=== PATIENT | male | born 1960 | race Caucasian/White ===

== ENCOUNTER 2021-04-02 15:09 | Inpatient (IN) | payer OTHER, SELFPAY ==
--- NOTE | ~2021-04-02 | CT_ITS ---
EXAMINATION: CT HEAD WITHOUT CONTRAST (STROKE PROTOCOL) CLINICAL INFORMATION: Stroke protocol. On Coumadin. Fell and hit head COMPARISON: Head CT 02/27/2018 TECHNIQUE: Contiguous axial imaging was performed from the skull base to vertex without intravenous administration of contrast. This CT examination was performed using dose optimization techniques as appropriate, variously including the following: *Automated exposure control *Adjustment of mA and/or kV according to patient size (this includes techniques or standardized protocols for targeted exams where dose is matched to indication/reason for exam; i.e. extremities or head) *Use of iterative reconstruction technique DLP: 745 mGy-cm FINDINGS: There is no intracranial hemorrhage, hematoma, or extra-axial fluid collection. The ventricles and sulci are similar in configuration to the prior study. No ventriculomegaly. Similar appearance of right occipital encephalomalacia, present previously and unchanged. No new loss of coleman-white differentiation to suggest acute large vessel territory ischemia. Similar appearance of patchy periventricular and subcortical white matter hypodensity. No mass effect or midline shift. The calvarium appears intact. There is no pneumocephalus or orbital emphysema. The visualized sinuses and middle ears and mastoid air cells show no significant mucosal thickening. There are no air-fluid levels. CT/CT head for stroke IMPRESSION: No acute intracranial pathology. This critical result was discussed with Ash Garcia MD by telephone at 04/05/2021 3:27 PM and it was ascertained that the content and urgency of the report was understood at the time of direct communication.
[2021-04-02 18:00] VITALS: BP 124/81; PULSE 85; RESP 18; TEMP 36.6; O2SAT 97
[2021-04-02 18:50] VITALS: BMI 27.2
--- NOTE | 2021-04-02 19:40 | PC.NURSE ---
Nursing admission note: Bipolar disorder with psychotic tendencies. Referred for admission by N/CARE team, patient was a direct admit from [facility]. Patient is admitted due to auditory hallucinations which are telling the patient he should kill himself. Patient denies plan but states he could go home and just cut myself, simple . Signed a conditional voluntary for admission. Alert and oriented x3, cooperative with the admission process, engages and answers questions appropriately. Affect is depressed. Patient is dressed in hospital attire. Speech is clear. Patient states he is allergic to seafood and PCN. Patient has bruising on left elbow which runs down the entire forearm, from fall during previous stay at [facility]. From notes it is indicated that the patient dislocated his elbow at the time. Patient currently rates elbow pain 5/10. Patient denies drug or alcohol use. Covid negative. Patient denies smoking history. Patient notes from [facility] indicate that he had atelectasis on his chest X-ray. Pt denies breathing difficulty at this time. Patient states that he has a visiting nurse that helps him manage his diabetes. Pt currently lives with aunt. States he feels safe at home. Denies legal entanglements at this time. Patient placed on 5 min safety checks , was oriented to dewy rose. See nursing assessment/crisis evaluation for further details.
[2021-04-02 20:46] LABS: Glucose, Whole Blood 320 mg/dL (60-115)
[2021-04-02] MEDS: traZODone HCL 100 MG TABLET 200 MG PO (20:57)
[2021-04-02] MEDS: traZODone HCL 100 MG TABLET PO (20:57)
[2021-04-02] MEDS: Insulin Lispro 100 UNIT/ML 3 ML VIAL SUBCUT (20:58)
[2021-04-02] MEDS: Gabapentin 300 MG CAPSULE PO (20:58)
[2021-04-02] MEDS: chlorproMAZINE HCl 25 MG TABLET 50 MG PO (20:58)
[2021-04-02] MEDS: OXcarbazepine 300 MG TABLET 600 MG PO (20:58)
[2021-04-02] MEDS: Insulin Glargine,Hum.rec.anlog 100 UNIT/ML 10 ML VIAL 35 UNIT SUBCUT (20:59)
[2021-04-02 21:20] VITALS: BP 130/70; PULSE 89; TEMP 36.1; O2SAT 100
[2021-04-02 21:23] VITALS: BP 130/70; PULSE 89
[2021-04-02] MEDS: carvediloL 6.25 MG TABLET PO (21:23)
[2021-04-02] MEDS: Acetaminophen 325 MG TABLET 650 MG PO (21:23)
[2021-04-02] MEDS: LORazepam 1 MG TABLET PO (21:24)
[2021-04-03] MEDS: Omeprazole 20 MG CAPSULE.DR PO (06:45)
[2021-04-03 07:17] LABS: INTERNATIONAL NORM RATIO 2.2 (0.9-1.1)
[2021-04-03 07:42] LABS: Cholesterol 112 mg/dL; Creatinine Clr Calc Pharmacy 97.4; Estimated Glomerular Filt Rate > 60; HDL Cholesterol 30 mg/dL; LDL Cholesterol Calculated 47 mg/dl; Triglycerides 179 mg/dL
[2021-04-03] MEDS: chlorproMAZINE HCl 25 MG TABLET 50 MG PO ×2 (08:45→12:29)
[2021-04-03] MEDS: Aspirin 81 MG TAB.CHEW PO (08:45)
[2021-04-03] MEDS: OXcarbazepine 300 MG TABLET 600 MG PO ×2 (08:46→20:46)
[2021-04-03] MEDS: Atorvastatin Calcium 20 MG TABLET PO (08:47)
[2021-04-03] MEDS: glipiZIDE XL 10 MG TAB.ER.24 PO (08:47)
[2021-04-03] MEDS: Cholecalciferol (Vitamin D3) 25 MCG TABLET PO (08:47)
[2021-04-03 08:48] VITALS: BP 111/64; PULSE 83
[2021-04-03] MEDS: Gabapentin 300 MG CAPSULE PO ×2 (08:48→20:47)
[2021-04-03] MEDS: carvediloL 6.25 MG TABLET PO ×2 (08:48→20:46)
[2021-04-03] MEDS: Sertraline HCL 100 MG TABLET PO (08:49)
[2021-04-03 08:50] VITALS: BP 111/64; PULSE 83; RESP 16; TEMP 36.8; O2SAT 95
[2021-04-03] MEDS: metFORMIN HCl 1,000 MG TABLET 1000 MG PO ×2 (08:52→16:43)
[2021-04-03 08:59] LABS: Glucose, Whole Blood 192 mg/dL (60-115)
[2021-04-03] MEDS: Insulin Lispro 100 UNIT/ML 3 ML VIAL SUBCUT ×3 (09:12→17:49)
--- NOTE | 2021-04-03 09:45 | P.CNHOSGPS_ITS ---
History of Present Illness Data of Consult Service Date: 04/03/21 Primary Care Provider: Aylin Jerry MD HPI Reason for consult: Routine Medical Consult This is a 60 yo M with a PMH as outlined below who is admitted to the inpatient psychiatric unit. Medical consultation requested for routine admission consult. Patient is see and examined in room his room. He reports no active medical issues. He denies any chest pain or sob. He reports feeling depressed. Review of Systems Review of Systems: General - no fevers or chills Cardiovascular - no chest pain Respiratory - no shortness of breath or cough Abdominal- no abdominal pain, nausea, vomiting, diarrhea Psych - +depression Yes all other systems are reviewed and are negative [facility] Medical History (Updated 04/03/21 @ 09:59 by Haja Jane MD) Bipolar disorder CAD (coronary artery disease) Cirrhosis History of chronic hypertension IDDM (insulin dependent diabetes mellitus) Pulmonary embolism Social History Household Members: Family Household Members Other:: Aunt Housing: Apartment Do you presently have visiting nurse or other home services: Yes Patient Tobacco Use Status: Never used Tobacco Smoked in Last 30 Days: No Patient Interested in Nicotine Replacement: No Use of substances other than those prescribed or required for medical reasons: No Currently Displaying Signs/Symptoms of Drug Intoxication Withdrawal: No Have you been hit, kicked, punched, or otherwise hurt by someone within the past year? If so, by whom?: No Do you feel safe in your current relationship?: Yes Is there a partner from a previous relationship who is making you feel unsafe now?: No Are you made to feel afraid or neglected: No Mandaeism Healthcare Practices: Patient states he is hoahaoism. Advance Directives: No Advance Directives Information Provided: No Do you have thoughts of harming others: None Do you have a plan to hurt others: No Plan Recently lost weight without trying: Yes How much weight loss: 14-23 pounds Eating poorly because of decreased appetite: Yes Nutrition screen score: 5 Nutrition Risks: Diabetes new onset/Uncontrolled Poor oral hygiene: No Meds Allergies Allergy/AdvReac Type Severity Reaction Status Date / Time Penicillins Allergy Mild RASH AND Unverified 04/12/20 17:03 NAUSEA WITH VOMITING aripiprazole [From Abilify] Allergy Unknown unknown Verified 04/02/21 19:29 temazepam [From Restoril] Allergy Unknown UNKNOWN Unverified 04/12/20 17:03 haloperidol [From Haldol] AdvReac Severe TORTICOLLIS Unverified 04/12/20 17:03 quetiapine [From Seroquel] AdvReac Unknown unknown Verified 04/02/21 19:28 SEAFOOD Allergy Severe UNKNOWN Uncoded 04/12/20 17:03 Active Medications: Current Medications Generic Name Dose Route Start Last Admin Trade Name Freq PRN Reason Stop Dose Admin Acetaminophen 650 mg 04/02/21 19:44 04/02/21 21:23 Acetaminophen 325 Mg Tablet PO 650 mg Q6H PRN Administration Headache/Pain Mild Scale (1-3) Al Hydroxide/Mg Hydroxide 30 ml 04/02/21 19:44 Magnesium Hydrox/Alum Hydrox 30 Ml Oral.Susp PO Q6H PRN Heartburn/Nausea Aspirin 81 mg 04/03/21 09:00 04/03/21 08:45 Aspirin 81 Mg Tab.Chew PO 81 mg DAILY [facility] Administration Atorvastatin Calcium 20 mg 04/03/21 09:00 04/03/21 08:47 Atorvastatin Calcium 20 Mg Tablet PO 20 mg DAILY [facility] Administration Carvedilol 6.25 mg 04/02/21 21:00 04/03/21 08:48 Carvedilol 6.25 Mg Tablet PO 6.25 mg BID [facility] Administration Protocol Chlorpromazine HCl 50 mg 04/02/21 21:00 04/03/21 08:45 Chlorpromazine Hcl 25 Mg Tablet PO 50 mg QID [facility] Administration Gabapentin 300 mg 04/02/21 21:00 04/03/21 08:48 Gabapentin 300 Mg Capsule PO 300 mg BID [facility] Administration Glipizide 10 mg 04/03/21 09:00 04/03/21 08:47 Glipizide Xl 10 Mg Tab.Er.24 PO 10 mg DAILY [facility] Administration Hydroxyzine HCl 50 mg 04/02/21 20:04 Hydroxyzine Hcl 50 Mg Tablet PO Q6H PRN anxiety Insulin Glargine 35 unit 04/02/21 21:00 04/02/21 20:59 Insulin Glargine,Hum.Rec.Anlog 100 Unit/Ml 10 Ml Vial SUBCUT 35 unit BEDTIME [facility] Administration Insulin Human Lispro 0 unit 04/02/21 21:00 04/03/21 09:12 Insulin Lispro 100 Unit/Ml 3 Ml Vial SUBCUT 2 unit QIDACHS [facility] Administration Protocol Lorazepam 1 mg 04/02/21 20:10 04/02/21 21:24 Lorazepam 1 Mg Tablet PO 1 mg DAILY PRN Administration chest pain Magnesium Hydroxide 30 ml 04/02/21 19:44 Milk Of Magnesia 30 Ml Oral.Susp PO DAILY PRN Constipation Metformin HCl 1,000 mg 04/03/21 08:00 04/03/21 08:52 Metformin Hcl 1,000 Mg Tablet PO 1,000 mg BIDWM [facility] Administration Nitroglycerin 0.4 mg 04/02/21 20:10 Nitroglycerin 0.4 Mg Tab.Subl SUBLINGUAL Q5MX3 PRN Angina Olanzapine 5 mg 04/02/21 19:58 Olanzapine 5 Mg Tablet PO BID PRN Hallucinations, agitation Omeprazole 20 mg 04/03/21 06:30 04/03/21 06:45 Omeprazole 20 Mg Capsule. PO 20 mg DAILY@0630 [facility] Administration Oxcarbazepine 600 mg 04/02/21 21:00 04/03/21 08:46 Oxcarbazepine 300 Mg Tablet PO 600 mg BID [facility] Administration Sertraline HCl 100 mg 04/03/21 09:00 04/03/21 08:49 Sertraline Hcl 100 Mg Tablet PO 100 mg DAILY [facility] Administration Trazodone HCl 200 mg 04/02/21 21:00 04/02/21 20:57 Trazodone Hcl 100 Mg Tablet PO 200 mg BEDTIME [facility] Administration Trazodone HCl 100 mg 04/02/21 21:00 04/02/21 20:57 Trazodone Hcl 100 Mg Tablet PO 100 mg BEDTIME [facility] Administration Trimethoprim/Sulfamethoxazole 1 tab 04/02/21 21:00 04/03/21 08:47 Sulfamethox/Trimeth 800/160 1 Tab Tablet PO 1 tab BID [facility] Administration Vitamin D 25 mcg 04/03/21 09:00 04/03/21 08:47 Cholecalciferol (Vitamin D3) 25 Mcg Tablet PO 25 mcg DAILY [facility] Administration Warfarin Sodium 3 mg 04/03/21 18:00 Warfarin Sodium 3 Mg Tablet PO DAILY@1800 [facility] Zolpidem Tartrate 5 mg 04/02/21 20:10 Zolpidem Tartrate 5 Mg Tablet PO BEDTIME PRN Insomnia Results Labs CBC and Chem 7: 04/03/21 06:45 Labs: Laboratory Results - last 24 hr 04/02/21 04/03/21 04/03/21 20:41 06:45 06:45 PT 26.0 H INR 2.2 H Estim Creat Clear Calc 97.4 Estimated GFR > 60 POC Glucose 320 H Triglycerides 179 Cholesterol 112 LDL Cholesterol, Calc 47 HDL Cholesterol 30 04/03/21 08:43 PT INR Estim Creat Clear Calc Estimated GFR POC Glucose 192 H Triglycerides Cholesterol LDL Cholesterol, Calc HDL Cholesterol Assessment and Plan (1) Routine medical exam: Status: Acute This is a 60 yo M with a PMH of DM, HTN, CAD, PE on coumadin, HLD, DM ne uropathy, Bipolar d/o who is admitted to the inpatient pscyhiatric unit. Medical services consulted for routine admission medical H&P. 1. DM on Lantus + sliding scale along with Metformin + Glipizide Will hold glipizide and use the other three; if his sugars remain persistently over 200-250 can add glipizide back. 2. HTN continue coreg 3. History of PE INR therapeutic, continue coumadin at current dose 4. CAD continue statin/bb/aspirin Medically stable at this time, please reconsult if any questions Physical Exam Vital Signs: Last Vital Signs Temp 98.2 F 04/03/21 08:50 Pulse 83 04/03/21 08:50 Resp 16 04/03/21 08:50 BP 111/64 04/03/21 08:50 Pulse Ox 95 04/03/21 08:50 Body Mass Index 27.2 Const Other: Constitutional - Awake and Alert, No apparent distress Eyes - PERRLA, EOMI Cardiovascular - S1S2, RRR, No edema Respiratory - Normal lung expansion, Normal respiratory effort, No respiratory distress, CTA bilaterally Gastrointestinal - NT / ND; +BS; No rebound or guarding - No CVA tenderness Extremities - no calf tenderness bilaterally, no swelling Musculoskeletal - Normal inspection, normal ROM Skin - Warm/Dry; bruising LUE Neurological - Alert & oriented x3, No focal deficit; CN 2-12 in tact Psychological - Flat affect Neuro Cranial nerves: Yes CN's II-XII intact bilaterally
[2021-04-03 12:40] LABS: Glucose, Whole Blood 196 mg/dL (60-115)
[2021-04-03] MEDS: LORazepam 1 MG TABLET PO (13:42)
[2021-04-03] MEDS: OLANZapine 5 MG TABLET PO (13:42)
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
[2021-04-03] MEDS: chlorproMAZINE HCl 100 MG TABLET PO ×3 (14:49→20:46)
--- NOTE | 2021-04-03 17:15 | MHC.CLN ---
NUTRITION CONSULT CONSULT DUE TO DIABETES AND WEIGHT LOSS. UNABLE TO VERIFY PRIOR WEIGHTS. HAS VISITING NURSE THAT HELPS WITH DIABETES MANAGEMENT. DIET CHANGED TO DIABETIC 2000 KCAL TO PROVIDE 28.6 KCAL/KG IBW. ADDED GLUCERNA 240 ML BID TO PROVIDE 474 KCAL, 20 G PROTEIN.
[2021-04-03 17:37] LABS: Glucose, Whole Blood 211 mg/dL (60-115)
[2021-04-03] MEDS: Warfarin Sodium 3 MG TABLET PO (17:49)
[2021-04-03 19:03] LABS: MANUAL DIFF FLAG NO
[2021-04-03 19:05] LABS: Basophils Percent Auto 0.6 % (0-2); Eosinophils Absolute Auto 0.1 X10*3/uL (0.0-0.4); Eosinophils Percent Auto 1.4 % (0-4); Hematocrit 32.8 % (42-52); Hemoglobin 10.5 g/dl (14.0-18.0); Imm Gran Abs Auto 0.02 X10*3/uL (0.00-0.03); Imm Gran Pct Auto 0.4 % (0.0-0.4); Lymphocytes Absolute Auto 1.1 X10*3/uL (1.2-4.9); Lymphocytes Percent Auto 22.1 % (20-40); Mean Corpuscular Hemoglobin 25.5 pg (27.0-33.0); Mean Corpuscular Volume 79.6 fL (80-98); Monocytes Absolute Auto 0.4 X10*3/uL (0.1-1.2); Neutrophils Absolute Auto 3.4 X10*3/uL (2.0-8.3); Neutrophils Percent Auto 68.5 % (45-73); Platelet Count 169 X10*3/uL (160-400); Red Blood Count 4.12 X10*6/uL (4.60-5.80); Red Cell Distribution Width 16.4 % (11.0-16.0)
[2021-04-03 19:12] LABS: Ammonia 48 umol/L (13-55); INTERNATIONAL NORM RATIO 1.9 (0.9-1.1); Prothrombin Time 21.6 SEC (9.9-13.0)
[2021-04-03 19:20] LABS: Alanine Aminotransferase 47 U/L (0-40); Albumin Level 3.9 g/dL (3.5-5.0); Alkaline Phosphatase 134 U/L (39-117); Anion Gap 14 (12-20); Aspartate Amino Transferase 40 U/L (5-37); Bilirubin Direct 0.2 mg/dL (0.0-0.5); Bilirubin Total 0.4 mg/dL (0.0-1.0); Blood Urea Nitrogen 9 mg/dL (9-16); Carbon Dioxide 22 mmol/L (22-29); Chloride 102 mmol/L (96-108); Creatinine Clr Calc Pharmacy 86.3; Estimated Glomerular Filt Rate > 60; Glucose Random 168 mg/dL (60-115); Potassium 4.5 mmol/L (3.3-5.1); Sodium 133 mmol/L (135-145); Total Protein 6.7 g/dL (6.5-8.0)
[2021-04-03 19:42] LABS: TSH reflex Free T4 1.01 uIU/mL (0.32-4.0)
[2021-04-03 19:57] LABS: Vitamin B12 352 pg/mL (200-900)
[2021-04-03 20:46] VITALS: BP 111/60; PULSE 92
[2021-04-03] MEDS: traZODone HCL 100 MG TABLET 200 MG PO (20:46)
[2021-04-03] MEDS: traZODone HCL 100 MG TABLET PO (20:47)
[2021-04-03 20:52] VITALS: BP 111/60; PULSE 92; TEMP 36.5; O2SAT 93
[2021-04-03] MEDS: Zolpidem Tartrate 5 MG TABLET PO (21:00)
[2021-04-03] MEDS: Insulin Glargine,Hum.rec.anlog 100 UNIT/ML 10 ML VIAL 35 UNIT SUBCUT (21:00)
[2021-04-03 21:10] LABS: Glucose, Whole Blood 108 mg/dL (60-115)
--- NOTE | 2021-04-04 | ECG_ITS ---
Test Reason : CHEST PAIN Blood Pressure : / mmHG Vent. Rate : 071 BPM Atrial Rate : 071 BPM P-R Int : 208 ms QRS Dur : 080 ms QT Int : 416 ms P-R-T Axes : -09 -21 014 degrees QTc Int : 452 ms Normal sinus rhythm Minimal voltage criteria for LVH, may be normal variant ( R in aVL ) Nonspecific T wave abnormality Abnormal ECG When compared with ECG of 04-MAR-2018 20:58, Nonspecific T wave abnormality now evident in Inferior leads Referred By: Jenifer Betancourt Electronically Signed By:CAROLINE BLANC
[2021-04-04] MEDS: chlorproMAZINE HCl 100 MG TABLET PO ×3 (00:21→11:40)
[2021-04-04 03:47] LABS: Glucose, Whole Blood 118 mg/dL (60-115)
[2021-04-04 07:48] LABS: INTERNATIONAL NORM RATIO 1.8 (0.9-1.1); Prothrombin Time 20.3 SEC (9.9-13.0)
[2021-04-04 08:44] VITALS: BP 131/82; PULSE 74; TEMP 36.6; O2SAT 96
[2021-04-04 09:29] VITALS: BP 131/82
[2021-04-04] MEDS: Cholecalciferol (Vitamin D3) 25 MCG TABLET PO (09:29)
[2021-04-04] MEDS: Gabapentin 300 MG CAPSULE PO ×2 (09:29→20:13)
[2021-04-04] MEDS: OXcarbazepine 300 MG TABLET 600 MG PO (09:29)
[2021-04-04] MEDS: Aspirin 81 MG TAB.CHEW PO (09:29)
[2021-04-04] MEDS: carvediloL 6.25 MG TABLET PO ×2 (09:29→20:13)
[2021-04-04] MEDS: metFORMIN HCl 1,000 MG TABLET 1000 MG PO (09:29)
[2021-04-04] MEDS: Atorvastatin Calcium 20 MG TABLET PO (09:29)
[2021-04-04] MEDS: Sertraline HCL 100 MG TABLET PO (09:30)
[2021-04-04] MEDS: Acetaminophen 325 MG TABLET 650 MG PO (11:40)
[2021-04-04] MEDS: LORazepam 1 MG TABLET 2 MG PO (13:08)
[2021-04-04 13:20] LABS: Glucose, Whole Blood 122 mg/dL (60-115)
[2021-04-04 13:27] LABS: MANUAL DIFF FLAG NO
[2021-04-04 13:29] LABS: Basophils Percent Auto 0.9 % (0-2); Eosinophils Absolute Auto 0.1 X10*3/uL (0.0-0.4); Eosinophils Percent Auto 1.2 % (0-4); Hematocrit 33.6 % (42-52); Hemoglobin 10.9 g/dl (14.0-18.0); Imm Gran Abs Auto 0.01 X10*3/uL (0.00-0.03); Imm Gran Pct Auto 0.2 % (0.0-0.4); Lymphocytes Percent Auto 23.3 % (20-40); Mean Corpuscular HGB Conc 32.4 g/dl (31.0-36.0); Mean Corpuscular Hemoglobin 25.4 pg (27.0-33.0); Mean Corpuscular Volume 78.3 fL (80-98); Mean Platelet Volume 9.5 fL (9.4-12.4); Monocytes Absolute Auto 0.3 X10*3/uL (0.1-1.2); Monocytes Percent Auto 7.9 % (2-11); Neutrophils Absolute Auto 2.9 X10*3/uL (2.0-8.3); Neutrophils Percent Auto 66.5 % (45-73); Platelet Count 200 X10*3/uL (160-400); Red Blood Count 4.29 X10*6/uL (4.60-5.80); Red Cell Distribution Width 16.4 % (11.0-16.0); White Blood Count 4.3 X10*3/uL (4.8-10.8)
[2021-04-04 13:32] LABS: Glucose, Whole Blood 196 mg/dL (60-115)
[2021-04-04] MEDS: Insulin Lispro 100 UNIT/ML 3 ML VIAL SUBCUT ×3 (13:39→22:17)
[2021-04-04 13:44] LABS: Alanine Aminotransferase 42 U/L (0-40); Albumin Level 4.1 g/dL (3.5-5.0); Alkaline Phosphatase 133 U/L (39-117); Anion Gap 14 (12-20); Aspartate Amino Transferase 38 U/L (5-37); Bilirubin Total 0.5 mg/dL (0.0-1.0); Blood Urea Nitrogen 8 mg/dL (9-16); Calcium 9.3 mg/dL (8.4-10.2); Carbon Dioxide 20 mmol/L (22-29); Chloride 100 mmol/L (96-108); Creatinine Clr Calc Pharmacy 93.8; Estimated Glomerular Filt Rate > 60; Glucose Random 179 mg/dL (60-115); Potassium 4.8 mmol/L (3.3-5.1); Sodium 129 mmol/L (135-145)
[2021-04-04 13:50] LABS: Troponin-I High Sensitivity < 3.5 ng/L (<3.5-35.0)
[2021-04-04 13:53] LABS: Lactic Acid 2.2 mmol/L (0.5-2.0)
[2021-04-04 15:27] LABS: Reflex Lactate? Lactic Acid Added
--- NOTE | 2021-04-04 16:08 | HO.PSYCHPN ---
Subjective Subjective Date of Service: 04/04/21 Reason For Visit: Bipolar depression, hallucinations, si Interim History: Pt very restless, anxious, reporting AH. He reports need to pace and move feet even when lying down. Thinks thorazine making him more anxious. Pt visible in distress. He also reports chest pain, radiating to left arm. Pt with hx of IA. Will check EKG, high sensitivity troponin. Pt appears to have akathisia, probably secondary to thorazine. Medication Compliance: Yes Attending Groups: No Review of Systems Review of Systems General - no fevers or chills Cardiovascular - no chest pain Respiratory - no shortness of breath or cough Abdominal- no abdominal pain, nausea, vomiting, diarrhea Psych - +depression Yes all other systems are reviewed and are negative Mental Status Exam Mental Status Exam Narrative: Appearance: casually groomed, fair hygiene, restless Behavior:cooperative psychomotor:restless, moving feet even when lying down Speech:clear, normal rate/volume, spontaneous Thought process:linear Thought content:reports feeling restless, anxious and hearing voices. Mood: anxious Affect: congruent SI:passive- secondary to intense sense of restlessness HI:none VH/AH:AH Delusions:none Insight/judgment:fair x 2 Memory/cog: alert, oriented x 3. Diagnostics Vital Signs (24Hr): Vital Signs - 24 hr 04/03/21 20:46 04/03/21 20:52 04/04/21 08:44 Temperature 97.7 F 98 F Pulse Rate 92 92 74 Blood Pressure 111/60 111/60 131/82 Pulse Oximetry 93 96 04/04/21 09:29 Temperature Pulse Rate Blood Pressure 131/82 Pulse Oximetry Body Mass Index 27.2 Labs Results: 04/04/21 13:10 04/04/21 13:10 Labs: Laboratory Results - last 48 hr 04/02/21 04/03/21 04/03/21 20:41 06:45 06:45 WBC RBC Hgb Hct MCV MCH MCHC RDW Plt Count MPV Immature Gran % (Auto) Neut % (Auto) Lymph % (Auto) Jay % (Auto) Eos % (Auto) Baso % (Auto) Lymph # (Auto) Jay # (Auto) Eos # (Auto) Baso # (Auto) Abs Immat Gran (auto) Absolute Neuts (auto) Absolute Nucleated RBC Nucleated RBC % (auto) PT 26.0 H INR 2.2 H Sodium Potassium Chloride Carbon Dioxide Anion Gap BUN Creatinine 0.78 Estim Creat Clear Calc 97.4 Estimated GFR > 60 POC Glucose 320 H Random Glucose Lactic Acid Calcium Total Bilirubin Direct Bilirubin AST ALT Alkaline Phosphatase Ammonia Troponin I High Sens Total Protein Albumin Triglycerides 179 Cholesterol 112 LDL Cholesterol, Calc 47 HDL Cholesterol 30 Vitamin B12 Folate [facility] 04/03/21 04/03/21 04/03/21 08:43 12:27 17:30 WBC RBC Hgb Hct MCV MCH MCHC RDW Plt Count MPV Immature Gran % (Auto) Neut % (Auto) Lymph % (Auto) Jay % (Auto) Eos % (Auto) Baso % (Auto) Lymph # (Auto) Jay # (Auto) Eos # (Auto) Baso # (Auto) Abs Immat Gran (auto) Absolute Neuts (auto) Absolute Nucleated RBC Nucleated RBC % (auto) PT INR Sodium Potassium Chloride Carbon Dioxide Anion Gap BUN Creatinine Estim Creat Clear Calc Estimated GFR POC Glucose 192 H 196 H 211 H Random Glucose Lactic Acid Calcium Total Bilirubin Direct Bilirubin AST ALT Alkaline Phosphatase Ammonia Troponin I High Sens Total Protein Albumin Triglycerides Cholesterol LDL Cholesterol, Calc HDL Cholesterol Vitamin B12 Folate [facility] 04/03/21 04/03/21 04/03/21 18:54 18:54 18:54 WBC RBC Hgb Hct MCV MCH MCHC RDW Plt Count MPV Immature Gran % (Auto) Neut % (Auto) Lymph % (Auto) Jay % (Auto) Eos % (Auto) Baso % (Auto) Lymph # (Auto) Jay # (Auto) Eos # (Auto) Baso # (Auto) Abs Immat Gran (auto) Absolute Neuts (auto) Absolute Nucleated RBC Nucleated RBC % (auto) PT 21.6 H INR 1.9 H Sodium 133 L Potassium 4.5 Chloride 102 Carbon Dioxide 22 Anion Gap 14 BUN 9 Creatinine 0.88 Estim Creat Clear Calc 86.3 Estimated GFR > 60 POC Glucose Random Glucose 168 H Lactic Acid Calcium 9.0 Total Bilirubin 0.4 Direct Bilirubin 0.2 AST 40 H ALT 47 H Alkaline Phosphatase 134 H Ammonia 48 Troponin I High Sens Total Protein 6.7 Albumin 3.9 Triglycerides Cholesterol LDL Cholesterol, Calc HDL Cholesterol Vitamin B12 Folate [facility] 04/03/21 04/03/21 04/03/21 18:54 18:54 18:54 WBC 5.0 RBC 4.12 L Hgb 10.5 L Hct 32.8 L MCV 79.6 L MCH 25.5 L MCHC 32.0 RDW 16.4 H Plt Count 169 MPV 9.0 L Immature Gran % (Auto) 0.4 Neut % (Auto) 68.5 Lymph % (Auto) 22.1 Jay % (Auto) 7.0 Eos % (Auto) 1.4 Baso % (Auto) 0.6 Lymph # (Auto) 1.1 L Jay # (Auto) 0.4 Eos # (Auto) 0.1 Baso # (Auto) 0.0 Abs Immat Gran (auto) 0.02 Absolute Neuts (auto) 3.4 Absolute Nucleated RBC 0.000 Nucleated RBC % (auto) 0.0 PT INR Sodium Potassium Chloride Carbon Dioxide Anion Gap BUN Creatinine Estim Creat Clear Calc Estimated GFR POC Glucose Random Glucose Lactic Acid Calcium Total Bilirubin Direct Bilirubin AST ALT Alkaline Phosphatase Ammonia Troponin I High Sens Total Protein Albumin Triglycerides Cholesterol LDL Cholesterol, Calc HDL Cholesterol Vitamin B12 352 Folate 5.0 TSH 1.01 04/03/21 04/04/21 04/04/21 21:02 00:14 07:27 WBC RBC Hgb Hct MCV MCH MCHC RDW Plt Count MPV Immature Gran % (Auto) Neut % (Auto) Lymph % (Auto) Jay % (Auto) Eos % (Auto) Baso % (Auto) Lymph # (Auto) Jay # (Auto) Eos # (Auto) Baso # (Auto) Abs Immat Gran (auto) Absolute Neuts (auto) Absolute Nucleated RBC Nucleated RBC % (auto) PT 20.3 H INR 1.8 H Sodium Potassium Chloride Carbon Dioxide Anion Gap BUN Creatinine Estim Creat Clear Calc Estimated GFR POC Glucose 108 118 H Random Glucose Lactic Acid Calcium Total Bilirubin Direct Bilirubin AST ALT Alkaline Phosphatase Ammonia Troponin I High Sens Total Protein Albumin Triglycerides Cholesterol LDL Cholesterol, Calc HDL Cholesterol Vitamin B12 Folate TSH 04/04/21 04/04/21 04/04/21 08:39 13:10 13:10 WBC RBC Hgb Hct MCV MCH MCHC RDW Plt Count MPV Immature Gran % (Auto) Neut % (Auto) Lymph % (Auto) Jay % (Auto) Eos % (Auto) Baso % (Auto) Lymph # (Auto) Jay # (Auto) Eos # (Auto) Baso # (Auto) Abs Immat Gran (auto) Absolute Neuts (auto) Absolute Nucleated RBC Nucleated RBC % (auto) PT INR Sodium 129 L Potassium 4.8 Chloride 100 Carbon Dioxide 20 L Anion Gap 14 BUN 8 L Creatinine 0.81 Estim Creat Clear Calc 93.8 Estimated GFR > 60 POC Glucose 122 H Random Glucose 179 H Lactic Acid Calcium 9.3 Total Bilirubin 0.5 Direct Bilirubin AST 38 H ALT 42 H Alkaline Phosphatase 133 H Ammonia Troponin I High Sens < 3.5 Total Protein 7.0 Albumin 4.1 Triglycerides Cholesterol LDL Cholesterol, Calc HDL Cholesterol Vitamin B12 Folate TSH 04/04/21 04/04/21 04/04/21 13:10 13:10 13:24 WBC 4.3 L RBC 4.29 L Hgb 10.9 L Hct 33.6 L MCV 78.3 L MCH 25.4 L MCHC 32.4 RDW 16.4 H Plt Count 200 MPV 9.5 Immature Gran % (Auto) 0.2 Neut % (Auto) 66.5 Lymph % (Auto) 23.3 Jay % (Auto) 7.9 Eos % (Auto) 1.2 Baso % (Auto) 0.9 Lymph # (Auto) 1.0 L Jay # (Auto) 0.3 Eos # (Auto) 0.1 Baso # (Auto) 0.0 Abs Immat Gran (auto) 0.01 Absolute Neuts (auto) 2.9 Absolute Nucleated RBC 0.000 Nucleated RBC % (auto) 0.0 PT INR Sodium Potassium Chloride Carbon Dioxide Anion Gap BUN Creatinine Estim Creat Clear Calc Estimated GFR POC Glucose 196 H Random Glucose Lactic Acid 2.2 H* Calcium Total Bilirubin Direct Bilirubin AST ALT Alkaline Phosphatase Ammonia Troponin I High Sens Total Protein Albumin Triglycerides Cholesterol LDL Cholesterol, Calc HDL Cholesterol Vitamin B12 Folate TSH Medications Medications Current Medications Generic Name Dose Route Start Last Admin Trade Name Freq PRN Reason Stop Dose Admin Acetaminophen 650 mg 04/02/21 19:44 04/04/21 11:40 Acetaminophen 325 Mg Tablet PO 650 mg Q6H PRN Administration Headache/Pain Mild Scale (1-3) Al Hydroxide/Mg Hydroxide 30 ml 04/02/21 19:44 Magnesium Hydrox/Alum Hydrox 30 Ml Oral.Susp PO Q6H PRN Heartburn/Nausea Aspirin 81 mg 04/03/21 09:00 04/04/21 09:29 Aspirin 81 Mg Tab.Chew PO 81 mg DAILY [facility] Administration Atorvastatin Calcium 20 mg 04/03/21 09:00 04/04/21 09:29 Atorvastatin Calcium 20 Mg Tablet PO 20 mg DAILY [facility] Administration Carvedilol 6.25 mg 04/02/21 21:00 04/04/21 09:29 Carvedilol 6.25 Mg Tablet PO 6.25 mg BID [facility] Administration Protocol Gabapentin 300 mg 04/02/21 21:00 04/04/21 09:29 Gabapentin 300 Mg Capsule PO 300 mg BID [facility] Administration Insulin Glargine 35 unit 04/02/21 21:00 04/03/21 21:00 Insulin Glargine,Hum.Rec.Anlog 100 Unit/Ml 10 Ml Vial SUBCUT 35 unit BEDTIME [facility] Administration Insulin Human Lispro 0 unit 04/02/21 21:00 04/04/21 13:39 Insulin Lispro 100 Unit/Ml 3 Ml Vial SUBCUT 2 unit QIDACHS [facility] Administration Protocol Magnesium Hydroxide 30 ml 04/02/21 19:44 Milk Of Magnesia 30 Ml Oral.Susp PO DAILY PRN Constipation Nitroglycerin 0.4 mg 04/02/21 20:10 Nitroglycerin 0.4 Mg Tab.Subl SUBLINGUAL Q5MX3 PRN Angina Omeprazole 20 mg 04/03/21 06:30 04/04/21 08:49 Omeprazole 20 Mg Capsule.Dr PO Not Given DAILY@0630 [facility] Risperidone 1 mg 04/04/21 21:00 Risperidone 1 Mg Tablet PO BID [facility] Sertraline HCl 50 mg 04/05/21 09:00 Sertraline Hcl 50 Mg Tablet PO DAILY [facility] Trazodone HCl 200 mg 04/02/21 21:00 04/03/21 20:46 Trazodone Hcl 100 Mg Tablet PO 200 mg BEDTIME [facility] Administration Trazodone HCl 100 mg 04/02/21 21:00 04/03/21 20:47 Trazodone Hcl 100 Mg Tablet PO 100 mg BEDTIME [facility] Administration Trimethoprim/Sulfamethoxazole 1 tab 04/02/21 21:00 04/04/21 09:29 Sulfamethox/Trimeth 800/160 1 Tab Tablet PO 1 tab BID [facility] Administration Vitamin D 25 mcg 04/03/21 09:00 04/04/21 09:29 Cholecalciferol (Vitamin D3) 25 Mcg Tablet PO 25 mcg DAILY [facility] Administration Warfarin Sodium 3 mg 04/03/21 18:00 04/03/21 17:49 Warfarin Sodium 3 Mg Tablet PO 3 mg DAILY@1800 [facility] Administration Allergies Allergies Allergy/AdvReac Type Severity Reaction Status Date / Time Penicillins Allergy Mild RASH AND Unverified 04/12/20 17:03 NAUSEA WITH VOMITING aripiprazole [From Abilify] Allergy Unknown unknown Verified 04/02/21 19:29 temazepam [From Restoril] Allergy Unknown UNKNOWN Unverified 04/12/20 17:03 haloperidol [From Haldol] AdvReac Severe dystonia Unverified 04/04/21 12:44 quetiapine [From Seroquel] AdvReac Unknown unknown Verified 04/02/21 19:28 SEAFOOD Allergy Severe UNKNOWN Uncoded 04/12/20 17:03 Assessment & Plan Assessment & Plan (1) Schizoaffective disorder, bipolar type: Status: Acute Code(s): F25.0 - Schizoaffective disorder, bipolar type (2) Polysubstance dependence in controlled environment: Status: Acute Code(s): F19.20 - Other psychoactive substance dependence, uncomplicated (3) IDDM (insulin dependent diabetes mellitus): Status: Acute Assessment and Plan: This is a 60 yo M with a PMH of DM, HTN, CAD, PE on coumadin, HLD, DM neuropathy, Bipolar d/o who is admitted to the inpatient pscyhiatric unit. Medical services consulted for routine admission medical H&P. 1. DM on Lantus + sliding scale along Will hold glipizide and use the other three; if his sugars remain persistently over 200-250 can add glipizide back. On 04/04/21 elevated lactic acid- will hold metformin 2. HTN continue coreg 3. History of PE INR therapeutic, continue coumadin at current dose 4. CAD continue statin/bb/aspirin 5. Schizoaffective Disorder 1. Pt with liver cirrhosis, on thorazine which is highly metabolized by liver- concern of increase risk for pancytopenia- cbc today does show low WBC. Also suspect that pt has some degree of akathisia- need to move feet, subjective feeling of restlessness, worsening when receiving thorazine and worse at night. Will start risperidone for voices as less metabolism through liver, less akathisia and d/c thorazine 2. Pt reported on 04/04 chest pain- completed EKG and high sensitivity troponin <3.5. 3. Lactic acid elevated- stop metformin, repeat lactic acid per protocol 4. hyponatremia (04/04 129)- hyperglycemia (179) present- corrected sodium level is about 131. Pt on trileptal- will hold for now and recheck tomorrow, fluid restriction 1800cc. Cirrhosis- hypervolemic hyponatremia? Greater than 50% of the session was spent on counseling and/or coordination of care Reason for contiued inpatient stay Substantial Risk for: harm to self
[2021-04-04 16:15] LABS: ~Lactic Acid-LAB USE ONLY 1.9 mmol/L (0.5-2.0)
[2021-04-04 17:42] LABS: Glucose, Whole Blood 158 mg/dL (60-115)
[2021-04-04] MEDS: Warfarin Sodium 3 MG TABLET PO (17:49)
[2021-04-04 18:00] VITALS: BP 126/80; PULSE 86; RESP 18; TEMP 36.1; O2SAT 94
[2021-04-04 20:13] VITALS: BP 126/80; PULSE 97
[2021-04-04] MEDS: traZODone HCL 100 MG TABLET 200 MG PO (20:13)
[2021-04-04] MEDS: traZODone HCL 100 MG TABLET PO (20:13)
[2021-04-04] MEDS: risperiDONE 1 MG TABLET PO (20:27)
[2021-04-04] MEDS: Zolpidem Tartrate 5 MG TABLET PO ×2 (20:49→21:47)
[2021-04-04 21:52] LABS: Glucose, Whole Blood 169 mg/dL (60-115)
[2021-04-04] MEDS: Insulin Glargine,Hum.rec.anlog 100 UNIT/ML 10 ML VIAL 35 UNIT SUBCUT (22:16)
[2021-04-05] VITALS (17 sets, daily range): BP systolic 100–199; BP diastolic 53–95; PULSE 72–98; RESP 16–18; TEMP 36.5–36.7; O2SAT 97–100
--- NOTE | 2021-04-05 | ECG_ITS ---
Test Reason : CHEST PAIN Blood Pressure : / mmHG Vent. Rate : 084 BPM Atrial Rate : 084 BPM P-R Int : 182 ms QRS Dur : 088 ms QT Int : 396 ms P-R-T Axes : 021 -14 045 degrees QTc Int : 467 ms Normal sinus rhythm Possible Left atrial enlargement Left ventricular hypertrophy Anterior infarct , age undetermined Nonspecific T wave abnormality Abnormal ECG When compared with ECG of 04-APR-2021 13:42, No significant change was found Referred By: Kasie Green Electronically Signed By:CAROLINE BLANC
[2021-04-05] MEDS: Acetaminophen 325 MG TABLET 650 MG PO ×2 (02:10→11:18)
[2021-04-05] MEDS: Magnesium Hydrox/Alum Hydrox 30 ML ORAL.SUSP PO (03:03)
[2021-04-05 03:25] LABS: Glucose, Whole Blood 121 mg/dL (60-115)
[2021-04-05] MEDS: Nitroglycerin 0.4 MG TAB.SUBL SUBLINGUAL ×3 (03:33→10:49)
[2021-04-05] MEDS: LORazepam 1 MG TABLET PO (04:34)
--- NOTE | 2021-04-05 06:49 | PC.NURSE ---
originally given medication at 2030 pt when to bed around 2100 woke up at 0000 looking for sleeping medication, pt encouraged to lay in bed for some time to induce sleep, night light in patient's room was covered. Pt came back 1 hr later stating still isn't sleeping requesting medication, call taker notified. stated couldn't give pt more medication due to pt already having taken a lot. Pt was notified, that SHIPPING MANAGER can't safely order sleeping medication. Went back to room. Came back about 1hr later asking for sleep meds. Pt offered Tylenol, asked if he has pain, denied pain but stated to feel discomfort. Given Tylenol, 15 mins later pt returns stating he has chest pain 03/05, stated it wasn't anxiety. asked when it started stated 1hr ago Vitals taken 133/86 96% 97.3 75 HR. call taker Performance Engineer notified, due to pt having multiple complaints recently and having non concerning ECG completed 04/04/2021 Performance Engineer stated to encourage pt to sit up. Maalox given. Pt did went back to bed but returned 15 mins later, unwitnessed fall, stated to have fallen on right rm. Vitals taken bp high 151/78 but recheck 135/76. On-call notified Pt was complaining of chest pain 05/05, notified pt was given Nitro x2 per-order and Ativan, EKG completed stat no concerning results. Went to bed at 4:30am currently laying in bed with eyes closed. Normal respirations, Will continue to monitor and offer support as needed.
[2021-04-05 07:36] LABS: Estimated Average Glucose 154 mg/dL
[2021-04-05 07:42] LABS: Anion Gap 13 (12-20); Blood Urea Nitrogen 10 mg/dL (9-16); Calcium 9.1 mg/dL (8.4-10.2); Carbon Dioxide 21 mmol/L (22-29); Chloride 98 mmol/L (96-108); Cholesterol 116 mg/dL; Creatinine Clr Calc Pharmacy 97.4; Estimated Glomerular Filt Rate > 60; Glucose Random 126 mg/dL (60-115); HDL Cholesterol 39 mg/dL; LDL Cholesterol Calculated 56 mg/dl; Potassium 4.7 mmol/L (3.3-5.1); Sodium 127 mmol/L (135-145); Triglycerides 108 mg/dL
[2021-04-05 08:33] LABS: INTERNATIONAL NORM RATIO 2.2 (0.9-1.1); Prothrombin Time 24.9 SEC (9.9-13.0)
[2021-04-05] MEDS: Omeprazole 20 MG CAPSULE.DR PO (09:53)
[2021-04-05] MEDS: risperiDONE 1 MG TABLET PO ×4 (09:53→20:13)
[2021-04-05] MEDS: Sertraline HCL 50 MG TABLET PO (09:53)
[2021-04-05] MEDS: Aspirin 81 MG TAB.CHEW PO (09:53)
[2021-04-05] MEDS: Atorvastatin Calcium 20 MG TABLET PO (09:53)
[2021-04-05] MEDS: Cholecalciferol (Vitamin D3) 25 MCG TABLET PO (09:53)
[2021-04-05] MEDS: Gabapentin 300 MG CAPSULE PO ×2 (09:53→20:13)
[2021-04-05] MEDS: carvediloL 6.25 MG TABLET PO (09:54)
[2021-04-05 11:33] LABS: Glucose, Whole Blood 164 mg/dL (60-115)
[2021-04-05] MEDS: Insulin Lispro 100 UNIT/ML 3 ML VIAL SUBCUT ×3 (12:00→21:14)
--- NOTE | 2021-04-05 14:35 | P.PNPSI_ITS ---
Subjective Subjective Date of Service: 04/05/21 Reason For Visit: Bipolar depression, hallucinations, si Interim History: pt states he continues to experience AH, which are quite distressing. nevertheless he focuses on his problem as anxiety and reports the thorazine wasn't helping. he asks for ativan by name at least twice during the interview and appears upset to have the request declined. MD offers to increase risperidone for his AH/anxiety, and pt accepts. he requests a dose urgently, and one is prescribed. during the interview pt requests discharge to home. MD informs pt this is not likely to happen until next week and then informs SW of the request. later in the afternoon, MD is informed by staff that pt had a witnessed, controlled fall where he braced himself and bumped his head on the floor. MD evaluated pt who stated he blacked out while sitting on the edge of the bed. he c/o headache in the right frontal area, which is where he reported the impact with the floor occurred. per RN, pt had been saying last night that he wanted to be transferred to a medical floor. per staff, pt was up most fo the night c/o VH and AH. restless, poor sleep. received extra ambien. described as hanging off chair moaning. got an ativan which quickly remedied agitated behaviors. Mental Status Exam Mental Status Exam Narrative: dressed in [facility]. disheveled. cooperative. without PMA or PMR. speech lisped and soft, nml amount and rate, nml latency. thoughts linear and logical without evidence of delusions or paranoia. affect constricted, consistent with context, normo-intense, non-labile. reports AVH. Diagnostics Vital Signs (24Hr): Vital Signs - 24 hr 04/04/21 18:00 04/04/21 20:13 04/05/21 03:33 Temperature 97.0 F Pulse Rate 86 97 80 Respiratory Rate 18 Blood Pressure 126/80 126/80 134/95 H Pulse Oximetry 94 04/05/21 03:45 04/05/21 06:00 04/05/21 09:54 Temperature 98.0 F Pulse Rate 80 94 94 Respiratory Rate 18 Blood Pressure 134/95 H 150/80 H 150/80 H Pulse Oximetry 97 04/05/21 10:49 04/05/21 13:30 04/05/21 13:36 Temperature 97.7 F 97.7 F Pulse Rate 90 83 79 Respiratory Rate 16 16 Blood Pressure 138/87 108/53 L Pulse Oximetry 100 100 Body Mass Index 27.2 Labs Results: 04/04/21 13:10 04/05/21 06:51 Labs: Laboratory Results - last 48 hr 04/03/21 04/03/21 04/03/21 17:30 18:54 18:54 WBC RBC Hgb Hct MCV MCH MCHC RDW Plt Count MPV Immature Gran % (Auto) Neut % (Auto) Lymph % (Auto) [place] % (Auto) Eos % (Auto) Baso % (Auto) Lymph # (Auto) [place] # (Auto) Eos # (Auto) Baso # (Auto) Abs Immat Gran (auto) Absolute Neuts (auto) Absolute Nucleated RBC Nucleated RBC % (auto) PT 21.6 H INR 1.9 H Sodium 133 L Potassium 4.5 Chloride 102 Carbon Dioxide 22 Anion Gap 14 BUN 9 Creatinine 0.88 Estim Creat Clear Calc 86.3 Estimated GFR > 60 POC Glucose 211 H Random Glucose 168 H Estimat Average Glucose Hemoglobin A1c % Lactic Acid Lactic Acid Fup @ 2Hr Calcium 9.0 Total Bilirubin 0.4 Direct Bilirubin 0.2 AST 40 H ALT 47 H Alkaline Phosphatase 134 H Ammonia Troponin I High Sens Total Protein 6.7 Albumin 3.9 Triglycerides Cholesterol LDL Cholesterol, Calc HDL Cholesterol Vitamin B12 Folate TSH 04/03/21 04/03/21 04/03/21 18:54 18:54 18:54 WBC RBC Hgb Hct MCV MCH MCHC RDW Plt Count MPV Immature Gran % (Auto) Neut % (Auto) Lymph % (Auto) [place] % (Auto) Eos % (Auto) Baso % (Auto) Lymph # (Auto) [place] # (Auto) Eos # (Auto) Baso # (Auto) Abs Immat Gran (auto) Absolute Neuts (auto) Absolute Nucleated RBC Nucleated RBC % (auto) PT INR Sodium Potassium Chloride Carbon Dioxide Anion Gap BUN Creatinine Estim Creat Clear Calc Estimated GFR POC Glucose Random Glucose Estimat Average Glucose Hemoglobin A1c % Lactic Acid Lactic Acid Fup @ 2Hr Calcium Total Bilirubin Direct Bilirubin AST ALT Alkaline Phosphatase Ammonia 48 Troponin I High Sens Total Protein Albumin Triglycerides Cholesterol LDL Cholesterol, Calc HDL Cholesterol Vitamin B12 352 Folate 5.0 TSH 1.01 04/03/21 04/03/21 04/04/21 18:54 21:02 00:14 WBC 5.0 RBC 4.12 L Hgb 10.5 L Hct 32.8 L MCV 79.6 L MCH 25.5 L MCHC 32.0 RDW 16.4 H Plt Count 169 MPV 9.0 L Immature Gran % (Auto) 0.4 Neut % (Auto) 68.5 Lymph % (Auto) 22.1 [place] % (Auto) 7.0 Eos % (Auto) 1.4 Baso % (Auto) 0.6 Lymph # (Auto) 1.1 L [place] # (Auto) 0.4 Eos # (Auto) 0.1 Baso # (Auto) 0.0 Abs Immat Gran (auto) 0.02 Absolute Neuts (auto) 3.4 Absolute Nucleated RBC 0.000 Nucleated RBC % (auto) 0.0 PT INR Sodium Potassium Chloride Carbon Dioxide Anion Gap BUN Creatinine Estim Creat Clear Calc Estimated GFR POC Glucose 108 118 H Random Glucose Estimat Average Glucose Hemoglobin A1c % Lactic Acid Lactic Acid Fup @ 2Hr Calcium Total Bilirubin Direct Bilirubin AST ALT Alkaline Phosphatase Ammonia Troponin I High Sens Total Protein Albumin Triglycerides Cholesterol LDL Cholesterol, Calc HDL Cholesterol Vitamin B12 Folate [facility] 04/04/21 04/04/21 04/04/21 07:27 08:39 13:10 WBC RBC Hgb Hct MCV MCH MCHC RDW Plt Count MPV Immature Gran % (Auto) Neut % (Auto) Lymph % (Auto) [place] % (Auto) Eos % (Auto) Baso % (Auto) Lymph # (Auto) [place] # (Auto) Eos # (Auto) Baso # (Auto) Abs Immat Gran (auto) Absolute Neuts (auto) Absolute Nucleated RBC Nucleated RBC % (auto) PT 20.3 H INR 1.8 H Sodium Potassium Chloride Carbon Dioxide Anion Gap BUN Creatinine Estim Creat Clear Calc Estimated GFR POC Glucose 122 H Random Glucose Estimat Average Glucose Hemoglobin A1c % Lactic Acid Lactic Acid Fup @ 2Hr Calcium Total Bilirubin Direct Bilirubin AST ALT Alkaline Phosphatase Ammonia Troponin I High Sens < 3.5 Total Protein Albumin Triglycerides Cholesterol LDL Cholesterol, Calc HDL Cholesterol Vitamin B12 Folate [facility] 04/04/21 04/04/21 04/04/21 13:10 13:10 13:10 WBC 4.3 L RBC 4.29 L Hgb 10.9 L Hct 33.6 L MCV 78.3 L MCH 25.4 L MCHC 32.4 RDW 16.4 H Plt Count 200 MPV 9.5 Immature Gran % (Auto) 0.2 Neut % (Auto) 66.5 Lymph % (Auto) 23.3 [place] % (Auto) 7.9 Eos % (Auto) 1.2 Baso % (Auto) 0.9 Lymph # (Auto) 1.0 L [place] # (Auto) 0.3 Eos # (Auto) 0.1 Baso # (Auto) 0.0 Abs Immat Gran (auto) 0.01 Absolute Neuts (auto) 2.9 Absolute Nucleated RBC 0.000 Nucleated RBC % (auto) 0.0 PT INR Sodium 129 L Potassium 4.8 Chloride 100 Carbon Dioxide 20 L Anion Gap 14 BUN 8 L Creatinine 0.81 Estim Creat Clear Calc 93.8 Estimated GFR > 60 POC Glucose Random Glucose 179 H Estimat Average Glucose Hemoglobin A1c % Lactic Acid 2.2 H* Lactic Acid Fup @ 2Hr Calcium 9.3 Total Bilirubin 0.5 Direct Bilirubin AST 38 H ALT 42 H Alkaline Phosphatase 133 H Ammonia Troponin I High Sens Total Protein 7.0 Albumin 4.1 Triglycerides Cholesterol LDL Cholesterol, Calc HDL Cholesterol Vitamin B12 Folate [facility] 04/04/21 04/04/21 04/04/21 13:24 15:56 17:37 WBC RBC Hgb Hct MCV MCH MCHC RDW Plt Count MPV Immature Gran % (Auto) Neut % (Auto) Lymph % (Auto) [place] % (Auto) Eos % (Auto) Baso % (Auto) Lymph # (Auto) [place] # (Auto) Eos # (Auto) Baso # (Auto) Abs Immat Gran (auto) Absolute Neuts (auto) Absolute Nucleated RBC Nucleated RBC % (auto) PT INR Sodium Potassium Chloride Carbon Dioxide Anion Gap BUN Creatinine Estim Creat Clear Calc Estimated GFR POC Glucose 196 H 158 H Random Glucose Estimat Average Glucose Hemoglobin A1c % Lactic Acid Lactic Acid Fup @ 2Hr 1.9 Calcium Total Bilirubin Direct Bilirubin AST ALT Alkaline Phosphatase Ammonia Troponin I High Sens Total Protein Albumin Triglycerides Cholesterol LDL Cholesterol, Calc HDL Cholesterol Vitamin B12 Folate [facility] 04/04/21 04/05/21 04/05/21 21:45 03:22 06:51 WBC RBC Hgb Hct MCV MCH MCHC RDW Plt Count MPV Immature Gran % (Auto) Neut % (Auto) Lymph % (Auto) [place] % (Auto) Eos % (Auto) Baso % (Auto) Lymph # (Auto) [place] # (Auto) Eos # (Auto) Baso # (Auto) Abs Immat Gran (auto) Absolute Neuts (auto) Absolute Nucleated RBC Nucleated RBC % (auto) PT INR Sodium 127 L Potassium 4.7 Chloride 98 Carbon Dioxide 21 L Anion Gap 13 BUN 10 Creatinine 0.78 Estim Creat Clear Calc 97.4 Estimated GFR > 60 POC Glucose 169 H 121 H Random Glucose 126 H Estimat Average Glucose Hemoglobin A1c % Lactic Acid Lactic Acid Fup @ 2Hr Calcium 9.1 Total Bilirubin Direct Bilirubin AST ALT Alkaline Phosphatase Ammonia Troponin I High Sens Total Protein Albumin Triglycerides 108 Cholesterol 116 LDL Cholesterol, Calc 56 HDL Cholesterol 39 D Vitamin B12 Folate TSH 04/05/21 04/05/21 04/05/21 06:51 08:20 11:29 WBC RBC Hgb Hct MCV MCH MCHC RDW Plt Count MPV Immature Gran % (Auto) Neut % (Auto) Lymph % (Auto) [place] % (Auto) Eos % (Auto) Baso % (Auto) Lymph # (Auto) [place] # (Auto) Eos # (Auto) Baso # (Auto) Abs Immat Gran (auto) Absolute Neuts (auto) Absolute Nucleated RBC Nucleated RBC % (auto) PT 24.9 H D INR 2.2 H Sodium Potassium Chloride Carbon Dioxide Anion Gap BUN Creatinine Estim Creat Clear Calc Estimated GFR POC Glucose 164 H Random Glucose Estimat Average Glucose 154 Hemoglobin A1c % 7.0 Lactic Acid Lactic Acid Fup @ 2Hr Calcium Total Bilirubin Direct Bilirubin AST ALT Alkaline Phosphatase Ammonia Troponin I High Sens Total Protein Albumin Triglycerides Cholesterol LDL Cholesterol, Calc HDL Cholesterol Vitamin B12 Folate TSH Medications Medications Current Medications Generic Name Dose Route Start Last Admin Trade Name Freq PRN Reason Stop Dose Admin Acetaminophen 650 mg 04/02/21 19:44 04/05/21 11:18 Acetaminophen 325 Mg Tablet PO 650 mg Q6H PRN Administration Headache/Pain Mild Scale (1-3) Al Hydroxide/Mg Hydroxide 30 ml 04/02/21 19:44 04/05/21 03:03 Magnesium Hydrox/Alum Hydrox 30 Ml Oral.Susp PO 30 ml Q6H PRN Administration Heartburn/Nausea Aspirin 81 mg 04/03/21 09:00 04/05/21 09:53 Aspirin 81 Mg Tab.Chew PO 81 mg DAILY [facility] Administration Atorvastatin Calcium 20 mg 04/03/21 09:00 04/05/21 09:53 Atorvastatin Calcium 20 Mg Tablet PO 20 mg DAILY [facility] Administration Carvedilol 6.25 mg 04/02/21 21:00 04/05/21 09:54 Carvedilol 6.25 Mg Tablet PO 6.25 mg BID [facility] Administration Protocol Gabapentin 300 mg 04/02/21 21:00 04/05/21 09:53 Gabapentin 300 Mg Capsule PO 300 mg BID [facility] Administration Insulin Glargine 35 unit 04/02/21 21:00 04/04/21 22:16 Insulin Glargine,Hum.Rec.Anlog 100 Unit/Ml 10 Ml Vial SUBCUT 35 unit BEDTIME [facility] Administration Insulin Human Lispro 0 unit 04/02/21 21:00 04/05/21 07:48 Insulin Lispro 100 Unit/Ml 3 Ml Vial SUBCUT Not Given QIDACHS [facility] Protocol Magnesium Hydroxide 30 ml 04/02/21 19:44 Milk Of Magnesia 30 Ml Oral.Susp PO DAILY PRN Constipation Nitroglycerin 0.4 mg 04/02/21 20:10 04/05/21 10:49 Nitroglycerin 0.4 Mg Tab.Subl SUBLINGUAL 0.4 mg Q5MX3 PRN Administration Angina Omeprazole 20 mg 04/03/21 06:30 04/05/21 09:53 Omeprazole 20 Mg Capsule.Dr PO 20 mg DAILY@0630 [facility] Administration Risperidone 1 mg 04/05/21 15:00 Risperidone 1 Mg Tablet PO TID [facility] Sertraline HCl 100 mg 04/06/21 09:00 Sertraline Hcl 50 Mg Tablet PO DAILY [facility] Trazodone HCl 200 mg 04/02/21 21:00 04/04/21 20:13 Trazodone Hcl 100 Mg Tablet PO 200 mg BEDTIME [facility] Administration Trazodone HCl 100 mg 04/02/21 21:00 04/04/21 20:13 Trazodone Hcl 100 Mg Tablet PO 100 mg BEDTIME [facility] Administration Trimethoprim/Sulfamethoxazole 1 tab 04/02/21 21:00 04/05/21 09:53 Sulfamethox/Trimeth 800/160 1 Tab Tablet PO 1 tab BID [facility] Administration Vitamin D 25 mcg 04/03/21 09:00 04/05/21 09:53 Cholecalciferol (Vitamin D3) 25 Mcg Tablet PO 25 mcg DAILY [facility] Administration Warfarin Sodium 3 mg 04/03/21 18:00 04/04/21 17:49 Warfarin Sodium 3 Mg Tablet PO 3 mg DAILY@1800 [facility] Administration Zolpidem Tartrate 5 mg 04/04/21 20:39 04/04/21 21:47 Zolpidem Tartrate 5 Mg Tablet PO 5 mg BEDTIME PRN Administration Insomnia Allergies Allergies Allergy/AdvReac Type Severity Reaction Status Date / Time Penicillins Allergy Mild RASH AND Unverified 04/12/20 17:03 NAUSEA WITH VOMITING aripiprazole [From Abilify] Allergy Unknown unknown Verified 04/02/21 19:29 temazepam [From Restoril] Allergy Unknown UNKNOWN Unverified 04/12/20 17:03 haloperidol [From Haldol] AdvReac Severe dystonia Unverified 04/04/21 12:44 quetiapine [From Seroquel] AdvReac Unknown unknown Verified 04/02/21 19:28 SEAFOOD Allergy Severe UNKNOWN Uncoded 04/12/20 17:03 Assessment & Plan Assessment & Plan (1) Schizoaffective disorder, bipolar type: Status: Acute Code(s): F25.0 - Schizoaffective disorder, bipolar type (2) Polysubstance dependence in controlled environment: Status: Acute Code(s): F19.20 - Other psychoactive substance dependence, uncomplicated (3) IDDM (insulin dependent diabetes mellitus): Status: Acute Assessment and Plan: This is a 60 yo M with a PMH of DM, HTN, CAD, PE on coumadin, HLD, DM neuropathy, Bipolar d/o who is admitted to the inpatient pscyhiatric unit. Medical services consulted for routine admission medical H&P. 1. DM on Lantus + sliding scale along Will hold glipizide and use the other three; if his sugars remain persistently over 200-250 can add glipizide back. On 04/04/21 elevated lactic acid- will hold metformin 2. HTN continue coreg 3. History of PE INR therapeutic, continue coumadin at current dose 4. CAD continue statin/bb/aspirin 5. Schizoaffective Disorder 1. Pt with liver cirrhosis, on thorazine which is highly metabolized by liver- concern of increase risk for pancytopenia- cbc today does show low WBC. Also suspect that pt has some degree of akathisia- need to move feet, subjective feeling of restlessness, worsening when receiving thorazine and worse at night. Will start risperidone for voices as less metabolism through liver, less akathisia and d/c thorazine 2. Pt reported on 04/04 chest pain- completed EKG and high sensitivity troponin <3.5. 3. Lactic acid elevated- stop metformin, repeat lactic acid per protocol 4. hyponatremia (04/04 129)- hyperglycemia (179) present- corrected sodium level is about 131. Pt on trileptal- will hold for now, fluid restriction 1800cc. Cirrhosis- hypervolemic hyponatremia? 04/05 Na level 127; downtrending with trileptal being held. medicine consultants aware and will investigate. 6. fall with head contacting the floor - head CT ordered - CNII-XII intact on exam 04/05 after the fall. anisocoria R > L assumed to be chronic. alert, oriented. low suspicious of stroke but CT results pending. Greater than 50% of the session was spent on counseling and/or coordination of care Reason for contiued inpatient stay Substantial Risk for: harm to self, inability to function and rapid decompensation
--- NOTE | 2021-04-05 15:29 | PM.EVENT ---
Event Note Date of Service: 04/05/21 Event Note: Hospitalist F/U Asked to see the patient in follow up for multiple issues. Patient apparently had a mechanical fall and for which he was able to brace himself. He complained of a SANTIAGO when I saw him. Furthermore, the patients SNa has decreased daily. S Patient is seen and examined in his room. He has just returned from CT brain after the fall. O Vitals - last documented Gen - appears comfortable, but with a flat affect HEENT - no bleeding noted CVS - S1S2 Lungs - no distress Abd - non tender Neuro - non-focal Psych - flat affect A/P 60 yo M being treated on the inpatient psych unit. Medical follow up with evaluation of hypoNa and recent fall. HypoNa check urine studies -- urine Sodium, lytes will start fluid restriction of 1.5L daily (let the staff internist office based only on M3 know) check SNa tomorrow -- if this continues to decline, may need nephrology evaluation and if below 125, likely will need transfer to the medical floor Patient is also on Sertraline -- if SNa continues to decline, may need to consider an alternative agent Fall no reports of loss of consciousness will check orthostatic vitals - IVF if positive. CT head pending, but Someone from the hospitalist team will follow up tomorrow.
[2021-04-05] MEDS: 0.9 % Sodium Chloride 1,000 ML 250 ML IVCONT (16:24)
[2021-04-05 18:09] LABS: Glucose, Whole Blood 219 mg/dL (60-115)
[2021-04-05] MEDS: Warfarin Sodium 3 MG TABLET PO (18:40)
[2021-04-05 19:01] LABS: Osmolality Urine 362 mosm/kg (373-1093)
[2021-04-05 19:09] LABS: Potassium Urine Random 25.5 mmol/L
[2021-04-05] MEDS: traZODone HCL 100 MG TABLET 200 MG PO (20:12)
[2021-04-05] MEDS: traZODone HCL 100 MG TABLET PO (20:12)
[2021-04-05 20:53] LABS: Glucose, Whole Blood 212 mg/dL (60-115)
[2021-04-05] MEDS: Insulin Glargine,Hum.rec.anlog 100 UNIT/ML 10 ML VIAL 35 UNIT SUBCUT (21:14)
[2021-04-05] MEDS: Zolpidem Tartrate 5 MG TABLET PO (22:44)
[2021-04-05] MEDS: hydrOXYzine HCL 25 MG TABLET PO (23:16)
[2021-04-05] MEDS: Melatonin 3 MG TABLET 6 MG PO (23:16)
[2021-04-06 01:00] VITALS: BP 123/69; PULSE 90
--- NOTE | 2021-04-06 01:01 | PC.NURSE ---
hospitalist notified of ortho., given update on patient status via tiger text.
--- NOTE | 2021-04-06 01:03 | PC.NURSE ---
clarification of VS at 2302 on 04/05/21: l 124/64, 85. sit 123/96, 90. stand 119/74,96. hospitalist notified via tiger text.
[2021-04-06 03:00] VITALS: BP 115/63; BP 133/80; PULSE 84; PULSE 93
[2021-04-06 07:44] LABS: Hematocrit 34.6 % (42-52); Hemoglobin 11.5 g/dl (14.0-18.0); Mean Corpuscular HGB Conc 33.2 g/dl (31.0-36.0); Mean Corpuscular Hemoglobin 25.7 pg (27.0-33.0); Mean Corpuscular Volume 77.2 fL (80-98); Mean Platelet Volume 9.5 fL (9.4-12.4); Platelet Count 213 X10*3/uL (160-400); Red Blood Count 4.48 X10*6/uL (4.60-5.80); Red Cell Distribution Width 16.7 % (11.0-16.0)
[2021-04-06 07:52] LABS: INTERNATIONAL NORM RATIO 2.3 (0.9-1.1); Prothrombin Time 26.4 SEC (9.9-13.0)
[2021-04-06 07:55] VITALS: BP 100/67; BP 123/72; PULSE 101; PULSE 93; RESP 18; TEMP 36.7; O2SAT 93; O2SAT 96
[2021-04-06 08:08] LABS: Anion Gap 13 (12-20); Blood Urea Nitrogen 10 mg/dL (9-16); Calcium 9.9 mg/dL (8.4-10.2); Carbon Dioxide 20 mmol/L (22-29); Chloride 104 mmol/L (96-108); Creatinine Clr Calc Pharmacy 93.8; Estimated Glomerular Filt Rate > 60; Glucose Random 184 mg/dL (60-115); Sodium 132 mmol/L (135-145)
[2021-04-06 08:38] LABS: Glucose, Whole Blood 149 mg/dL (60-115)
[2021-04-06] MEDS: risperiDONE 1 MG TABLET PO ×3 (08:40→21:37)
[2021-04-06] MEDS: Aspirin 81 MG TAB.CHEW PO ×2 (08:40→09:42)
[2021-04-06] MEDS: Gabapentin 300 MG CAPSULE PO ×2 (08:40→21:36)
[2021-04-06] MEDS: Sertraline HCL 50 MG TABLET 100 MG PO (08:40)
[2021-04-06] MEDS: Cholecalciferol (Vitamin D3) 25 MCG TABLET PO (08:40)
[2021-04-06] MEDS: Atorvastatin Calcium 20 MG TABLET PO (08:40)
[2021-04-06] MEDS: Omeprazole 20 MG CAPSULE.DR PO (08:41)
[2021-04-06] MEDS: hydrOXYzine HCL 25 MG TABLET PO ×3 (09:48→23:42)
--- NOTE | 2021-04-06 11:48 | P.PNPSI_ITS ---
Subjective Subjective Date of Service: 04/06/21 Reason For Visit: Bipolar depression, hallucinations, si Interim History: Patient placed on 1:1 due to falls yesterday. He has been feeling better since he was switched to risperidone from thorazine. Says he is still anxious. Educated that some of the meds for anxiety increase his fall risk. Tolerating risperidone. Denies hallucinations. Says mood better, much better . VSS. No significant orthostatic changes. Head CT from yesterday negative. Review of Systems Review of Systems General - no fevers or chills Cardiovascular - no chest pain Respiratory - no shortness of breath or cough Abdominal- no abdominal pain, nausea, vomiting, diarrhea Psych - +depression Yes all other systems are reviewed and are negative Mental Status Exam Mental Status Exam Narrative: dressed in [facility]. disheveled. cooperative. without PMA or PMR. speech lisped and soft, nml amount and rate, nml latency. thoughts linear and logical without evidence of delusions or paranoia. affect constricted, consistent with context, normo-intense, non-labile. Denied AVH. Diagnostics Vital Signs (24Hr): Vital Signs - 24 hr 04/05/21 13:30 04/05/21 13:36 04/05/21 15:30 Temperature 97.7 F 97.7 F Pulse Rate 83 79 72 Respiratory Rate 16 16 Blood Pressure 138/87 108/53 L 150/73 H Pulse Oximetry 100 100 04/05/21 15:41 04/05/21 15:42 04/05/21 18:00 Temperature 97.7 F Pulse Rate 77 92 77 Respiratory Rate Blood Pressure 155/75 H 100/62 158/86 H Pulse Oximetry 04/05/21 19:30 04/05/21 21:04 04/05/21 21:06 Temperature Pulse Rate 86 98 88 Respiratory Rate Blood Pressure 160/87 H 199/91 H 126/85 Pulse Oximetry 04/05/21 23:01 04/05/21 23:02 04/05/21 23:03 Temperature Pulse Rate 85 90 96 Respiratory Rate Blood Pressure 124/64 119/74 Pulse Oximetry 04/06/21 01:00 04/06/21 03:00 04/06/21 07:55 Temperature 98.0 F Pulse Rate 90 93 101 H Respiratory Rate 18 Blood Pressure 123/69 115/63 100/67 Pulse Oximetry 96 Body Mass Index 27.2 Labs Results: 04/06/21 07:06 04/06/21 07:06 Labs: Laboratory Results - last 48 hr 04/04/21 04/04/21 04/04/21 08:39 13:10 13:10 WBC RBC Hgb Hct MCV MCH MCHC RDW Plt Count MPV Immature Gran % (Auto) Neut % (Auto) Lymph % (Auto) [place] % (Auto) Eos % (Auto) Baso % (Auto) Lymph # (Auto) [place] # (Auto) Eos # (Auto) Baso # (Auto) Abs Immat Gran (auto) Absolute Neuts (auto) Absolute Nucleated RBC Nucleated RBC % (auto) PT INR Sodium 129 L Potassium 4.8 Chloride 100 Carbon Dioxide 20 L Anion Gap 14 BUN 8 L Creatinine 0.81 Estim Creat Clear Calc 93.8 Estimated GFR > 60 POC Glucose 122 H Random Glucose 179 H Estimat Average Glucose Hemoglobin A1c % Lactic Acid Lactic Acid Fup @ 2Hr Calcium 9.3 Total Bilirubin 0.5 AST 38 H ALT 42 H Alkaline Phosphatase 133 H Troponin I High Sens < 3.5 Total Protein 7.0 Albumin 4.1 Triglycerides Cholesterol LDL Cholesterol, Calc HDL Cholesterol Urine Osmolality Ur Random Sodium Ur Random Potassium Ur Random Chloride 04/04/21 04/04/21 04/04/21 13:10 13:10 13:24 WBC 4.3 L RBC 4.29 L Hgb 10.9 L Hct 33.6 L MCV 78.3 L MCH 25.4 L MCHC 32.4 RDW 16.4 H Plt Count 200 MPV 9.5 Immature Gran % (Auto) 0.2 Neut % (Auto) 66.5 Lymph % (Auto) 23.3 [place] % (Auto) 7.9 Eos % (Auto) 1.2 Baso % (Auto) 0.9 Lymph # (Auto) 1.0 L [place] # (Auto) 0.3 Eos # (Auto) 0.1 Baso # (Auto) 0.0 Abs Immat Gran (auto) 0.01 Absolute Neuts (auto) 2.9 Absolute Nucleated RBC 0.000 Nucleated RBC % (auto) 0.0 PT INR Sodium Potassium Chloride Carbon Dioxide Anion Gap BUN Creatinine Estim Creat Clear Calc Estimated GFR POC Glucose 196 H Random Glucose Estimat Average Glucose Hemoglobin A1c % Lactic Acid 2.2 H* Lactic Acid Fup @ 2Hr Calcium Total Bilirubin AST ALT Alkaline Phosphatase Troponin I High Sens Total Protein Albumin Triglycerides Cholesterol LDL Cholesterol, Calc HDL Cholesterol Urine Osmolality Ur Random Sodium Ur Random Potassium Ur Random Chloride 04/04/21 04/04/21 04/04/21 15:56 17:37 21:45 WBC RBC Hgb Hct MCV MCH MCHC RDW Plt Count MPV Immature Gran % (Auto) Neut % (Auto) Lymph % (Auto) [place] % (Auto) Eos % (Auto) Baso % (Auto) Lymph # (Auto) [place] # (Auto) Eos # (Auto) Baso # (Auto) Abs Immat Gran (auto) Absolute Neuts (auto) Absolute Nucleated RBC Nucleated RBC % (auto) PT INR Sodium Potassium Chloride Carbon Dioxide Anion Gap BUN Creatinine Estim Creat Clear Calc Estimated GFR POC Glucose 158 H 169 H Random Glucose Estimat Average Glucose Hemoglobin A1c % Lactic Acid Lactic Acid Fup @ 2Hr 1.9 Calcium Total Bilirubin AST ALT Alkaline Phosphatase Troponin I High Sens Total Protein Albumin Triglycerides Cholesterol LDL Cholesterol, Calc HDL Cholesterol Urine Osmolality Ur Random Sodium Ur Random Potassium Ur Random Chloride 04/05/21 04/05/21 04/05/21 03:22 06:51 06:51 WBC RBC Hgb Hct MCV MCH MCHC RDW Plt Count MPV Immature Gran % (Auto) Neut % (Auto) Lymph % (Auto) [place] % (Auto) Eos % (Auto) Baso % (Auto) Lymph # (Auto) [place] # (Auto) Eos # (Auto) Baso # (Auto) Abs Immat Gran (auto) Absolute Neuts (auto) Absolute Nucleated RBC Nucleated RBC % (auto) PT INR Sodium 127 L Potassium 4.7 Chloride 98 Carbon Dioxide 21 L Anion Gap 13 BUN 10 Creatinine 0.78 Estim Creat Clear Calc 97.4 Estimated GFR > 60 POC Glucose 121 H Random Glucose 126 H Estimat Average Glucose 154 Hemoglobin A1c % 7.0 Lactic Acid Lactic Acid Fup @ 2Hr Calcium 9.1 Total Bilirubin AST ALT Alkaline Phosphatase Troponin I High Sens Total Protein Albumin Triglycerides 108 Cholesterol 116 LDL Cholesterol, Calc 56 HDL Cholesterol 39 D Urine Osmolality Ur Random Sodium Ur Random Potassium Ur Random Chloride 04/05/21 04/05/21 04/05/21 08:20 11:29 18:05 WBC RBC Hgb Hct MCV MCH MCHC RDW Plt Count MPV Immature Gran % (Auto) Neut % (Auto) Lymph % (Auto) [place] % (Auto) Eos % (Auto) Baso % (Auto) Lymph # (Auto) [place] # (Auto) Eos # (Auto) Baso # (Auto) Abs Immat Gran (auto) Absolute Neuts (auto) Absolute Nucleated RBC Nucleated RBC % (auto) PT 24.9 H D INR 2.2 H Sodium Potassium Chloride Carbon Dioxide Anion Gap BUN Creatinine Estim Creat Clear Calc Estimated GFR POC Glucose 164 H 219 H Random Glucose Estimat Average Glucose Hemoglobin A1c % Lactic Acid Lactic Acid Fup @ 2Hr Calcium Total Bilirubin AST ALT Alkaline Phosphatase Troponin I High Sens Total Protein Albumin Triglycerides Cholesterol LDL Cholesterol, Calc HDL Cholesterol Urine Osmolality Ur Random Sodium Ur Random Potassium Ur Random Chloride 04/05/21 04/05/21 04/05/21 18:35 20:18 Unknown WBC RBC Hgb Hct MCV MCH MCHC RDW Plt Count MPV Immature Gran % (Auto) Neut % (Auto) Lymph % (Auto) [place] % (Auto) Eos % (Auto) Baso % (Auto) Lymph # (Auto) [place] # (Auto) Eos # (Auto) Baso # (Auto) Abs Immat Gran (auto) Absolute Neuts (auto) Absolute Nucleated RBC Nucleated RBC % (auto) PT INR Sodium Potassium Chloride Carbon Dioxide Anion Gap BUN Creatinine Estim Creat Clear Calc Estimated GFR POC Glucose 212 H Random Glucose Estimat Average Glucose Hemoglobin A1c % Lactic Acid Lactic Acid Fup @ 2Hr Calcium Total Bilirubin AST ALT Alkaline Phosphatase Troponin I High Sens Total Protein Albumin Triglycerides Cholesterol LDL Cholesterol, Calc HDL Cholesterol Urine Osmolality 362 L Ur Random Sodium 74.0 Ur Random Potassium 25.5 Ur Random Chloride 73.0 04/06/21 04/06/21 04/06/21 07:06 07:06 07:06 WBC 5.0 RBC 4.48 L Hgb 11.5 L Hct 34.6 L MCV 77.2 L MCH 25.7 L MCHC 33.2 RDW 16.7 H Plt Count 213 MPV 9.5 Immature Gran % (Auto) Neut % (Auto) Lymph % (Auto) [place] % (Auto) Eos % (Auto) Baso % (Auto) Lymph # (Auto) [place] # (Auto) Eos # (Auto) Baso # (Auto) Abs Immat Gran (auto) Absolute Neuts (auto) Absolute Nucleated RBC 0.000 Nucleated RBC % (auto) 0.0 PT 26.4 H INR 2.3 H Sodium 132 L Potassium 5.0 Chloride 104 Carbon Dioxide 20 L Anion Gap 13 BUN 10 Creatinine 0.81 Estim Creat Clear Calc 93.8 Estimated GFR > 60 POC Glucose Random Glucose 184 H D Estimat Average Glucose Hemoglobin A1c % Lactic Acid Lactic Acid Fup @ 2Hr Calcium 9.9 D Total Bilirubin AST ALT Alkaline Phosphatase Troponin I High Sens Total Protein Albumin Triglycerides Cholesterol LDL Cholesterol, Calc HDL Cholesterol Urine Osmolality Ur Random Sodium Ur Random Potassium Ur Random Chloride 04/06/21 08:28 WBC RBC Hgb Hct MCV MCH MCHC RDW Plt Count MPV Immature Gran % (Auto) Neut % (Auto) Lymph % (Auto) [place] % (Auto) Eos % (Auto) Baso % (Auto) Lymph # (Auto) [place] # (Auto) Eos # (Auto) Baso # (Auto) Abs Immat Gran (auto) Absolute Neuts (auto) Absolute Nucleated RBC Nucleated RBC % (auto) PT INR Sodium Potassium Chloride Carbon Dioxide Anion Gap BUN Creatinine Estim Creat Clear Calc Estimated GFR POC Glucose 149 H Random Glucose Estimat Average Glucose Hemoglobin A1c % Lactic Acid Lactic Acid Fup @ 2Hr Calcium Total Bilirubin AST ALT Alkaline Phosphatase Troponin I High Sens Total Protein Albumin Triglycerides Cholesterol LDL Cholesterol, Calc HDL Cholesterol Urine Osmolality Ur Random Sodium Ur Random Potassium Ur Random Chloride Imaging Radiology Impressions: ITS Impressions Head CT 04/05/21 15:08 IMPRESSION: No acute intracranial pathology. This critical result was discussed with Ash Garcia MD by telephone at 04/05/2021 3:27 PM and it was ascertained that the content and urgency of the report was understood at the time of direct communication. Medications Medications Current Medications Generic Name Dose Route Start Last Admin Trade Name Freq PRN Reason Stop Dose Admin Acetaminophen 650 mg 04/02/21 19:44 04/05/21 11:18 Acetaminophen 325 Mg Tablet PO 650 mg Q6H PRN Administration Headache/Pain Mild Scale (1-3) Al Hydroxide/Mg Hydroxide 30 ml 04/02/21 19:44 04/05/21 03:03 Magnesium Hydrox/Alum Hydrox 30 Ml Oral.Susp PO 30 ml Q6H PRN Administration Heartburn/Nausea Aspirin 81 mg 04/03/21 09:00 04/06/21 09:42 Aspirin 81 Mg Tab.Chew PO 81 mg DAILY BINH Administration Atorvastatin Calcium 20 mg 04/03/21 09:00 04/06/21 08:40 Atorvastatin Calcium 20 Mg Tablet PO 20 mg DAILY BINH Administration Carvedilol 6.25 mg 04/02/21 21:00 04/05/21 09:54 Carvedilol 6.25 Mg Tablet PO 6.25 mg BID BINH Administration Protocol Gabapentin 300 mg 04/02/21 21:00 04/06/21 08:40 Gabapentin 300 Mg Capsule PO 300 mg BID BINH Administration Hydroxyzine HCl 25 mg 04/05/21 22:53 04/06/21 09:48 Hydroxyzine Hcl 25 Mg Tablet PO 25 mg Q6H PRN Administration anxiety, agitation Insulin Glargine 35 unit 04/02/21 21:00 04/05/21 21:14 Insulin Glargine,Hum.Rec.Anlog 100 Unit/Ml 10 Ml Vial SUBCUT 35 unit BEDTIME BINH Administration Insulin Human Lispro 0 unit 04/02/21 21:00 04/06/21 08:39 Insulin Lispro 100 Unit/Ml 3 Ml Vial SUBCUT Not Given QIDACHS [facility] Protocol Magnesium Hydroxide 30 ml 04/02/21 19:44 Milk Of Magnesia 30 Ml Oral.Susp PO DAILY PRN Constipation Nitroglycerin 0.4 mg 04/05/21 20:46 Nitroglycerin 0.4 Mg Tab.Subl SUBLINGUAL Q5MX3 PRN angina Omeprazole 20 mg 04/03/21 06:30 04/06/21 08:41 Omeprazole 20 Mg Capsule.Dr PO 20 mg DAILY@0630 BINH Administration Risperidone 1 mg 04/05/21 15:00 04/06/21 08:40 Risperidone 1 Mg Tablet PO 1 mg TID BINH Administration Sertraline HCl 100 mg 04/06/21 09:00 04/06/21 08:40 Sertraline Hcl 50 Mg Tablet PO 100 mg DAILY BINH Administration Trazodone HCl 200 mg 04/02/21 21:00 04/05/21 20:12 Trazodone Hcl 100 Mg Tablet PO 200 mg BEDTIME BINH Administration Trazodone HCl 100 mg 04/02/21 21:00 04/05/21 20:12 Trazodone Hcl 100 Mg Tablet PO 100 mg BEDTIME BINH Administration Trimethoprim/Sulfamethoxazole 1 tab 04/02/21 21:00 04/06/21 08:40 Sulfamethox/Trimeth 800/160 1 Tab Tablet PO 1 tab BID BINH Administration Vitamin D 25 mcg 04/03/21 09:00 04/06/21 08:40 Cholecalciferol (Vitamin D3) 25 Mcg Tablet PO 25 mcg DAILY BINH Administration Warfarin Sodium 3 mg 04/03/21 18:00 04/05/21 18:40 Warfarin Sodium 3 Mg Tablet PO 3 mg DAILY@1800 BIN[facility] Administration Zolpidem Tartrate 5 mg 04/04/21 20:39 04/05/21 22:44 Zolpidem Tartrate 5 Mg Tablet PO 5 mg BEDTIME PRN Administration Insomnia Allergies Allergies Allergy/AdvReac Type Severity Reaction Status Date / Time Penicillins Allergy Mild RASH AND Unverified 04/12/20 17:03 NAUSEA WITH VOMITING aripiprazole [From Abilify] Allergy Unknown unknown Verified 04/02/21 19:29 temazepam [From Restoril] Allergy Unknown UNKNOWN Unverified 04/12/20 17:03 haloperidol [From Haldol] AdvReac Severe dystonia Unverified 04/04/21 12:44 quetiapine [From Seroquel] AdvReac Unknown unknown Verified 04/02/21 19:28 SEAFOOD Allergy Severe UNKNOWN Uncoded 04/12/20 17:03 Assessment & Plan Assessment & Plan (1) Schizoaffective disorder, bipolar type: Status: Acute Code(s): F25.0 - Schizoaffective disorder, bipolar type (2) Polysubstance dependence in controlled environment: Status: Acute Code(s): F19.20 - Other psychoactive substance dependence, uncomplicated (3) IDDM (insulin dependent diabetes mellitus): Status: Acute Assessment and Plan: This is a 60 yo M with a PMH of DM, HTN, CAD, PE on coumadin, HLD, DM neuropathy, Bipolar d/o who is admitted to the inpatient pscyhiatric unit. Medical services consulted for routine admission medical H&P. 1. DM on Lantus + sliding scale along Will hold glipizide and use the other three; if his sugars remain persistently over 200-250 can add glipizide back. On 04/04/21 elevated lactic acid- will hold metformin 2. HTN continue coreg 3. History of PE INR therapeutic, continue coumadin at current dose 4. CAD continue statin/bb/aspirin 5. Schizoaffective Disorder 1. Risperidone for voices as less metabolism through liver, less akathisia and d/c thorazine 2. Pt reported on 04/04 chest pain- completed EKG and high sensitivity troponin <3.5. 3. Lactic acid elevated- stop metformin, repeat lactic acid per protocol 4. hyponatremia (04/04 129)- hyperglycemia (179) present- corrected sodium level is about 131. Pt on trileptal- will hold for now, fluid restriction 1800cc. Cirrhosis- hypervolemic hyponatremia? 04/05 Na level 127; downtrending with trileptal being held. medicine consultants aware and will investigate. 6. fall with head contacting the floor - head CT ordered - CNII-XII intact on exam 04/05 after the fall. anisocoria R > L assumed to be chronic. alert, oriented. low suspicious of stroke but CT results pending. Greater than 50% of the session was spent on counseling and/or coordination of care Reason for contiued inpatient stay Substantial Risk for: inability to function, rapid decompensation and med/psych decompensation
[2021-04-06 12:21] LABS: Glucose, Whole Blood 201 mg/dL (60-115)
[2021-04-06] MEDS: Insulin Lispro 100 UNIT/ML 3 ML VIAL SUBCUT ×3 (12:36→21:37)
[2021-04-06] MEDS: Acetaminophen 325 MG TABLET 650 MG PO (13:36)
[2021-04-06] MEDS: Magnesium Hydrox/Alum Hydrox 30 ML ORAL.SUSP PO (16:52)
[2021-04-06 16:54] VITALS: BP 139/86; PULSE 112; RESP 20; O2SAT 95
[2021-04-06 17:04] LABS: Glucose, Whole Blood 289 mg/dL (60-115)
--- NOTE | 2021-04-06 17:05 | PC.NURSE ---
At 1530 patient complained of anxiety and received hydroxyzine 25mg prn. At 1630 patient reported midsternal pain 7/10, no diaphoresis, mild reported (not observed) shortness of breath, 139/86, HR 112, o2 sat 95% on room air. Able to speak, walk, no wincing, no reports of heaviness or radiation of pain. No cyanosis noted. Per Sitter patient had been laying flat in bed for 10 minutes, then reported midsternal pain and then ambulated to nurses station without difficulty. Discussed with patient struggle to differentiate between angina, GERD and anxiety or combination of the three. Patient requested a shower and a coffee, declined nitrostat, agreed to try maalox to rule out dyspepsia as cause. Patient reported 0/10 midsternal pain 15 minutes after taking maalox.
[2021-04-06] MEDS: Warfarin Sodium 3 MG TABLET PO (17:40)
[2021-04-06 20:51] VITALS: BP 127/84; PULSE 120; RESP 18; TEMP 36.2; O2SAT 96
[2021-04-06 21:29] LABS: Glucose, Whole Blood 178 mg/dL (60-115)
[2021-04-06] MEDS: traZODone HCL 100 MG TABLET PO (21:36)
[2021-04-06] MEDS: Zolpidem Tartrate 5 MG TABLET PO (21:36)
[2021-04-06] MEDS: traZODone HCL 100 MG TABLET 200 MG PO (21:36)
[2021-04-06] MEDS: Insulin Glargine,Hum.rec.anlog 100 UNIT/ML 10 ML VIAL 35 UNIT SUBCUT (21:37)
[2021-04-07 06:00] VITALS: BP 143/106; PULSE 110; RESP 18; TEMP 36.7; O2SAT 96
[2021-04-07 08:02] LABS: INTERNATIONAL NORM RATIO 2.5 (0.9-1.1); Prothrombin Time 28.8 SEC (9.9-13.0)
[2021-04-07] MEDS: Acetaminophen 325 MG TABLET 650 MG PO ×2 (08:26→18:48)
[2021-04-07] MEDS: Atorvastatin Calcium 20 MG TABLET PO (08:26)
[2021-04-07] MEDS: risperiDONE 1 MG TABLET PO ×3 (08:26→21:32)
[2021-04-07] MEDS: Sertraline HCL 50 MG TABLET 100 MG PO (08:27)
[2021-04-07] MEDS: Gabapentin 300 MG CAPSULE PO ×2 (08:27→21:32)
[2021-04-07] MEDS: Cholecalciferol (Vitamin D3) 25 MCG TABLET PO (08:27)
[2021-04-07] MEDS: Aspirin 81 MG TAB.CHEW PO (08:27)
[2021-04-07] MEDS: Omeprazole 20 MG CAPSULE.DR PO (08:27)
[2021-04-07 08:36] LABS: Glucose, Whole Blood 143 mg/dL (60-115)
[2021-04-07] MEDS: hydrOXYzine HCL 25 MG TABLET PO ×2 (08:49→15:23)
[2021-04-07 09:15] VITALS: BP 132/80; PULSE 107
[2021-04-07 09:20] VITALS: BP 96/60; PULSE 112
[2021-04-07] MEDS: Milk of Magnesia 30 ML ORAL.SUSP PO (10:19)
[2021-04-07 12:36] LABS: Glucose, Whole Blood 185 mg/dL (60-115)
[2021-04-07] MEDS: Insulin Lispro 100 UNIT/ML 3 ML VIAL SUBCUT ×3 (12:37→21:33)
[2021-04-07] MEDS: busPIRone HCl 5 MG TABLET PO ×2 (17:11→21:32)
[2021-04-07 17:19] LABS: Glucose, Whole Blood 261 mg/dL (60-115)
[2021-04-07 18:00] VITALS: BP 131/91; PULSE 66; TEMP 36.6; O2SAT 97
[2021-04-07] MEDS: Warfarin Sodium 3 MG TABLET PO (18:47)
--- NOTE | 2021-04-07 21:00 | P.PNPSI_ITS ---
Subjective Subjective Date of Service: 04/07/21 Reason For Visit: Bipolar depression, hallucinations, si Interim History: Patient has no more falls. He continues on 1:1. He continues to complain of anxiety. He is restless. PT hasn't evaluated patient yet. Patient reports he has not had hallucinations. He agrees to use a walker. DW nursing using a walker and DC 1:1. He has been feeling better since he was switched to risperidone from thorazine. Denies hallucinations. Says mood better . Orthostatic. Medication Compliance: Yes Side effects from medications: No Attending Groups: Yes Review of Systems Review of Systems General - no fevers or chills Cardiovascular - no chest pain Respiratory - no shortness of breath or cough Abdominal- no abdominal pain, nausea, vomiting, diarrhea Psych - +depression Yes all other systems are reviewed and are negative Mental Status Exam Mental Status Exam Narrative: dressed in [facility]. disheveled. cooperative. without PMA or PMR. speech lisped and soft, nml amount and rate, nml latency. thoughts linear and logical without evidence of delusions or paranoia. affect constricted, consistent with context, normo-intense, non-labile. Denied AVH. Diagnostics Vital Signs (24Hr): Vital Signs - 24 hr 04/07/21 06:00 04/07/21 09:15 04/07/21 09:20 Temperature 98.0 F Pulse Rate 110 H 107 H 112 H Respiratory Rate 18 Blood Pressure 143/106 H 132/80 96/60 Pulse Oximetry 96 Body Mass Index 27.2 Labs Results: 04/06/21 07:06 04/06/21 07:06 Labs: Laboratory Results - last 48 hr 04/06/21 04/06/21 04/06/21 07:06 07:06 07:06 WBC 5.0 RBC 4.48 L Hgb 11.5 L Hct 34.6 L MCV 77.2 L MCH 25.7 L MCHC 33.2 RDW 16.7 H Plt Count 213 MPV 9.5 Absolute Nucleated RBC 0.000 Nucleated RBC % (auto) 0.0 PT 26.4 H INR 2.3 H Sodium 132 L Potassium 5.0 Chloride 104 Carbon Dioxide 20 L Anion Gap 13 BUN 10 Creatinine 0.81 Estim Creat Clear Calc 93.8 Estimated GFR > 60 POC Glucose Random Glucose 184 H D Calcium 9.9 D 04/06/21 04/06/21 04/06/21 08:28 12:16 16:59 WBC RBC Hgb Hct MCV MCH MCHC RDW Plt Count MPV Absolute Nucleated RBC Nucleated RBC % (auto) PT INR Sodium Potassium Chloride Carbon Dioxide Anion Gap BUN Creatinine Estim Creat Clear Calc Estimated GFR POC Glucose 149 H 201 H 289 H Random Glucose Calcium 04/06/21 04/07/21 04/07/21 21:24 07:44 08:24 WBC RBC Hgb Hct MCV MCH MCHC RDW Plt Count MPV Absolute Nucleated RBC Nucleated RBC % (auto) PT 28.8 H INR 2.5 H Sodium Potassium Chloride Carbon Dioxide Anion Gap BUN Creatinine Estim Creat Clear Calc Estimated GFR POC Glucose 178 H 143 H Random Glucose Calcium 04/07/21 04/07/21 12:31 17:15 WBC RBC Hgb Hct MCV MCH MCHC RDW Plt Count MPV Absolute Nucleated RBC Nucleated RBC % (auto) PT INR Sodium Potassium Chloride Carbon Dioxide Anion Gap BUN Creatinine Estim Creat Clear Calc Estimated GFR POC Glucose 185 H 261 H Random Glucose Calcium Imaging Radiology Impressions: ITS Impressions Head CT 04/05/21 15:08 IMPRESSION: No acute intracranial pathology. This critical result was discussed with Ash Garcia MD by telephone at 04/05/2021 3:27 PM and it was ascertained that the content and urgency of the report was understood at the time of direct communication. Medications Medications Current Medications Generic Name Dose Route Start Last Admin Trade Name Freq PRN Reason Stop Dose Admin Acetaminophen 650 mg 04/02/21 19:44 04/07/21 18:48 Acetaminophen 325 Mg Tablet PO 650 mg Q6H PRN Administration Headache/Pain Mild Scale (1-3) Al Hydroxide/Mg Hydroxide 30 ml 04/02/21 19:44 04/06/21 16:52 Magnesium Hydrox/Alum Hydrox 30 Ml Oral.Susp PO 30 ml Q6H PRN Administration Heartburn/Nausea Aspirin 81 mg 04/03/21 09:00 04/07/21 08:27 Aspirin 81 Mg Tab.Chew PO 81 mg DAILY BINH Administration Atorvastatin Calcium 20 mg 04/03/21 09:00 04/07/21 08:26 Atorvastatin Calcium 20 Mg Tablet PO 20 mg DAILY BINH Administration Buspirone HCl 5 mg 04/07/21 16:41 04/07/21 17:11 Buspirone Hcl 5 Mg Tablet PO 5 mg TID BINH Administration Carvedilol 6.25 mg 04/02/21 21:00 04/05/21 09:54 Carvedilol 6.25 Mg Tablet PO 6.25 mg BID BINH Administration Protocol Gabapentin 300 mg 04/02/21 21:00 04/07/21 08:27 Gabapentin 300 Mg Capsule PO 300 mg BID BINH Administration Hydroxyzine HCl 25 mg 04/05/21 22:53 04/07/21 15:23 Hydroxyzine Hcl 25 Mg Tablet PO 25 mg Q6H PRN Administration anxiety, agitation Insulin Glargine 35 unit 04/02/21 21:00 04/06/21 21:37 Insulin Glargine,Hum.Rec.Anlog 100 Unit/Ml 10 Ml Vial SUBCUT 35 unit BEDTIME BINH Administration Insulin Human Lispro 0 unit 04/02/21 21:00 04/07/21 17:27 Insulin Lispro 100 Unit/Ml 3 Ml Vial SUBCUT 6 unit QIDACHS BIN[facility] Administration Protocol Magnesium Hydroxide 30 ml 04/02/21 19:44 04/07/21 10:19 Milk Of Magnesia 30 Ml Oral.Susp PO 30 ml DAILY PRN Administration Constipation Nitroglycerin 0.4 mg 04/05/21 20:46 Nitroglycerin 0.4 Mg Tab.Subl SUBLINGUAL Q5MX3 PRN angina Omeprazole 20 mg 04/03/21 06:30 04/07/21 08:27 Omeprazole 20 Mg Capsule.Dr PO 20 mg DAILY@0630 BINH Administration Risperidone 1 mg 04/05/21 15:00 04/07/21 14:40 Risperidone 1 Mg Tablet PO 1 mg TID BINH Administration Sertraline HCl 100 mg 04/06/21 09:00 04/07/21 08:27 Sertraline Hcl 50 Mg Tablet PO 100 mg DAILY BINH Administration Trazodone HCl 200 mg 04/02/21 21:00 04/06/21 21:36 Trazodone Hcl 100 Mg Tablet PO 200 mg BEDTIME BINH Administration Trazodone HCl 100 mg 04/02/21 21:00 04/06/21 21:36 Trazodone Hcl 100 Mg Tablet PO 100 mg BEDTIME BINH Administration Trimethoprim/Sulfamethoxazole 1 tab 04/02/21 21:00 04/07/21 08:26 Sulfamethox/Trimeth 800/160 1 Tab Tablet PO 1 tab BID BINH Administration Vitamin D 25 mcg 04/03/21 09:00 04/07/21 08:27 Cholecalciferol (Vitamin D3) 25 Mcg Tablet PO 25 mcg DAILY BINH Administration Warfarin Sodium 3 mg 04/03/21 18:00 04/07/21 18:47 Warfarin Sodium 3 Mg Tablet PO 3 mg DAILY@1800 BIN[facility] Administration Zolpidem Tartrate 5 mg 04/04/21 20:39 04/06/21 21:36 Zolpidem Tartrate 5 Mg Tablet PO 5 mg BEDTIME PRN Administration Insomnia Allergies Allergies Allergy/AdvReac Type Severity Reaction Status Date / Time Penicillins Allergy Mild RASH AND Unverified 04/12/20 17:03 NAUSEA WITH VOMITING aripiprazole [From Abilify] Allergy Unknown unknown Verified 04/02/21 19:29 temazepam [From Restoril] Allergy Unknown UNKNOWN Unverified 04/12/20 17:03 haloperidol [From Haldol] AdvReac Severe dystonia Unverified 04/04/21 12:44 quetiapine [From Seroquel] AdvReac Unknown unknown Verified 04/02/21 19:28 SEAFOOD Allergy Severe UNKNOWN Uncoded 04/12/20 17:03 Assessment & Plan Assessment & Plan (1) Schizoaffective disorder, bipolar type: Status: Acute Code(s): F25.0 - Schizoaffective disorder, bipolar type (2) Polysubstance dependence in controlled environment: Status: Acute Code(s): F19.20 - Other psychoactive substance dependence, uncomplicated (3) IDDM (insulin dependent diabetes mellitus): Status: Acute Assessment and Plan: This is a 60 yo M with a PMH of DM, HTN, CAD, PE on coumadin, HLD, DM neuropathy, Bipolar d/o who is admitted to the inpatient pscyhiatric unit. Medical services consulted for routine admission medical H&P. 1. DM on Lantus + sliding scale along Will hold glipizide and use the other three; if his sugars remain persistently over 200-250 can add glipizide back. On 04/04/21 elevated lactic acid- will hold metformin 2. HTN continue coreg 3. History of PE INR therapeutic, continue coumadin at current dose 4. CAD continue statin/bb/aspirin 5. Schizoaffective Disorder 1. Risperidone for voices as less metabolism through liver - Will add Buspar 5 mg TID. - Recheck Na for tomorrow. 2. Pt reported on 04/04 chest pain- completed EKG and high sensitivity troponin <3.5. 3. Lactic acid elevated- stop metformin, repeat lactic acid per protocol 4. hyponatremia (04/04 129)- hyperglycemia (179) present- corrected sodium level is about 131. Pt on trileptal- will hold for now, fluid restriction 1800cc. Cirrhosis- hypervolemic hyponatremia? 04/05 Na level 127; downtrending with trileptal being held. medicine consultants aware and will investigate. 6. fall with head contacting the floor - head CT ordered - CNII-XII intact on exam 04/05 after the fall. anisocoria R > L assumed to be chronic. alert, oriented. Head CT -ve. Greater than 50% of the session was spent on counseling and/or coordination of care Reason for contiued inpatient stay Substantial Risk for: harm to self, inability to function and med/psych decompensation
[2021-04-07 21:23] LABS: Glucose, Whole Blood 190 mg/dL (60-115)
[2021-04-07] MEDS: Insulin Glargine,Hum.rec.anlog 100 UNIT/ML 10 ML VIAL 35 UNIT SUBCUT (21:32)
[2021-04-07] MEDS: traZODone HCL 100 MG TABLET 200 MG PO (21:32)
[2021-04-07] MEDS: traZODone HCL 100 MG TABLET PO (21:32)
[2021-04-07] MEDS: Zolpidem Tartrate 5 MG TABLET PO ×2 (21:39→21:40)
[2021-04-08 06:00] VITALS: BP 136/83; PULSE 106; RESP 18; TEMP 36.2; O2SAT 106
[2021-04-08 08:00] LABS: Glucose, Whole Blood 185 mg/dL (60-115)
[2021-04-08] MEDS: Insulin Lispro 100 UNIT/ML 3 ML VIAL SUBCUT ×4 (08:07→21:06)
[2021-04-08] MEDS: Gabapentin 300 MG CAPSULE PO ×2 (08:08→20:20)
[2021-04-08] MEDS: Atorvastatin Calcium 20 MG TABLET PO (08:08)
[2021-04-08] MEDS: Cholecalciferol (Vitamin D3) 25 MCG TABLET PO (08:08)
[2021-04-08] MEDS: Omeprazole 20 MG CAPSULE.DR PO (08:08)
[2021-04-08] MEDS: Aspirin 81 MG TAB.CHEW PO (08:08)
[2021-04-08] MEDS: busPIRone HCl 5 MG TABLET PO ×3 (08:08→20:18)
[2021-04-08] MEDS: risperiDONE 1 MG TABLET PO ×3 (08:08→20:18)
[2021-04-08] MEDS: Sertraline HCL 50 MG TABLET 100 MG PO (08:08)
[2021-04-08 08:14] LABS: INTERNATIONAL NORM RATIO 2.5 (0.9-1.1); Prothrombin Time 28.4 SEC (9.9-13.0)
[2021-04-08 08:15] LABS: Anion Gap 15 (12-20); Blood Urea Nitrogen 14 mg/dL (9-16); Calcium 10.2 mg/dL (8.4-10.2); Carbon Dioxide 21 mmol/L (22-29); Chloride 107 mmol/L (96-108); Creatinine Clr Calc Pharmacy 83.5; Estimated Glomerular Filt Rate > 60; Glucose Random 190 mg/dL (60-115); Potassium 4.6 mmol/L (3.3-5.1); Sodium 138 mmol/L (135-145)
[2021-04-08] MEDS: hydrOXYzine HCL 25 MG TABLET PO ×2 (08:16→13:58)
[2021-04-08 10:09] VITALS: BP 136/83; PULSE 106; O2SAT 106
[2021-04-08 12:36] LABS: Glucose, Whole Blood 203 mg/dL (60-115)
--- NOTE | 2021-04-08 15:13 | P.PNPSI_ITS ---
Subjective Subjective Date of Service: 04/08/21 Reason For Visit: Bipolar depression, hallucinations, si Interim History: pt reports feeling better. mood is improved, no SI, no AH. would like to discharge tomorrow. no other complaints or requests. per staff, pt's coreg has been o nhold due to hypotension. PT consult has been placed. no other notable events or behaviors. Mental Status Exam Mental Status Exam Narrative: dressed in street clothes. adequately groomed. cooperative. without PMA or PMR. speech lisped and soft, nml amount and rate, nml latency. thoughts linear and logical without evidence of delusions or paranoia. affect full range, consistent with context, normo-intense, non-labile. Denied SI/AVH. Diagnostics Vital Signs (24Hr): Vital Signs - 24 hr 04/07/21 18:00 04/08/21 06:00 04/08/21 10:09 Temperature 97.8 F 97.1 F Pulse Rate 66 106 H 106 H Respiratory Rate 18 Blood Pressure 131/91 H 136/83 136/83 Pulse Oximetry 97 106 H 106 H Body Mass Index 27.2 Labs Results: 04/06/21 07:06 04/08/21 07:39 Labs: Laboratory Results - last 48 hr 04/06/21 04/06/21 04/07/21 16:59 21:24 07:44 PT 28.8 H INR 2.5 H Sodium Potassium Chloride Carbon Dioxide Anion Gap BUN Creatinine Estim Creat Clear Calc Estimated GFR POC Glucose 289 H 178 H Random Glucose Calcium 04/07/21 04/07/21 04/07/21 08:24 12:31 17:15 PT INR Sodium Potassium Chloride Carbon Dioxide Anion Gap BUN Creatinine Estim Creat Clear Calc Estimated GFR POC Glucose 143 H 185 H 261 H Random Glucose Calcium 04/07/21 04/08/21 04/08/21 21:18 07:39 07:39 PT 28.4 H INR 2.5 H Sodium 138 Potassium 4.6 Chloride 107 Carbon Dioxide 21 L Anion Gap 15 BUN 14 Creatinine 0.91 Estim Creat Clear Calc 83.5 Estimated GFR > 60 POC Glucose 190 H Random Glucose 190 H Calcium 10.2 04/08/21 04/08/21 07:57 12:33 PT INR Sodium Potassium Chloride Carbon Dioxide Anion Gap BUN Creatinine Estim Creat Clear Calc Estimated GFR POC Glucose 185 H 203 H Random Glucose Calcium Imaging Radiology Impressions: ITS Impressions Head CT 04/05/21 15:08 IMPRESSION: No acute intracranial pathology. This critical result was discussed with Ash Garcia MD by telephone at 04/05/2021 3:27 PM and it was ascertained that the content and urgency of the report was understood at the time of direct communication. Medications Medications Current Medications Generic Name Dose Route Start Last Admin Trade Name Freq PRN Reason Stop Dose Admin Acetaminophen 650 mg 04/02/21 19:44 04/07/21 18:48 Acetaminophen 325 Mg Tablet PO 650 mg Q6H PRN Administration Headache/Pain Mild Scale (1-3) Al Hydroxide/Mg Hydroxide 30 ml 04/02/21 19:44 04/06/21 16:52 Magnesium Hydrox/Alum Hydrox 30 Ml Oral.Susp PO 30 ml Q6H PRN Administration Heartburn/Nausea Aspirin 81 mg 04/03/21 09:00 04/08/21 08:08 Aspirin 81 Mg Tab.Chew PO 81 mg DAILY BINH Administration Atorvastatin Calcium 20 mg 04/03/21 09:00 04/08/21 08:08 Atorvastatin Calcium 20 Mg Tablet PO 20 mg DAILY BINH Administration Buspirone HCl 5 mg 04/07/21 16:41 04/08/21 13:57 Buspirone Hcl 5 Mg Tablet PO 5 mg TID BINH Administration Carvedilol 6.25 mg 04/02/21 21:00 04/05/21 09:54 Carvedilol 6.25 Mg Tablet PO 6.25 mg BID BINH Administration Protocol Gabapentin 300 mg 04/02/21 21:00 04/08/21 08:08 Gabapentin 300 Mg Capsule PO 300 mg BID BINH Administration Hydroxyzine HCl 25 mg 04/05/21 22:53 04/08/21 13:58 Hydroxyzine Hcl 25 Mg Tablet PO 25 mg Q6H PRN Administration anxiety, agitation Insulin Glargine 35 unit 04/02/21 21:00 04/07/21 21:32 Insulin Glargine,Hum.Rec.Anlog 100 Unit/Ml 10 Ml Vial SUBCUT 35 unit BEDTIME BINH Administration Insulin Human Lispro 0 unit 04/02/21 21:00 04/08/21 12:36 Insulin Lispro 100 Unit/Ml 3 Ml Vial SUBCUT 3 unit QIDACHS BINH Administration Protocol Magnesium Hydroxide 30 ml 04/02/21 19:44 04/07/21 10:19 Milk Of Magnesia 30 Ml Oral.Susp PO 30 ml DAILY PRN Administration Constipation Nitroglycerin 0.4 mg 04/05/21 20:46 Nitroglycerin 0.4 Mg Tab.Subl SUBLINGUAL Q5MX3 PRN angina Omeprazole 20 mg 04/03/21 06:30 04/08/21 08:08 Omeprazole 20 Mg Capsule.Dr PO 20 mg DAILY@0630 BINH Administration Risperidone 1 mg 04/05/21 15:00 04/08/21 13:57 Risperidone 1 Mg Tablet PO 1 mg TID BINH Administration Sertraline HCl 100 mg 04/06/21 09:00 04/08/21 08:08 Sertraline Hcl 50 Mg Tablet PO 100 mg DAILY BINH Administration Trazodone HCl 200 mg 04/02/21 21:00 04/07/21 21:32 Trazodone Hcl 100 Mg Tablet PO 200 mg BEDTIME BINH Administration Trazodone HCl 100 mg 04/02/21 21:00 04/07/21 21:32 Trazodone Hcl 100 Mg Tablet PO 100 mg BEDTIME BINH Administration Trimethoprim/Sulfamethoxazole 1 tab 04/02/21 21:00 04/08/21 08:08 Sulfamethox/Trimeth 800/160 1 Tab Tablet PO 1 tab BID BINH Administration Vitamin D 25 mcg 04/03/21 09:00 04/08/21 08:08 Cholecalciferol (Vitamin D3) 25 Mcg Tablet PO 25 mcg DAILY BINH Administration Warfarin Sodium 3 mg 04/03/21 18:00 04/07/21 18:47 Warfarin Sodium 3 Mg Tablet PO 3 mg DAILY@1800 BINH Administration Zolpidem Tartrate 5 mg 04/04/21 20:39 04/07/21 21:40 Zolpidem Tartrate 5 Mg Tablet PO 5 mg BEDTIME PRN Administration Insomnia Allergies Allergies Allergy/AdvReac Type Severity Reaction Status Date / Time Penicillins Allergy Mild RASH AND Unverified 04/12/20 17:03 NAUSEA WITH VOMITING aripiprazole [From Abilify] Allergy Unknown unknown Verified 04/02/21 19:29 temazepam [From Restoril] Allergy Unknown UNKNOWN Unverified 04/12/20 17:03 haloperidol [From Haldol] AdvReac Severe dystonia Unverified 04/04/21 12:44 quetiapine [From Seroquel] AdvReac Unknown unknown Verified 04/02/21 19:28 SEAFOOD Allergy Severe UNKNOWN Uncoded 04/12/20 17:03 Assessment & Plan Assessment & Plan (1) Schizoaffective disorder, bipolar type: Status: Acute Code(s): F25.0 - Schizoaffective disorder, bipolar type (2) Polysubstance dependence in controlled environment: Status: Acute Code(s): F19.20 - Other psychoactive substance dependence, uncomplicated (3) IDDM (insulin dependent diabetes mellitus): Status: Acute Assessment and Plan: This is a 60 yo M with a PMH of DM, HTN, CAD, PE on coumadin, HLD, DM neur opathy, Bipolar d/o who is admitted to the inpatient pscyhiatric unit. Medical services consulted for routine admission medical H&P. 1. DM on Lantus + sliding scale along Will hold glipizide and use the other three; if his sugars remain persistently over 200-250 can add glipizide back. On 04/04/21 elevated lactic acid- will hold metformin 2. HTN restart coreg 3. History of PE INR therapeutic, continue coumadin at current dose 4. CAD continue statin/bb/aspirin 5. Schizoaffective Disorder 1. Risperidone for voices as less metabolism through liver - Will add Buspar 5 mg TID. - Na WNL at 138 after trileptal DC. 2. Pt reported on 04/04 chest pain- completed EKG and high sensitivity troponin <3.5. 3. Lactic acid elevated- stop metformin, repeat lactic acid per protocol 4. hyponatremia (04/04 129)- hyperglycemia (179) present- corrected sodium level is about 131. Pt on trileptal- will hold for now, fluid restriction 1800cc. Cirrhosis- hypervolemic hyponatremia? 04/05 Na level 127. 6. fall with head contacting the floor - CNII-XII intact on exam 04/05 after the fall. anisocoria R > L assumed to be chronic. alert, oriented. Head CT NEG.. Greater than 50% of the session was spent on counseling and/or coordination of care Reason for contiued inpatient stay Substantial Risk for: harm to self
[2021-04-08 17:17] LABS: Glucose, Whole Blood 263 mg/dL (60-115)
[2021-04-08] MEDS: Warfarin Sodium 3 MG TABLET PO (17:17)
[2021-04-08] MEDS: traZODone HCL 100 MG TABLET 200 MG PO (20:18)
[2021-04-08] MEDS: traZODone HCL 100 MG TABLET PO (20:18)
[2021-04-08 20:19] VITALS: BP 156/91; PULSE 118
[2021-04-08] MEDS: carvediloL 6.25 MG TABLET PO (20:19)
[2021-04-08 21:03] LABS: Glucose, Whole Blood 202 mg/dL (60-115)
[2021-04-08] MEDS: Insulin Glargine,Hum.rec.anlog 100 UNIT/ML 10 ML VIAL 35 UNIT SUBCUT (21:05)
[2021-04-08 21:29] VITALS: BP 145/96; PULSE 118; RESP 16; TEMP 36.4; O2SAT 97
[2021-04-09 06:00] VITALS: BP 134/99; PULSE 98; RESP 18; TEMP 36.2; O2SAT 96
[2021-04-09] MEDS: hydrOXYzine HCL 25 MG TABLET PO (06:22)
[2021-04-09 07:48] LABS: Glucose, Whole Blood 188 mg/dL (60-115)
[2021-04-09 08:04] VITALS: BP 134/99; PULSE 98
[2021-04-09] MEDS: Atorvastatin Calcium 20 MG TABLET PO (08:04)
[2021-04-09] MEDS: carvediloL 6.25 MG TABLET PO (08:04)
[2021-04-09] MEDS: risperiDONE 1 MG TABLET PO (08:04)
[2021-04-09] MEDS: Sertraline HCL 50 MG TABLET 100 MG PO (08:04)
[2021-04-09] MEDS: busPIRone HCl 5 MG TABLET PO (08:04)
[2021-04-09] MEDS: Gabapentin 300 MG CAPSULE PO (08:04)
[2021-04-09] MEDS: Aspirin 81 MG TAB.CHEW PO (08:04)
[2021-04-09] MEDS: Omeprazole 20 MG CAPSULE.DR PO (08:04)
[2021-04-09] MEDS: Cholecalciferol (Vitamin D3) 25 MCG TABLET PO (08:04)
[2021-04-09 08:33] LABS: INTERNATIONAL NORM RATIO 2.3 (0.9-1.1); Prothrombin Time 26.9 SEC (9.9-13.0)
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
[2021-04-09] MEDS: Insulin Lispro 100 UNIT/ML 3 ML VIAL SUBCUT (10:42)
== END 2021-04-09 11:50 | disposition home or self-care (01) | DRG 885 ==
PROVIDERS: Family Medicine; Internal Medicine; Psychiatry & Neurology Psychiatry; Registered Nurse; Social Worker; Student in an Organized Health Care Education/Training Program; Admitting Provider Psychiatry & Neurology Psychiatry; PCP Pediatrics; Visit Provider Psychiatry & Neurology Psychiatry
DX: F25.0 Schizoaffective disorder, bipolar type (principal); R45.851 Suicidal ideations; F19.20 Other psychoactive substance dependence, uncomplicated; I25.10 Atherosclerotic heart disease of native coronary artery without angina pectoris; I10 Essential (primary) hypertension; Z86.711 Personal history of pulmonary embolism; I95.1 Orthostatic hypotension; K74.60 Unspecified cirrhosis of liver; E78.5 Hyperlipidemia, unspecified; E11.9 Type 2 diabetes mellitus without complications; Z88.0 Allergy status to penicillin; Z79.01 Long term (current) use of anticoagulants; Z79.82 Long term (current) use of aspirin; Z79.899 Other long term (current) drug therapy
CPT/HCPCS: 36415; 70450; 80048; 80053; 80061; 80076; 82140; 82436; 82565; 82607; 82746; 82947; 83036; 83605; 83935; 84133; 84300; 84443; 84484; 85025; 85027; 85610; 93005; 97161; 99232

== ENCOUNTER 2021-04-25 18:28 | Inpatient (IN) | payer OTHER, SELFPAY ==
--- NOTE | ~2021-04-25 | XR_ITS ---
EXAMINATION: XR HIP, RIGHT CLINICAL INFORMATION: Right hip pain status post fall. COMPARISON: None TECHNIQUE: Two views of the right hip. FINDINGS: Mild bilateral hip degenerative joint changes are seen, right greater than left. Pincer type femoral acetabular impingement is seen. There is no acute fracture or dislocation. The bony pelvis is intact with the soft tissues are unremarkable. XR/XR hip RT w [id number] IMPRESSION: 1. Mild bilateral hip degenerative joint changes, right greater than left. 2. Right pincer femoroacetabular impingement.
[2021-04-25 20:02] LABS: Glucose, Whole Blood 183 mg/dL (60-115)
[2021-04-25] MEDS: traZODone HCL 100 MG TABLET 200 MG PO (20:28)
[2021-04-25 20:29] VITALS: BP 118/65; PULSE 80
[2021-04-25] MEDS: traZODone HCL 100 MG TABLET PO (20:29)
[2021-04-25] MEDS: Gabapentin 300 MG CAPSULE PO (20:29)
[2021-04-25] MEDS: risperiDONE 1 MG TABLET PO (20:29)
[2021-04-25] MEDS: chlorproMAZINE HCl 25 MG TABLET 50 MG PO (20:29)
[2021-04-25] MEDS: carvediloL 6.25 MG TABLET PO (20:29)
[2021-04-25] MEDS: Insulin Lispro 100 UNIT/ML 3 ML VIAL SUBCUT (20:30)
[2021-04-25] MEDS: Insulin Glargine,Hum.rec.anlog 100 UNIT/ML 10 ML VIAL 35 UNIT SUBCUT (20:30)
[2021-04-26] MEDS: LORazepam 1 MG TABLET PO (05:38)
[2021-04-26] MEDS: Omeprazole 20 MG CAPSULE.DR PO (05:38)
[2021-04-26 05:40] LABS: Glucose, Whole Blood 247 mg/dL (60-115)
[2021-04-26 06:00] VITALS: BP 138/83; PULSE 98; RESP 16; TEMP 35.4; O2SAT 98
[2021-04-26 08:50] LABS: Anion Gap 14 (12-20); Blood Urea Nitrogen 6 mg/dL (9-16); Calcium 9.8 mg/dL (8.4-10.2); Carbon Dioxide 25 mmol/L (22-29); Chloride 105 mmol/L (96-108); Estimated Glomerular Filt Rate > 60; Glucose Random 181 mg/dL (60-115); Potassium 4.2 mmol/L (3.3-5.1); Sodium 140 mmol/L (135-145)
[2021-04-26] MEDS: Insulin Lispro 100 UNIT/ML 3 ML VIAL SUBCUT ×2 (08:58→18:53)
[2021-04-26 09:17] VITALS: BP 110/67; PULSE 73
[2021-04-26] MEDS: carvediloL 6.25 MG TABLET PO ×2 (09:17→22:04)
[2021-04-26] MEDS: metFORMIN HCl 1,000 MG TABLET 1000 MG PO ×2 (09:18→18:53)
[2021-04-26] MEDS: Sertraline HCL 100 MG TABLET PO (09:18)
[2021-04-26] MEDS: busPIRone HCl 5 MG TABLET PO (09:18)
[2021-04-26] MEDS: Gabapentin 300 MG CAPSULE PO ×2 (09:18→22:03)
[2021-04-26] MEDS: risperiDONE 1 MG TABLET PO ×3 (09:18→22:07)
[2021-04-26] MEDS: Atorvastatin Calcium 20 MG TABLET PO (09:18)
[2021-04-26] MEDS: chlorproMAZINE HCl 25 MG TABLET 50 MG PO (09:18)
[2021-04-26] MEDS: Aspirin 81 MG TAB.CHEW PO (09:18)
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
[2021-04-26 12:14] LABS: Glucose, Whole Blood 115 mg/dL (60-115)
[2021-04-26] MEDS: LORazepam 1 MG TABLET 2 MG PO (12:44)
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
[2021-04-26 16:47] LABS: Glucose, Whole Blood 152 mg/dL (60-115)
[2021-04-26 18:00] VITALS: BP 115/80; PULSE 110
[2021-04-26 22:04] VITALS: BP 119/68; PULSE 110
[2021-04-26] MEDS: Insulin Glargine,Hum.rec.anlog 100 UNIT/ML 10 ML VIAL 35 UNIT SUBCUT (22:06)
[2021-04-26] MEDS: traZODone HCL 100 MG TABLET PO (22:07)
[2021-04-26] MEDS: traZODone HCL 100 MG TABLET 200 MG PO (22:07)
[2021-04-26 22:15] LABS: Glucose, Whole Blood 136 mg/dL (60-115)
[2021-04-27] MEDS: Omeprazole 20 MG CAPSULE.DR PO (05:53)
[2021-04-27] MEDS: hydrOXYzine HCL 25 MG TABLET PO ×3 (06:34→19:08)
[2021-04-27 08:11] LABS: Glucose, Whole Blood 121 mg/dL (60-115)
[2021-04-27 08:24] VITALS: BP 109/63; PULSE 90; RESP 18; TEMP 36.4; O2SAT 96
[2021-04-27 08:25] VITALS: BP 109/63; PULSE 90
[2021-04-27] MEDS: Aspirin 81 MG TAB.CHEW PO (08:25)
[2021-04-27] MEDS: risperiDONE 1 MG TABLET PO ×3 (08:25→20:20)
[2021-04-27] MEDS: Sertraline HCL 100 MG TABLET PO (08:25)
[2021-04-27] MEDS: Gabapentin 300 MG CAPSULE PO ×2 (08:25→20:20)
[2021-04-27] MEDS: carvediloL 6.25 MG TABLET PO ×2 (08:25→20:17)
[2021-04-27] MEDS: metFORMIN HCl 1,000 MG TABLET 1000 MG PO ×2 (08:25→17:16)
[2021-04-27] MEDS: Atorvastatin Calcium 20 MG TABLET PO (08:26)
[2021-04-27 11:39] LABS: Glucose, Whole Blood 205 mg/dL (60-115)
[2021-04-27] MEDS: Insulin Lispro 100 UNIT/ML 3 ML VIAL SUBCUT ×3 (11:47→21:14)
--- NOTE | 2021-04-27 11:47 | P.PNPSI_ITS ---
Subjective Subjective Date of Service: 04/27/21 Reason For Visit: Bipolar I D/O w/Psychotic Features Subjective Notes: Conditional Voluntary Medication Compliance: Yes Side effects from medications: No Attending Groups: No Review of Systems Acute medical concerns: Yes co hip pain right - reports did not tell hospitalist about hip pain as he was asleep Medical Review of Systems: unchanged Review of Systems Review of Systems co pain in hip 03/05... does not appear in that much pain, able to walk down cardoza Mental Status Exam Mental Status Exam Patient Appearance: Disheveled Patient Orientation: Person, Place and Situation Level of Consciousness: Drowsy Patient Behavior: Dependent, Cooperative and Fatigued Mood Description: Withdrawn and Depressed Affect Description: Calm Ability to Follow Directions: Fair Speech Pattern: Appropriate Hallucinations: Auditory Thought Process: Rumination Thought Content: positive for Poverty of Content Abnormal Motor Activity Signs and Symptoms: Tic (restless moving of lower feet- says he only gets when anxious) Judgement: Fair (may be med seeking?) Diagnostics Vital Signs (24Hr): Vital Signs - 24 hr 04/26/21 18:00 04/26/21 22:04 04/27/21 08:24 Temperature 97.6 F Pulse Rate 110 H 110 H 90 Respiratory Rate 18 Blood Pressure 115/80 119/68 109/63 Pulse Oximetry 96 04/27/21 08:25 Temperature Pulse Rate 90 Respiratory Rate Blood Pressure 109/63 Pulse Oximetry Labs Results: 04/26/21 08:19 Labs: Laboratory Results - last 48 hr 04/25/21 04/26/21 04/26/21 19:58 05:36 08:19 Sodium Potassium Chloride Carbon Dioxide Anion Gap BUN Creatinine Cancelled Estim Creat Clear Calc Cancelled Estimated GFR Cancelled POC Glucose 183 H 247 H Random Glucose Calcium 04/26/21 04/26/21 04/26/21 08:19 12:09 16:39 Sodium 140 Potassium 4.2 Chloride 105 Carbon Dioxide 25 Anion Gap 14 BUN 6 L D Creatinine 0.87 Estim Creat Clear Calc TNP Estimated GFR > 60 POC Glucose 115 152 H Random Glucose 181 H Calcium 9.8 04/26/21 04/27/21 04/27/21 21:59 08:06 11:31 Sodium Potassium Chloride Carbon Dioxide Anion Gap BUN Creatinine Estim Creat Clear Calc Estimated GFR POC Glucose 136 H 121 H 205 H Random Glucose Calcium Medications Medications Current Medications Acetaminophen (Acetaminophen 325 Mg Tablet) 650 mg PO Q6H PRN PRN Reason: Headache/Pain Mild Scale (1-3) Al Hydroxide/Mg Hydroxide (Magnesium Hydrox/Alum Hydrox 30 Ml Oral.Susp) 30 ml PO Q6H PRN PRN Reason: Heartburn/Nausea Aspirin (Aspirin 81 Mg Tab.Chew) 81 mg PO DAILY [facility] Last Admin: 04/27/21 08:25 Dose: 81 mg Documented by: Atorvastatin Calcium (Atorvastatin Calcium 20 Mg Tablet) 20 mg PO DAILY [facility] Last Admin: 04/27/21 08:26 Dose: 20 mg Documented by: Carvedilol (Carvedilol 6.25 Mg Tablet) 6.25 mg PO BID [facility]; Protocol Last Admin: 04/27/21 08:25 Dose: 6.25 mg Documented by: Gabapentin (Gabapentin 300 Mg Capsule) 300 mg PO BID [facility] Last Admin: 04/27/21 08:25 Dose: 300 mg Documented by: Hydroxyzine HCl (Hydroxyzine Hcl 25 Mg Tablet) 25 mg PO Q6H PRN PRN Reason: Anxiety Last Admin: 04/27/21 11:33 Dose: 25 mg Documented by: Insulin Glargine (Insulin Glargine,Hum.Rec.Anlog 100 Unit/Ml 10 Ml Vial) 35 unit SUBCUT BEDTIME [facility] Last Admin: 04/26/21 22:06 Dose: 35 unit Documented by: Insulin Human Lispro (Insulin Lispro 100 Unit/Ml 3 Ml Vial) 0 unit SUBCUT QIDACHS [facility]; Protocol Last Admin: 04/27/21 10:00 Dose: Not Given Documented by: Lorazepam (Lorazepam 0.5 Mg Tablet) 0.5 mg PO BID PRN PRN Reason: Anxiety Magnesium Hydroxide (Milk Of Magnesia 30 Ml Oral.Susp) 30 ml PO DAILY PRN PRN Reason: Constipation Metformin HCl (Metformin Hcl 1,000 Mg Tablet) 1,000 mg PO BIDWM [facility] Last Admin: 04/27/21 08:25 Dose: 1,000 mg Documented by: Nicotine Polacrilex (Nicotine Polacrilex 2 Mg Gum) 4 mg BUCCAL Q2H PRN PRN Reason: Nicotine Cravings Nitroglycerin (Nitroglycerin 0.4 Mg Tab.Subl) 0.4 mg SUBLINGUAL Q5MX3 PRN PRN Reason: chest pain Omeprazole (Omeprazole 20 Mg Capsule.Dr) 20 mg PO DAILY@0630 [facility] Last Admin: 04/27/21 05:53 Dose: 20 mg Documented by: Risperidone (Risperidone 1 Mg Tablet) 1 mg PO TID [facility] Last Admin: 04/27/21 08:25 Dose: 1 mg Documented by: Sertraline HCl (Sertraline Hcl 100 Mg Tablet) 100 mg PO DAILY [facility] Last Admin: 04/27/21 08:25 Dose: 100 mg Documented by: Trazodone HCl (Trazodone Hcl 100 Mg Tablet) 200 mg PO BEDTIME [facility] Last Admin: 04/26/21 22:07 Dose: 200 mg Documented by: Trazodone HCl (Trazodone Hcl 100 Mg Tablet) 100 mg PO BEDTIME [facility] Last Admin: 04/26/21 22:07 Dose: 100 mg Documented by: Allergies Allergies Allergy/AdvReac Type Severity Reaction Status Date / Time Penicillins Allergy Mild RASH AND Unverified 04/12/20 17:03 NAUSEA WITH VOMITING aripiprazole [From Abilify] Allergy Unknown unknown Verified 04/02/21 19:29 temazepam [From Restoril] Allergy Unknown UNKNOWN Unverified 04/12/20 17:03 haloperidol [From Haldol] AdvReac Severe dystonia Unverified 04/04/21 12:44 quetiapine [From Seroquel] AdvReac Unknown unknown Verified 04/02/21 19:28 SEAFOOD Allergy Severe UNKNOWN Uncoded 04/12/20 17:03 Assessment & Plan Assessment & Plan (1) Polysubstance dependence in controlled environment: Status: Acute Code(s): F19.20 - Other psychoactive substance dependence, uncomplicated (2) IDDM (insulin dependent diabetes mellitus): Status: Acute (3) MDD (major depressive disorder), recurrent, severe, with psychosis: Status: Acute Code(s): F33.3 - Major depressive disorder, recurrent, severe with psychotic symptoms Assessment and Plan: pt co ongoing anxiety, continues to have restless leg movements Greater than 50% of the session was spent on counseling and/or coordination of care Patient educated on: medication risk/benefits and medical condition Informed Consent: understands Reason for contiued inpatient stay Substantial Risk for: inability to function and med/psych decompensation
[2021-04-27] MEDS: LORazepam 0.5 MG TABLET PO ×2 (12:26→16:33)
[2021-04-27 13:22] VITALS: BP 123/79; PULSE 111; RESP 18; TEMP 36.4; O2SAT 98
[2021-04-27] MEDS: Nitroglycerin 0.4 MG TAB.SUBL SUBLINGUAL ×2 (13:22→13:36)
[2021-04-27 14:17] VITALS: PULSE 99
--- NOTE | 2021-04-27 14:34 | PC.NURSE ---
Pt c/o anxiety throughout the day, given vistaril 25 MG at 1133 and ativan 0.5 MG at 1226. C/o chest pain 8/10 upon return from the ED after getting hip xray. Reported pressure and tightness , denied radiating pain or nausea. Pulse 111. Given NTG SL 0.4 MG at 1322, reported chest pain was getting better, in the middle , given second NTG at 1336, reported chest pain was gone upon 5 minute reassessment. Pulse 99.
[2021-04-27 17:07] LABS: Glucose, Whole Blood 168 mg/dL (60-115)
[2021-04-27 18:00] VITALS: BP 136/90; PULSE 110
[2021-04-27] MEDS: Insulin Glargine,Hum.rec.anlog 100 UNIT/ML 10 ML VIAL 35 UNIT SUBCUT (20:16)
[2021-04-27 20:17] VITALS: BP 156/96; PULSE 132
[2021-04-27] MEDS: traZODone HCL 100 MG TABLET PO (20:20)
[2021-04-27] MEDS: traZODone HCL 100 MG TABLET 200 MG PO (20:20)
[2021-04-27 21:08] LABS: Glucose, Whole Blood 239 mg/dL (60-115)
[2021-04-28] MEDS: hydrOXYzine HCL 25 MG TABLET PO ×2 (02:30→16:31)
[2021-04-28 06:00] VITALS: BP 122/58; PULSE 57; RESP 17; TEMP 37.2; O2SAT 98
[2021-04-28] MEDS: LORazepam 0.5 MG TABLET PO ×2 (06:01→14:27)
[2021-04-28] MEDS: Omeprazole 20 MG CAPSULE.DR PO (06:31)
[2021-04-28 08:33] LABS: Glucose, Whole Blood 92 mg/dL (60-115)
[2021-04-28 09:09] VITALS: BP 139/85; PULSE 102
[2021-04-28] MEDS: Atorvastatin Calcium 20 MG TABLET PO (09:09)
[2021-04-28] MEDS: carvediloL 6.25 MG TABLET PO ×2 (09:09→19:12)
[2021-04-28] MEDS: Aspirin 81 MG TAB.CHEW PO (09:11)
[2021-04-28] MEDS: Gabapentin 300 MG CAPSULE PO ×3 (09:12→19:11)
[2021-04-28] MEDS: risperiDONE 1 MG TABLET PO ×3 (09:12→19:11)
[2021-04-28] MEDS: Sertraline HCL 100 MG TABLET PO (09:12)
[2021-04-28] MEDS: metFORMIN HCl 1,000 MG TABLET 1000 MG PO ×2 (09:12→17:28)
--- NOTE | 2021-04-28 11:34 | HO.PSYCHPN ---
Subjective Subjective Date of Service: 04/28/21 Reason For Visit: Bipolar I D/O w/Psychotic Features Subjective Notes: 3 Day Medical Problems Affecting Mental Status: Yes Interim History: Pt's hip xray showed arthritis in hips- no acute change suggested he take tylenol regularly for this For Anxiety inc he gabapentin to tid doesn't find hyroxyzine helpful and since cirrhosis don't advise inc lorazepam- nursing feels he will get more chest pain in order to inc freq of lorazepam Medication Compliance: Yes Side effects from medications: No Attending Groups: No Review of Systems Acute medical concerns: Yes IDDM arthritis, cirrhosis Medical Review of Systems: unchanged Mental Status Exam Mental Status Exam Patient Appearance: Disheveled Patient Orientation: Person, Place and Situation Level of Consciousness: Awake Patient Behavior: Dependent, Cooperative and Fatigued Mood Description: Depressed Affect Description: Anxious and Blunted Ability to Follow Directions: Fair Speech Pattern: Appropriate Hallucinations: Auditory Thought Process: Rumination Thought Content: positive for Poverty of Content Abnormal Motor Activity Signs and Symptoms: Tic (restless moving of lower feet- says he only gets when anxious) Judgement: Fair (may be med seeking?) Diagnostics Vital Signs (24Hr): Vital Signs - 24 hr 04/27/21 13:22 04/27/21 14:17 04/27/21 18:00 Temperature 97.5 F Pulse Rate 111 H 99 110 H Respiratory Rate 18 Blood Pressure 123/79 136/90 H Pulse Oximetry 98 04/27/21 20:17 04/28/21 06:00 04/28/21 09:09 Temperature 98.9 F Pulse Rate 132 H 57 102 H Respiratory Rate 17 Blood Pressure 156/96 H 122/58 L 139/85 Pulse Oximetry 98 Labs Results: 04/26/21 08:19 Labs: Laboratory Results - last 48 hr 04/26/21 04/26/21 04/26/21 12:09 16:39 21:59 POC Glucose 115 152 H 136 H 04/27/21 04/27/21 04/27/21 08:06 11:31 17:03 POC Glucose 121 H 205 H 168 H 04/27/21 04/28/21 21:04 08:29 POC Glucose 239 H 92 Imaging Radiology Impressions: ITS Impressions Hip/Pelvis X-Ray 04/27/21 13:17 IMPRESSION: 1. Mild bilateral hip degenerative joint changes, right greater than left. 2. Right pincer femoroacetabular impingement. Medications Medications Current Medications Acetaminophen (Acetaminophen 325 Mg Tablet) 650 mg PO Q6H PRN PRN Reason: Headache/Pain Mild Scale (1-3) Al Hydroxide/Mg Hydroxide (Magnesium Hydrox/Alum Hydrox 30 Ml Oral.Susp) 30 ml PO Q6H PRN PRN Reason: Heartburn/Nausea Aspirin (Aspirin 81 Mg Tab.Chew) 81 mg PO DAILY [facility] Last Admin: 04/28/21 09:11 Dose: 81 mg Documented by: Atorvastatin Calcium (Atorvastatin Calcium 20 Mg Tablet) 20 mg PO DAILY [facility] Last Admin: 04/28/21 09:09 Dose: 20 mg Documented by: Carvedilol (Carvedilol 6.25 Mg Tablet) 6.25 mg PO BID [facility]; Protocol Last Admin: 04/28/21 09:09 Dose: 6.25 mg Documented by: Gabapentin (Gabapentin 300 Mg Capsule) 300 mg PO TID [facility] Hydroxyzine HCl (Hydroxyzine Hcl 25 Mg Tablet) 25 mg PO Q6H PRN PRN Reason: Anxiety Last Admin: 04/28/21 02:30 Dose: 25 mg Documented by: Insulin Glargine (Insulin Glargine,Hum.Rec.Anlog 100 Unit/Ml 10 Ml Vial) 35 unit SUBCUT BEDTIME [facility] Last Admin: 04/27/21 20:16 Dose: 35 unit Documented by: Insulin Human Lispro (Insulin Lispro 100 Unit/Ml 3 Ml Vial) 0 unit SUBCUT QIDACHS [facility]; Protocol Last Admin: 04/28/21 10:26 Dose: Not Given Documented by: Lorazepam (Lorazepam 0.5 Mg Tablet) 0.5 mg PO BID PRN PRN Reason: Anxiety Last Admin: 04/28/21 06:01 Dose: 0.5 mg Documented by: Magnesium Hydroxide (Milk Of Magnesia 30 Ml Oral.Susp) 30 ml PO DAILY PRN PRN Reason: Constipation Metformin HCl (Metformin Hcl 1,000 Mg Tablet) 1,000 mg PO BIDWM [facility] Last Admin: 04/28/21 09:12 Dose: 1,000 mg Documented by: Nicotine Polacrilex (Nicotine Polacrilex 2 Mg Gum) 4 mg BUCCAL Q2H PRN PRN Reason: Nicotine Cravings Nitroglycerin (Nitroglycerin 0.4 Mg Tab.Subl) 0.4 mg SUBLINGUAL Q5MX3 PRN PRN Reason: chest pain Last Admin: 04/27/21 13:36 Dose: 0.4 tab Documented by: Omeprazole (Omeprazole 20 Mg Capsule.Dr) 20 mg PO DAILY@0630 [facility] Last Admin: 04/28/21 06:31 Dose: 20 mg Documented by: Risperidone (Risperidone 1 Mg Tablet) 1 mg PO TID [facility] Last Admin: 04/28/21 09:12 Dose: 1 mg Documented by: Sertraline HCl (Sertraline Hcl 100 Mg Tablet) 100 mg PO DAILY [facility] Last Admin: 04/28/21 09:12 Dose: 100 mg Documented by: Trazodone HCl (Trazodone Hcl 100 Mg Tablet) 200 mg PO BEDTIME [facility] Last Admin: 04/27/21 20:20 Dose: 200 mg Documented by: Trazodone HCl (Trazodone Hcl 100 Mg Tablet) 100 mg PO BEDTIME [facility] Last Admin: 04/27/21 20:20 Dose: 100 mg Documented by: Zolpidem Tartrate (Zolpidem Tartrate 5 Mg Tablet) 5 mg PO BEDTIME [facility] Allergies Allergies Allergy/AdvReac Type Severity Reaction Status Date / Time Penicillins Allergy Mild RASH AND Unverified 04/12/20 17:03 NAUSEA WITH VOMITING aripiprazole [From Abilify] Allergy Unknown unknown Verified 04/02/21 19:29 temazepam [From Restoril] Allergy Unknown UNKNOWN Unverified 04/12/20 17:03 haloperidol [From Haldol] AdvReac Severe dystonia Unverified 04/04/21 12:44 quetiapine [From Seroquel] AdvReac Unknown unknown Verified 04/02/21 19:28 SEAFOOD Allergy Severe UNKNOWN Uncoded 04/12/20 17:03 Assessment & Plan Assessment & Plan (1) Polysubstance dependence in controlled environment: Status: Acute Code(s): F19.20 - Other psychoactive substance dependence, uncomplicated (2) IDDM (insulin dependent diabetes mellitus): Status: Acute (3) MDD (major depressive disorder), recurrent, severe, with psychosis: Status: Acute Code(s): F33.3 - Major depressive disorder, recurrent, severe with psychotic symptoms Assessment and Plan: pt co ongoing anxiety, continues to have restless leg movements akathesia not best candidate for benztropine given age/likely effect on cognition Greater than 50% of the session was spent on counseling and/or coordination of care Patient educated on: medication risk/benefits and medical condition Informed Consent: understands (however still focused on getting more ativan) Reason for contiued inpatient stay Substantial Risk for: inability to function and rapid decompensation
[2021-04-28 12:27] LABS: Glucose, Whole Blood 145 mg/dL (60-115)
[2021-04-28 16:41] VITALS: BP 148/85; PULSE 103; TEMP 37
[2021-04-28 16:53] LABS: Glucose, Whole Blood 177 mg/dL (60-115)
[2021-04-28] MEDS: Insulin Lispro 100 UNIT/ML 3 ML VIAL SUBCUT ×2 (17:24→20:11)
[2021-04-28 19:12] VITALS: BP 128/92; PULSE 99
[2021-04-28] MEDS: traZODone HCL 100 MG TABLET 200 MG PO (19:12)
[2021-04-28] MEDS: traZODone HCL 100 MG TABLET PO (19:13)
[2021-04-28] MEDS: Zolpidem Tartrate 5 MG TABLET PO (19:13)
[2021-04-28 19:49] LABS: Glucose, Whole Blood 195 mg/dL (60-115)
[2021-04-28] MEDS: Insulin Glargine,Hum.rec.anlog 100 UNIT/ML 10 ML VIAL 35 UNIT SUBCUT (20:11)
[2021-04-29 06:00] VITALS: BP 115/64; PULSE 83; RESP 18; TEMP 36.1; O2SAT 96
[2021-04-29] MEDS: Omeprazole 20 MG CAPSULE.DR PO (06:18)
[2021-04-29] MEDS: LORazepam 0.5 MG TABLET PO ×3 (06:36→17:56)
[2021-04-29 08:24] VITALS: BP 159/85; PULSE 84; RESP 16; TEMP 36.3; O2SAT 93
[2021-04-29 08:25] LABS: Glucose, Whole Blood 135 mg/dL (60-115)
[2021-04-29] MEDS: Aspirin 81 MG TAB.CHEW PO (08:26)
[2021-04-29] MEDS: risperiDONE 1 MG TABLET PO ×3 (08:26→19:22)
[2021-04-29] MEDS: Sertraline HCL 100 MG TABLET PO (08:26)
[2021-04-29 08:27] VITALS: BP 159/85; PULSE 84
[2021-04-29] MEDS: carvediloL 6.25 MG TABLET PO ×2 (08:27→19:20)
[2021-04-29] MEDS: Atorvastatin Calcium 20 MG TABLET PO (08:27)
[2021-04-29] MEDS: Gabapentin 300 MG CAPSULE PO ×3 (08:27→19:21)
[2021-04-29] MEDS: metFORMIN HCl 1,000 MG TABLET 1000 MG PO ×2 (08:28→16:51)
[2021-04-29] MEDS: hydrOXYzine HCL 25 MG TABLET PO ×2 (08:45→13:58)
[2021-04-29 09:39] LABS: Estimated Glomerular Filt Rate > 60
[2021-04-29 12:00] LABS: Glucose, Whole Blood 164 mg/dL (60-115)
[2021-04-29] MEDS: Insulin Lispro 100 UNIT/ML 3 ML VIAL SUBCUT ×2 (12:45→16:51)
[2021-04-29 18:02] LABS: Glucose, Whole Blood 171 mg/dL (60-115)
[2021-04-29 19:20] VITALS: BP 129/90; PULSE 99
[2021-04-29] MEDS: Zolpidem Tartrate 5 MG TABLET PO (19:21)
[2021-04-29] MEDS: traZODone HCL 100 MG TABLET 200 MG PO (19:21)
[2021-04-29] MEDS: traZODone HCL 100 MG TABLET PO (19:27)
[2021-04-29] MEDS: Insulin Glargine,Hum.rec.anlog 100 UNIT/ML 10 ML VIAL 35 UNIT SUBCUT (20:11)
[2021-04-29 20:36] LABS: Glucose, Whole Blood 123 mg/dL (60-115)
--- NOTE | 2021-04-29 21:59 | HO.PSYCHPN ---
Subjective Subjective Date of Service: 04/29/21 Reason For Visit: Bipolar I D/O w/Psychotic Features Interim History: pt seen on 04/29 pt reports mood is better and denies any depression; he denies any SI at all or any HI. Pt says AH have fully resolved, likely with medications. He reports he continues to struggle with anxiety but feels it's mostly due to being on locked unit which he says is causing a claustrophic feeling. Pt says he would like to dC this wed. Bargeman and pt disxcussed med options and he agrees to increase Zoloft to 150mg since he feels anxiety/depression are residential issue with him. Bargeman also agreed to temporarily add extra Ativan 0.5mg for daytime anxiety but explained this are no plans to conitnued on discharge to which pt said he fully undertood and was fine with. Mental Status Exam Mental Status Exam Narrative: Patient Appearance:?appropriate Patient Orientation:?Person, Place and Situation Level of Consciousness:?Awake Patient Behavior:?taping leg; cooperative Mood Description:? good...very anxious Affect Description:?Anxious Ability to Follow Directions:?Fair Speech Pattern:?Appropriate Hallucinations:?denies aVH Thought Process:?logical, linear, goal oriented Thought Content:?no SI, no HI; on dealing w/ anxiety and discharge Abnormal Motor Activity Signs and Symptoms:?Tic (restless moving of lower feet- says he only gets when anxious; same with mouth movements-says only due to anxiety) Judgement:?Fair Diagnostics Vital Signs (24Hr): Vital Signs - 24 hr 04/29/21 06:00 04/29/21 08:24 04/29/21 08:27 Temperature 96.9 F 97.4 F Pulse Rate 83 84 84 Respiratory Rate 18 16 Blood Pressure 115/64 159/85 H 159/85 H Pulse Oximetry 96 93 04/29/21 19:20 Temperature Pulse Rate 99 Respiratory Rate Blood Pressure 129/90 H Pulse Oximetry Labs Results: 04/29/21 09:20 Labs: Laboratory Results - last 48 hr 04/28/21 04/28/21 04/28/21 08:29 12:22 16:48 Creatinine Estim Creat Clear Calc Estimated GFR POC Glucose 92 145 H 177 H 04/28/21 04/29/21 04/29/21 19:43 08:21 09:20 Creatinine 0.87 Estim Creat Clear Calc TNP Estimated GFR > 60 POC Glucose 195 H 135 H 04/29/21 04/29/21 04/29/21 11:56 16:45 20:30 Creatinine Estim Creat Clear Calc Estimated GFR POC Glucose 164 H 171 H 123 H Imaging Radiology Impressions: ITS Impressions Hip/Pelvis X-Ray 04/27/21 13:17 IMPRESSION: 1. Mild bilateral hip degenerative joint changes, right greater than left. 2. Right pincer femoroacetabular impingement. Medications Medications Current Medications Acetaminophen (Acetaminophen 325 Mg Tablet) 650 mg PO Q6H PRN PRN Reason: Headache/Pain Mild Scale (1-3) Al Hydroxide/Mg Hydroxide (Magnesium Hydrox/Alum Hydrox 30 Ml Oral.Susp) 30 ml PO Q6H PRN PRN Reason: Heartburn/Nausea Aspirin (Aspirin 81 Mg Tab.Chew) 81 mg PO DAILY [facility] Last Admin: 04/29/21 08:26 Dose: 81 mg Documented by: Atorvastatin Calcium (Atorvastatin Calcium 20 Mg Tablet) 20 mg PO DAILY [facility] Last Admin: 04/29/21 08:27 Dose: 20 mg Documented by: Carvedilol (Carvedilol 6.25 Mg Tablet) 6.25 mg PO BID [facility]; Protocol Last Admin: 04/29/21 19:20 Dose: 6.25 mg Documented by: Gabapentin (Gabapentin 300 Mg Capsule) 300 mg PO TID [facility] Last Admin: 04/29/21 19:21 Dose: 300 mg Documented by: Hydroxyzine HCl (Hydroxyzine Hcl 25 Mg Tablet) 25 mg PO Q6H PRN PRN Reason: Anxiety Last Admin: 04/29/21 13:58 Dose: 25 mg Documented by: Insulin Glargine (Insulin Glargine,Hum.Rec.Anlog 100 Unit/Ml 10 Ml Vial) 35 unit SUBCUT BEDTIME [facility] Last Admin: 04/29/21 20:11 Dose: 35 unit Documented by: Insulin Human Lispro (Insulin Lispro 100 Unit/Ml 3 Ml Vial) 0 unit SUBCUT QIDACHS [facility]; Protocol Last Admin: 04/29/21 20:32 Dose: Not Given Documented by: Lorazepam (Lorazepam 0.5 Mg Tablet) 0.5 mg PO TID PRN PRN Reason: Anxiety Last Admin: 04/29/21 17:56 Dose: 0.5 mg Documented by: Magnesium Hydroxide (Milk Of Magnesia 30 Ml Oral.Susp) 30 ml PO DAILY PRN PRN Reason: Constipation Metformin HCl (Metformin Hcl 1,000 Mg Tablet) 1,000 mg PO BIDWM [facility] Last Admin: 04/29/21 16:51 Dose: 1,000 mg Documented by: Nicotine Polacrilex (Nicotine Polacrilex 2 Mg Gum) 4 mg BUCCAL Q2H PRN PRN Reason: Nicotine Cravings Nitroglycerin (Nitroglycerin 0.4 Mg Tab.Subl) 0.4 mg SUBLINGUAL Q5MX3 PRN PRN Reason: chest pain Last Admin: 04/27/21 13:36 Dose: 0.4 tab Documented by: Omeprazole (Omeprazole 20 Mg Capsule.Dr) 20 mg PO DAILY@0630 [facility] Last Admin: 04/29/21 06:18 Dose: 20 mg Documented by: Risperidone (Risperidone 1 Mg Tablet) 1 mg PO TID [facility] Last Admin: 04/29/21 19:22 Dose: 1 mg Documented by: Sertraline HCl (Sertraline Hcl 50 Mg Tablet) 150 mg PO DAILY [facility] Trazodone HCl (Trazodone Hcl 100 Mg Tablet) 200 mg PO BEDTIME [facility] Last Admin: 04/29/21 19:21 Dose: 200 mg Documented by: Trazodone HCl (Trazodone Hcl 100 Mg Tablet) 100 mg PO BEDTIME [facility] Last Admin: 04/29/21 19:27 Dose: 100 mg Documented by: Zolpidem Tartrate (Zolpidem Tartrate 5 Mg Tablet) 5 mg PO BEDTIME [facility] Last Admin: 04/29/21 19:21 Dose: 5 mg Documented by: Allergies Allergies Allergy/AdvReac Type Severity Reaction Status Date / Time Penicillins Allergy Mild RASH AND Unverified 04/12/20 17:03 NAUSEA WITH VOMITING aripiprazole [From Abilify] Allergy Unknown unknown Verified 04/02/21 19:29 temazepam [From Restoril] Allergy Unknown UNKNOWN Unverified 04/12/20 17:03 haloperidol [From Haldol] AdvReac Severe dystonia Unverified 04/04/21 12:44 quetiapine [From Seroquel] AdvReac Unknown unknown Verified 04/02/21 19:28 SEAFOOD Allergy Severe UNKNOWN Uncoded 04/12/20 17:03 Assessment & Plan Assessment & Plan (1) Polysubstance dependence in controlled environment: Status: Acute Code(s): F19.20 - Other psychoactive substance dependence, uncomplicated (2) IDDM (insulin dependent diabetes mellitus): Status: Acute (3) MDD (major depressive disorder), recurrent, severe, with psychosis: Status: Acute Code(s): F33.3 - Major depressive disorder, recurrent, severe with psychotic symptoms Assessment and Plan: pt co ongoing anxiety, continues to have restless leg movements akathesia not best candidate for benztropine given age/likely effect on cognition increased Zoloft to 150mg for anxiety added temporary ativan 0.5mg while on unit pt says leg taping and mouth movement only due to anxiety and does not feel need for tx; says they will resovlve on discharge Greater than 50% of the session was spent on counseling and/or coordination of care Reason for contiued inpatient stay Substantial Risk for: other
--- NOTE | 2021-04-30 | ECG_ITS ---
Test Reason : qtc prolongation Blood Pressure : / mmHG Vent. Rate : 087 BPM Atrial Rate : 087 BPM P-R Int : 164 ms QRS Dur : 074 ms QT Int : 360 ms P-R-T Axes : 029 -20 037 degrees QTc Int : 433 ms Normal sinus rhythm Minimal voltage criteria for LVH, may be normal variant ( R in aVL ) Nonspecific T wave abnormality Abnormal ECG When compared with ECG of 05-APR-2021 03:58, Criteria for Anterior infarct are no longer Present Referred By: Jenifer Betancourt Electronically Signed By:CAROLINE BLANC
[2021-04-30 06:00] VITALS: BP 113/70; PULSE 74; RESP 17; TEMP 36.2; O2SAT 98
[2021-04-30] MEDS: Omeprazole 20 MG CAPSULE.DR PO (06:41)
[2021-04-30] MEDS: LORazepam 0.5 MG TABLET PO ×3 (06:41→20:03)
[2021-04-30 06:54] LABS: Glucose, Whole Blood 138 mg/dL (60-115)
[2021-04-30] MEDS: Gabapentin 300 MG CAPSULE PO ×3 (08:14→20:03)
[2021-04-30] MEDS: risperiDONE 1 MG TABLET PO ×3 (08:14→20:03)
[2021-04-30 08:15] VITALS: BP 132/68; PULSE 77
[2021-04-30] MEDS: Atorvastatin Calcium 20 MG TABLET PO (08:15)
[2021-04-30] MEDS: carvediloL 6.25 MG TABLET PO ×2 (08:15→20:04)
[2021-04-30] MEDS: Aspirin 81 MG TAB.CHEW PO (08:15)
[2021-04-30] MEDS: metFORMIN HCl 1,000 MG TABLET 1000 MG PO ×2 (08:15→17:42)
[2021-04-30] MEDS: Sertraline HCL 50 MG TABLET 150 MG PO (08:16)
[2021-04-30 08:40] VITALS: BP 132/68; PULSE 77; RESP 16; TEMP 37.4; O2SAT 97
[2021-04-30] MEDS: hydrOXYzine HCL 25 MG TABLET PO ×2 (08:50→15:44)
--- NOTE | 2021-04-30 09:59 | HO.PSYCHPN ---
Subjective Subjective Date of Service: 05/01/21 Reason For Visit: Bipolar I D/O w/Psychotic Features Subjective Notes: Conditional Voluntary Interim History: Pt met with this greeting card writer and SW. Pt reports that he feels much better in that he is not suicidal. He reports sleeping and eating well. He reports wanting to go home tomorrow. He reports he has fiance and planning wedding soon. Pt reports buying percocet on street, about 30-40 tabs of 20mg. We discussed option of suboxone, which he was open to. He was referred to addiction team. Medication Compliance: Yes Side effects from medications: No Mental Status Exam Mental Status Exam Narrative: Appearance: thin, wearing hospital gown, poor hygiene, restless Behavior:cooperative psychomotor:no agitation or retardation noted Speech:clear, normal rate/volume, spontaneous Thought process:linear Thought content:reports feeling more hopeful, no signs of psychosis Mood: better Affect: congruent, brighter non labile SI:denies HI:none VH/AH:denies Delusions:none Insight/judgment:poor x 2 Memory/cog: alert, oriented x 3.pending MOCA Diagnostics Vital Signs (24Hr): Vital Signs - 24 hr 04/30/21 13:49 04/30/21 18:00 05/01/21 06:00 Temperature 97.3 F 97.5 F 97.5 F Pulse Rate 87 91 67 Respiratory Rate 16 16 Blood Pressure 129/77 141/84 H 148/68 H Pulse Oximetry 96 97 05/01/21 08:33 Temperature Pulse Rate 91 Respiratory Rate Blood Pressure 168/85 H Pulse Oximetry Labs Results: 04/29/21 09:20 Labs: Laboratory Results - last 48 hr 04/29/21 04/29/21 04/29/21 11:56 16:45 20:30 POC Glucose 164 H 171 H 123 H 04/30/21 04/30/21 04/30/21 06:16 11:54 17:09 POC Glucose 138 H 142 H 164 H 04/30/21 05/01/21 21:18 04:45 POC Glucose 138 H 170 H Imaging Radiology Impressions: ITS Impressions Hip/Pelvis X-Ray 04/27/21 13:17 IMPRESSION: 1. Mild bilateral hip degenerative joint changes, right greater than left. 2. Right pincer femoroacetabular impingement. Medications Medications Current Medications Acetaminophen (Acetaminophen 325 Mg Tablet) 650 mg PO Q6H PRN PRN Reason: Headache/Pain Mild Scale (1-3) Al Hydroxide/Mg Hydroxide (Magnesium Hydrox/Alum Hydrox 30 Ml Oral.Susp) 30 ml PO Q6H PRN PRN Reason: Heartburn/Nausea Aspirin (Aspirin 81 Mg Tab.Chew) 81 mg PO DAILY [facility] Last Admin: 05/01/21 08:32 Dose: 81 mg Documented by: Atorvastatin Calcium (Atorvastatin Calcium 20 Mg Tablet) 20 mg PO DAILY [facility] Last Admin: 05/01/21 08:34 Dose: 20 mg Documented by: Carvedilol (Carvedilol 6.25 Mg Tablet) 6.25 mg PO BID [facility]; Protocol Last Admin: 05/01/21 08:33 Dose: 6.25 mg Documented by: Gabapentin (Gabapentin 300 Mg Capsule) 300 mg PO TID [facility] Last Admin: 05/01/21 08:32 Dose: 300 mg Documented by: Hydroxyzine HCl (Hydroxyzine Hcl 25 Mg Tablet) 25 mg PO Q6H PRN PRN Reason: Anxiety Last Admin: 05/01/21 04:50 Dose: 25 mg Documented by: Insulin Glargine (Insulin Glargine,Hum.Rec.Anlog 100 Unit/Ml 10 Ml Vial) 35 unit SUBCUT BEDTIME [facility] Last Admin: 04/30/21 21:23 Dose: 35 unit Documented by: Insulin Human Lispro (Insulin Lispro 100 Unit/Ml 3 Ml Vial) 0 unit SUBCUT QIDACHS [facility]; Protocol Last Admin: 05/01/21 08:31 Dose: 2 unit Documented by: Lorazepam (Lorazepam 0.5 Mg Tablet) 0.5 mg PO TID PRN PRN Reason: Anxiety Last Admin: 05/01/21 03:01 Dose: 0.5 mg Documented by: Magnesium Hydroxide (Milk Of Magnesia 30 Ml Oral.Susp) 30 ml PO DAILY PRN PRN Reason: Constipation Metformin HCl (Metformin Hcl 1,000 Mg Tablet) 1,000 mg PO BIDWM [facility] Last Admin: 05/01/21 08:33 Dose: 1,000 mg Documented by: Nicotine Polacrilex (Nicotine Polacrilex 2 Mg Gum) 4 mg BUCCAL Q2H PRN PRN Reason: Nicotine Cravings Nitroglycerin (Nitroglycerin 0.4 Mg Tab.Subl) 0.4 mg SUBLINGUAL Q5MX3 PRN PRN Reason: chest pain Last Admin: 04/27/21 13:36 Dose: 0.4 tab Documented by: Omeprazole (Omeprazole 20 Mg Capsule.Dr) 20 mg PO DAILY@0630 [facility] Last Admin: 05/01/21 04:50 Dose: 20 mg Documented by: Risperidone (Risperidone 1 Mg Tablet) 1 mg PO TID [facility] Last Admin: 05/01/21 08:34 Dose: 1 mg Documented by: Sertraline HCl (Sertraline Hcl 50 Mg Tablet) 150 mg PO DAILY [facility] Last Admin: 05/01/21 08:33 Dose: 150 mg Documented by: Trazodone HCl (Trazodone Hcl 100 Mg Tablet) 200 mg PO BEDTIME [facility] Last Admin: 04/30/21 20:03 Dose: 200 mg Documented by: Trazodone HCl (Trazodone Hcl 100 Mg Tablet) 100 mg PO BEDTIME [facility] Last Admin: 04/30/21 20:03 Dose: 100 mg Documented by: Zolpidem Tartrate (Zolpidem Tartrate 5 Mg Tablet) 5 mg PO BEDTIME PRN PRN Reason: Insomnia Last Admin: 04/30/21 20:31 Dose: 5 mg Documented by: Allergies Allergies Allergy/AdvReac Type Severity Reaction Status Date / Time Penicillins Allergy Mild RASH AND Unverified 04/12/20 17:03 NAUSEA WITH VOMITING aripiprazole [From Abilify] Allergy Unknown unknown Verified 04/02/21 19:29 temazepam [From Restoril] Allergy Unknown UNKNOWN Unverified 04/12/20 17:03 haloperidol [From Haldol] AdvReac Severe dystonia Unverified 04/04/21 12:44 quetiapine [From Seroquel] AdvReac Unknown unknown Verified 04/02/21 19:28 SEAFOOD Allergy Severe UNKNOWN Uncoded 04/12/20 17:03 Assessment & Plan Assessment & Plan (1) Polysubstance dependence in controlled environment: Status: Acute Code(s): F19.20 - Other psychoactive substance dependence, uncomplicated (2) IDDM (insulin dependent diabetes mellitus): Status: Acute (3) MDD (major depressive disorder), recurrent, severe, with psychosis: Status: Acute Code(s): F33.3 - Major depressive disorder, recurrent, severe with psychotic symptoms Assessment and Plan: Mr. Timmons is a 60 year-old male with hx of MDD with psychosis, opioid use disorder admitted for increased depression, SI, in context of opioid use and of daughter. PLAN increased Zoloft to 150mg for anxiety added temporary ativan 0.5mg while on unit referral to addiction consult re: suboxone Greater than 50% of the session was spent on counseling and/or coordination of care Reason for contiued inpatient stay Substantial Risk for: stable for discharge
[2021-04-30 11:59] LABS: Glucose, Whole Blood 142 mg/dL (60-115)
[2021-04-30 13:49] VITALS: BP 129/77; PULSE 87; RESP 16; TEMP 36.3; O2SAT 96
[2021-04-30 17:23] LABS: Glucose, Whole Blood 164 mg/dL (60-115)
[2021-04-30] MEDS: Insulin Lispro 100 UNIT/ML 3 ML VIAL SUBCUT (17:42)
[2021-04-30 18:00] VITALS: BP 141/84; PULSE 91; TEMP 36.4
[2021-04-30] MEDS: traZODone HCL 100 MG TABLET PO (20:03)
[2021-04-30] MEDS: traZODone HCL 100 MG TABLET 200 MG PO (20:03)
[2021-04-30] MEDS: Zolpidem Tartrate 5 MG TABLET PO (20:31)
[2021-04-30 21:23] LABS: Glucose, Whole Blood 138 mg/dL (60-115)
[2021-04-30] MEDS: Insulin Glargine,Hum.rec.anlog 100 UNIT/ML 10 ML VIAL 35 UNIT SUBCUT (21:23)
[2021-05-01] MEDS: LORazepam 0.5 MG TABLET PO ×2 (03:01→11:33)
[2021-05-01] MEDS: Omeprazole 20 MG CAPSULE.DR PO (04:50)
[2021-05-01] MEDS: hydrOXYzine HCL 25 MG TABLET PO (04:50)
[2021-05-01 05:54] LABS: Glucose, Whole Blood 170 mg/dL (60-115)
[2021-05-01 06:00] VITALS: BP 148/68; PULSE 67; RESP 16; TEMP 36.4; O2SAT 97
[2021-05-01] MEDS: Insulin Lispro 100 UNIT/ML 3 ML VIAL SUBCUT ×2 (08:31→12:33)
[2021-05-01] MEDS: Aspirin 81 MG TAB.CHEW PO (08:32)
[2021-05-01] MEDS: Gabapentin 300 MG CAPSULE PO ×2 (08:32→13:56)
[2021-05-01 08:33] VITALS: BP 168/85; PULSE 91
[2021-05-01] MEDS: carvediloL 6.25 MG TABLET PO (08:33)
[2021-05-01] MEDS: Sertraline HCL 50 MG TABLET 150 MG PO (08:33)
[2021-05-01] MEDS: metFORMIN HCl 1,000 MG TABLET 1000 MG PO (08:33)
[2021-05-01] MEDS: Atorvastatin Calcium 20 MG TABLET PO (08:34)
[2021-05-01] MEDS: risperiDONE 1 MG TABLET PO ×2 (08:34→13:56)
--- NOTE | 2021-05-01 09:58 | P.DS_ITS ---
DS: Providers Provider Date of Service: 05/01/21 Date of admission: 04/25/21 18:28 Primary care physician: Aylin Jerry MD Consults: 04/25/21 18:34 Consult to Hospitalist Routine Consulting Provider: Hospitalist Reason For Exam: admit from another hospital DS: Diagnosis Discharge Diagnosis (1) Polysubstance dependence in controlled environment: Status: Acute (2) IDDM (insulin dependent diabetes mellitus): Status: Acute (3) MDD (major depressive disorder), recurrent, severe, with psychosis: Status: Acute DS: Medications Discharge Medications Home Medications: Previous Rx's Medication Instructions Recorded aspirin 81 mg chewable tablet 81 mg PO DAILY #30 tab 04/09/21 atorvastatin 20 mg tablet 20 mg PO DAILY #10 tab 04/09/21 carvedilol 6.25 mg tablet 6.25 mg PO BID #12 tab 04/09/21 cholecalciferol (vitamin D3) 25 25 mcg PO DAILY #30 tab 04/09/21 mcg (1,000 unit) tablet insulin glargine 100 unit/mL 35 unit SUBCUT BEDTIME #10 ml 04/09/21 subcutaneous solution (Lantus U-100 Insulin) insulin lispro 100 unit/mL See Protocol SUBCUT QIDACHS #10 ml 04/09/21 subcutaneous solution (Humalog U-100 Insulin) nitroglycerin 0.4 mg sublingual 0.4 mg SUBLINGUAL Q5MX3 PRN #5 tab 04/09/21 tablet (Nitrostat) omeprazole 20 mg capsule,delayed 20 mg PO DAILY@0630 #30 cap 04/09/21 release risperidone 1 mg tablet 1 mg PO TID #15 tab 04/09/21 warfarin 3 mg tablet (Jantoven) 3 mg PO DAILY@1800 #10 tab 04/09/21 aspirin 81 mg chewable tablet 81 mg PO DAILY #30 tab 05/01/21 sertraline 100 mg tablet 150 mg PO DAILY #90 tab 05/01/21 trazodone 100 mg tablet 200 mg PO BEDTIME #30 tab 05/01/21 Mental Status Exam Mental Status Exam Narrative: Appearance: thin, casually groomed, improved hygiene, NAD Behavior:cooperative psychomotor:no agitation or retardation noted Speech:clear, normal rate/volume, spontaneous Thought process:linear Thought content:reports feeling more hopeful, no signs of psychosis Mood: better Affect: congruent, brighter non labile SI:denies HI:none VH/AH:denies Delusions:none Insight/judgment:poor x 2 Memory/cog: alert, oriented x 3.pending MOCA Data Data Completed and Pending Completed studies during hospitalization [Text1]: 04/25/21 04/26/21 04/26/21 19:58 05:36 08:19 Sodium Potassium Chloride Carbon Dioxide Anion Gap BUN Creatinine Cancelled Estim Creat Clear Calc Cancelled Estimated GFR Cancelled POC Glucose 183 H 247 H Random Glucose Calcium 04/26/21 04/26/21 04/26/21 08:19 12:09 16:39 Sodium 140 Potassium 4.2 Chloride 105 Carbon Dioxide 25 Anion Gap 14 BUN 6 L D Creatinine 0.87 Estim Creat Clear Calc TNP Estimated GFR > 60 POC Glucose 115 152 H Random Glucose 181 H Calcium 9.8 04/26/21 04/27/21 04/27/21 21:59 08:06 11:31 Sodium Potassium Chloride Carbon Dioxide Anion Gap BUN Creatinine Estim Creat Clear Calc Estimated GFR POC Glucose 136 H 121 H 205 H Random Glucose Calcium 04/27/21 04/27/21 04/28/21 17:03 21:04 08:29 Sodium Potassium Chloride Carbon Dioxide Anion Gap BUN Creatinine Estim Creat Clear Calc Estimated GFR POC Glucose 168 H 239 H 92 Random Glucose Calcium 04/28/21 04/28/21 04/28/21 12:22 16:48 19:43 Sodium Potassium Chloride Carbon Dioxide Anion Gap BUN Creatinine Estim Creat Clear Calc Estimated GFR POC Glucose 145 H 177 H 195 H Random Glucose Calcium 04/29/21 04/29/21 04/29/21 08:21 09:20 11:56 Sodium Potassium Chloride Carbon Dioxide Anion Gap BUN Creatinine 0.87 Estim Creat Clear Calc TNP Estimated GFR > 60 POC Glucose 135 H 164 H Random Glucose Calcium 04/29/21 04/29/21 04/30/21 16:45 20:30 06:16 Sodium Potassium Chloride Carbon Dioxide Anion Gap BUN Creatinine Estim Creat Clear Calc Estimated GFR POC Glucose 171 H 123 H 138 H Random Glucose Calcium 04/30/21 04/30/21 04/30/21 11:54 17:09 21:18 Sodium Potassium Chloride Carbon Dioxide Anion Gap BUN Creatinine Estim Creat Clear Calc Estimated GFR POC Glucose 142 H 164 H 138 H Random Glucose Calcium 05/01/21 04:45 Sodium Potassium Chloride Carbon Dioxide Anion Gap BUN Creatinine Estim Creat Clear Calc Estimated GFR POC Glucose 170 H Random Glucose Calcium Imaging Diagnostic Imaging Impressions Hip/Pelvis X-Ray 04/27/21 13:17 IMPRESSION: 1. Mild bilateral hip degenerative joint changes, right greater than left. 2. Right pincer femoroacetabular impingement. DS: Summary Hospital Course Hospital Course: Mr. Timmons is a 60 year-old male with hx of psychosis, substance use in remission, who self presented to [facility] ED reporting increased depressed mood, AH, passive suicidal ideation. In the ED, his utox was negative. Mr. Timmons is known to this job specification writer through previous admission to in 03/2021. He also as hx of cirrhosis, HTN, Hyperlipedemia. On the unit, Mr. Timmons reports increase depressed mood, AH, feeling hopeless/helpless. Pt reports not being able to care for himself but can't provide more details. He reports he stopped taking medications for unclear reasons. He reports poor sleep. He also reports fair appetite.? He reports living on his own. Past Psychiatric History: first [facility] crisis eval was in 2002.? per 03/21/21 crisis eval his daughter had been killed by being hit by an ambulance earlier in the month.? he was at [facility] from 03/22 to approximately 03/26 (but [place] [facility] [place] UTI/pyelonephritis Dx). on 03/2021. 07/15 - reported visual hallucinations (was 3 wks s/p CVA and 2 wks s/p overdose on ambien and benadryl). numerous psychiatric hospitalizations. h/o SA via overdose (the above as well as mentions in [facility] record of intentional overdoses on klonopin and ativan as well) Medical Evaluation Reviewed: Yes HOSPITAL COURSE On the unit, Mr. Timmons was admitted on a CV and placed on 15 minutes checks for safety. Pt was open and franc about extend of substance use. Pt reported buying oxycodone on the streets about 20-30 tabs of 20mg. We discussed risks, benefits and alternative treatment options. Pt initially presented as very restless, anxious, pacing. Of note, in past he has experience severe akathisia with thorazine and seroquel. He denied suicidal ideation throughout the hospital stay. He was continued on sertraline for depression. He was also continued on risperidone for AH, however, this appear to occur mainly in setting of cocaine use, which he has not used recently. His sleep gradually improved. He agreed to meet with addiction team from hospital. Due to opioid use, he agreed to consider suboxone as MAT. His affect gradually brighten. He reported less symptoms of depression. He was future oriented in that he was looking forward to see fizoila with whom he plans to get soon. He denied suicidal or homicidal ideation. He was increasingly more visible in the unit and attended some groups. There were no incidences of disruptive behaviors nor use of restraints. Time spent discussing smoking cessation with patient: 3 to 10 minutes Status at Discharge Cognitive/behavioral status at discharge: Mr. Timmons presents with brighter affect. He denies SI/HI. He reports improved sleep/appetite. Open to continue substance use treatment options. No signs of aggression towards self or others Functional status at discharge: independent ambulation Overall status at discharge: patient is progressing back to baseline Time Spent with Patient Time attestation: Total time spent providing and/or coordinating discharge services: Time spent: Greater than 30 minutes Discharge Plan Discharge Patient Disposition: Home, Self-Care Discharge Diagnosis: MDD with psychosis OPioid use disorder Referrals: Kenzie Malave [Other] - 05/06/21 11:15 am (Outpatient therapy appointment Provider to refer for Psychiatry services at appointment following discharge from [facility].) [facility] [Other] - 1 Week (The Visiting RN will be coming again following D/C from [facility]) [facility] [[email or web address] [Other] - 05/07/21 1:30 pm (Initial intake at [facility] [[email or web address]] Patient should bring photo id and insurance care to appointment ) Kim Gutierrez MD [Physician] - 05/03/21 3:00 pm (TELEHEATH) Discharge Medications: New aspirin 81 mg Tablet,Chewable 81 mg PO DAILY Qty: 30 RF: 0 sertraline 100 mg tablet 150 mg PO DAILY Qty: 90 RF: 0 trazodone 100 mg Tablet 200 mg PO BEDTIME Qty: 30 RF: 0 buprenorphine-naloxone [Suboxone] 4-1 mg film 1 film sublingual DAILY Qty: 10 RF: 0 Continued carvedilol 6.25 mg Tablet 6.25 mg PO BID Qty: 12 RF: 0 atorvastatin 20 mg Tablet 20 mg PO DAILY Qty: 10 RF: 0 warfarin [Jantoven] 3 mg Tablet 3 mg PO DAILY@1800 Qty: 10 RF: 0 nitroglycerin [Nitrostat] 0.4 mg Tablet, Sublingual 0.4 mg sublingual Q5MX3 PRN (Reason: angina) Qty: 5 RF: 0 aspirin 81 mg Tablet,Chewable 81 mg PO DAILY Qty: 30 RF: 0 risperidone 1 mg Tablet 1 mg PO TID Qty: 15 RF: 0 Lantus U-100 Insulin 100 unit/mL Solution 35 unit subcut BEDTIME Qty: 10 RF: 0 omeprazole 20 mg Capsule,Delayed Release(Dr/Ec) 20 mg PO DAILY@0630 Qty: 30 RF: 0 insulin lispro [Humalog U-100 Insulin] 100 unit/mL Solution See Protocol unit subcut QIDACHS Qty: 10 RF: 0 cholecalciferol (vitamin D3) 25 mcg (1,000 unit) Tablet 25 mcg PO DAILY Qty: 30 RF: 0 Discontinued buspirone 5 mg Tablet 5 mg PO TID Qty: 15 RF: 0 sulfamethoxazole-trimethoprim 800-160 mg Tablet 1 tab PO BID Qty: 6 RF: 0 gabapentin 300 mg Capsule 300 mg PO BID Qty: 14 RF: 0 hydroxyzine HCl 25 mg Tablet 50 mg PO Q6H PRN (Reason: anxiety, agitation) Qty: 10 RF: 0 sertraline 50 mg Tablet 100 mg PO DAILY Qty: 30 RF: 0 trazodone 300 mg tablet 150 mg PO BEDTIME Qty: 14 RF: 0 No Action buprenorphine-naloxone [Suboxone] 8-2 mg film 2 film sublingual DAILY 14 Days Qty: 28 RF: 0 Discharge Orders: Discharge Order (Routine); Ordered 05/01/21 Ordered By: Jenifer Betancourt Diet: regular diet Activity on Discharge: As tolerated Stand Alone Forms: Patient Portal Discharge page, Community Support Care Plan Goals: 1. Maintain mood 2. SI/HI 3. Harm reduction-narcan take home Health Concerns: 1. Follow with PCP Plan of Treatment: 1. Take medications as prescribed 2. Go to nearest ED or call 911 in event of emergency Assessment: Brighter affect. No SI/HI. limited insight into effects of opioid use. Discharge Date/Time: 05/01/21 14:20
--- NOTE | 2021-05-01 10:24 | MHC.RECOVSUP ---
Recovery Support note: Patient is a 60 year old Serbian speaking male who was seen on M5 to discuss his substance use and recovery. Patient reports daily use of percocet with a desire to stop using. Patient reports he has to stop because he is getting and his partner does not approve of this behavior. Discussed outpatient resources with patient. Patient accepted information on [facility] in [place]. Discussed IOP with patient however he is not interested in virtual supports. Discussed medications for opiate use disorder with patient. Patient expressed concern that he will struggle with cravings and fear that he will relapse. Educated patient on Suboxone and patient reports he would like to pursue this as an option to support his recovery. Discussed case with Mirta Cordova NP and Tiffanie APPIAH. Plan for Tiffanie to follow up with patient to discuss Suboxone initiation. Patient has an appointment at the [facility] on Thursday05/07/21 at 1:30 PM. Patient accepted information on the [facility] and an appointment reminder. Patient is aware of the appointment.
--- NOTE | 2021-05-01 10:47 | MHC.RECOVRN ---
T/w met with pt to f/u regarding pts interest in Suboxone. Pt reports Percocet use, approx 10 30 mg tabs daily, PO/IN x 6 months. Upon further discussion, pt also reports heroin use, sometimes, up to 1 bundle daily, IN, x 6 months. Pt uses these substances interchangeably. Pt reports cocaine use sometimes, IN. Denies other substances. Pt denies tx for OUD including ATS and MOUD. Pt reports withdrawal symptoms upon admission to that included hot/cold flashes and body aches. Pt currently c/o anxiety, denies other withdrawal symptoms. Pt reporting cravings and would like to initiate Suboxone while inpatient. Case discussed with Mirta Cordova APRN, as well as Recovery Tower Excavator Operator.
[2021-05-01] MEDS: Naloxone HCl Nasal TAKE HOME 4 MG SPRAY NOSTRILALT (11:36)
[2021-05-01 12:00] LABS: Glucose, Whole Blood 169 mg/dL (60-115)
[2021-05-01] MEDS: Buprenorphine/Naloxone 2/0.5mg FILM 1 FILM SUBLINGUAL (12:36)
== END 2021-05-01 14:20 | disposition home or self-care (01) | DRG 885 ==
PROVIDERS: Admitting Provider Psychiatry & Neurology Psychiatry; PCP Pediatrics; Visit Provider Social Worker
DX: F33.3 Major depressive disorder, recurrent, severe with psychotic symptoms (principal); F19.20 Other psychoactive substance dependence, uncomplicated; I25.10 Atherosclerotic heart disease of native coronary artery without angina pectoris; E11.9 Type 2 diabetes mellitus without complications; E78.5 Hyperlipidemia, unspecified; Z23 Encounter for immunization; Z91.14 Patient's other noncompliance with medication regimen; Z88.0 Allergy status to penicillin; Z79.4 Long term (current) use of insulin; Z79.01 Long term (current) use of anticoagulants; Z79.82 Long term (current) use of aspirin; Z79.899 Other long term (current) drug therapy
CPT/HCPCS: 36415; 73502; 80048; 82565; 82947; 90686; 93005

== ENCOUNTER → 2021-06-03 13:06 | Outpatient (BNVA) | payer OTHER, SELFPAY | PROVIDERS: Visit Provider Internal Medicine | DX: Z51.81 Encounter for therapeutic drug level monitoring (principal); F19.20 Other psychoactive substance dependence, uncomplicated; F33.3 Major depressive disorder, recurrent, severe with psychotic symptoms | CPT/HCPCS: 80305; 99202 ==

== ENCOUNTER 2021-06-12 16:26 | Inpatient (IN) | payer OTHER, SELFPAY ==
[2021-06-12 17:07] VITALS: BMI 26.4
[2021-06-12 17:10] VITALS: BP 107/72; PULSE 78; RESP 16; TEMP 36.3; O2SAT 94
[2021-06-12 21:29] LABS: INTERNATIONAL NORM RATIO 2.7 (0.9-1.1); Prothrombin Time 31.1 SEC (9.9-13.0)
[2021-06-12] MEDS: Insulin Lispro 100 UNIT/ML 3 ML VIAL SUBCUT (21:31)
[2021-06-12] MEDS: Insulin Glargine,Hum.rec.anlog 100 UNIT/ML 10 ML VIAL 10 UNIT SUBCUT (21:33)
[2021-06-12] MEDS: Aspirin 81 MG TAB.CHEW PO (21:34)
[2021-06-12] MEDS: Buprenorphine/Naloxone 8/2 mg TAB.SUBL 2 TAB SUBLINGUAL (21:34)
[2021-06-12] MEDS: OXcarbazepine 300 MG TABLET 600 MG PO (21:35)
[2021-06-12] MEDS: Sertraline HCL 25 MG TABLET 75 MG PO (21:36)
[2021-06-12] MEDS: carvediloL 6.25 MG TABLET PO (21:36)
[2021-06-12] MEDS: traZODone HCL 100 MG TABLET 200 MG PO (21:36)
[2021-06-12] MEDS: Gabapentin 600 MG TABLET PO (21:36)
[2021-06-12] MEDS: risperiDONE 3 MG TABLET PO (21:37)
--- NOTE | 2021-06-12 22:30 | PC.NURSE ---
Patient is 60 year old male presenting from [facility] Ed. He had self-presented there due to feeling frustrated with his drug use and having suicidal ideation to stab himself. He said that he hears voices that tell him to finish the job . Patient said that he had tried to suicide in the past by overdosing on his medication. Patient has a diagnosis of Bipolar 1 Disorder, current or most recent unspecified, PTSD and he also has a past history of substance abuse. Four days ago he was started on Suboxone and since that time he has felt suicidal and depressed. Patient has a long history of IPLOC at local hospitals including . Patient has a medical history to include HTN, Diabetes, OK, CVA x 2 and high cholesterol. He arrived on at 1635 as a CV admission. He was noted to be slightly depressed, slightly anxious but cooperative with admission. Patient's med. reconciliation from [facility] was noted to be somewhat varied from the [facility]. Dr. De Los Santos notified of admission. Patient changed from 5 minute safety checks to 15 minute safety checks.
[2021-06-12 22:36] LABS: Glucose, Whole Blood 172 mg/dL (60-115)
[2021-06-13] MEDS: hydrOXYzine HCL 50 MG TABLET PO ×2 (05:46→17:55)
[2021-06-13] MEDS: Omeprazole 20 MG CAPSULE.DR PO (05:46)
[2021-06-13 05:56] LABS: Glucose, Whole Blood 92 mg/dL (60-115)
[2021-06-13 06:00] VITALS: BP 95/61; PULSE 85; RESP 18; TEMP 36.6; O2SAT 94
[2021-06-13 08:18] LABS: INTERNATIONAL NORM RATIO 3.2 (0.9-1.1)
[2021-06-13] MEDS: Sertraline HCL 50 MG TABLET 150 MG PO (08:19)
[2021-06-13 08:20] VITALS: BP 121/68; PULSE 77
[2021-06-13] MEDS: Atorvastatin Calcium 20 MG TABLET PO (08:20)
[2021-06-13] MEDS: OXcarbazepine 300 MG TABLET 600 MG PO ×2 (08:20→21:12)
[2021-06-13] MEDS: glipiZIDE 5 MG TABLET PO (08:20)
[2021-06-13] MEDS: metFORMIN HCl 1,000 MG TABLET 1000 MG PO ×2 (08:20→17:08)
[2021-06-13] MEDS: carvediloL 6.25 MG TABLET PO ×2 (08:20→21:13)
[2021-06-13] MEDS: Gabapentin 600 MG TABLET PO ×2 (08:20→21:13)
[2021-06-13 08:21] VITALS: BP 121/68; PULSE 77
[2021-06-13] MEDS: amLODIPine Besylate 2.5 MG TABLET PO (08:21)
[2021-06-13] MEDS: risperiDONE 2 MG TABLET PO (08:21)
[2021-06-13] MEDS: Aspirin 81 MG TAB.CHEW PO (08:21)
[2021-06-13] MEDS: Buprenorphine/Naloxone 8/2 mg TAB.SUBL 2 TAB SUBLINGUAL (08:22)
[2021-06-13 08:46] LABS: Anion Gap 11 (12-20); Blood Urea Nitrogen 12 mg/dL (9-16); Calcium 8.9 mg/dL (8.4-10.2); Carbon Dioxide 26 mmol/L (22-29); Chloride 106 mmol/L (96-108); Creatinine Clr Calc Pharmacy 102.7; Estimated Glomerular Filt Rate > 60; Glucose Random 89 mg/dL (60-115); Potassium 4.3 mmol/L (3.3-5.1); Sodium 139 mmol/L (135-145)
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
--- NOTE | 2021-06-13 11:55 | HO.HSGERICON ---
History of Present Illness Data of Consult Service Date: 06/13/21 Requesting physician: Charbel De Los Santos Primary Care Provider: Unknown Physician HPI Reason for consult: Routine physical This is a 60 year old male with history of liver cirrhosis, hypertension, diabetes, PE on Coumadin admitted to for management of depression with suicidal ideation. The hospitalists were asked to see her in consultation for routine medical consultation. He has no specific medical complaints at this time. Review of Systems Review of Systems: Yes all other systems are reviewed and are negative Constitutional: Constitutional: Denies chills and Denies fever(s) Cardiovascular: Cardiovascular: Denies chest pain and Denies palpitations Respiratory: Respiratory: Denies cough Gastrointestinal: Gastrointestinal: Denies abdominal pain, Denies constipation and Denies diarrhea Endocrine: Endocrine: Denies palpitations [facility] Medical History (Updated 06/13/21 @ 12:02 by RENATO Vazquez) Bipolar disorder CAD (coronary artery disease) Cirrhosis Glaucoma History of chronic hypertension IDDM (insulin dependent diabetes mellitus) Polysubstance dependence in controlled environment Pulmonary embolism Functional capacity: independent ambulation Family History (Updated 06/13/21 @ 12:01 by RENATO Vazquez) Mother Stroke Father CAD (coronary artery disease) Pertinent family history: No family history of VTE Surgical History (Updated 06/13/21 @ 12:01 by RENATO Vazquez) History of cholecystectomy Social History (Updated 06/13/21 @ 12:02 by RENATO Vazquez) Household Members: None Household Members Other:: Aunt Housing: Apartment Do you presently have visiting nurse or other home services: Yes Alcohol intake: never Patient Tobacco Use Status: Never used Tobacco Smoked in Last 30 Days: No e-Cigarette/Vaping Use: Never Used Patient Interested in Nicotine Replacement: No Patient Given Instructions on How to Stop Smoking: No Second Hand Smoke Exposure: No Use of substances other than those prescribed or required for medical reasons: Yes Substance Use Type: Crack/Cocaine and Heroin Last Used Substance Other:: Patient has not used illicit drugs in years. Currently Displaying Signs/Symptoms of Drug Intoxication Withdrawal: No Any prior treatment program specific to substance use: No Have you been hit, kicked, punched, or otherwise hurt by someone within the past year? If so, by whom?: No Do you feel safe in your current relationship?: Yes Is there a partner from a previous relationship who is making you feel unsafe now?: No Are you made to feel afraid or neglected: No Spiritual Healthcare Practices: None Confucianist Healthcare Practices: None Cultural Healthcare Practices: None Advance Directives: No Advance Directives Information Provided: No Advance Directives on File: No Do you have thoughts of harming others: None Do you have a plan to hurt others: No Plan Recently lost weight without trying: No How much weight loss: Not applicable Eating poorly because of decreased appetite: No Nutrition screen score: 0 Nutrition Risks: No Nutritional Risk service: Yes (Unable to recall entire term of service 1984-?. Patient was in [employer]) Sexual orientation: Straight/Heterosexual Meds Allergies Allergy/AdvReac Type Severity Reaction Status Date / Time Penicillins Allergy Mild RASH AND Verified 06/03/21 13:24 NAUSEA WITH VOMITING aripiprazole [From Abilify] Allergy Unknown unknown Verified 06/03/21 13:24 temazepam [From Restoril] Allergy Unknown UNKNOWN Verified 06/03/21 13:24 haloperidol [From Haldol] AdvReac Severe dystonia Verified 06/03/21 13:24 quetiapine [From Seroquel] AdvReac Unknown unknown Verified 06/03/21 13:24 SEAFOOD Allergy Severe UNKNOWN Uncoded 04/12/20 17:03 Active Medications: Current Medications Acetaminophen (Acetaminophen 325 Mg Tablet) 650 mg PO Q6H PRN PRN Reason: Headache/Pain Mild Scale (1-3) Al Hydroxide/Mg Hydroxide (Magnesium Hydrox/Alum Hydrox 30 Ml Oral.Susp) 30 ml PO Q6H PRN PRN Reason: Heartburn/Nausea Amlodipine Besylate (Amlodipine Besylate 2.5 Mg Tablet) 2.5 mg PO DAILY [facility]; Protocol Last Admin: 06/13/21 08:21 Dose: 2.5 mg Documented by: Aspirin (Aspirin 81 Mg Tab.Chew) 81 mg PO DAILY [facility] Last Admin: 06/13/21 08:21 Dose: 81 mg Documented by: Atorvastatin Calcium (Atorvastatin Calcium 20 Mg Tablet) 20 mg PO DAILY [facility] Last Admin: 06/13/21 08:20 Dose: 20 mg Documented by: Buprenorphine/Naloxone (Buprenorphine/Naloxone 8/2 Mg Tab.Subl) 2 tab SUBLINGUAL DAILY [facility] Last Admin: 06/13/21 08:22 Dose: 2 tab Documented by: Carvedilol (Carvedilol 6.25 Mg Tablet) 6.25 mg PO BID [facility]; Protocol Last Admin: 06/13/21 08:20 Dose: 6.25 mg Documented by: Gabapentin (Gabapentin 600 Mg Tablet) 600 mg PO BID [facility] Last Admin: 06/13/21 08:20 Dose: 600 mg Documented by: Glipizide (Glipizide 5 Mg Tablet) 5 mg PO DAILY [facility] Last Admin: 06/13/21 08:20 Dose: 5 mg Documented by: Glucose (Glucose Gel 15 Gm Gel..Gram.) 15 gm PO Q15M PRN; Protocol PRN Reason: per Hypoglycemia Standing Ord. Hydroxyzine HCl (Hydroxyzine Hcl 50 Mg Tablet) 50 mg PO Q6H PRN PRN Reason: Anxiety Last Admin: 06/13/21 05:46 Dose: 50 mg Documented by: Insulin Glargine (Insulin Glargine,Hum.Rec.Anlog 100 Unit/Ml 10 Ml Vial) 10 unit SUBCUT BEDTIME [facility] Last Admin: 06/12/21 21:33 Dose: 10 unit Documented by: Insulin Human Lispro (Insulin Lispro 100 Unit/Ml 3 Ml Vial) 0 unit SUBCUT QIDACHS [facility]; Protocol Last Admin: 06/13/21 08:49 Dose: Not Given Documented by: Magnesium Hydroxide (Milk Of Magnesia 30 Ml Oral.Susp) 30 ml PO DAILY PRN PRN Reason: Constipation Metformin HCl (Metformin Hcl 1,000 Mg Tablet) 1,000 mg PO BIDWM [facility] Last Admin: 06/13/21 08:20 Dose: 1,000 mg Documented by: Nicotine (Nicotine 21 Mg Patch.Td24) 21 mg TRANSDERMA DAILY PRN PRN Reason: smoking cessation Nicotine Polacrilex (Nicotine Polacrilex 2 Mg Gum) 4 mg BUCCAL Q2H PRN PRN Reason: Nicotine Cravings Nitroglycerin (Nitroglycerin 0.4 Mg Tab.Subl) 0.4 mg SUBLINGUAL Q5MX3 PRN PRN Reason: Chest Pain Omeprazole (Omeprazole 20 Mg Capsule.Dr) 20 mg PO DAILY@0630 [facility] Last Admin: 06/13/21 05:46 Dose: 20 mg Documented by: Oxcarbazepine (Oxcarbazepine 300 Mg Tablet) 600 mg PO BID [facility] Last Admin: 06/13/21 08:20 Dose: 600 mg Documented by: Risperidone (Risperidone 3 Mg Tablet) 3 mg PO BEDTIME [facility] Last Admin: 06/12/21 21:37 Dose: 3 mg Documented by: Risperidone (Risperidone 2 Mg Tablet) 2 mg PO DAILY [facility] Last Admin: 06/13/21 08:21 Dose: 2 mg Documented by: Sertraline HCl (Sertraline Hcl 50 Mg Tablet) 150 mg PO DAILY [facility] Last Admin: 06/13/21 08:19 Dose: 150 mg Documented by: Trazodone HCl (Trazodone Hcl 100 Mg Tablet) 200 mg PO BEDTIME [facility] Last Admin: 06/12/21 21:36 Dose: 200 mg Documented by: Warfarin Sodium (Warfarin Sodium 3 Mg Tablet) 3 mg PO DAILY@1800 [facility] Results Labs CBC and Chem 7: 06/13/21 07:58 Labs: Laboratory Results - last 24 hr 06/12/21 06/12/21 06/13/21 21:14 21:18 05:51 PT 31.1 H INR 2.7 H Anion Gap Estim Creat Clear Calc Estimated GFR POC Glucose 172 H 92 Random Glucose Calcium 06/13/21 06/13/21 07:58 07:58 PT 37.0 H INR 3.2 H Anion Gap 11 L Estim Creat Clear Calc 102.7 Estimated GFR > 60 POC Glucose Random Glucose 89 D Calcium 8.9 D Assessment and Plan (1) IDDM (insulin dependent diabetes mellitus): Status: Acute This is a 60-year-old male with history?of coronary artery disease, diabetes, hypertension and hyperlipidemia, PE on coumadin admitted to [facility] with depression and SI DM on Lantus, Metformin, glipizide at baseline follow blood sugar closely, follow POCs continue diabetic diet HTN BP controlled continue coreg, norvasc Hyperlipidemia continue Lipitor CAD stable. no CP, SOB continue statin/bb/aspirin h/o PE continue coumadin with goal INR 2-3 monitor INR daily h/o polysubstance abuse continue suboxone gerd continue prilosec chronic anemia H/H at baseline outpatient follow up There are no acute medical issues at this time. Thank you for allowing us to participate in the care of this patient attending: Physical Exam Vital Signs: Last Vital Signs Temp 97.9 F 06/13/21 06:00 Pulse 77 06/13/21 08:21 Resp 18 06/13/21 06:00 BP 121/68 06/13/21 08:21 Pulse Ox 94 06/13/21 06:00 Body Mass Index 26.4 Const General: comfortable, no acute distress, alert and awake Nutritional Appearance: well nourished Orientation/consciousness: patient oriented x3 [facility] Head: Yes normocephalic and Yes atraumatic Eyes Sclerae: sclerae normal Pupils: Equal, round and reactive pupils present Resp Effort & Inspection: normal respiratory effort and no respiratory distress Auscultation: clear to auscultation bilaterally Cardio Rate: regular rate Rhythm: regular rhythm GI Inspection: No distended Palpation (GI): Soft to palpation and nontender Neuro General: patient oriented x3 Cranial nerves: Yes CN's II-XII intact bilaterally, Yes Equal, round and reactive pupils present and Yes Bilaterally intact EOM present Extrem Other: no leg edema
[2021-06-13 12:42] LABS: Glucose, Whole Blood 67 mg/dL (60-115)
[2021-06-13 16:59] LABS: Glucose, Whole Blood 148 mg/dL (60-115)
[2021-06-13] MEDS: Warfarin Sodium 3 MG TABLET PO (17:59)
[2021-06-13 21:00] LABS: Glucose, Whole Blood 118 mg/dL (60-115)
[2021-06-13] MEDS: risperiDONE 3 MG TABLET PO (21:12)
[2021-06-13] MEDS: traZODone HCL 100 MG TABLET 200 MG PO (21:12)
[2021-06-13 21:13] VITALS: BP 126/83; PULSE 76
[2021-06-13] MEDS: Zolpidem Tartrate 5 MG TABLET PO (21:13)
[2021-06-13] MEDS: Insulin Glargine,Hum.rec.anlog 100 UNIT/ML 10 ML VIAL 10 UNIT SUBCUT (21:14)
[2021-06-14 06:23] VITALS: BP 126/70; PULSE 72; RESP 16; TEMP 36.5; O2SAT 98
[2021-06-14 07:16] LABS: Glucose, Whole Blood 92 mg/dL (60-115)
[2021-06-14] MEDS: Omeprazole 20 MG CAPSULE.DR PO (07:23)
[2021-06-14] MEDS: OXcarbazepine 300 MG TABLET 600 MG PO ×2 (08:06→21:04)
[2021-06-14 08:07] VITALS: BP 120/75; PULSE 74
[2021-06-14] MEDS: risperiDONE 2 MG TABLET PO (08:07)
[2021-06-14] MEDS: Atorvastatin Calcium 20 MG TABLET PO (08:07)
[2021-06-14] MEDS: amLODIPine Besylate 2.5 MG TABLET PO (08:07)
[2021-06-14] MEDS: Sertraline HCL 50 MG TABLET 150 MG PO (08:07)
[2021-06-14] MEDS: glipiZIDE 5 MG TABLET PO (08:07)
[2021-06-14] MEDS: metFORMIN HCl 1,000 MG TABLET 1000 MG PO ×2 (08:07→17:35)
[2021-06-14] MEDS: Aspirin 81 MG TAB.CHEW PO (08:07)
[2021-06-14] MEDS: Gabapentin 600 MG TABLET PO ×2 (08:07→21:04)
[2021-06-14] MEDS: carvediloL 6.25 MG TABLET PO ×2 (08:07→21:03)
[2021-06-14] MEDS: Buprenorphine/Naloxone 8/2 mg TAB.SUBL 2 TAB SUBLINGUAL (08:07)
[2021-06-14] MEDS: hydrOXYzine HCL 50 MG TABLET PO ×2 (11:24→17:35)
[2021-06-14 11:58] LABS: Glucose, Whole Blood 109 mg/dL (60-115)
[2021-06-14 12:11] LABS: INTERNATIONAL NORM RATIO 3.1 (0.9-1.1); Prothrombin Time 35.8 SEC (9.9-13.0)
--- NOTE | 2021-06-14 14:11 | P.PNPSI_ITS ---
Subjective Subjective Date of Service: 06/14/21 Reason For Visit: bipolar 1 disorder ptsd, opioid use disorder mild, Interim History: Patient reports that he remains sad and depressed. Still has intermittent SI but without plans or intention. Patient shared that his daughter 5 months. Patient said it has been awful...hard to get over. He reports that he only came off medications because his [facility]NA stopped coming after he broke his medication box and anger and that thus stopped getting filled. Currently he is living with his aunt and plans to return there. Patient said that sleep is getting better and that he is eating okay. He does not feel a need for medication changes at this time. He says I will start going to groups and getting more coping skills. Mental Status Exam Mental Status Exam Narrative: Pt is alert and oriented; behavior is cooperative, friendly and calm; patient is not in distress; dressed in casual attire with unkempt hair but adequate hygiene; mood is described as not different and affect depressed, face downcaste; eye contact appropriate; Speech is normal rate, volume and prosody and not pressured; psychomotor retardation present; thought process is organized and goal directed.. Thought content is on of daughter, difficulties of life and on tx; otherwise pertinent to relevant topics and without any delusional content, paranoid ideations or grandiosity; Intermittent SI but no plans or intent; no HI; There is no evidence of perceptual disturbance; denies AVH. ?Patients insight and judgment are impaired. Diagnostics Vital Signs (24Hr): Vital Signs - 24 hr 06/13/21 21:13 06/14/21 06:23 06/14/21 08:07 Temperature 97.7 F Pulse Rate 76 72 74 Respiratory Rate 16 Blood Pressure 126/83 126/70 120/75 Pulse Oximetry 98 Body Mass Index 26.4 Labs Results: 06/13/21 07:58 Labs: Laboratory Results - last 48 hr 06/12/21 06/12/21 06/13/21 21:14 21:18 05:51 PT 31.1 H INR 2.7 H Sodium Potassium Chloride Carbon Dioxide Anion Gap BUN Creatinine Estim Creat Clear Calc Estimated GFR POC Glucose 172 H 92 Random Glucose Calcium 06/13/21 06/13/21 06/13/21 07:58 07:58 12:37 PT 37.0 H INR 3.2 H Sodium 139 Potassium 4.3 Chloride 106 Carbon Dioxide 26 Anion Gap 11 L BUN 12 D Creatinine 0.74 Estim Creat Clear Calc 102.7 Estimated GFR > 60 POC Glucose 67 Random Glucose 89 D Calcium 8.9 D 06/13/21 06/13/21 06/14/21 16:54 20:56 07:11 PT INR Sodium Potassium Chloride Carbon Dioxide Anion Gap BUN Creatinine Estim Creat Clear Calc Estimated GFR POC Glucose 148 H 118 H 92 Random Glucose Calcium 06/14/21 06/14/21 11:53 12:03 PT 35.8 H INR 3.1 H Sodium Potassium Chloride Carbon Dioxide Anion Gap BUN Creatinine Estim Creat Clear Calc Estimated GFR POC Glucose 109 Random Glucose Calcium Medications Medications Current Medications Acetaminophen (Acetaminophen 325 Mg Tablet) 650 mg PO Q6H PRN PRN Reason: Headache/Pain Mild Scale (1-3) Al Hydroxide/Mg Hydroxide (Magnesium Hydrox/Alum Hydrox 30 Ml Oral.Susp) 30 ml PO Q6H PRN PRN Reason: Heartburn/Nausea Amlodipine Besylate (Amlodipine Besylate 2.5 Mg Tablet) 2.5 mg PO DAILY [facility]; Protocol Last Admin: 06/14/21 08:07 Dose: 2.5 mg Documented by: Aspirin (Aspirin 81 Mg Tab.Chew) 81 mg PO DAILY [facility] Last Admin: 06/14/21 08:07 Dose: 81 mg Documented by: Atorvastatin Calcium (Atorvastatin Calcium 20 Mg Tablet) 20 mg PO DAILY [facility] Last Admin: 06/14/21 08:07 Dose: 20 mg Documented by: Buprenorphine/Naloxone (Buprenorphine/Naloxone 8/2 Mg Tab.Subl) 2 tab SUBLINGUAL DAILY [facility] Last Admin: 06/14/21 08:07 Dose: 2 tab Documented by: Carvedilol (Carvedilol 6.25 Mg Tablet) 6.25 mg PO BID [facility]; Protocol Last Admin: 06/14/21 08:07 Dose: 6.25 mg Documented by: Gabapentin (Gabapentin 600 Mg Tablet) 600 mg PO BID [facility] Last Admin: 06/14/21 08:07 Dose: 600 mg Documented by: Glipizide (Glipizide 5 Mg Tablet) 5 mg PO DAILY [facility] Last Admin: 06/14/21 08:07 Dose: 5 mg Documented by: Glucose (Glucose Gel 15 Gm Gel..Gram.) 15 gm PO Q15M PRN; Protocol PRN Reason: per Hypoglycemia Standing Ord. Hydroxyzine HCl (Hydroxyzine Hcl 50 Mg Tablet) 50 mg PO Q6H PRN PRN Reason: Anxiety Last Admin: 06/14/21 11:24 Dose: 50 mg Documented by: Insulin Glargine (Insulin Glargine,Hum.Rec.Anlog 100 Unit/Ml 10 Ml Vial) 10 unit SUBCUT BEDTIME [facility] Last Admin: 06/13/21 21:14 Dose: 10 unit Documented by: Insulin Human Lispro (Insulin Lispro 100 Unit/Ml 3 Ml Vial) 0 unit SUBCUT QIDACHS [facility]; Protocol Last Admin: 06/14/21 13:13 Dose: Not Given Documented by: Magnesium Hydroxide (Milk Of Magnesia 30 Ml Oral.Susp) 30 ml PO DAILY PRN PRN Reason: Constipation Metformin HCl (Metformin Hcl 1,000 Mg Tablet) 1,000 mg PO BIDWM [facility] Last Admin: 06/14/21 08:07 Dose: 1,000 mg Documented by: Nicotine (Nicotine 21 Mg Patch.Td24) 21 mg TRANSDERMA DAILY PRN PRN Reason: smoking cessation Nicotine Polacrilex (Nicotine Polacrilex 2 Mg Gum) 4 mg BUCCAL Q2H PRN PRN Reason: Nicotine Cravings Nitroglycerin (Nitroglycerin 0.4 Mg Tab.Subl) 0.4 mg SUBLINGUAL Q5MX3 PRN PRN Reason: Chest Pain Omeprazole (Omeprazole 20 Mg Capsule.Dr) 20 mg PO DAILY@0630 [facility] Last Admin: 06/14/21 07:23 Dose: 20 mg Documented by: Oxcarbazepine (Oxcarbazepine 300 Mg Tablet) 600 mg PO BID [facility] Last Admin: 06/14/21 08:06 Dose: 600 mg Documented by: Risperidone (Risperidone 3 Mg Tablet) 3 mg PO BEDTIME [facility] Last Admin: 06/13/21 21:12 Dose: 3 mg Documented by: Risperidone (Risperidone 2 Mg Tablet) 2 mg PO DAILY [facility] Last Admin: 06/14/21 08:07 Dose: 2 mg Documented by: Sertraline HCl (Sertraline Hcl 50 Mg Tablet) 150 mg PO DAILY [facility] Last Admin: 06/14/21 08:07 Dose: 150 mg Documented by: Trazodone HCl (Trazodone Hcl 100 Mg Tablet) 200 mg PO BEDTIME [facility] Last Admin: 06/13/21 21:12 Dose: 200 mg Documented by: Warfarin Sodium (Warfarin Sodium 3 Mg Tablet) 3 mg PO DAILY@1800 [facility] Last Admin: 06/13/21 17:59 Dose: 3 mg Documented by: Zolpidem Tartrate (Zolpidem Tartrate 5 Mg Tablet) 5 mg PO BEDTIME [facility] Last Admin: 06/13/21 21:13 Dose: 5 mg Documented by: Allergies Allergies Allergy/AdvReac Type Severity Reaction Status Date / Time Penicillins Allergy Mild RASH AND Verified 06/03/21 13:24 NAUSEA WITH VOMITING aripiprazole [From Abilify] Allergy Unknown unknown Verified 06/03/21 13:24 temazepam [From Restoril] Allergy Unknown UNKNOWN Verified 06/03/21 13:24 haloperidol [From Haldol] AdvReac Severe dystonia Verified 06/03/21 13:24 quetiapine [From Seroquel] AdvReac Unknown unknown Verified 06/03/21 13:24 SEAFOOD Allergy Severe UNKNOWN Uncoded 04/12/20 17:03 Assessment & Plan Assessment & Plan (1) MDD (major depressive disorder), recurrent, severe, with psychosis: Status: Acute Code(s): F33.3 - Major depressive disorder, recurrent, severe with psychotic symptoms (2) IDDM (insulin dependent diabetes mellitus): Status: Acute (3) Pulmonary embolism: Status: Acute Code(s): I26.99 - Other pulmonary embolism without acute cor pulmonale (4) CAD (coronary artery disease): Status: Acute Code(s): I25.10 - Atherosclerotic heart disease of augustine coronary artery without angina pectoris Assessment and Plan: Patient is a 6-year-old male with history of PTSD, depression, anxiety, substance abuse, diabetes, history of PE, CAD and other comorbidities who presents with depression and suicidal ideation in the face of numerous psychosocial stressors most prominent the of a child. Patient reports active SI has resolved but passive SI remains. plan: On CV Q 15 minute checks Continue home medications Check INR daily for now Will add Ambien as he has been on it for years Will continue to assess. I spent minutes with the patient and/or on the patient floor today, gre ater than?50% of which was spent counseling/coordinating care. Reason for contiued inpatient stay Substantial Risk for: harm to self
[2021-06-14 16:57] LABS: Glucose, Whole Blood 116 mg/dL (60-115)
[2021-06-14] MEDS: Warfarin Sodium 3 MG TABLET PO (17:34)
[2021-06-14 18:41] VITALS: BP 132/81; PULSE 73; RESP 16; TEMP 36.4; O2SAT 97
[2021-06-14 20:54] LABS: Glucose, Whole Blood 159 mg/dL (60-115)
[2021-06-14 21:03] VITALS: BP 103/68; PULSE 91
[2021-06-14] MEDS: risperiDONE 3 MG TABLET PO (21:04)
[2021-06-14] MEDS: Insulin Glargine,Hum.rec.anlog 100 UNIT/ML 10 ML VIAL 10 UNIT SUBCUT (21:04)
[2021-06-14] MEDS: Zolpidem Tartrate 5 MG TABLET PO (21:04)
[2021-06-14] MEDS: traZODone HCL 100 MG TABLET 200 MG PO (21:04)
[2021-06-15] MEDS: Omeprazole 20 MG CAPSULE.DR PO (05:37)
[2021-06-15] MEDS: hydrOXYzine HCL 50 MG TABLET PO ×3 (05:37→19:15)
[2021-06-15 05:49] LABS: Glucose, Whole Blood 103 mg/dL (60-115)
[2021-06-15 05:55] VITALS: BP 111/72; PULSE 84; RESP 17; TEMP 36.1; O2SAT 96
[2021-06-15] MEDS: amLODIPine Besylate 2.5 MG TABLET PO (08:25)
[2021-06-15] MEDS: risperiDONE 2 MG TABLET PO (08:25)
[2021-06-15] MEDS: Gabapentin 600 MG TABLET PO ×2 (08:25→20:11)
[2021-06-15 08:26] VITALS: BP 134/83; PULSE 75
[2021-06-15] MEDS: carvediloL 6.25 MG TABLET PO ×2 (08:26→20:11)
[2021-06-15] MEDS: metFORMIN HCl 1,000 MG TABLET 1000 MG PO ×2 (08:26→17:17)
[2021-06-15] MEDS: Sertraline HCL 50 MG TABLET 150 MG PO (08:26)
[2021-06-15] MEDS: Atorvastatin Calcium 20 MG TABLET PO (08:26)
[2021-06-15] MEDS: Aspirin 81 MG TAB.CHEW PO (08:26)
[2021-06-15] MEDS: OXcarbazepine 300 MG TABLET 600 MG PO ×2 (08:26→20:11)
[2021-06-15] MEDS: glipiZIDE 5 MG TABLET PO (08:26)
[2021-06-15] MEDS: Buprenorphine/Naloxone 8/2 mg TAB.SUBL 2 TAB SUBLINGUAL (08:26)
--- NOTE | 2021-06-15 10:30 | HO.PSYCHPN ---
Subjective Subjective Date of Service: 06/15/21 Reason For Visit: bipolar 1 disorder ptsd, opioid use disorder mild, Interim History: Patient reports that he still depressed but that he has a little better he denies any SI. He does say he needs something for anxiety because when he gets anxious it's like he can not talk... He needs something so that he can interact with others and agrees to a trial of clonidine (senior mortgage underwriter discussed risks/side effects). Otherwise patient has no complaints and no requests. He said he has yet to go to groups but knows he needs to force himself and will start doing that now. He did report auditory hallucinations to harm self but that was this morning and they are gone now. Mental Status Exam Mental Status Exam Narrative: ?Pt is alert and oriented; behavior is cooperative, friendly and calm; patient is not in distress; dressed in casual attire with unkempt hair but adequate hygiene; mood is described as a little better affect depressed, face still downcast; eye contact appropriate; Speech is soft; not pressured; psychomotor retardation present; thought process is organized and goal directed.. Thought content is on of daughter, difficulties of life and on tx; otherwise pertinent to relevant topics and without any delusional content, paranoid ideations or grandiosity; denies SI/HI; There is no evidence of perceptual disturbance; Intermittent, mood congruent AH. ?Patients insight and judgment are impaired but improving. Diagnostics Vital Signs (24Hr): Vital Signs - 24 hr 06/14/21 18:41 06/14/21 21:03 06/15/21 05:55 Temperature 97.5 F 97 F Pulse Rate 73 91 84 Respiratory Rate 16 17 Blood Pressure 132/81 103/68 111/72 Pulse Oximetry 97 96 06/15/21 08:26 Temperature Pulse Rate 75 Respiratory Rate Blood Pressure 134/83 Pulse Oximetry Body Mass Index 26.4 Labs Results: 06/13/21 07:58 Labs: Laboratory Results - last 48 hr 06/13/21 06/13/21 06/13/21 12:37 16:54 20:56 PT INR POC Glucose 67 148 H 118 H 06/14/21 06/14/21 06/14/21 07:11 11:53 12:03 PT 35.8 H INR 3.1 H POC Glucose 92 109 06/14/21 06/14/21 06/15/21 16:45 20:50 05:45 PT INR POC Glucose 116 H 159 H 103 Medications Medications Current Medications Acetaminophen (Acetaminophen 325 Mg Tablet) 650 mg PO Q6H PRN PRN Reason: Headache/Pain Mild Scale (1-3) Al Hydroxide/Mg Hydroxide (Magnesium Hydrox/Alum Hydrox 30 Ml Oral.Susp) 30 ml PO Q6H PRN PRN Reason: Heartburn/Nausea Amlodipine Besylate (Amlodipine Besylate 2.5 Mg Tablet) 2.5 mg PO DAILY [facility]; Protocol Last Admin: 06/15/21 08:25 Dose: 2.5 mg Documented by: Aspirin (Aspirin 81 Mg Tab.Chew) 81 mg PO DAILY [facility] Last Admin: 06/15/21 08:26 Dose: 81 mg Documented by: Atorvastatin Calcium (Atorvastatin Calcium 20 Mg Tablet) 20 mg PO DAILY [facility] Last Admin: 06/15/21 08:26 Dose: 20 mg Documented by: Buprenorphine/Naloxone (Buprenorphine/Naloxone 8/2 Mg Tab.Subl) 2 tab SUBLINGUAL DAILY [facility] Last Admin: 06/15/21 08:26 Dose: 2 tab Documented by: Carvedilol (Carvedilol 6.25 Mg Tablet) 6.25 mg PO BID [facility]; Protocol Last Admin: 06/15/21 08:26 Dose: 6.25 mg Documented by: Gabapentin (Gabapentin 600 Mg Tablet) 600 mg PO BID [facility] Last Admin: 06/15/21 08:25 Dose: 600 mg Documented by: Glipizide (Glipizide 5 Mg Tablet) 5 mg PO DAILY [facility] Last Admin: 06/15/21 08:26 Dose: 5 mg Documented by: Glucose (Glucose Gel 15 Gm Gel..Gram.) 15 gm PO Q15M PRN; Protocol PRN Reason: per Hypoglycemia Standing Ord. Hydroxyzine HCl (Hydroxyzine Hcl 50 Mg Tablet) 50 mg PO Q6H PRN PRN Reason: Anxiety Last Admin: 06/15/21 05:37 Dose: 50 mg Documented by: Insulin Glargine (Insulin Glargine,Hum.Rec.Anlog 100 Unit/Ml 10 Ml Vial) 10 unit SUBCUT BEDTIME [facility] Last Admin: 06/14/21 21:04 Dose: 10 unit Documented by: Insulin Human Lispro (Insulin Lispro 100 Unit/Ml 3 Ml Vial) 0 unit SUBCUT QIDACHS [facility]; Protocol Last Admin: 06/15/21 08:26 Dose: Not Given Documented by: Magnesium Hydroxide (Milk Of Magnesia 30 Ml Oral.Susp) 30 ml PO DAILY PRN PRN Reason: Constipation Metformin HCl (Metformin Hcl 1,000 Mg Tablet) 1,000 mg PO BIDWM [facility] Last Admin: 06/15/21 08:26 Dose: 1,000 mg Documented by: Nicotine (Nicotine 21 Mg Patch.Td24) 21 mg TRANSDERMA DAILY PRN PRN Reason: smoking cessation Nicotine Polacrilex (Nicotine Polacrilex 2 Mg Gum) 4 mg BUCCAL Q2H PRN PRN Reason: Nicotine Cravings Nitroglycerin (Nitroglycerin 0.4 Mg Tab.Subl) 0.4 mg SUBLINGUAL Q5MX3 PRN PRN Reason: Chest Pain Omeprazole (Omeprazole 20 Mg Capsule.Dr) 20 mg PO DAILY@0630 [facility] Last Admin: 06/15/21 05:37 Dose: 20 mg Documented by: Oxcarbazepine (Oxcarbazepine 300 Mg Tablet) 600 mg PO BID [facility] Last Admin: 06/15/21 08:26 Dose: 600 mg Documented by: Risperidone (Risperidone 3 Mg Tablet) 3 mg PO BEDTIME [facility] Last Admin: 06/14/21 21:04 Dose: 3 mg Documented by: Risperidone (Risperidone 2 Mg Tablet) 2 mg PO DAILY [facility] Last Admin: 06/15/21 08:25 Dose: 2 mg Documented by: Sertraline HCl (Sertraline Hcl 50 Mg Tablet) 150 mg PO DAILY [facility] Last Admin: 06/15/21 08:26 Dose: 150 mg Documented by: Trazodone HCl (Trazodone Hcl 100 Mg Tablet) 200 mg PO BEDTIME [facility] Last Admin: 06/14/21 21:04 Dose: 200 mg Documented by: Warfarin Sodium (Warfarin Sodium 3 Mg Tablet) 3 mg PO DAILY@1800 [facility] Last Admin: 06/14/21 17:34 Dose: 3 mg Documented by: Zolpidem Tartrate (Zolpidem Tartrate 5 Mg Tablet) 5 mg PO BEDTIME [facility] Last Admin: 06/14/21 21:04 Dose: 5 mg Documented by: Allergies Allergies Allergy/AdvReac Type Severity Reaction Status Date / Time Penicillins Allergy Mild RASH AND Verified 06/03/21 13:24 NAUSEA WITH VOMITING aripiprazole [From [facility]] Allergy Unknown unknown Verified 06/03/21 13:24 temazepam [From Restoril] Allergy Unknown UNKNOWN Verified 06/03/21 13:24 haloperidol [From Haldol] AdvReac Severe dystonia Verified 06/03/21 13:24 quetiapine [From Seroquel] AdvReac Unknown unknown Verified 06/03/21 13:24 SEAFOOD Allergy Severe UNKNOWN Uncoded 04/12/20 17:03 Assessment & Plan Assessment & Plan (1) MDD (major depressive disorder), recurrent, severe, with psychosis: Status: Acute Code(s): F33.3 - Major depressive disorder, recurrent, severe with psychotic symptoms (2) IDDM (insulin dependent diabetes mellitus): Status: Acute (3) Pulmonary embolism: Status: Acute Code(s): I26.99 - Other pulmonary embolism without acute cor pulmonale (4) CAD (coronary artery disease): Status: Acute Code(s): I25.10 - Atherosclerotic heart disease of [place] coronary artery without angina pectoris Assessment and Plan: Patient is a 6-year-old male with history of PTSD, depression, anxiety, substance abuse, diabetes, history of PE, CAD and other comorbidities who presents with depression and suicidal ideation in the face of numerous psychosocial stressors most prominent the of a child. On admission Patient reports active SI has resolved but passive SI remains. Patient mood is a little better and SI seems to be resolving; intermittent mood congruent auditory hallucinations plan: On CV Q 15 minute checks Added clonidine 0.5 mg b.i.d. p.r.n. for anxiety; blood pressure within normal limits; will increase as tolerated if needed Continue home medications Check INR daily for now (goal: 2-3) Will add Ambien as he has been on it for years Will continue to assess. I spent minutes with the patient and/or on the patient floor today, greater than?50% of which was spent counseling/coordinating care. Reason for contiued inpatient stay Substantial Risk for: rapid decompensation
[2021-06-15 11:06] LABS: INTERNATIONAL NORM RATIO 2.8 (0.9-1.1); Prothrombin Time 32.3 SEC (9.9-13.0)
[2021-06-15 13:33] VITALS: BP 142/80; PULSE 77
[2021-06-15] MEDS: cloNIDine HCL 0.1 MG TABLET 0.05 MG PO (13:33)
[2021-06-15 18:00] VITALS: BP 121/78; PULSE 80; TEMP 36.3; O2SAT 96
[2021-06-15] MEDS: Warfarin Sodium 3 MG TABLET PO (18:17)
--- NOTE | 2021-06-15 18:30 | PC.NURSE ---
INR 2.8, Dr. De Los Santos notified. No change in Warfarin dose.
[2021-06-15 19:00] LABS: Glucose, Whole Blood 138 mg/dL (60-115)
[2021-06-15 20:11] VITALS: BP 120/76; PULSE 78
[2021-06-15] MEDS: risperiDONE 3 MG TABLET PO (20:12)
[2021-06-15] MEDS: traZODone HCL 100 MG TABLET 200 MG PO (20:12)
[2021-06-15] MEDS: Zolpidem Tartrate 5 MG TABLET PO (20:12)
[2021-06-15 20:28] LABS: Glucose, Whole Blood 187 mg/dL (60-115)
[2021-06-15] MEDS: Insulin Lispro 100 UNIT/ML 3 ML VIAL SUBCUT (20:35)
[2021-06-15] MEDS: Insulin Glargine,Hum.rec.anlog 100 UNIT/ML 10 ML VIAL 10 UNIT SUBCUT (20:35)
[2021-06-16 06:00] VITALS: BP 119/67; PULSE 67; RESP 17; TEMP 36.1; O2SAT 95
[2021-06-16 06:19] LABS: Glucose, Whole Blood 86 mg/dL (60-115)
[2021-06-16] MEDS: Omeprazole 20 MG CAPSULE.DR PO (06:31)
[2021-06-16] MEDS: hydrOXYzine HCL 50 MG TABLET PO ×2 (06:31→17:58)
[2021-06-16 08:24] VITALS: BP 107/60; PULSE 70
[2021-06-16] MEDS: OXcarbazepine 300 MG TABLET 600 MG PO ×2 (08:24→20:17)
[2021-06-16] MEDS: metFORMIN HCl 1,000 MG TABLET 1000 MG PO ×2 (08:24→16:46)
[2021-06-16] MEDS: Gabapentin 600 MG TABLET PO ×2 (08:24→20:17)
[2021-06-16] MEDS: Sertraline HCL 50 MG TABLET 150 MG PO (08:24)
[2021-06-16] MEDS: amLODIPine Besylate 2.5 MG TABLET PO (08:24)
[2021-06-16] MEDS: Atorvastatin Calcium 20 MG TABLET PO (08:25)
[2021-06-16] MEDS: carvediloL 6.25 MG TABLET PO ×2 (08:25→20:17)
[2021-06-16] MEDS: Buprenorphine/Naloxone 8/2 mg TAB.SUBL 2 TAB SUBLINGUAL (08:25)
[2021-06-16] MEDS: glipiZIDE 5 MG TABLET PO (08:25)
[2021-06-16] MEDS: risperiDONE 2 MG TABLET PO (08:25)
[2021-06-16] MEDS: Aspirin 81 MG TAB.CHEW PO (08:25)
[2021-06-16 11:19] LABS: INTERNATIONAL NORM RATIO 2.2 (0.9-1.1); Prothrombin Time 25.6 SEC (9.9-13.0)
[2021-06-16 12:24] LABS: Glucose, Whole Blood 92 mg/dL (60-115)
[2021-06-16 16:31] LABS: Glucose, Whole Blood 111 mg/dL (60-115)
[2021-06-16] MEDS: Warfarin Sodium 3 MG TABLET PO (16:46)
[2021-06-16 17:04] VITALS: BP 115/58; PULSE 69; RESP 16; TEMP 36.5; O2SAT 98
[2021-06-16 17:56] VITALS: BP 115/58; PULSE 69
[2021-06-16] MEDS: cloNIDine HCL 0.1 MG TABLET 0.05 MG PO (17:56)
[2021-06-16 20:17] VITALS: BP 115/58; PULSE 69
[2021-06-16] MEDS: Zolpidem Tartrate 5 MG TABLET PO (20:17)
[2021-06-16] MEDS: traZODone HCL 100 MG TABLET 200 MG PO (20:18)
[2021-06-16] MEDS: risperiDONE 3 MG TABLET PO (20:18)
[2021-06-16] MEDS: Insulin Glargine,Hum.rec.anlog 100 UNIT/ML 10 ML VIAL 10 UNIT SUBCUT (20:22)
[2021-06-16 20:37] LABS: Glucose, Whole Blood 131 mg/dL (60-115)
--- NOTE | 2021-06-16 21:57 | P.PNPSI_ITS ---
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 Still has intermittent AH to self harm Mental Status Exam Mental Status Exam Narrative: Pt is alert and oriented; behavior is cooperative, friendly and calm; patient is not in distress; dressed in casual attire with with adequate hygiene; mood is described as alright ? affect anxious; eye contact appropriate; Speech is soft; not pressured; psychomotor retardation present; thought process is organized and goal directed. Thought content is on of daughter, difficulties of life and on tx; otherwise pertinent to relevant topics and without any delusional content, paranoid ideations or grandiosity; denies SI/HI; There is no evidence of perceptual disturbance; Intermittent, mood congruent AH. ?Patients insight and judgment are impaired but improving. Diagnostics Vital Signs (24Hr): Vital Signs - 24 hr 06/16/21 06:00 06/16/21 08:24 06/16/21 17:04 Temperature 97 F 97.7 F Pulse Rate 67 70 69 Respiratory Rate 17 16 Blood Pressure 119/67 107/60 115/58 L Pulse Oximetry 95 98 06/16/21 17:56 06/16/21 20:17 Temperature Pulse Rate 69 69 Respiratory Rate Blood Pressure 115/58 L 115/58 L Pulse Oximetry Body Mass Index 26.4 Labs Results: 06/13/21 07:58 Labs: Laboratory Results - last 48 hr 06/15/21 06/15/21 06/15/21 05:45 10:38 17:14 PT 32.3 H INR 2.8 H POC Glucose 103 138 H 06/15/21 06/16/21 06/16/21 20:23 06:11 10:30 PT 25.6 H INR 2.2 H POC Glucose 187 H 86 06/16/21 06/16/21 06/16/21 12:20 16:26 20:07 PT INR POC Glucose 92 111 131 H Medications Medications Current Medications Acetaminophen (Acetaminophen 325 Mg Tablet) 650 mg PO Q6H PRN PRN Reason: Headache/Pain Mild Scale (1-3) Al Hydroxide/Mg Hydroxide (Magnesium Hydrox/Alum Hydrox 30 Ml Oral.Susp) 30 ml PO Q6H PRN PRN Reason: Heartburn/Nausea Amlodipine Besylate (Amlodipine Besylate 2.5 Mg Tablet) 2.5 mg PO DAILY [facility] 234 BEDS AT [facility]; Protocol Last Admin: 06/16/21 08:24 Dose: 2.5 mg Documented by: Aspirin (Aspirin 81 Mg Tab.Chew) 81 mg PO DAILY [facility]S INCLUDE 234 BEDS AT [facility] Last Admin: 06/16/21 08:25 Dose: 81 mg Documented by: Atorvastatin Calcium (Atorvastatin Calcium 20 Mg Tablet) 20 mg PO DAILY [facility]S INCLUDE 234 BEDS AT [facility] Last Admin: 06/16/21 08:25 Dose: 20 mg Documented by: Buprenorphine/Naloxone (Buprenorphine/Naloxone 8/2 Mg Tab.Subl) 2 tab SUBLINGUAL DAILY [facility]S INCLUDE 234 BEDS AT [facility] Last Admin: 06/16/21 08:25 Dose: 2 tab Documented by: Carvedilol (Carvedilol 6.25 Mg Tablet) 6.25 mg PO BID [facility]S INCLUDE 234 BEDS AT [facility]; Protocol Last Admin: 06/16/21 20:17 Dose: 6.25 mg Documented by: Clonidine HCl (Clonidine Hcl 0.1 Mg Tablet) 0.05 mg PO BID PRN; Protocol PRN Reason: moderate anxiety Last Admin: 06/16/21 17:56 Dose: 0.05 mg Documented by: Gabapentin (Gabapentin 600 Mg Tablet) 600 mg PO BID [facility]S INCLUDE 234 BEDS AT [facility] Last Admin: 06/16/21 20:17 Dose: 600 mg Documented by: Glipizide (Glipizide 5 Mg Tablet) 5 mg PO DAILY [facility]S INCLUDE 234 BEDS AT [facility] Last Admin: 06/16/21 08:25 Dose: 5 mg Documented by: Glucose (Glucose Gel 15 Gm Gel..Gram.) 15 gm PO Q15M PRN; Protocol PRN Reason: per Hypoglycemia Standing Ord. Hydroxyzine HCl (Hydroxyzine Hcl 50 Mg Tablet) 50 mg PO Q6H PRN PRN Reason: Anxiety Last Admin: 06/16/21 17:58 Dose: 50 mg Documented by: Insulin Glargine (Insulin Glargine,Hum.Rec.Anlog 100 Unit/Ml 10 Ml Vial) 10 unit SUBCUT BEDTIME [facility]S INCLUDE 234 BEDS AT [facility] Last Admin: 06/16/21 20:22 Dose: 10 unit Documented by: Insulin Human Lispro (Insulin Lispro 100 Unit/Ml 3 Ml Vial) 0 unit SUBCUT QIDACHS COUNTS INCLUDE 234 BEDS AT [facility]; Protocol Last Admin: 06/16/21 21:17 Dose: Not Given Documented by: Magnesium Hydroxide (Milk Of Magnesia 30 Ml Oral.Susp) 30 ml PO DAILY PRN PRN Reason: Constipation Metformin HCl (Metformin Hcl 1,000 Mg Tablet) 1,000 mg PO BIDWM COUNTS INCLUDE 234 BEDS AT THE [facility] Last Admin: 06/16/21 16:46 Dose: 1,000 mg Documented by: Nicotine (Nicotine 21 Mg Patch.Td24) 21 mg TRANSDERMA DAILY PRN PRN Reason: smoking cessation Nicotine Polacrilex (Nicotine Polacrilex 2 Mg Gum) 4 mg BUCCAL Q2H PRN PRN Reason: Nicotine Cravings Nitroglycerin (Nitroglycerin 0.4 Mg Tab.Subl) 0.4 mg SUBLINGUAL Q5MX3 PRN PRN Reason: Chest Pain Omeprazole (Omeprazole 20 Mg Capsule.Dr) 20 mg PO DAILY@0630 [facility]S [facility]CLUDE 234 BEDS AT [facility] Last Admin: 06/16/21 06:31 Dose: 20 mg Documented by: Oxcarbazepine (Oxcarbazepine 300 Mg Tablet) 600 mg PO BID [facility]S INCLUDE 234 BEDS AT [facility] Last Admin: 06/16/21 20:17 Dose: 600 mg Documented by: Risperidone (Risperidone 3 Mg Tablet) 3 mg PO BEDTIME [facility]S INCLUDE 234 BEDS AT [facility] Last Admin: 06/16/21 20:18 Dose: 3 mg Documented by: Risperidone (Risperidone 2 Mg Tablet) 2 mg PO DAILY [facility]S INCLUDE 234 BEDS AT [facility] Last Admin: 06/16/21 08:25 Dose: 2 mg Documented by: Sertraline HCl (Sertraline Hcl 50 Mg Tablet) 150 mg PO DAILY [facility]S INCLUDE 234 BEDS AT [facility] Last Admin: 06/16/21 08:24 Dose: 150 mg Documented by: Trazodone HCl (Trazodone Hcl 100 Mg Tablet) 200 mg PO BEDTIME [facility]S INCLUDE 234 BEDS AT [facility] Last Admin: 06/16/21 20:18 Dose: 200 mg Documented by: Warfarin Sodium (Warfarin Sodium 3 Mg Tablet) 3 mg PO DAILY@1800 COUNTS INCLUDE 234 BEDS AT [facility] Last Admin: 06/16/21 16:46 Dose: 3 mg Documented by: Zolpidem Tartrate (Zolpidem Tartrate 5 Mg Tablet) 5 mg PO BEDTIME [facility]S INCLUDE 234 BEDS AT [facility] Last Admin: 06/16/21 20:17 Dose: 5 mg Documented by: Allergies Allergies Allergy/AdvReac Type Severity Reaction Status Date / Time Penicillins Allergy Mild RASH AND Verified 06/03/21 13:24 NAUSEA WITH VOMITING aripiprazole [From Abilify] Allergy Unknown unknown Verified 06/03/21 13:24 temazepam [From Restoril] Allergy Unknown UNKNOWN Verified 06/03/21 13:24 haloperidol [From Haldol] AdvReac Severe dystonia Verified 06/03/21 13:24 quetiapine [From Seroquel] AdvReac Unknown unknown Verified 06/03/21 13:24 SEAFOOD Allergy Severe UNKNOWN Uncoded 04/12/20 17:03 Assessment & Plan Assessment & Plan (1) MDD (major depressive disorder), recurrent, severe, with psychosis: Status: Acute Code(s): F33.3 - Major depressive disorder, recurrent, severe with psychotic symptoms (2) IDDM (insulin dependent diabetes mellitus): Status: Acute (3) Pulmonary embolism: Status: Acute Code(s): I26.99 - Other pulmonary embolism without acute cor pulmonale (4) CAD (coronary artery disease): Status: Acute Code(s): I25.10 - Atherosclerotic heart disease of [place] coronary artery without angina pectoris Assessment and Plan: Patient is a 6-year-old male with history of PTSD, depression, anxiety, substance abuse, diabetes, history of PE, CAD and other comorbidities who presents with depression and suicidal ideation in the face of numerous psychosocial stressors most prominent the of a child. On admission Patient reports active SI has resolved but passive SI remains. Patient mood is a little better and SI seems to be resolving; intermittent mood congruent auditory hallucinations plan: On CV Q 15 minute checks Added clonidine 0.5 mg t.i.d. p.r.n. for anxiety; blood pressure within normal limits; will increase as tolerated if needed Continue home medications Check INR daily for now (goal: 2-3) Will add Ambien as he has been on it for years Will continue to assess. I spent minutes with the patient and/or on the patient floor today, g reater than?50% of which was spent counseling/coordinating care. Reason for contiued inpatient stay Substantial Risk for: rapid decompensation
[2021-06-17] MEDS: hydrOXYzine HCL 50 MG TABLET PO ×3 (03:46→20:21)
[2021-06-17] MEDS: Omeprazole 20 MG CAPSULE.DR PO (06:16)
[2021-06-17 06:17] VITALS: BP 140/73; PULSE 72; RESP 18; TEMP 37.1; O2SAT 97
[2021-06-17 07:08] LABS: Glucose, Whole Blood 89 mg/dL (60-115)
[2021-06-17 08:42] LABS: INTERNATIONAL NORM RATIO 2.3 (0.9-1.1); Prothrombin Time 26.6 SEC (9.9-13.0)
[2021-06-17 09:09] VITALS: BP 115/63; PULSE 68
[2021-06-17] MEDS: glipiZIDE 5 MG TABLET PO (09:09)
[2021-06-17] MEDS: metFORMIN HCl 1,000 MG TABLET 1000 MG PO ×2 (09:10→17:55)
[2021-06-17] MEDS: Aspirin 81 MG TAB.CHEW PO (09:10)
[2021-06-17] MEDS: Sertraline HCL 50 MG TABLET 150 MG PO (09:10)
[2021-06-17 09:11] VITALS: BP 115/63; PULSE 68
[2021-06-17] MEDS: Gabapentin 600 MG TABLET PO ×2 (09:11→20:17)
[2021-06-17] MEDS: carvediloL 6.25 MG TABLET PO ×2 (09:11→20:17)
[2021-06-17] MEDS: risperiDONE 2 MG TABLET PO (09:11)
[2021-06-17] MEDS: Atorvastatin Calcium 20 MG TABLET PO (09:11)
[2021-06-17] MEDS: Buprenorphine/Naloxone 8/2 mg TAB.SUBL 2 TAB SUBLINGUAL (09:11)
[2021-06-17] MEDS: OXcarbazepine 300 MG TABLET 600 MG PO ×2 (09:11→20:17)
[2021-06-17] MEDS: amLODIPine Besylate 2.5 MG TABLET PO (09:11)
[2021-06-17 11:57] LABS: Glucose, Whole Blood 133 mg/dL (60-115)
--- NOTE | 2021-06-17 17:01 | HO.PSYCHPN ---
Subjective Subjective Date of Service: 06/17/21 Reason For Visit: bipolar 1 disorder ptsd, opioid use disorder mild, Interim History: pt says depression less, but he continues to have AH that are bothersome and continue to trigger his anxiety. He does say anxiety is a little less overall though and he's been going to groups. 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 Mental Status Exam Mental Status Exam Narrative: Pt is alert and oriented; behavior is cooperative, friendly and calm; dressed in casual attire with with adequate hygiene; mood is described as alright ? affect anxious; eye contact appropriate; Speech is soft; not pressured; psychomotor retardation present, but less; thought process is organized and goal directed. Thought content is on dealing with AH and mourning of daughter, difficulties of life and on tx; otherwise pertinent to relevant topics and without any delusional content, paranoid ideations or grandiosity; denies SI/HI; There is no evidence of perceptual disturbance; Intermittent, mood congruent AH. ?Patients insight and judgment are impaired but improving. Diagnostics Vital Signs (24Hr): Vital Signs - 24 hr 06/16/21 17:04 06/16/21 17:56 06/16/21 20:17 Temperature 97.7 F Pulse Rate 69 69 69 Respiratory Rate 16 Blood Pressure 115/58 L 115/58 L 115/58 L Pulse Oximetry 98 06/17/21 06:17 06/17/21 09:09 06/17/21 09:11 Temperature 98.7 F Pulse Rate 72 68 68 Respiratory Rate 18 Blood Pressure 140/73 H 115/63 115/63 Pulse Oximetry 97 Body Mass Index 26.4 Labs Results: 06/13/21 07:58 Labs: Laboratory Results - last 48 hr 06/15/21 06/15/21 06/16/21 17:14 20:23 06:11 PT INR POC Glucose 138 H 187 H 86 06/16/21 06/16/21 06/16/21 10:30 12:20 16:26 PT 25.6 H INR 2.2 H POC Glucose 92 111 06/16/21 06/17/21 06/17/21 20:07 06:55 08:15 PT 26.6 H INR 2.3 H POC Glucose 131 H 89 06/17/21 11:52 PT INR POC Glucose 133 H Medications Medications Current Medications Acetaminophen (Acetaminophen 325 Mg Tablet) 650 mg PO Q6H PRN PRN Reason: Headache/Pain Mild Scale (1-3) Al Hydroxide/Mg Hydroxide (Magnesium Hydrox/Alum Hydrox 30 Ml Oral.Susp) 30 ml PO Q6H PRN PRN Reason: Heartburn/Nausea Amlodipine Besylate (Amlodipine Besylate 2.5 Mg Tablet) 2.5 mg PO DAILY [facility]; Protocol Last Admin: 06/17/21 09:11 Dose: 2.5 mg Documented by: Aspirin (Aspirin 81 Mg Tab.Chew) 81 mg PO DAILY [facility] Last Admin: 06/17/21 09:10 Dose: 81 mg Documented by: Atorvastatin Calcium (Atorvastatin Calcium 20 Mg Tablet) 20 mg PO DAILY [facility] Last Admin: 06/17/21 09:11 Dose: 20 mg Documented by: Buprenorphine/Naloxone (Buprenorphine/Naloxone 8/2 Mg Tab.Subl) 2 tab SUBLINGUAL DAILY [facility] Last Admin: 06/17/21 09:11 Dose: 2 tab Documented by: Carvedilol (Carvedilol 6.25 Mg Tablet) 6.25 mg PO BID [facility]; Protocol Last Admin: 06/17/21 09:11 Dose: 6.25 mg Documented by: Clonidine HCl (Clonidine Hcl 0.1 Mg Tablet) 0.05 mg PO BID PRN; Protocol PRN Reason: moderate anxiety Last Admin: 06/16/21 17:56 Dose: 0.05 mg Documented by: Gabapentin (Gabapentin 600 Mg Tablet) 600 mg PO BID [facility] Last Admin: 06/17/21 09:11 Dose: 600 mg Documented by: Glipizide (Glipizide 5 Mg Tablet) 5 mg PO DAILY [facility] Last Admin: 06/17/21 09:09 Dose: 5 mg Documented by: Glucose (Glucose Gel 15 Gm Gel..Gram.) 15 gm PO Q15M PRN; Protocol PRN Reason: per Hypoglycemia Standing Ord. Hydroxyzine HCl (Hydroxyzine Hcl 50 Mg Tablet) 50 mg PO Q6H PRN PRN Reason: Anxiety Last Admin: 06/17/21 14:36 Dose: 50 mg Documented by: Insulin Glargine (Insulin Glargine,Hum.Rec.Anlog 100 Unit/Ml 10 Ml Vial) 10 unit SUBCUT BEDTIME [facility] Last Admin: 06/16/21 20:22 Dose: 10 unit Documented by: Insulin Human Lispro (Insulin Lispro 100 Unit/Ml 3 Ml Vial) 0 unit SUBCUT QIDACHS [facility], [facility]; Protocol Last Admin: 06/17/21 13:28 Dose: Not Given Documented by: Magnesium Hydroxide (Milk Of Magnesia 30 Ml Oral.Susp) 30 ml PO DAILY PRN PRN Reason: Constipation Metformin HCl (Metformin Hcl 1,000 Mg Tablet) 1,000 mg PO BIDWM [facility] Last Admin: 06/17/21 09:10 Dose: 1,000 mg Documented by: Nicotine (Nicotine 21 Mg Patch.Td24) 21 mg TRANSDERMA DAILY PRN PRN Reason: smoking cessation Nicotine Polacrilex (Nicotine Polacrilex 2 Mg Gum) 4 mg BUCCAL Q2H PRN PRN Reason: Nicotine Cravings Nitroglycerin (Nitroglycerin 0.4 Mg Tab.Subl) 0.4 mg SUBLINGUAL Q5MX3 PRN PRN Reason: Chest Pain Omeprazole (Omeprazole 20 Mg Capsule.Dr) 20 mg PO DAILY@0630 [facility] Last Admin: 06/17/21 06:16 Dose: 20 mg Documented by: Oxcarbazepine (Oxcarbazepine 300 Mg Tablet) 600 mg PO BID [facility] Last Admin: 06/17/21 09:11 Dose: 600 mg Documented by: Risperidone (Risperidone 3 Mg Tablet) 3 mg PO BEDTIME [facility] Last Admin: 06/16/21 20:18 Dose: 3 mg Documented by: Risperidone (Risperidone 2 Mg Tablet) 2 mg PO DAILY [facility] Last Admin: 06/17/21 09:11 Dose: 2 mg Documented by: Sertraline HCl (Sertraline Hcl 50 Mg Tablet) 150 mg PO DAILY [facility] Last Admin: 06/17/21 09:10 Dose: 150 mg Documented by: Trazodone HCl (Trazodone Hcl 100 Mg Tablet) 200 mg PO BEDTIME [facility] Last Admin: 06/16/21 20:18 Dose: 200 mg Documented by: Warfarin Sodium (Warfarin Sodium 3 Mg Tablet) 3 mg PO DAILY@1800 [facility] Last Admin: 06/16/21 16:46 Dose: 3 mg Documented by: Zolpidem Tartrate (Zolpidem Tartrate 5 Mg Tablet) 5 mg PO BEDTIME [facility] Last Admin: 06/16/21 20:17 Dose: 5 mg Documented by: Allergies Allergies Allergy/AdvReac Type Severity Reaction Status Date / Time Penicillins Allergy Mild RASH AND Verified 06/03/21 13:24 NAUSEA WITH VOMITING aripiprazole [From Abilify] Allergy Unknown unknown Verified 06/03/21 13:24 temazepam [From Restoril] Allergy Unknown UNKNOWN Verified 06/03/21 13:24 haloperidol [From Haldol] AdvReac Severe dystonia Verified 06/03/21 13:24 quetiapine [From Seroquel] AdvReac Unknown unknown Verified 06/03/21 13:24 SEAFOOD Allergy Severe UNKNOWN Uncoded 04/12/20 17:03 Assessment & Plan Assessment & Plan (1) MDD (major depressive disorder), recurrent, severe, with psychosis: Status: Acute Code(s): F33.3 - Major depressive disorder, recurrent, severe with psychotic symptoms (2) IDDM (insulin dependent diabetes mellitus): Status: Acute (3) Pulmonary embolism: Status: Acute Code(s): I26.99 - Other pulmonary embolism without acute cor pulmonale (4) CAD (coronary artery disease): Status: Acute Code(s): I25.10 - Atherosclerotic heart disease of [place] coronary artery without angina pectoris Assessment and Plan: Patient is a 6-year-old male with history of PTSD, depression, anxiety, substance abuse, diabetes, history of PE, CAD and other comorbidities who presents with depression and suicidal ideation in the face of numerous psychosocial stressors most prominent the of a child. On admission Patient reports active SI has resolved but passive SI remains. Patient mood is a little better and SI seems to be resolving; intermittent mood congruent auditory hallucinations. Pt is considering med changes if he does not stabilize further with milue therapy plan: On CV Q 15 minute checks Added clonidine 0.5 mg t.i.d. p.r.n. for anxiety; blood pressure within normal limits; will increase as tolerated if needed Continue home medications Check INR daily for now (goal: 2-3) Will add Ambien as he has been on it for years Will continue to assess. I spent minutes with the patient and/or on the patient floor today, greater than?50% of which was spent counseling/coordinating care. Reason for contiued inpatient stay Substantial Risk for: med/psych decompensation
[2021-06-17 17:29] LABS: Glucose, Whole Blood 83 mg/dL (60-115)
[2021-06-17] MEDS: Warfarin Sodium 3 MG TABLET PO (17:55)
[2021-06-17 18:00] VITALS: BP 106/66; PULSE 86; RESP 18; TEMP 36.4; O2SAT 95
[2021-06-17] MEDS: traZODone HCL 100 MG TABLET 200 MG PO (20:16)
[2021-06-17] MEDS: Zolpidem Tartrate 5 MG TABLET PO (20:16)
[2021-06-17 20:17] VITALS: BP 106/66; PULSE 86
[2021-06-17] MEDS: risperiDONE 3 MG TABLET PO (20:17)
[2021-06-17 20:25] LABS: Glucose, Whole Blood 143 mg/dL (60-115)
[2021-06-18] MEDS: Omeprazole 20 MG CAPSULE.DR PO (06:17)
[2021-06-18 06:20] VITALS: BP 108/59; PULSE 74; RESP 18; TEMP 36.2; O2SAT 94
[2021-06-18 07:28] LABS: INTERNATIONAL NORM RATIO 2.6 (0.9-1.1); Prothrombin Time 30.3 SEC (9.9-13.0)
[2021-06-18 08:03] LABS: Glucose, Whole Blood 95 mg/dL (60-115)
[2021-06-18] MEDS: OXcarbazepine 300 MG TABLET 600 MG PO ×2 (08:21→19:57)
[2021-06-18] MEDS: Aspirin 81 MG TAB.CHEW PO (08:21)
[2021-06-18] MEDS: Gabapentin 600 MG TABLET PO ×2 (08:21→19:57)
[2021-06-18] MEDS: Buprenorphine/Naloxone 8/2 mg TAB.SUBL 2 TAB SUBLINGUAL (08:21)
[2021-06-18 08:22] VITALS: BP 108/57; PULSE 70
[2021-06-18] MEDS: Atorvastatin Calcium 20 MG TABLET PO (08:22)
[2021-06-18] MEDS: risperiDONE 2 MG TABLET PO (08:22)
[2021-06-18] MEDS: amLODIPine Besylate 2.5 MG TABLET PO (08:22)
[2021-06-18 08:23] VITALS: BP 108/57; PULSE 70
[2021-06-18] MEDS: carvediloL 6.25 MG TABLET PO ×2 (08:23→20:05)
[2021-06-18] MEDS: Sertraline HCL 50 MG TABLET 150 MG PO (08:23)
[2021-06-18] MEDS: glipiZIDE 5 MG TABLET PO (08:23)
[2021-06-18] MEDS: metFORMIN HCl 1,000 MG TABLET 1000 MG PO ×2 (08:23→16:45)
--- NOTE | 2021-06-18 09:54 | P.PNPSI_ITS ---
Subjective Subjective Date of Service: 06/18/21 Reason For Visit: bipolar 1 disorder ptsd, opioid use disorder mild, Interim History: Patient reports that while he feels a little better depression and anxiety remain. He denies any SI. He has intermittent AVH, today hearing his name being called. He says he will still keep trying to go to groups. Given depression anxiety patient agrees to increase Zoloft to 175 mg daily. Mental Status Exam Mental Status Exam Narrative: ?Pt is alert and oriented; behavior is cooperative, friendly and calm; dressed in casual attire with with scruffy facial hair but good hygiene; mood is described as alright ? affect brighter, more relaxed; eye contact appropriate; Speech is normal rate, prosody, volume; not pressured; no psychomotor retardation present, but less; thought process is organized and goal directed. Thought content is on dealing with depression, intermittent AVH and mourning of daughter, difficulties of life and on tx; otherwise pertinent to relevant topics and without any delusional content, paranoid ideations or grandiosity; denies SI/HI; There is no evidence of perceptual disturbance; Intermittent, mood congruent AH. ?Patients insight and judgment are impaired but improving. Diagnostics Vital Signs (24Hr): Vital Signs - 24 hr 06/17/21 18:00 06/17/21 20:17 06/18/21 06:20 Temperature 97.6 F 97.2 F Pulse Rate 86 86 74 Respiratory Rate 18 18 Blood Pressure 106/66 106/66 108/59 L Pulse Oximetry 95 94 06/18/21 08:22 06/18/21 08:23 Temperature Pulse Rate 70 70 Respiratory Rate Blood Pressure 108/57 L 108/57 L Pulse Oximetry Body Mass Index 26.4 Labs Results: 06/13/21 07:58 Labs: Laboratory Results - last 48 hr 06/16/21 06/16/21 06/16/21 10:30 12:20 16:26 PT 25.6 H INR 2.2 H POC Glucose 92 111 06/16/21 06/17/21 06/17/21 20:07 06:55 08:15 PT 26.6 H INR 2.3 H POC Glucose 131 H 89 06/17/21 06/17/21 06/17/21 11:52 17:05 20:11 PT INR POC Glucose 133 H 83 143 H 06/18/21 06/18/21 06:20 07:10 PT 30.3 H INR 2.6 H POC Glucose 95 Medications Medications Current Medications Acetaminophen (Acetaminophen 325 Mg Tablet) 650 mg PO Q6H PRN PRN Reason: Headache/Pain Mild Scale (1-3) Al Hydroxide/Mg Hydroxide (Magnesium Hydrox/Alum Hydrox 30 Ml Oral.Susp) 30 ml PO Q6H PRN PRN Reason: Heartburn/Nausea Amlodipine Besylate (Amlodipine Besylate 2.5 Mg Tablet) 2.5 mg PO DAILY [facility]; Protocol Last Admin: 06/18/21 08:22 Dose: 2.5 mg Documented by: Aspirin (Aspirin 81 Mg Tab.Chew) 81 mg PO DAILY [facility] Last Admin: 06/18/21 08:21 Dose: 81 mg Documented by: Atorvastatin Calcium (Atorvastatin Calcium 20 Mg Tablet) 20 mg PO DAILY [facility] Last Admin: 06/18/21 08:22 Dose: 20 mg Documented by: Buprenorphine/Naloxone (Buprenorphine/Naloxone 8/2 Mg Tab.Subl) 2 tab SUBLINGUAL DAILY [facility] Last Admin: 06/18/21 08:21 Dose: 2 tab Documented by: Carvedilol (Carvedilol 6.25 Mg Tablet) 6.25 mg PO BID [facility]; Protocol Last Admin: 06/18/21 08:23 Dose: 6.25 mg Documented by: Clonidine HCl (Clonidine Hcl 0.1 Mg Tablet) 0.05 mg PO BID PRN; Protocol PRN Reason: moderate anxiety Last Admin: 06/16/21 17:56 Dose: 0.05 mg Documented by: Gabapentin (Gabapentin 600 Mg Tablet) 600 mg PO BID [facility] Last Admin: 06/18/21 08:21 Dose: 600 mg Documented by: Glipizide (Glipizide 5 Mg Tablet) 5 mg PO DAILY [facility] Last Admin: 06/18/21 08:23 Dose: 5 mg Documented by: Glucose (Glucose Gel 15 Gm Gel..Gram.) 15 gm PO Q15M PRN; Protocol PRN Reason: per Hypoglycemia Standing Ord. Hydroxyzine HCl (Hydroxyzine Hcl 50 Mg Tablet) 50 mg PO Q6H PRN PRN Reason: Anxiety Last Admin: 06/17/21 20:21 Dose: 50 mg Documented by: Insulin Glargine (Insulin Glargine,Hum.Rec.Anlog 100 Unit/Ml 10 Ml Vial) 10 unit SUBCUT BEDTIME [facility] Last Admin: 06/17/21 20:18 Dose: Not Given Documented by: Insulin Human Lispro (Insulin Lispro 100 Unit/Ml 3 Ml Vial) 0 unit SUBCUT QIDACHS [facility]; Protocol Last Admin: 06/18/21 09:04 Dose: Not Given Documented by: Magnesium Hydroxide (Milk Of Magnesia 30 Ml Oral.Susp) 30 ml PO DAILY PRN PRN Reason: Constipation Metformin HCl (Metformin Hcl 1,000 Mg Tablet) 1,000 mg PO BIDWM [facility] Last Admin: 06/18/21 08:23 Dose: 1,000 mg Documented by: Nicotine (Nicotine 21 Mg Patch.Td24) 21 mg TRANSDERMA DAILY PRN PRN Reason: smoking cessation Nicotine Polacrilex (Nicotine Polacrilex 2 Mg Gum) 4 mg BUCCAL Q2H PRN PRN Reason: Nicotine Cravings Nitroglycerin (Nitroglycerin 0.4 Mg Tab.Subl) 0.4 mg SUBLINGUAL Q5MX3 PRN PRN Reason: Chest Pain Omeprazole (Omeprazole 20 Mg Capsule.Dr) 20 mg PO DAILY@0630 [facility] Last Admin: 06/18/21 06:17 Dose: 20 mg Documented by: Oxcarbazepine (Oxcarbazepine 300 Mg Tablet) 600 mg PO BID [facility] Last Admin: 06/18/21 08:21 Dose: 600 mg Documented by: Risperidone (Risperidone 3 Mg Tablet) 3 mg PO BEDTIME [facility] Last Admin: 06/17/21 20:17 Dose: 3 mg Documented by: Risperidone (Risperidone 2 Mg Tablet) 2 mg PO DAILY [facility] Last Admin: 06/18/21 08:22 Dose: 2 mg Documented by: Sertraline HCl (Sertraline Hcl 50 Mg Tablet) 150 mg PO DAILY [facility] Last Admin: 06/18/21 08:23 Dose: 150 mg Documented by: Trazodone HCl (Trazodone Hcl 100 Mg Tablet) 200 mg PO BEDTIME [facility] Last Admin: 06/17/21 20:16 Dose: 200 mg Documented by: Warfarin Sodium (Warfarin Sodium 3 Mg Tablet) 3 mg PO DAILY@1800 [facility] Last Admin: 06/17/21 17:55 Dose: 3 mg Documented by: Zolpidem Tartrate (Zolpidem Tartrate 5 Mg Tablet) 5 mg PO BEDTIME [facility] Last Admin: 06/17/21 20:16 Dose: 5 mg Documented by: Allergies Allergies Allergy/AdvReac Type Severity Reaction Status Date / Time Penicillins Allergy Mild RASH AND Verified 06/03/21 13:24 NAUSEA WITH VOMITING aripiprazole [From Abilify] Allergy Unknown unknown Verified 06/03/21 13:24 temazepam [From Restoril] Allergy Unknown UNKNOWN Verified 06/03/21 13:24 haloperidol [From Haldol] AdvReac Severe dystonia Verified 06/03/21 13:24 quetiapine [From Seroquel] AdvReac Unknown unknown Verified 06/03/21 13:24 SEAFOOD Allergy Severe UNKNOWN Uncoded 04/12/20 17:03 Assessment & Plan Assessment & Plan (1) MDD (major depressive disorder), recurrent, severe, with psychosis: Status: Acute Code(s): F33.3 - Major depressive disorder, recurrent, severe with psychotic symptoms (2) IDDM (insulin dependent diabetes mellitus): Status: Acute (3) Pulmonary embolism: Status: Acute Code(s): I26.99 - Other pulmonary embolism without acute cor pulmonale (4) CAD (coronary artery disease): Status: Acute Code(s): I25.10 - Atherosclerotic heart disease of [place] coronary artery without angina pectoris Assessment and Plan: Patient is a 6-year-old male with history of PTSD, depression, anxiety, substance abuse, diabetes, history of PE, CAD and other comorbidities who presents with depression and suicidal ideation in the face of numerous psychosocial stressors most prominent the of a child. On admission Patient reports active SI has resolved.. Patient mood is a little better; SI resolved. His affect is brighter and he was able to make a joke with technical writer and other staff. intermittent mood congruent auditory hallucinations. Will increase Zoloft to 175mg since AH seem to be mood congruent and he struggles with ongoing anxiety. AVH seems only to be present when patient is struggling with depression and anxiety and at this point, MDD with psychotic features remains diagnosis. plan: On CV Q 15 minute checks InCREASE Zoloft to 175mg for continued anxiety and mood congruent AH Added clonidine 0.5 mg t.i.d. p.r.n. for anxiety; blood pressure within normal limits; will increase as tolerated if needed Check INR daily for now (goal: 2-3) Will add Ambien as he has been on it for years Will continue to assess. I spent minutes with the patient and/or on the patient floor today, greater than?50% of which was spent counseling/coordinating care. Reason for contiued inpatient stay Substantial Risk for: med/psych decompensation
[2021-06-18] MEDS: Sertraline HCL 25 MG TABLET PO (10:59)
[2021-06-18 11:49] LABS: Glucose, Whole Blood 141 mg/dL (60-115)
[2021-06-18] MEDS: cloNIDine HCL 0.1 MG TABLET 0.05 MG PO (14:04)
[2021-06-18] MEDS: hydrOXYzine HCL 50 MG TABLET PO (16:45)
[2021-06-18] MEDS: Warfarin Sodium 3 MG TABLET PO (18:39)
[2021-06-18] MEDS: risperiDONE 3 MG TABLET PO (19:57)
[2021-06-18] MEDS: Zolpidem Tartrate 5 MG TABLET PO (19:57)
[2021-06-18] MEDS: traZODone HCL 100 MG TABLET 200 MG PO (19:57)
[2021-06-18] MEDS: Insulin Glargine,Hum.rec.anlog 100 UNIT/ML 10 ML VIAL 10 UNIT SUBCUT (19:58)
[2021-06-18 20:05] VITALS: BP 118/76; PULSE 86
[2021-06-18 23:04] LABS: Glucose, Whole Blood 116 mg/dL (60-115)
[2021-06-18 23:04] LABS: Glucose, Whole Blood 146 mg/dL (60-115)
[2021-06-19] MEDS: hydrOXYzine HCL 50 MG TABLET PO ×2 (05:51→19:05)
[2021-06-19] MEDS: Omeprazole 20 MG CAPSULE.DR PO (05:51)
[2021-06-19 05:56] LABS: Glucose, Whole Blood 117 mg/dL (60-115)
[2021-06-19 06:00] VITALS: BP 118/68; PULSE 76; RESP 16; TEMP 36.1; O2SAT 96
[2021-06-19] MEDS: Sertraline HCL 50 MG TABLET 175 MG PO (08:19)
[2021-06-19 08:20] VITALS: BP 114/73; PULSE 72
[2021-06-19] MEDS: metFORMIN HCl 1,000 MG TABLET 1000 MG PO ×2 (08:20→17:26)
[2021-06-19] MEDS: OXcarbazepine 300 MG TABLET 600 MG PO ×2 (08:20→20:53)
[2021-06-19] MEDS: risperiDONE 2 MG TABLET PO (08:20)
[2021-06-19] MEDS: amLODIPine Besylate 2.5 MG TABLET PO (08:20)
[2021-06-19] MEDS: Buprenorphine/Naloxone 8/2 mg TAB.SUBL 2 TAB SUBLINGUAL (08:20)
[2021-06-19] MEDS: Aspirin 81 MG TAB.CHEW PO (08:20)
[2021-06-19] MEDS: Gabapentin 600 MG TABLET PO ×2 (08:20→20:53)
[2021-06-19] MEDS: carvediloL 6.25 MG TABLET PO ×2 (08:21→20:54)
[2021-06-19] MEDS: Atorvastatin Calcium 20 MG TABLET PO (08:21)
[2021-06-19] MEDS: glipiZIDE 5 MG TABLET PO (08:21)
[2021-06-19 08:23] LABS: INTERNATIONAL NORM RATIO 2.7 (0.9-1.1); Prothrombin Time 31.5 SEC (9.9-13.0)
[2021-06-19 11:48] LABS: Glucose, Whole Blood 174 mg/dL (60-115)
[2021-06-19] MEDS: Insulin Lispro 100 UNIT/ML 3 ML VIAL SUBCUT ×3 (12:48→20:52)
[2021-06-19] MEDS: LORazepam 1 MG TABLET 2 MG PO (12:48)
--- NOTE | 2021-06-19 13:59 | HO.PSYCHPN ---
Subjective Subjective Date of Service: 06/19/21 Reason For Visit: bipolar 1 disorder ptsd, opioid use disorder mild, Subjective Notes: Conditional Voluntary Interim History: Pt reports feeling anxious and sad today thinking about daughter who few months ago and thinking about not being able to spend holidays with her. He reports struggling today with anxious mood, depressed mood, intermittent suicidal ideation but denies any plan or intent to hurt himself. He does admit to craving heroin but trying to stay focused on his recovery. He has been visible in the unit, social with select peers. He denies VH/AH. He worries about discharge by end of week and thinks it may be too soon. Medication Compliance: Yes Side effects from medications: No Review of Systems Review of Systems Yes all other systems are reviewed and are negative Constitutional: Denies chills and Denies fever(s) Cardiovascular: Denies chest pain and Denies palpitations Respiratory: Denies cough Gastrointestinal: Denies abdominal pain, Denies constipation and Denies diarrhea Endocrine: Denies palpitations Mental Status Exam Mental Status Exam Narrative: Appearance: casually groomed, fair hygiene in NAD Behavior:cooperative psychomotor: no agitation or retardation noted Speech:clear, normal rate/rhythm/volume, spontaneous Thought process:linear Thought content:no signs of psychosis, missing daughter who few months ago Mood: anxious and depressed Affect: blunted, congruent SI:passive no plan or intent HI:none VH/AH:none Delusions:none Insight/judgment:fair x 2. Memory/cog: alert, oriented x 3. Diagnostics Vital Signs (24Hr): Vital Signs - 24 hr 06/18/21 20:05 06/19/21 06:00 06/19/21 08:20 Temperature 97 F Pulse Rate 86 76 72 Respiratory Rate 16 Blood Pressure 118/76 118/68 114/73 Pulse Oximetry 96 Body Mass Index 26.4 Labs Results: 06/13/21 07:58 Labs: Laboratory Results - last 48 hr 06/17/21 06/17/21 06/18/21 17:05 20:11 06:20 PT INR POC Glucose 83 143 H 95 06/18/21 06/18/21 06/18/21 07:10 11:44 16:32 PT 30.3 H INR 2.6 H POC Glucose 141 H 116 H 06/18/21 06/19/21 06/19/21 20:02 05:51 08:00 PT 31.5 H INR 2.7 H POC Glucose 146 H 117 H 06/19/21 11:44 PT INR POC Glucose 174 H Medications Medications Current Medications Acetaminophen (Acetaminophen 325 Mg Tablet) 650 mg PO Q6H PRN PRN Reason: Headache/Pain Mild Scale (1-3) Al Hydroxide/Mg Hydroxide (Magnesium Hydrox/Alum Hydrox 30 Ml Oral.Susp) 30 ml PO Q6H PRN PRN Reason: Heartburn/Nausea Amlodipine Besylate (Amlodipine Besylate 2.5 Mg Tablet) 2.5 mg PO DAILY [facility]; Protocol Last Admin: 06/19/21 08:20 Dose: 2.5 mg Documented by: Aspirin (Aspirin 81 Mg Tab.Chew) 81 mg PO DAILY [facility] Last Admin: 06/19/21 08:20 Dose: 81 mg Documented by: Atorvastatin Calcium (Atorvastatin Calcium 20 Mg Tablet) 20 mg PO DAILY [facility] Last Admin: 06/19/21 08:21 Dose: 20 mg Documented by: Buprenorphine/Naloxone (Buprenorphine/Naloxone 8/2 Mg Tab.Subl) 2 tab SUBLINGUAL DAILY [facility] Last Admin: 06/19/21 08:20 Dose: 2 tab Documented by: Carvedilol (Carvedilol 6.25 Mg Tablet) 6.25 mg PO BID [facility]; Protocol Last Admin: 06/19/21 08:21 Dose: 6.25 mg Documented by: Clonidine HCl (Clonidine Hcl 0.1 Mg Tablet) 0.05 mg PO BID PRN; Protocol PRN Reason: moderate anxiety Last Admin: 06/18/21 14:04 Dose: 0.05 mg Documented by: Gabapentin (Gabapentin 600 Mg Tablet) 600 mg PO BID [facility] Last Admin: 06/19/21 08:20 Dose: 600 mg Documented by: Glipizide (Glipizide 5 Mg Tablet) 5 mg PO DAILY [facility] Last Admin: 06/19/21 08:21 Dose: 5 mg Documented by: Glucose (Glucose Gel 15 Gm Gel..Gram.) 15 gm PO Q15M PRN; Protocol PRN Reason: per Hypoglycemia Standing Ord. Hydroxyzine HCl (Hydroxyzine Hcl 50 Mg Tablet) 50 mg PO Q6H PRN PRN Reason: Anxiety Last Admin: 06/19/21 05:51 Dose: 50 mg Documented by: Insulin Glargine (Insulin Glargine,Hum.Rec.Anlog 100 Unit/Ml 10 Ml Vial) 10 unit SUBCUT BEDTIME [facility] Last Admin: 06/18/21 19:58 Dose: 10 unit Documented by: Insulin Human Lispro (Insulin Lispro 100 Unit/Ml 3 Ml Vial) 0 unit SUBCUT QIDACHS [facility]; Protocol Last Admin: 06/19/21 12:48 Dose: 2 unit Documented by: Magnesium Hydroxide (Milk Of Magnesia 30 Ml Oral.Susp) 30 ml PO DAILY PRN PRN Reason: Constipation Metformin HCl (Metformin Hcl 1,000 Mg Tablet) 1,000 mg PO BIDWM [facility] Last Admin: 06/19/21 08:20 Dose: 1,000 mg Documented by: Nicotine (Nicotine 21 Mg Patch.Td24) 21 mg TRANSDERMA DAILY PRN PRN Reason: smoking cessation Nicotine Polacrilex (Nicotine Polacrilex 2 Mg Gum) 4 mg BUCCAL Q2H PRN PRN Reason: Nicotine Cravings Nitroglycerin (Nitroglycerin 0.4 Mg Tab.Subl) 0.4 mg SUBLINGUAL Q5MX3 PRN PRN Reason: Chest Pain Omeprazole (Omeprazole 20 Mg Capsule.Dr) 20 mg PO DAILY@0630 [facility] Last Admin: 06/19/21 05:51 Dose: 20 mg Documented by: Oxcarbazepine (Oxcarbazepine 300 Mg Tablet) 600 mg PO BID [facility] Last Admin: 06/19/21 08:20 Dose: 600 mg Documented by: Risperidone (Risperidone 3 Mg Tablet) 3 mg PO BEDTIME [facility] Last Admin: 06/18/21 19:57 Dose: 3 mg Documented by: Risperidone (Risperidone 2 Mg Tablet) 2 mg PO DAILY [facility] Last Admin: 06/19/21 08:20 Dose: 2 mg Documented by: Sertraline HCl (Sertraline Hcl 50 Mg Tablet) 175 mg PO DAILY [facility] Last Admin: 06/19/21 08:19 Dose: 175 mg Documented by: Trazodone HCl (Trazodone Hcl 100 Mg Tablet) 200 mg PO BEDTIME [facility] Last Admin: 06/18/21 19:57 Dose: 200 mg Documented by: Warfarin Sodium (Warfarin Sodium 3 Mg Tablet) 3 mg PO DAILY@1800 [facility] Last Admin: 06/18/21 18:39 Dose: 3 mg Documented by: Zolpidem Tartrate (Zolpidem Tartrate 5 Mg Tablet) 5 mg PO BEDTIME [facility] Last Admin: 06/18/21 19:57 Dose: 5 mg Documented by: Allergies Allergies Allergy/AdvReac Type Severity Reaction Status Date / Time Penicillins Allergy Mild RASH AND Verified 06/03/21 13:24 NAUSEA WITH VOMITING aripiprazole [From Abilify] Allergy Unknown unknown Verified 06/03/21 13:24 temazepam [From Restoril] Allergy Unknown UNKNOWN Verified 06/03/21 13:24 haloperidol [From Haldol] AdvReac Severe dystonia Verified 06/03/21 13:24 quetiapine [From Seroquel] AdvReac Unknown unknown Verified 06/03/21 13:24 SEAFOOD Allergy Severe UNKNOWN Uncoded 04/12/20 17:03 Assessment & Plan Assessment & Plan (1) MDD (major depressive disorder), recurrent, severe, with psychosis: Status: Acute Code(s): F33.3 - Major depressive disorder, recurrent, severe with psychotic symptoms (2) IDDM (insulin dependent diabetes mellitus): Status: Acute (3) Pulmonary embolism: Status: Acute Code(s): I26.99 - Other pulmonary embolism without acute cor pulmonale (4) CAD (coronary artery disease): Status: Acute Code(s): I25.10 - Atherosclerotic heart disease of [place] coronary artery without angina pectoris Assessment and Plan: Patient is a 6-year-old male with history of PTSD, depression, anxiety, substance abuse, diabetes, history of PE, CAD and other comorbidities who presents with depression and suicidal ideation in the face of numerous psychosocial stressors most prominent the of a child. On admission Patient reports active SI has resolved.. Patient mood is a little better; SI resolved. His affect is brighter and he was able to make a joke with writer producer and other staff. intermittent mood congruent auditory hallucinations. Will increase Zoloft to 175mg since AH seem to be mood congruent and he struggles with ongoing anxiety. AVH seems only to be present when patient is struggling with depression and anxiety and at this point, MDD with psychotic features remains diagnosis. 06/19- reports feeling more anxious and depressed in context of missing his daughter who recently and upcoming holidays. passive SI, no plan or intent. plan: continue per primary treatment team On CV Q 15 minute checks Continue Zoloft to 175mg for continued anxiety and mood congruent AH Added clonidine 0.05 mg t.i.d. p.r.n. for anxiety; blood pressure within normal limits; will increase as tolerated if needed Check INR daily for now (goal: 2-3) Will add Ambien as he has been on it for years Will continue to assess. I spent minutes with the patient and/or on the patient floor today, greater than?50% of which was spent counseling/coordinating care. Reason for contiued inpatient stay Substantial Risk for: harm to self
[2021-06-19 16:57] LABS: Glucose, Whole Blood 247 mg/dL (60-115)
[2021-06-19] MEDS: Warfarin Sodium 3 MG TABLET PO (17:45)
[2021-06-19 18:00] VITALS: BP 127/72; PULSE 87; RESP 16; TEMP 36.3; O2SAT 94
[2021-06-19 20:42] LABS: Glucose, Whole Blood 173 mg/dL (60-115)
[2021-06-19] MEDS: Insulin Glargine,Hum.rec.anlog 100 UNIT/ML 10 ML VIAL 10 UNIT SUBCUT (20:53)
[2021-06-19 20:54] VITALS: BP 127/72; PULSE 87
[2021-06-19] MEDS: Zolpidem Tartrate 5 MG TABLET PO (20:54)
[2021-06-19] MEDS: traZODone HCL 100 MG TABLET 200 MG PO (20:55)
[2021-06-19] MEDS: risperiDONE 3 MG TABLET PO (20:55)
[2021-06-20 06:00] VITALS: BP 120/82; PULSE 72; RESP 16; TEMP 36.4; O2SAT 99
[2021-06-20 06:39] LABS: Glucose, Whole Blood 108 mg/dL (60-115)
[2021-06-20 08:43] LABS: INTERNATIONAL NORM RATIO 2.3 (0.9-1.1); Prothrombin Time 27.1 SEC (9.9-13.0)
[2021-06-20] MEDS: Omeprazole 20 MG CAPSULE.DR PO (08:49)
[2021-06-20] MEDS: OXcarbazepine 300 MG TABLET 600 MG PO ×2 (08:49→19:50)
[2021-06-20] MEDS: Sertraline HCL 50 MG TABLET 175 MG PO (08:49)
[2021-06-20 08:50] VITALS: BP 113/55; PULSE 62
[2021-06-20 08:50] LABS: Estimated Glomerular Filt Rate > 60
[2021-06-20] MEDS: Aspirin 81 MG TAB.CHEW PO (08:50)
[2021-06-20] MEDS: metFORMIN HCl 1,000 MG TABLET 1000 MG PO ×2 (08:50→17:07)
[2021-06-20] MEDS: glipiZIDE 5 MG TABLET PO (08:50)
[2021-06-20] MEDS: risperiDONE 2 MG TABLET PO (08:50)
[2021-06-20] MEDS: carvediloL 6.25 MG TABLET PO ×2 (08:50→19:51)
[2021-06-20 08:51] VITALS: BP 113/55; PULSE 62
[2021-06-20] MEDS: Buprenorphine/Naloxone 8/2 mg TAB.SUBL 2 TAB SUBLINGUAL (08:51)
[2021-06-20] MEDS: amLODIPine Besylate 2.5 MG TABLET PO (08:51)
[2021-06-20] MEDS: Atorvastatin Calcium 20 MG TABLET PO (08:51)
[2021-06-20] MEDS: Gabapentin 600 MG TABLET PO ×2 (08:51→19:49)
--- NOTE | 2021-06-20 10:28 | HO.PSYCHPN ---
Subjective Subjective Date of Service: 06/20/21 Reason For Visit: bipolar 1 disorder ptsd, opioid use disorder mild, Subjective Notes: Conditional Voluntary Healthcare Proxy: No Guardianship: No Medical Problems Affecting Mental Status: No Interim History: Rough day with holiday - first holiday with daugther- who recently - (few months he says) wants something for anxiety wants inc suboxone due cravings with feeling sad/upset Medication Compliance: Yes Side effects from medications: No Attending Groups: Intermittent Review of Systems Acute medical concerns: No ongoing diabetes ,cirrhoisis Medical Review of Systems: unchanged Mental Status Exam Mental Status Exam Narrative: reports continued si but not in hospital - Patient Appearance: Fatigued Patient Orientation: Person, Place and Situation Level of Consciousness: Awake Patient Behavior: Cooperative, Passive and Anxious Mood Description: Calm Affect Description: Sad Patient Cognition Impaired: Yes Ability to Follow Directions: Fair Speech Pattern: Garbled Memory Description: Episodic Impaired Hallucinations: None Delusions: Not Present Thought Process: Goal Oriented Thought Content: positive for Perseveration Depressive Symptoms: Increased Anxiety, Muscle Tension and Difficulty Sleeping Abnormal Motor Activity Signs and Symptoms: Tremors Judgement: Fair Diagnostics Vital Signs (24Hr): Vital Signs - 24 hr 06/19/21 18:00 06/19/21 20:54 06/20/21 06:00 Temperature 97.4 F 97.6 F Pulse Rate 87 87 72 Respiratory Rate 16 16 Blood Pressure 127/72 127/72 120/82 Pulse Oximetry 94 99 06/20/21 08:50 06/20/21 08:51 Temperature Pulse Rate 62 62 Respiratory Rate Blood Pressure 113/55 L 113/55 L Pulse Oximetry Body Mass Index 26.4 Labs Results: 06/20/21 07:59 Labs: Laboratory Results - last 48 hr 06/18/21 06/18/21 06/18/21 11:44 16:32 20:02 PT INR Creatinine Estim Creat Clear Calc Estimated GFR POC Glucose 141 H 116 H 146 H 06/19/21 06/19/21 06/19/21 05:51 08:00 11:44 PT 31.5 H INR 2.7 H Creatinine Estim Creat Clear Calc Estimated GFR POC Glucose 117 H 174 H 06/19/21 06/19/21 06/20/21 16:49 20:38 06:34 PT INR Creatinine Estim Creat Clear Calc Estimated GFR POC Glucose 247 H 173 H 108 06/20/21 06/20/21 07:59 07:59 PT 27.1 H INR 2.3 H Creatinine 0.76 Estim Creat Clear Calc 100.0 Estimated GFR > 60 POC Glucose Medications Medications Current Medications Acetaminophen (Acetaminophen 325 Mg Tablet) 650 mg PO Q6H PRN PRN Reason: Headache/Pain Mild Scale (1-3) Al Hydroxide/Mg Hydroxide (Magnesium Hydrox/Alum Hydrox 30 Ml Oral.Susp) 30 ml PO Q6H PRN PRN Reason: Heartburn/Nausea Amlodipine Besylate (Amlodipine Besylate 2.5 Mg Tablet) 2.5 mg PO DAILY [facility]; Protocol Last Admin: 06/20/21 08:51 Dose: 2.5 mg Documented by: Aspirin (Aspirin 81 Mg Tab.Chew) 81 mg PO DAILY [facility] Last Admin: 06/20/21 08:50 Dose: 81 mg Documented by: Atorvastatin Calcium (Atorvastatin Calcium 20 Mg Tablet) 20 mg PO DAILY [facility] Last Admin: 06/20/21 08:51 Dose: 20 mg Documented by: Buprenorphine/Naloxone (Buprenorphine/Naloxone 8/2 Mg Tab.Subl) 2 tab SUBLINGUAL DAILY [facility] Last Admin: 06/20/21 08:51 Dose: 2 tab Documented by: Carvedilol (Carvedilol 6.25 Mg Tablet) 6.25 mg PO BID [facility]; Protocol Last Admin: 06/20/21 08:50 Dose: 6.25 mg Documented by: Clonidine HCl (Clonidine Hcl 0.1 Mg Tablet) 0.05 mg PO BID PRN; Protocol PRN Reason: moderate anxiety Last Admin: 06/18/21 14:04 Dose: 0.05 mg Documented by: Gabapentin (Gabapentin 600 Mg Tablet) 600 mg PO BID [facility] Last Admin: 06/20/21 08:51 Dose: 600 mg Documented by: Glipizide (Glipizide 5 Mg Tablet) 5 mg PO DAILY [facility] Last Admin: 06/20/21 08:50 Dose: 5 mg Documented by: Glucose (Glucose Gel 15 Gm Gel..Gram.) 15 gm PO Q15M PRN; Protocol PRN Reason: per Hypoglycemia Standing Ord. Hydroxyzine HCl (Hydroxyzine Hcl 50 Mg Tablet) 50 mg PO Q6H PRN PRN Reason: Anxiety Last Admin: 06/19/21 19:05 Dose: 50 mg Documented by: Insulin Glargine (Insulin Glargine,Hum.Rec.Anlog 100 Unit/Ml 10 Ml Vial) 10 unit SUBCUT BEDTIME [facility] Last Admin: 06/19/21 20:53 Dose: 10 unit Documented by: Insulin Human Lispro (Insulin Lispro 100 Unit/Ml 3 Ml Vial) 0 unit SUBCUT QIDACHS [facility]; Protocol Last Admin: 06/19/21 20:52 Dose: 2 unit Documented by: Magnesium Hydroxide (Milk Of Magnesia 30 Ml Oral.Susp) 30 ml PO DAILY PRN PRN Reason: Constipation Metformin HCl (Metformin Hcl 1,000 Mg Tablet) 1,000 mg PO BIDWM [facility] Last Admin: 06/20/21 08:50 Dose: 1,000 mg Documented by: Nicotine (Nicotine 21 Mg Patch.Td24) 21 mg TRANSDERMA DAILY PRN PRN Reason: smoking cessation Nicotine Polacrilex (Nicotine Polacrilex 2 Mg Gum) 4 mg BUCCAL Q2H PRN PRN Reason: Nicotine Cravings Nitroglycerin (Nitroglycerin 0.4 Mg Tab.Subl) 0.4 mg SUBLINGUAL Q5MX3 PRN PRN Reason: Chest Pain Omeprazole (Omeprazole 20 Mg Capsule.Dr) 20 mg PO DAILY@0630 [facility] Last Admin: 06/20/21 08:49 Dose: 20 mg Documented by: Oxcarbazepine (Oxcarbazepine 300 Mg Tablet) 600 mg PO BID [facility] Last Admin: 06/20/21 08:49 Dose: 600 mg Documented by: Risperidone (Risperidone 3 Mg Tablet) 3 mg PO BEDTIME [facility] Last Admin: 06/19/21 20:55 Dose: 3 mg Documented by: Risperidone (Risperidone 2 Mg Tablet) 2 mg PO DAILY [facility] Last Admin: 06/20/21 08:50 Dose: 2 mg Documented by: Sertraline HCl (Sertraline Hcl 50 Mg Tablet) 175 mg PO DAILY [facility] Last Admin: 06/20/21 08:49 Dose: 175 mg Documented by: Trazodone HCl (Trazodone Hcl 100 Mg Tablet) 200 mg PO BEDTIME [facility] Last Admin: 06/19/21 20:55 Dose: 200 mg Documented by: Warfarin Sodium (Warfarin Sodium 3 Mg Tablet) 3 mg PO DAILY@1800 [facility] Last Admin: 06/19/21 17:45 Dose: 3 mg Documented by: Zolpidem Tartrate (Zolpidem Tartrate 5 Mg Tablet) 5 mg PO BEDTIME [facility] Last Admin: 06/19/21 20:54 Dose: 5 mg Documented by: Allergies Allergies Allergy/AdvReac Type Severity Reaction Status Date / Time Penicillins Allergy Mild RASH AND Verified 06/03/21 13:24 NAUSEA WITH VOMITING aripiprazole [From Abilify] Allergy Unknown unknown Verified 06/03/21 13:24 temazepam [From Restoril] Allergy Unknown UNKNOWN Verified 06/03/21 13:24 haloperidol [From Haldol] AdvReac Severe dystonia Verified 06/03/21 13:24 quetiapine [From Seroquel] AdvReac Unknown unknown Verified 06/03/21 13:24 SEAFOOD Allergy Severe UNKNOWN Uncoded 04/12/20 17:03 Assessment & Plan Assessment & Plan (1) MDD (major depressive disorder), recurrent, severe, with psychosis: Status: Acute Code(s): F33.3 - Major depressive disorder, recurrent, severe with psychotic symptoms Assessment and Plan: continue current medications mileu therapy (2) IDDM (insulin dependent diabetes mellitus): Status: Acute Assessment and Plan: continue to monitor poc (3) CAD (coronary artery disease): Status: Acute Code(s): I25.10 - Atherosclerotic heart disease of [place] coronary artery without angina pectoris Assessment and Plan: Pt with ongoing sys of depression/anxiety and SI on this holiday missing his daugther reported OD to me after her that he didn't report woke up = and neither aunt nor gf knew as they just thought he had been sleeping plan: continue per primary treatment team On CV Q 15 minute checks requesting something for anxiety low dose buspar given tid can't tolerate inc clonidine bp running low I spent minutes with the patient and/or on the patient floor today, greater than?50% of which was spent counseling/coordinating care. Reason for contiued inpatient stay Substantial Risk for: harm to self and rapid decompensation
[2021-06-20] MEDS: hydrOXYzine HCL 50 MG TABLET PO ×2 (11:30→17:19)
[2021-06-20 12:03] LABS: Glucose, Whole Blood 157 mg/dL (60-115)
[2021-06-20] MEDS: Insulin Lispro 100 UNIT/ML 3 ML VIAL SUBCUT ×3 (12:06→19:48)
[2021-06-20] MEDS: busPIRone HCl 5 MG TABLET PO (14:44)
[2021-06-20 16:57] LABS: Glucose, Whole Blood 183 mg/dL (60-115)
[2021-06-20] MEDS: Throat Lozenge, Medicated LOZENGE 1 LOZENGE MUCOUS MEM (17:19)
[2021-06-20] MEDS: Warfarin Sodium 3 MG TABLET PO (18:40)
[2021-06-20 19:01] VITALS: BP 122/81; PULSE 84; TEMP 36.6
[2021-06-20] MEDS: traZODone HCL 100 MG TABLET 200 MG PO (19:49)
[2021-06-20] MEDS: Insulin Glargine,Hum.rec.anlog 100 UNIT/ML 10 ML VIAL 10 UNIT SUBCUT (19:49)
[2021-06-20] MEDS: risperiDONE 3 MG TABLET PO (19:49)
[2021-06-20 19:51] VITALS: BP 122/81; PULSE 84
[2021-06-20] MEDS: Zolpidem Tartrate 5 MG TABLET PO (20:08)
[2021-06-20 22:45] LABS: Glucose, Whole Blood 199 mg/dL (60-115)
[2021-06-21 06:00] VITALS: BP 121/64; PULSE 74; RESP 16; TEMP 36.4; O2SAT 96
[2021-06-21 06:39] LABS: Glucose, Whole Blood 117 mg/dL (60-115)
[2021-06-21] MEDS: Omeprazole 20 MG CAPSULE.DR PO (06:42)
[2021-06-21 07:42] LABS: INTERNATIONAL NORM RATIO 2.3 (0.9-1.1); Prothrombin Time 26.4 SEC (9.9-13.0)
[2021-06-21] MEDS: Sertraline HCL 50 MG TABLET 175 MG PO (08:15)
[2021-06-21] MEDS: Aspirin 81 MG TAB.CHEW PO (08:17)
[2021-06-21] MEDS: OXcarbazepine 300 MG TABLET 600 MG PO ×2 (08:17→21:28)
[2021-06-21] MEDS: Buprenorphine/Naloxone 8/2 mg TAB.SUBL 2 TAB SUBLINGUAL (08:18)
[2021-06-21] MEDS: risperiDONE 2 MG TABLET PO (08:19)
[2021-06-21] MEDS: Atorvastatin Calcium 20 MG TABLET PO (08:19)
[2021-06-21] MEDS: metFORMIN HCl 1,000 MG TABLET 1000 MG PO ×2 (08:19→16:29)
[2021-06-21] MEDS: amLODIPine Besylate 2.5 MG TABLET PO (08:20)
[2021-06-21] MEDS: glipiZIDE 5 MG TABLET PO (08:21)
[2021-06-21] MEDS: Gabapentin 600 MG TABLET PO ×2 (08:21→21:28)
[2021-06-21] MEDS: carvediloL 6.25 MG TABLET PO ×2 (09:01→21:28)
[2021-06-21] MEDS: hydrOXYzine HCL 50 MG TABLET PO ×3 (09:30→19:04)
[2021-06-21 10:25] VITALS: BMI 27.3
--- NOTE | 2021-06-21 10:28 | HO.PSYCHPN ---
Subjective Subjective Date of Service: 06/21/21 Reason For Visit: bipolar 1 disorder ptsd, opioid use disorder mild, Interim History: Patient reports that he has been more depressed recently and has had increase in AH and thoughts of suicide. Patient agrees this is most likely due to it having been Thanksgiving which increased the intensity of grieving for his recently daughter. Patient was started on BuSpar by covering provider and he agrees to have it scheduled instead of p.r.n.. He also agrees that while medications can help, there is no avoiding the sadness of losing a child and that he needs to continue engaging with others. Fis[employer] D[employer] and patient discussed his other 3 children whom he says are also grieving the loss of her sister. Patient does not want to worsen their burden by self-harm and says he can be safe. Patient feels that if he can rest another few days of the ready to go. Mental Status Exam Mental Status Exam Narrative: Pt is alert and oriented; behavior is cooperative, friendly and calm; dressed in casual attire with with scruffy facial hair but good hygiene; mood is described as depressed; affect is anxious; eye contact appropriate; Speech is normal rate, prosody, volume; not pressured; no psychomotor retardation present; thought process is organized and goal directed. Thought content is on dealing with depression and mourning of daughter and on tx; otherwise pertinent to relevant topics and without any delusional content, paranoid ideations or grandiosity; denies SI/HI; Intermittent, mood congruent AH. ?Patients insight and judgment are impaired but improving. Diagnostics Vital Signs (24Hr): Vital Signs - 24 hr 06/20/21 19:01 06/20/21 19:51 06/21/21 06:00 Temperature 98 F 97.5 F Pulse Rate 84 84 74 Respiratory Rate 16 Blood Pressure 122/81 122/81 121/64 Pulse Oximetry 96 Body Mass Index 26.4 Labs Results: 06/20/21 07:59 Labs: Laboratory Results - last 48 hr 06/19/21 06/19/21 06/19/21 11:44 16:49 20:38 PT INR Creatinine Estim Creat Clear Calc Estimated GFR POC Glucose 174 H 247 H 173 H 06/20/21 06/20/21 06/20/21 06:34 07:59 07:59 PT 27.1 H INR 2.3 H Creatinine 0.76 Estim Creat Clear Calc 100.0 Estimated GFR > 60 POC Glucose 108 06/20/21 06/20/21 06/20/21 12:00 16:52 19:43 PT INR Creatinine Estim Creat Clear Calc Estimated GFR POC Glucose 157 H 183 H 199 H 06/21/21 06/21/21 06:34 07:17 PT 26.4 H INR 2.3 H Creatinine Estim Creat Clear Calc Estimated GFR POC Glucose 117 H Medications Medications Current Medications Acetaminophen (Acetaminophen 325 Mg Tablet) 650 mg PO Q6H PRN PRN Reason: Headache/Pain Mild Scale (1-3) Al Hydroxide/Mg Hydroxide (Magnesium Hydrox/Alum Hydrox 30 Ml Oral.Susp) 30 ml PO Q6H PRN PRN Reason: Heartburn/Nausea Amlodipine Besylate (Amlodipine Besylate 2.5 Mg Tablet) 2.5 mg PO DAILY [facility]; Protocol Last Admin: 06/21/21 08:20 Dose: 2.5 mg Documented by: Aspirin (Aspirin 81 Mg Tab.Chew) 81 mg PO DAILY [facility] Last Admin: 06/21/21 08:17 Dose: 81 mg Documented by: Atorvastatin Calcium (Atorvastatin Calcium 20 Mg Tablet) 20 mg PO DAILY [facility] Last Admin: 06/21/21 08:19 Dose: 20 mg Documented by: Benzocaine (Throat Lozenge, Medicated Lozenge) 1 lozenge MUCOUS MEM Q2H PRN PRN Reason: Sore Throat Last Admin: 06/20/21 17:19 Dose: 1 lozenge Documented by: Buprenorphine/Naloxone (Buprenorphine/Naloxone 8/2 Mg Tab.Subl) 2 tab SUBLINGUAL DAILY [facility] Last Admin: 06/21/21 08:18 Dose: 2 tab Documented by: Buspirone HCl (Buspirone Hcl 5 Mg Tablet) 5 mg PO TID PRN PRN Reason: anxiety Last Admin: 06/20/21 14:44 Dose: 5 mg Documented by: Carvedilol (Carvedilol 6.25 Mg Tablet) 6.25 mg PO BID [facility]; Protocol Last Admin: 06/21/21 09:01 Dose: 6.25 mg Documented by: Clonidine HCl (Clonidine Hcl 0.1 Mg Tablet) 0.05 mg PO BID PRN; Protocol PRN Reason: moderate anxiety Last Admin: 06/18/21 14:04 Dose: 0.05 mg Documented by: Gabapentin (Gabapentin 600 Mg Tablet) 600 mg PO BID [facility] Last Admin: 06/21/21 08:21 Dose: 600 mg Documented by: Glipizide (Glipizide 5 Mg Tablet) 5 mg PO DAILY [facility] Last Admin: 06/21/21 08:21 Dose: 5 mg Documented by: Glucose (Glucose Gel 15 Gm Gel..Gram.) 15 gm PO Q15M PRN; Protocol PRN Reason: per Hypoglycemia Standing Ord. Hydroxyzine HCl (Hydroxyzine Hcl 50 Mg Tablet) 50 mg PO Q6H PRN PRN Reason: Anxiety Last Admin: 06/21/21 09:30 Dose: 50 mg Documented by: Insulin Glargine (Insulin Glargine,Hum.Rec.Anlog 100 Unit/Ml 10 Ml Vial) 10 unit SUBCUT BEDTIME [facility] Last Admin: 06/20/21 19:49 Dose: 10 unit Documented by: Insulin Human Lispro (Insulin Lispro 100 Unit/Ml 3 Ml Vial) 0 unit SUBCUT QIDACHS [facility]; Protocol Last Admin: 06/21/21 08:24 Dose: Not Given Documented by: Magnesium Hydroxide (Milk Of Magnesia 30 Ml Oral.Susp) 30 ml PO DAILY PRN PRN Reason: Constipation Metformin HCl (Metformin Hcl 1,000 Mg Tablet) 1,000 mg PO BIDWM [facility] Last Admin: 06/21/21 08:19 Dose: 1,000 mg Documented by: Nicotine (Nicotine 21 Mg Patch.Td24) 21 mg TRANSDERMA DAILY PRN PRN Reason: smoking cessation Nicotine Polacrilex (Nicotine Polacrilex 2 Mg Gum) 4 mg BUCCAL Q2H PRN PRN Reason: Nicotine Cravings Nitroglycerin (Nitroglycerin 0.4 Mg Tab.Subl) 0.4 mg SUBLINGUAL Q5MX3 PRN PRN Reason: Chest Pain Omeprazole (Omeprazole 20 Mg Capsule.Dr) 20 mg PO DAILY@0630 [facility] Last Admin: 06/21/21 06:42 Dose: 20 mg Documented by: Oxcarbazepine (Oxcarbazepine 300 Mg Tablet) 600 mg PO BID [facility] Last Admin: 06/21/21 08:17 Dose: 600 mg Documented by: Risperidone (Risperidone 3 Mg Tablet) 3 mg PO BEDTIME [facility] Last Admin: 06/20/21 19:49 Dose: 3 mg Documented by: Risperidone (Risperidone 2 Mg Tablet) 2 mg PO DAILY [facility] Last Admin: 06/21/21 08:19 Dose: 2 mg Documented by: Sertraline HCl (Sertraline Hcl 50 Mg Tablet) 175 mg PO DAILY [facility] Last Admin: 06/21/21 08:15 Dose: 175 mg Documented by: Trazodone HCl (Trazodone Hcl 100 Mg Tablet) 200 mg PO BEDTIME [facility] Last Admin: 06/20/21 19:49 Dose: 200 mg Documented by: Warfarin Sodium (Warfarin Sodium 3 Mg Tablet) 3 mg PO DAILY@1800 [facility] Last Admin: 06/20/21 18:40 Dose: 3 mg Documented by: Zolpidem Tartrate (Zolpidem Tartrate 5 Mg Tablet) 5 mg PO BEDTIME [facility] Last Admin: 06/20/21 20:08 Dose: 5 mg Documented by: Allergies Allergies Allergy/AdvReac Type Severity Reaction Status Date / Time Penicillins Allergy Mild RASH AND Verified 06/03/21 13:24 NAUSEA WITH VOMITING aripiprazole [From Abilify] Allergy Unknown unknown Verified 06/03/21 13:24 temazepam [From Restoril] Allergy Unknown UNKNOWN Verified 06/03/21 13:24 haloperidol [From Haldol] AdvReac Severe dystonia Verified 06/03/21 13:24 quetiapine [From Seroquel] AdvReac Unknown unknown Verified 06/03/21 13:24 SEAFOOD Allergy Severe UNKNOWN Uncoded 04/12/20 17:03 Assessment & Plan Assessment & Plan (1) MDD (major depressive disorder), recurrent, severe, with psychosis: Status: Acute Code(s): F33.3 - Major depressive disorder, recurrent, severe with psychotic symptoms Assessment and Plan: continue current medications mileu therapy (2) IDDM (insulin dependent diabetes mellitus): Status: Acute Assessment and Plan: continue to monitor poc (3) CAD (coronary artery disease): Status: Acute Code(s): I25.10 - Atherosclerotic heart disease of [place] coronary artery without angina pectoris Assessment and Plan: Patient is a 6-year-old male with history of PTSD, depression, anxiety, substance abuse, diabetes, history of PE, CAD and other comorbidities who presents with depression and suicidal ideation in the face of numerous psychosocial stressors most prominent the of a child.? On admission Patient reports active SI has resolved.. Patient mood is a little better; SI intermittent, but not active. tough day over thanksgiving, but otherwise? His affect is brighter and he is able to make some light hearted jokes w/ staff; going to groups; knows that sadness of daughter's is something he must process Still has intermittent mood congruent auditory hallucinations Increased Zoloft to 175mg since AH seem to be mood congruent and he struggles with ongoing anxiety.? AVH seems only to be present when patient is struggling with depression and anxiety and at this point, MDD with psychotic features remains diagnosis. -started on Buspar 5mg TID plan: On CV Q 15 minute checks -patient was started on Buspar; will schedule 5mg TID Zoloft to 175mg for continued anxiety and mood congruent AH Added clonidine 0.5 mg t.i.d. p.r.n. for anxiety; blood pressure within normal limits; will increase as tolerated if needed Check INR daily for now (goal: 2-3) Will add Ambien as he has been on it for years Will continue to assess. I spent minutes with the patient and/or on the patient floor today, greater than?50% of which was spent counseling/coordinating care. Reason for contiued inpatient stay Substantial Risk for: med/psych decompensation
[2021-06-21 11:46] LABS: Glucose, Whole Blood 170 mg/dL (60-115)
[2021-06-21] MEDS: Insulin Lispro 100 UNIT/ML 3 ML VIAL SUBCUT ×3 (12:34→21:32)
[2021-06-21] MEDS: busPIRone HCl 5 MG TABLET PO ×2 (15:08→21:28)
[2021-06-21] MEDS: Warfarin Sodium 3 MG TABLET PO (16:29)
[2021-06-21 16:55] LABS: Glucose, Whole Blood 224 mg/dL (60-115)
[2021-06-21 21:28] VITALS: BP 117/64; PULSE 82
[2021-06-21] MEDS: Zolpidem Tartrate 5 MG TABLET PO (21:28)
[2021-06-21] MEDS: traZODone HCL 100 MG TABLET 200 MG PO (21:28)
[2021-06-21] MEDS: Insulin Glargine,Hum.rec.anlog 100 UNIT/ML 10 ML VIAL 10 UNIT SUBCUT (21:31)
[2021-06-21] MEDS: risperiDONE 3 MG TABLET PO (21:31)
[2021-06-21 22:07] LABS: Glucose, Whole Blood 206 mg/dL (60-115)
[2021-06-22 06:00] VITALS: BP 111/66; PULSE 66; RESP 17; TEMP 36.5; O2SAT 96
[2021-06-22] MEDS: Omeprazole 20 MG CAPSULE.DR PO (06:04)
[2021-06-22 06:15] LABS: Glucose, Whole Blood 103 mg/dL (60-115)
[2021-06-22 08:06] LABS: Prothrombin Time 22.8 SEC (9.9-13.0)
[2021-06-22] MEDS: metFORMIN HCl 1,000 MG TABLET 1000 MG PO ×2 (08:29→16:58)
[2021-06-22] MEDS: Aspirin 81 MG TAB.CHEW PO (08:29)
[2021-06-22] MEDS: Buprenorphine/Naloxone 8/2 mg TAB.SUBL 2 TAB SUBLINGUAL (08:30)
[2021-06-22] MEDS: Gabapentin 600 MG TABLET PO ×2 (08:30→20:26)
[2021-06-22] MEDS: OXcarbazepine 300 MG TABLET 600 MG PO ×2 (08:30→20:26)
[2021-06-22] MEDS: risperiDONE 2 MG TABLET PO (08:30)
[2021-06-22] MEDS: Sertraline HCL 50 MG TABLET 175 MG PO (08:30)
[2021-06-22] MEDS: Atorvastatin Calcium 20 MG TABLET PO (08:30)
[2021-06-22] MEDS: glipiZIDE 5 MG TABLET PO (08:30)
[2021-06-22] MEDS: busPIRone HCl 5 MG TABLET PO ×3 (08:30→20:25)
[2021-06-22 08:31] VITALS: BP 118/65; PULSE 67
[2021-06-22] MEDS: carvediloL 6.25 MG TABLET PO ×2 (08:31→20:26)
[2021-06-22] MEDS: amLODIPine Besylate 2.5 MG TABLET PO (08:31)
[2021-06-22 12:16] LABS: Glucose, Whole Blood 53 mg/dL (60-115)
[2021-06-22 12:51] LABS: Glucose, Whole Blood 71 mg/dL (60-115)
--- NOTE | 2021-06-22 12:56 | P.PNPSI_ITS ---
Subjective Subjective Date of Service: 06/22/21 Reason For Visit: bipolar 1 disorder ptsd, opioid use disorder mild, Subjective Notes: Conditional Voluntary Healthcare Proxy: No Guardianship: No Medical Problems Affecting Mental Status: No Interim History: Patient feeling better on buspar- more ready to leave- Thursday had very low bs this am after breakfast and felt hungry- ate pbj and juice Not sure if he ate much last pm slept ok - denying current si Medication Compliance: Yes Side effects from medications: No Attending Groups: Intermittent Review of Systems Acute medical concerns: Yes low bs Medical Review of Systems: unchanged Mental Status Exam Mental Status Exam Narrative: mildly unkempt maybe baseline for patient Patient Appearance: Appropriate Patient Orientation: Person, Place, Time and Situation Level of Consciousness: Awake Patient Behavior: Appropriate Mood Description: Calm Affect Description: Calm Patient Cognition Impaired: No Ability to Follow Directions: Fair Speech Pattern: Garbled (also baseline for patient ) Hallucinations: None Delusions: Not Present Thought Process: Intact Thought Content: positive for [place] and positive for Poverty of Content Judgement: Fair Diagnostics Vital Signs (24Hr): Vital Signs - 24 hr 06/21/21 21:28 06/22/21 06:00 06/22/21 08:31 Temperature 97.7 F Pulse Rate 82 66 67 Respiratory Rate 17 Blood Pressure 117/64 111/66 118/65 Pulse Oximetry 96 Body Mass Index 27.3 Labs Results: 06/20/21 07:59 Labs: Laboratory Results - last 48 hr 06/20/21 06/20/21 06/21/21 16:52 19:43 06:34 PT INR POC Glucose 183 H 199 H 117 H 06/21/21 06/21/21 06/21/21 07:17 11:41 16:50 PT 26.4 H INR 2.3 H POC Glucose 170 H 224 H 06/21/21 06/22/21 06/22/21 21:18 06:03 07:35 PT 22.8 H INR 2.0 H POC Glucose 206 H 103 06/22/21 06/22/21 12:12 12:47 PT INR POC Glucose 53 L* 71 Medications Medications Current Medications Acetaminophen (Acetaminophen 325 Mg Tablet) 650 mg PO Q6H PRN PRN Reason: Headache/Pain Mild Scale (1-3) Al Hydroxide/Mg Hydroxide (Magnesium Hydrox/Alum Hydrox 30 Ml Oral.Susp) 30 ml PO Q6H PRN PRN Reason: Heartburn/Nausea Amlodipine Besylate (Amlodipine Besylate 2.5 Mg Tablet) 2.5 mg PO DAILY [facility]; Protocol Last Admin: 06/22/21 08:31 Dose: 2.5 mg Documented by: Aspirin (Aspirin 81 Mg Tab.Chew) 81 mg PO DAILY [facility] Last Admin: 06/22/21 08:29 Dose: 81 mg Documented by: Atorvastatin Calcium (Atorvastatin Calcium 20 Mg Tablet) 20 mg PO DAILY [facility] Last Admin: 06/22/21 08:30 Dose: 20 mg Documented by: Benzocaine (Throat Lozenge, Medicated Lozenge) 1 lozenge MUCOUS MEM Q2H PRN PRN Reason: Sore Throat Last Admin: 06/20/21 17:19 Dose: 1 lozenge Documented by: Buprenorphine/Naloxone (Buprenorphine/Naloxone 8/2 Mg Tab.Subl) 2 tab SUBLINGUAL DAILY [facility] Last Admin: 06/22/21 08:30 Dose: 2 tab Documented by: Buspirone HCl (Buspirone Hcl 5 Mg Tablet) 5 mg PO TID [facility] Last Admin: 06/22/21 08:30 Dose: 5 mg Documented by: Carvedilol (Carvedilol 6.25 Mg Tablet) 6.25 mg PO BID [facility]; Protocol Last Admin: 06/22/21 08:31 Dose: 6.25 mg Documented by: Clonidine HCl (Clonidine Hcl 0.1 Mg Tablet) 0.05 mg PO BID PRN; Protocol PRN Reason: moderate anxiety Last Admin: 06/18/21 14:04 Dose: 0.05 mg Documented by: Gabapentin (Gabapentin 600 Mg Tablet) 600 mg PO BID [facility] Last Admin: 06/22/21 08:30 Dose: 600 mg Documented by: Glipizide (Glipizide 5 Mg Tablet) 5 mg PO DAILY [facility] Last Admin: 06/22/21 08:30 Dose: 5 mg Documented by: Glucose (Glucose Gel 15 Gm Gel..Gram.) 15 gm PO Q15M PRN; Protocol PRN Reason: per Hypoglycemia Standing Ord. Hydroxyzine HCl (Hydroxyzine Hcl 50 Mg Tablet) 50 mg PO Q6H PRN PRN Reason: Anxiety Last Admin: 06/21/21 19:04 Dose: 50 mg Documented by: Insulin Glargine (Insulin Glargine,Hum.Rec.Anlog 100 Unit/Ml 10 Ml Vial) 10 unit SUBCUT BEDTIME [facility] Last Admin: 06/21/21 21:31 Dose: 10 unit Documented by: Insulin Human Lispro (Insulin Lispro 100 Unit/Ml 3 Ml Vial) 0 unit SUBCUT QIDACHS [facility]; Protocol Last Admin: 06/22/21 12:50 Dose: Not Given Documented by: Magnesium Hydroxide (Milk Of Magnesia 30 Ml Oral.Susp) 30 ml PO DAILY PRN PRN Reason: Constipation Metformin HCl (Metformin Hcl 1,000 Mg Tablet) 1,000 mg PO BIDWM [facility] Last Admin: 06/22/21 08:29 Dose: 1,000 mg Documented by: Nicotine (Nicotine 21 Mg Patch.Td24) 21 mg TRANSDERMA DAILY PRN PRN Reason: smoking cessation Nicotine Polacrilex (Nicotine Polacrilex 2 Mg Gum) 4 mg BUCCAL Q2H PRN PRN Reason: Nicotine Cravings Nitroglycerin (Nitroglycerin 0.4 Mg Tab.Subl) 0.4 mg SUBLINGUAL Q5MX3 PRN PRN Reason: Chest Pain Omeprazole (Omeprazole 20 Mg Capsule.Dr) 20 mg PO DAILY@0630 [facility] Last Admin: 06/22/21 06:04 Dose: 20 mg Documented by: Oxcarbazepine (Oxcarbazepine 300 Mg Tablet) 600 mg PO BID [facility] Last Admin: 06/22/21 08:30 Dose: 600 mg Documented by: Risperidone (Risperidone 3 Mg Tablet) 3 mg PO BEDTIME [facility] Last Admin: 06/21/21 21:31 Dose: 3 mg Documented by: Risperidone (Risperidone 2 Mg Tablet) 2 mg PO DAILY [facility] Last Admin: 06/22/21 08:30 Dose: 2 mg Documented by: Sertraline HCl (Sertraline Hcl 50 Mg Tablet) 175 mg PO DAILY [facility] Last Admin: 06/22/21 08:30 Dose: 175 mg Documented by: Trazodone HCl (Trazodone Hcl 100 Mg Tablet) 200 mg PO BEDTIME [facility] Last Admin: 06/21/21 21:28 Dose: 200 mg Documented by: Warfarin Sodium (Warfarin Sodium 3 Mg Tablet) 3 mg PO DAILY@1800 [facility] Last Admin: 06/21/21 16:29 Dose: 3 mg Documented by: Zolpidem Tartrate (Zolpidem Tartrate 5 Mg Tablet) 5 mg PO BEDTIME [facility] Last Admin: 06/21/21 21:28 Dose: 5 mg Documented by: Allergies Allergies Allergy/AdvReac Type Severity Reaction Status Date / Time Penicillins Allergy Mild RASH AND Verified 06/03/21 13:24 NAUSEA WITH VOMITING aripiprazole [From Abilify] Allergy Unknown unknown Verified 06/03/21 13:24 temazepam [From Restoril] Allergy Unknown UNKNOWN Verified 06/03/21 13:24 haloperidol [From Haldol] AdvReac Severe dystonia Verified 06/03/21 13:24 quetiapine [From Seroquel] AdvReac Unknown unknown Verified 06/03/21 13:24 SEAFOOD Allergy Severe UNKNOWN Uncoded 04/12/20 17:03 Assessment & Plan Assessment & Plan (1) MDD (major depressive disorder), recurrent, severe, with psychosis: Status: Acute Code(s): F33.3 - Major depressive disorder, recurrent, severe with psychotic symptoms Assessment and Plan: continue current medications mileu therapy (2) IDDM (insulin dependent diabetes mellitus): Status: Acute Assessment and Plan: continue to monitor poc low blood sugar this am responded to eating - (3) CAD (coronary artery disease): Status: Acute Code(s): I25.10 - Atherosclerotic heart disease of [place] coronary artery without angina pectoris Assessment and Plan: Patient is a 6-year-old male with history of PTSD, depression, anxiety, substance abuse, diabetes, history of PE, CAD and other comorbidities who presents with depression and suicidal ideation in the face of numerous psychosocial stressors most prominent the of a child.? On admission Patient reports active SI has resolved.. Patient mood is a little better; SI intermittent, but not active. tough day over thanksgiving, but otherwise? His affect is brighter and he is able to make some light hearted jokes w/ staff; going to groups; knows that sad ness of daughter's is something he must process Still has intermittent mood congruent auditory hallucinations Increased Zoloft to 175mg since AH seem to be mood congruent and he struggles with ongoing anxiety.? AVH seems only to be present when patient is struggling with depression and anxiety and at this point, MDD with psychotic features remains diagnosis. -started on Buspar 5mg TID plan: On CV Q 15 minute checks -patient was started on Buspar; will schedule 5mg TID Zoloft to 175mg for continued anxiety and mood congruent AH Added clonidine 0.5 mg t.i.d. p.r.n. for anxiety; blood pressure within normal limits; will increase as tolerated if needed Check INR daily for now (goal: 2-3) Will add Ambien as he has been on it for years Will continue to assess. I spent minutes with the patient and/or on the patient floor today, greater than?50% of which was spent counseling/coordinating care. Patient educated on: medication risk/benefits and medical condition Informed Consent: understands Reason for contiued inpatient stay Substantial Risk for: inability to function and rapid decompensation
[2021-06-22] MEDS: hydrOXYzine HCL 50 MG TABLET PO (13:09)
[2021-06-22 14:09] LABS: Glucose, Whole Blood 111 mg/dL (60-115)
[2021-06-22] MEDS: Insulin Lispro 100 UNIT/ML 3 ML VIAL SUBCUT (16:58)
[2021-06-22 17:00] LABS: Glucose, Whole Blood 183 mg/dL (60-115)
[2021-06-22 17:31] VITALS: BP 119/62; PULSE 73
[2021-06-22] MEDS: cloNIDine HCL 0.1 MG TABLET 0.05 MG PO (17:31)
[2021-06-22 18:00] VITALS: BP 118/78; PULSE 79; TEMP 37.1
[2021-06-22] MEDS: Warfarin Sodium 3 MG TABLET PO (18:15)
[2021-06-22] MEDS: Insulin Glargine,Hum.rec.anlog 100 UNIT/ML 10 ML VIAL 10 UNIT SUBCUT (20:25)
[2021-06-22 20:26] VITALS: BP 114/67; PULSE 84
[2021-06-22] MEDS: traZODone HCL 100 MG TABLET 200 MG PO (20:26)
[2021-06-22] MEDS: Zolpidem Tartrate 5 MG TABLET PO (20:26)
[2021-06-22] MEDS: risperiDONE 3 MG TABLET PO (20:26)
[2021-06-23 06:00] VITALS: BP 124/73; PULSE 69; RESP 18; TEMP 36.4; O2SAT 98
[2021-06-23] MEDS: Omeprazole 20 MG CAPSULE.DR PO (06:18)
[2021-06-23 08:09] LABS: Glucose, Whole Blood 102 mg/dL (60-115)
[2021-06-23 08:46] VITALS: BP 131/67; PULSE 68
[2021-06-23] MEDS: OXcarbazepine 300 MG TABLET 600 MG PO ×2 (08:46→20:10)
[2021-06-23] MEDS: risperiDONE 2 MG TABLET PO (08:46)
[2021-06-23] MEDS: carvediloL 6.25 MG TABLET PO ×2 (08:46→20:10)
[2021-06-23] MEDS: Buprenorphine/Naloxone 8/2 mg TAB.SUBL 2 TAB SUBLINGUAL (08:46)
[2021-06-23] MEDS: Aspirin 81 MG TAB.CHEW PO (08:46)
[2021-06-23] MEDS: Atorvastatin Calcium 20 MG TABLET PO (08:46)
[2021-06-23] MEDS: busPIRone HCl 5 MG TABLET PO ×3 (08:46→20:10)
[2021-06-23] MEDS: metFORMIN HCl 1,000 MG TABLET 1000 MG PO ×2 (08:46→16:49)
[2021-06-23 08:47] VITALS: BP 131/67; PULSE 68
[2021-06-23] MEDS: Sertraline HCL 50 MG TABLET 175 MG PO (08:47)
[2021-06-23] MEDS: glipiZIDE 5 MG TABLET PO (08:47)
[2021-06-23] MEDS: amLODIPine Besylate 2.5 MG TABLET PO (08:47)
[2021-06-23] MEDS: Gabapentin 600 MG TABLET PO ×2 (08:47→20:10)
[2021-06-23 10:23] LABS: Glucose, Whole Blood 118 mg/dL (60-115)
[2021-06-23] MEDS: hydrOXYzine HCL 50 MG TABLET PO ×2 (10:45→17:29)
--- NOTE | 2021-06-23 11:01 | HO.PSYCHPN ---
Subjective Subjective Date of Service: 06/23/21 Reason For Visit: bipolar 1 disorder ptsd, opioid use disorder mild, Subjective Notes: Conditional Voluntary Healthcare Proxy: No Guardianship: No Medical Problems Affecting Mental Status: No Interim History: Pt doing ok some nightmares- suggested he not take buspar at hs only prn in day Medication Compliance: Yes Side effects from medications: No (? nightmare from buspirone) Attending Groups: Intermittent Review of Systems Acute medical concerns: Yes variable bs Medical Review of Systems: unchanged Mental Status Exam Mental Status Exam Narrative: mildly unkempt maybe baseline for patient Patient Appearance: Appropriate Patient Orientation: Person, Place, Time and Situation Level of Consciousness: Awake Patient Behavior: Appropriate Mood Description: Calm Affect Description: Calm Patient Cognition Impaired: No Ability to Follow Directions: Fair Speech Pattern: Garbled (also baseline for patient ) Hallucinations: None Delusions: Not Present Thought Process: Intact Thought Content: positive for [place] and positive for Poverty of Content Judgement: Fair Diagnostics Vital Signs (24Hr): Vital Signs - 24 hr 06/22/21 17:31 06/22/21 18:00 06/22/21 20:26 Temperature 98.7 F Pulse Rate 73 79 84 Respiratory Rate Blood Pressure 119/62 118/78 114/67 Pulse Oximetry 06/23/21 06:00 06/23/21 08:46 06/23/21 08:47 Temperature 97.6 F Pulse Rate 69 68 68 Respiratory Rate 18 Blood Pressure 124/73 131/67 131/67 Pulse Oximetry 98 Body Mass Index 27.3 Labs Results: 06/20/21 07:59 Labs: Laboratory Results - last 48 hr 06/21/21 06/21/21 06/21/21 11:41 16:50 21:18 PT INR POC Glucose 170 H 224 H 206 H 06/22/21 06/22/21 06/22/21 06:03 07:35 12:12 PT 22.8 H INR 2.0 H POC Glucose 103 53 L* 06/22/21 06/22/21 06/22/21 12:47 14:05 16:37 PT INR POC Glucose 71 111 183 H 06/23/21 06/23/21 08:05 10:17 PT INR POC Glucose 102 118 H Medications Medications Current Medications Acetaminophen (Acetaminophen 325 Mg Tablet) 650 mg PO Q6H PRN PRN Reason: Headache/Pain Mild Scale (1-3) Al Hydroxide/Mg Hydroxide (Magnesium Hydrox/Alum Hydrox 30 Ml Oral.Susp) 30 ml PO Q6H PRN PRN Reason: Heartburn/Nausea Amlodipine Besylate (Amlodipine Besylate 2.5 Mg Tablet) 2.5 mg PO DAILY [facility]; Protocol Last Admin: 06/23/21 08:47 Dose: 2.5 mg Documented by: Aspirin (Aspirin 81 Mg Tab.Chew) 81 mg PO DAILY [facility] Last Admin: 06/23/21 08:46 Dose: 81 mg Documented by: Atorvastatin Calcium (Atorvastatin Calcium 20 Mg Tablet) 20 mg PO DAILY [facility] Last Admin: 06/23/21 08:46 Dose: 20 mg Documented by: Benzocaine (Throat Lozenge, Medicated Lozenge) 1 lozenge MUCOUS MEM Q2H PRN PRN Reason: Sore Throat Last Admin: 06/20/21 17:19 Dose: 1 lozenge Documented by: Buprenorphine/Naloxone (Buprenorphine/Naloxone 8/2 Mg Tab.Subl) 2 tab SUBLINGUAL DAILY [facility] Last Admin: 06/23/21 08:46 Dose: 2 tab Documented by: Buspirone HCl (Buspirone Hcl 5 Mg Tablet) 5 mg PO TID [facility] Last Admin: 06/23/21 08:46 Dose: 5 mg Documented by: Carvedilol (Carvedilol 6.25 Mg Tablet) 6.25 mg PO BID [facility]; Protocol Last Admin: 06/23/21 08:46 Dose: 6.25 mg Documented by: Clonidine HCl (Clonidine Hcl 0.1 Mg Tablet) 0.05 mg PO BID PRN; Protocol PRN Reason: moderate anxiety Last Admin: 06/22/21 17:31 Dose: 0.05 mg Documented by: Gabapentin (Gabapentin 600 Mg Tablet) 600 mg PO BID [facility] Last Admin: 06/23/21 08:47 Dose: 600 mg Documented by: Glipizide (Glipizide 5 Mg Tablet) 5 mg PO DAILY [facility] Last Admin: 06/23/21 08:47 Dose: 5 mg Documented by: Glucose (Glucose Gel 15 Gm Gel..Gram.) 15 gm PO Q15M PRN; Protocol PRN Reason: per Hypoglycemia Standing Ord. Hydroxyzine HCl (Hydroxyzine Hcl 50 Mg Tablet) 50 mg PO Q6H PRN PRN Reason: Anxiety Last Admin: 06/23/21 10:45 Dose: 50 mg Documented by: Insulin Glargine (Insulin Glargine,Hum.Rec.Anlog 100 Unit/Ml 10 Ml Vial) 10 unit SUBCUT BEDTIME [facility] Last Admin: 06/22/21 20:25 Dose: 10 unit Documented by: Insulin Human Lispro (Insulin Lispro 100 Unit/Ml 3 Ml Vial) 0 unit SUBCUT QIDACHS [facility]; Protocol Last Admin: 06/23/21 08:12 Dose: Not Given Documented by: Magnesium Hydroxide (Milk Of Magnesia 30 Ml Oral.Susp) 30 ml PO DAILY PRN PRN Reason: Constipation Metformin HCl (Metformin Hcl 1,000 Mg Tablet) 1,000 mg PO BIDWM [facility] Last Admin: 06/23/21 08:46 Dose: 1,000 mg Documented by: Nicotine (Nicotine 21 Mg Patch.Td24) 21 mg TRANSDERMA DAILY PRN PRN Reason: smoking cessation Nicotine Polacrilex (Nicotine Polacrilex 2 Mg Gum) 4 mg BUCCAL Q2H PRN PRN Reason: Nicotine Cravings Nitroglycerin (Nitroglycerin 0.4 Mg Tab.Subl) 0.4 mg SUBLINGUAL Q5MX3 PRN PRN Reason: Chest Pain Omeprazole (Omeprazole 20 Mg Capsule.Dr) 20 mg PO DAILY@0630 [facility] Last Admin: 06/23/21 06:18 Dose: 20 mg Documented by: Oxcarbazepine (Oxcarbazepine 300 Mg Tablet) 600 mg PO BID [facility] Last Admin: 06/23/21 08:46 Dose: 600 mg Documented by: Risperidone (Risperidone 3 Mg Tablet) 3 mg PO BEDTIME [facility] Last Admin: 06/22/21 20:26 Dose: 3 mg Documented by: Risperidone (Risperidone 2 Mg Tablet) 2 mg PO DAILY [facility] Last Admin: 06/23/21 08:46 Dose: 2 mg Documented by: Sertraline HCl (Sertraline Hcl 50 Mg Tablet) 175 mg PO DAILY [facility] Last Admin: 06/23/21 08:47 Dose: 175 mg Documented by: Trazodone HCl (Trazodone Hcl 100 Mg Tablet) 200 mg PO BEDTIME [facility] Last Admin: 06/22/21 20:26 Dose: 200 mg Documented by: Warfarin Sodium (Warfarin Sodium 3 Mg Tablet) 3 mg PO DAILY@1800 [facility] Last Admin: 06/22/21 18:15 Dose: 3 mg Documented by: Allergies Allergies Allergy/AdvReac Type Severity Reaction Status Date / Time Penicillins Allergy Mild RASH AND Verified 06/03/21 13:24 NAUSEA WITH VOMITING aripiprazole [From Abilify] Allergy Unknown unknown Verified 06/03/21 13:24 temazepam [From Restoril] Allergy Unknown UNKNOWN Verified 06/03/21 13:24 haloperidol [From Haldol] AdvReac Severe dystonia Verified 06/03/21 13:24 quetiapine [From Seroquel] AdvReac Unknown unknown Verified 06/03/21 13:24 SEAFOOD Allergy Severe UNKNOWN Uncoded 04/12/20 17:03 Assessment & Plan Assessment & Plan (1) MDD (major depressive disorder), recurrent, severe, with psychosis: Status: Acute Code(s): F33.3 - Major depressive disorder, recurrent, severe with psychotic symptoms Assessment and Plan: continue current medications mileu therapy (2) IDDM (insulin dependent diabetes mellitus): Status: Acute Assessment and Plan: continue to monitor poc low blood sugar this am responded to eating - (3) CAD (coronary artery disease): Status: Acute Code(s): I25.10 - Atherosclerotic heart disease of [place] coronary artery without angina pectoris Assessment and Plan: Patient is a 6-year-old male with history of PTSD, depression, anxiety, substance abuse, diabetes, history of PE, CAD and other comorbidities who presents with depression and suicidal ideation in the face of numerous psychosocial stressors most prominent the of a child.? On admission Patient reports active SI has resolved.. Patient mood is a little better; SI intermittent, but not active. tough day over thanksgiving, but otherwise? His affect is brighter and he is able to make some light hearted jokes w/ staff; going to groups; knows that sadness of daughter's is something he must process Still has intermittent mood congruent auditory hallucinations Increased Zoloft to 175mg since AH seem to be mood congruent and he struggles with ongoing anxiety.? AVH seems only to be present when patient is struggling with depression and anxiety and at this point, MDD with psychotic features remains diagnosis. -started on Buspar 5mg TID plan: On CV Q 15 minute checks -patient was started on Buspar; will schedule 5mg TID but NOT HS Zoloft to 175mg for continued anxiety and mood congruent AH Added clonidine 0.5 mg t.i.d. p.r.n. for anxiety; blood pressure within normal limits; will increase as tolerated if needed Check INR daily for now (goal: 2-3) Will add Ambien as he has been on it for years Will continue to assess. I spent minutes with the patient and/or on the patient floor today, greater than?50% of which was spent counseling/coordinating care. Patient educated on: medication risk/benefits Informed Consent: understands Reason for contiued inpatient stay Substantial Risk for: rapid decompensation
[2021-06-23 11:58] LABS: Glucose, Whole Blood 112 mg/dL (60-115)
[2021-06-23 16:40] LABS: Glucose, Whole Blood 197 mg/dL (60-115)
[2021-06-23] MEDS: Insulin Lispro 100 UNIT/ML 3 ML VIAL SUBCUT ×2 (16:49→20:09)
[2021-06-23] MEDS: Warfarin Sodium 3 MG TABLET PO (17:26)
[2021-06-23 19:50] LABS: Glucose, Whole Blood 169 mg/dL (60-115)
[2021-06-23 20:10] VITALS: BP 139/83; PULSE 86
[2021-06-23] MEDS: Insulin Glargine,Hum.rec.anlog 100 UNIT/ML 10 ML VIAL 10 UNIT SUBCUT (20:10)
[2021-06-23] MEDS: risperiDONE 3 MG TABLET PO (20:10)
[2021-06-23] MEDS: traZODone HCL 100 MG TABLET 200 MG PO (20:10)
[2021-06-23] MEDS: Zolpidem Tartrate 5 MG TABLET PO (20:57)
[2021-06-24 06:00] VITALS: BP 150/83; PULSE 70; RESP 18; TEMP 36.9; O2SAT 100
[2021-06-24 08:23] LABS: Glucose, Whole Blood 92 mg/dL (60-115)
[2021-06-24] MEDS: OXcarbazepine 300 MG TABLET 600 MG PO ×2 (08:32→20:29)
[2021-06-24] MEDS: Sertraline HCL 50 MG TABLET 175 MG PO (08:33)
[2021-06-24 08:36] VITALS: BP 150/83; PULSE 70
[2021-06-24] MEDS: carvediloL 6.25 MG TABLET PO ×2 (08:36→20:38)
[2021-06-24] MEDS: Atorvastatin Calcium 20 MG TABLET PO (08:37)
[2021-06-24] MEDS: Omeprazole 20 MG CAPSULE.DR PO (08:37)
[2021-06-24] MEDS: Gabapentin 600 MG TABLET PO ×2 (08:37→20:29)
[2021-06-24] MEDS: Aspirin 81 MG TAB.CHEW PO (08:37)
[2021-06-24] MEDS: busPIRone HCl 5 MG TABLET PO (08:38)
[2021-06-24] MEDS: Buprenorphine/Naloxone 8/2 mg TAB.SUBL 2 TAB SUBLINGUAL (08:38)
[2021-06-24] MEDS: amLODIPine Besylate 2.5 MG TABLET PO (08:39)
[2021-06-24] MEDS: metFORMIN HCl 1,000 MG TABLET 1000 MG PO ×2 (08:39→16:21)
[2021-06-24] MEDS: risperiDONE 2 MG TABLET PO (08:39)
[2021-06-24] MEDS: glipiZIDE 5 MG TABLET PO (08:40)
[2021-06-24 09:05] LABS: INTERNATIONAL NORM RATIO 2.1 (0.9-1.1); Prothrombin Time 24.4 SEC (9.9-13.0)
[2021-06-24] MEDS: hydrOXYzine HCL 50 MG TABLET PO ×2 (10:10→16:49)
[2021-06-24] MEDS: cloNIDine HCL 0.1 MG TABLET 0.05 MG PO (10:10)
--- NOTE | 2021-06-24 11:08 | HO.PSYCHPN ---
Subjective Subjective Date of Service: 06/24/21 Reason For Visit: bipolar 1 disorder ptsd, opioid use disorder mild, Interim History: Patient reports that he still sad. He has passive SI but denies any intent or plans. Still has intermittent AH but less. Patient agrees to increasing Zoloft to 100 mg. Screw Machine Hand reviewed risk/side effects, including to liver with increased dose of Zoloft (and other medications) and patient understood but wanted increase. He also agreed to increase in BuSpar. Patient says that he feels better but still mourns the of his daughter. 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 Patient says that on discharge he will return to his aunt's house. Mental Status Exam Mental Status Exam Narrative: Pt is alert and oriented; behavior is cooperative, friendly and calm; dressed in casual attire with with scruffy facial hair but good hygiene; mood is described as depressed; affect is anxious; eye contact appropriate; Speech is normal rate, prosody, volume; not pressured; no psychomotor retardation present; thought process is organized and goal directed. Thought content is on dealing with depression and mourning of daughter and on tx; otherwise pertinent to relevant topics and without any delusional content, paranoid ideations or grandiosity; intermittent passive SI, but no plans or intentions; no active SI/HI;? Intermittent, mood congruent AH. ?Patients insight and judgment are impaired but improving. Diagnostics Vital Signs (24Hr): Vital Signs - 24 hr 06/23/21 20:10 06/24/21 06:00 06/24/21 08:36 Temperature 98.5 F Pulse Rate 86 70 70 Respiratory Rate 18 Blood Pressure 139/83 150/83 H 150/83 H Pulse Oximetry 100 Body Mass Index 27.3 Labs Results: 06/20/21 07:59 Labs: Laboratory Results - last 48 hr 06/22/21 06/22/21 06/22/21 12:12 12:47 14:05 PT INR POC Glucose 53 L* 71 111 06/22/21 06/23/21 06/23/21 16:37 08:05 10:17 PT INR POC Glucose 183 H 102 118 H 06/23/21 06/23/21 06/23/21 11:54 16:35 19:45 PT INR POC Glucose 112 197 H 169 H 06/24/21 06/24/21 08:01 08:17 PT 24.4 H INR 2.1 H POC Glucose 92 Medications Medications Current Medications Acetaminophen (Acetaminophen 325 Mg Tablet) 650 mg PO Q6H PRN PRN Reason: Headache/Pain Mild Scale (1-3) Al Hydroxide/Mg Hydroxide (Magnesium Hydrox/Alum Hydrox 30 Ml Oral.Susp) 30 ml PO Q6H PRN PRN Reason: Heartburn/Nausea Amlodipine Besylate (Amlodipine Besylate 2.5 Mg Tablet) 2.5 mg PO DAILY [facility]; Protocol Last Admin: 06/24/21 08:39 Dose: 2.5 mg Documented by: Aspirin (Aspirin 81 Mg Tab.Chew) 81 mg PO DAILY [facility] Last Admin: 06/24/21 08:37 Dose: 81 mg Documented by: Atorvastatin Calcium (Atorvastatin Calcium 20 Mg Tablet) 20 mg PO DAILY [facility] Last Admin: 06/24/21 08:37 Dose: 20 mg Documented by: Benzocaine (Throat Lozenge, Medicated Lozenge) 1 lozenge MUCOUS MEM Q2H PRN PRN Reason: Sore Throat Last Admin: 06/20/21 17:19 Dose: 1 lozenge Documented by: Buprenorphine/Naloxone (Buprenorphine/Naloxone 8/2 Mg Tab.Subl) 2 tab SUBLINGUAL DAILY [facility] Last Admin: 06/24/21 08:38 Dose: 2 tab Documented by: Buspirone HCl (Buspirone Hcl 10 Mg Tablet) 10 mg PO TID [facility] Carvedilol (Carvedilol 6.25 Mg Tablet) 6.25 mg PO BID [facility]; Protocol Last Admin: 06/24/21 08:36 Dose: 6.25 mg Documented by: Clonidine HCl (Clonidine Hcl 0.1 Mg Tablet) 0.05 mg PO BID PRN; Protocol PRN Reason: moderate anxiety Last Admin: 06/24/21 10:10 Dose: 0.05 mg Documented by: Gabapentin (Gabapentin 600 Mg Tablet) 600 mg PO BID [facility] Last Admin: 06/24/21 08:37 Dose: 600 mg Documented by: Glipizide (Glipizide 5 Mg Tablet) 5 mg PO DAILY [facility] Last Admin: 06/24/21 08:40 Dose: 5 mg Documented by: Glucose (Glucose Gel 15 Gm Gel..Gram.) 15 gm PO Q15M PRN; Protocol PRN Reason: per Hypoglycemia Standing Ord. Hydroxyzine HCl (Hydroxyzine Hcl 50 Mg Tablet) 50 mg PO Q6H PRN PRN Reason: Anxiety Last Admin: 06/24/21 10:10 Dose: 50 mg Documented by: Insulin Glargine (Insulin Glargine,Hum.Rec.Anlog 100 Unit/Ml 10 Ml Vial) 10 unit SUBCUT BEDTIME [facility] Last Admin: 06/23/21 20:10 Dose: 10 unit Documented by: Insulin Human Lispro (Insulin Lispro 100 Unit/Ml 3 Ml Vial) 0 unit SUBCUT QIDACHS [facility]; Protocol Last Admin: 06/24/21 08:44 Dose: Not Given Documented by: Magnesium Hydroxide (Milk Of Magnesia 30 Ml Oral.Susp) 30 ml PO DAILY PRN PRN Reason: Constipation Metformin HCl (Metformin Hcl 1,000 Mg Tablet) 1,000 mg PO BIDWM [facility] Last Admin: 06/24/21 08:39 Dose: 1,000 mg Documented by: Nicotine (Nicotine 21 Mg Patch.Td24) 21 mg TRANSDERMA DAILY PRN PRN Reason: smoking cessation Nicotine Polacrilex (Nicotine Polacrilex 2 Mg Gum) 4 mg BUCCAL Q2H PRN PRN Reason: Nicotine Cravings Nitroglycerin (Nitroglycerin 0.4 Mg Tab.Subl) 0.4 mg SUBLINGUAL Q5MX3 PRN PRN Reason: Chest Pain Omeprazole (Omeprazole 20 Mg Capsule.Dr) 20 mg PO DAILY@0630 [facility] Last Admin: 06/24/21 08:37 Dose: 20 mg Documented by: Oxcarbazepine (Oxcarbazepine 300 Mg Tablet) 600 mg PO BID [facility] Last Admin: 06/24/21 08:32 Dose: 600 mg Documented by: Risperidone (Risperidone 3 Mg Tablet) 3 mg PO BEDTIME [facility] Last Admin: 06/23/21 20:10 Dose: 3 mg Documented by: Risperidone (Risperidone 2 Mg Tablet) 2 mg PO DAILY [facility] Last Admin: 06/24/21 08:39 Dose: 2 mg Documented by: Sertraline HCl (Sertraline Hcl 100 Mg Tablet) 200 mg PO DAILY [facility] Trazodone HCl (Trazodone Hcl 100 Mg Tablet) 200 mg PO BEDTIME [facility] Last Admin: 06/23/21 20:10 Dose: 200 mg Documented by: Warfarin Sodium (Warfarin Sodium 3 Mg Tablet) 3 mg PO DAILY@1800 [facility] Last Admin: 06/23/21 17:26 Dose: 3 mg Documented by: Zolpidem Tartrate (Zolpidem Tartrate 5 Mg Tablet) 5 mg PO BEDTIME PRN PRN Reason: Insomnia Last Admin: 06/23/21 20:57 Dose: 5 mg Documented by: Allergies Allergies Allergy/AdvReac Type Severity Reaction Status Date / Time Penicillins Allergy Mild RASH AND Verified 06/03/21 13:24 NAUSEA WITH VOMITING aripiprazole [From Abilify] Allergy Unknown unknown Verified 06/03/21 13:24 temazepam [From Restoril] Allergy Unknown UNKNOWN Verified 06/03/21 13:24 haloperidol [From Haldol] AdvReac Severe dystonia Verified 06/03/21 13:24 quetiapine [From Seroquel] AdvReac Unknown unknown Verified 06/03/21 13:24 SEAFOOD Allergy Severe UNKNOWN Uncoded 04/12/20 17:03 Assessment & Plan Assessment & Plan (1) MDD (major depressive disorder), recurrent, severe, with psychosis: Status: Acute Code(s): F33.3 - Major depressive disorder, recurrent, severe with psychotic symptoms Assessment and Plan: continue current medications mileu therapy (2) IDDM (insulin dependent diabetes mellitus): Status: Acute Assessment and Plan: continue to monitor poc low blood sugar this am responded to eating - (3) CAD (coronary artery disease): Status: Acute Code(s): I25.10 - Atherosclerotic heart disease of [place] coronary artery without angina pectoris Assessment and Plan: Patient is a 6-year-old male with history of PTSD, depression, anxiety, substance abuse, diabetes, history of PE, CAD and other comorbidities who presents with depression and suicidal ideation in the face of numerous psychosocial stressors most prominent the of a child.? On admission Patient reports active SI has resolved.. Patient mood is a little better; SI intermittent, but not active. tough day over thanksgiving, but otherwise? His affect is brighter and he is able to make some light hearted jokes w/ staff; going to groups; knows that sadness of daughter's is something he must process Still has intermittent mood congruent auditory hallucinations Increased Zoloft to 175mg since AH seem to be mood congruent and he struggles with ongoing anxiety.? AVH seems only to be present when patient is struggling with depression and anxiety and at this point, MDD with psychotic features remains diagnosis. Patient is at baseline and stabilizing. He remains sad about the of his daughter and has intermittent SI but it is passive and without any intent or plans. Patient agrees to increasing doses of medications but overall feels that he stabilizing plan: On CV Q 15 minute checks -increase to Buspar; will schedule 10mg TID Increased Zoloft to 200 mg for continued anxiety and mood congruent Added clonidine 0.5 mg t.i.d. p.r.n. for anxiety; blood pressure within normal limits; will increase as tolerated if needed Check INR daily for now (goal: 2-3) Will add Ambien as he has been on it for years Will continue to assess. I spent minutes with the patient and/or on the patient floor today, greater than?50% of which was spent counseling/coordinating care. Reason for contiued inpatient stay Substantial Risk for: stable for discharge
[2021-06-24] MEDS: Sertraline HCL 25 MG TABLET PO (11:28)
[2021-06-24 11:47] LABS: Glucose, Whole Blood 108 mg/dL (60-115)
[2021-06-24 12:29] LABS: Alanine Aminotransferase 25 U/L (0-40); Albumin Level 4.2 g/dL (3.5-5.0); Alkaline Phosphatase 110 U/L (39-117); Aspartate Amino Transferase 26 U/L (5-37); Bilirubin Direct < 0.2 mg/dL (0.0-0.5); Bilirubin Total 0.3 mg/dL (0.0-1.0); Total Protein 7.3 g/dL (6.5-8.0)
[2021-06-24] MEDS: busPIRone HCl 10 MG TABLET PO ×2 (14:37→20:29)
[2021-06-24 16:09] LABS: Glucose, Whole Blood 172 mg/dL (60-115)
[2021-06-24] MEDS: Insulin Lispro 100 UNIT/ML 3 ML VIAL SUBCUT (16:49)
[2021-06-24 17:31] VITALS: BP 109/60; PULSE 84; TEMP 36.3; O2SAT 93
[2021-06-24] MEDS: Warfarin Sodium 3 MG TABLET PO (18:57)
[2021-06-24] MEDS: Insulin Glargine,Hum.rec.anlog 100 UNIT/ML 10 ML VIAL 10 UNIT SUBCUT (20:29)
[2021-06-24] MEDS: risperiDONE 3 MG TABLET PO (20:29)
[2021-06-24] MEDS: traZODone HCL 100 MG TABLET 200 MG PO (20:29)
[2021-06-24 20:38] VITALS: BP 109/60; PULSE 84
[2021-06-24 20:49] LABS: Glucose, Whole Blood 107 mg/dL (60-115)
[2021-06-25 06:00] VITALS: BP 127/64; PULSE 66; TEMP 37.1
[2021-06-25] MEDS: Acetaminophen 325 MG TABLET 650 MG PO (06:32)
[2021-06-25] MEDS: Omeprazole 20 MG CAPSULE.DR PO (06:32)
[2021-06-25 06:41] LABS: Glucose, Whole Blood 90 mg/dL (60-115)
[2021-06-25 08:43] LABS: Prothrombin Time 22.7 SEC (9.9-13.0)
--- NOTE | 2021-06-25 09:42 | P.PNPSI_ITS ---
Subjective Subjective Date of Service: 06/25/21 Reason For Visit: bipolar 1 disorder ptsd, opioid use disorder mild, Interim History: Patient reports mood is so-so but better; denies SI. Sleeping better. No AH. Says he feels he will be ready to go tomorrow. Still hopeful but getting into a program. Patient shared how groups have helped him and that if he really pays attention 1 can learn good coping skills. jokes with marine underwriter today and his affect is overall brighter. Denies any medication side effects from increased doses Mental Status Exam Mental Status Exam Narrative: Pt is alert and oriented; behavior is cooperative, friendly and calm; dressed in casual attire with with scruffy facial hair, adequate hygiene; mood is described as depressed; affect is anxious; eye contact appropriate; Speech is normal rate, prosody, volume; not pressured; no psychomotor retardation pr esent; thought process is organized and goal directed. Thought content is on treatment and on staying sober; otherwise pertinent to relevant topics and without any delusional content, paranoid ideations or grandiosity; no SI/HI;?no AVH. ?Patients insight and judgment are intact. Diagnostics Vital Signs (24Hr): Vital Signs - 24 hr 06/24/21 17:31 06/24/21 20:38 06/25/21 06:00 Temperature 97.4 F 98.8 F Pulse Rate 84 84 66 Blood Pressure 109/60 109/60 127/64 Pulse Oximetry 93 Body Mass Index 27.3 Labs Results: 06/20/21 07:59 Labs: Laboratory Results - last 48 hr 06/23/21 06/23/21 06/23/21 10:17 11:54 16:35 PT INR POC Glucose 118 H 112 197 H Total Bilirubin Direct Bilirubin AST ALT Alkaline Phosphatase Total Protein Albumin 06/23/21 06/24/21 06/24/21 19:45 08:01 08:17 PT 24.4 H INR 2.1 H POC Glucose 169 H 92 Total Bilirubin Direct Bilirubin AST ALT Alkaline Phosphatase Total Protein Albumin 06/24/21 06/24/21 06/24/21 11:43 11:51 16:05 PT INR POC Glucose 108 172 H Total Bilirubin 0.3 Direct Bilirubin < 0.2 AST 26 ALT 25 Alkaline Phosphatase 110 Total Protein 7.3 Albumin 4.2 06/24/21 06/25/21 06/25/21 20:24 06:36 08:19 PT 22.7 H INR 2.0 H POC Glucose 107 90 Total Bilirubin Direct Bilirubin AST ALT Alkaline Phosphatase Total Protein Albumin Medications Medications Current Medications Acetaminophen (Acetaminophen 325 Mg Tablet) 650 mg PO Q6H PRN PRN Reason: Headache/Pain Mild Scale (1-3) Last Admin: 06/25/21 06:32 Dose: 650 mg Documented by: Al Hydroxide/Mg Hydroxide (Magnesium Hydrox/Alum Hydrox 30 Ml Oral.Susp) 30 ml PO Q6H PRN PRN Reason: Heartburn/Nausea Amlodipine Besylate (Amlodipine Besylate 2.5 Mg Tablet) 2.5 mg PO DAILY [facility]; Protocol Last Admin: 06/24/21 08:39 Dose: 2.5 mg Documented by: Aspirin (Aspirin 81 Mg Tab.Chew) 81 mg PO DAILY [facility] Last Admin: 06/24/21 08:37 Dose: 81 mg Documented by: Atorvastatin Calcium (Atorvastatin Calcium 20 Mg Tablet) 20 mg PO DAILY [facility] Last Admin: 06/24/21 08:37 Dose: 20 mg Documented by: Benzocaine (Throat Lozenge, Medicated Lozenge) 1 lozenge MUCOUS MEM Q2H PRN PRN Reason: Sore Throat Last Admin: 06/20/21 17:19 Dose: 1 lozenge Documented by: Buprenorphine/Naloxone (Buprenorphine/Naloxone 8/2 Mg Tab.Subl) 2 tab SUBLINGUAL DAILY [facility] Last Admin: 06/24/21 08:38 Dose: 2 tab Documented by: Buspirone HCl (Buspirone Hcl 10 Mg Tablet) 10 mg PO TID [facility] Last Admin: 06/24/21 20:29 Dose: 10 mg Documented by: Carvedilol (Carvedilol 6.25 Mg Tablet) 6.25 mg PO BID [facility]; Protocol Last Admin: 06/24/21 20:38 Dose: 6.25 mg Documented by: Clonidine HCl (Clonidine Hcl 0.1 Mg Tablet) 0.05 mg PO TID PRN; Protocol PRN Reason: moderate anxiety Gabapentin (Gabapentin 600 Mg Tablet) 600 mg PO BID [facility] Last Admin: 06/24/21 20:29 Dose: 600 mg Documented by: Glipizide (Glipizide 5 Mg Tablet) 5 mg PO DAILY [facility] Last Admin: 06/24/21 08:40 Dose: 5 mg Documented by: Glucose (Glucose Gel 15 Gm Gel..Gram.) 15 gm PO Q15M PRN; Protocol PRN Reason: per Hypoglycemia Standing Ord. Hydroxyzine HCl (Hydroxyzine Hcl 50 Mg Tablet) 50 mg PO Q6H PRN PRN Reason: Anxiety Last Admin: 06/24/21 16:49 Dose: 50 mg Documented by: Insulin Glargine (Insulin Glargine,Hum.Rec.Anlog 100 Unit/Ml 10 Ml Vial) 10 unit SUBCUT BEDTIME [facility] Last Admin: 06/24/21 20:29 Dose: 10 unit Documented by: Insulin Human Lispro (Insulin Lispro 100 Unit/Ml 3 Ml Vial) 0 unit SUBCUT QIDACHS [facility]; Protocol Last Admin: 06/25/21 08:07 Dose: Not Given Documented by: Magnesium Hydroxide (Milk Of Magnesia 30 Ml Oral.Susp) 30 ml PO DAILY PRN PRN Reason: Constipation Metformin HCl (Metformin Hcl 1,000 Mg Tablet) 1,000 mg PO BIDWM [facility] Last Admin: 06/24/21 16:21 Dose: 1,000 mg Documented by: Nicotine (Nicotine 21 Mg Patch.Td24) 21 mg TRANSDERMA DAILY PRN PRN Reason: smoking cessation Nicotine Polacrilex (Nicotine Polacrilex 2 Mg Gum) 4 mg BUCCAL Q2H PRN PRN Reason: Nicotine Cravings Nitroglycerin (Nitroglycerin 0.4 Mg Tab.Subl) 0.4 mg SUBLINGUAL Q5MX3 PRN PRN Reason: Chest Pain Omeprazole (Omeprazole 20 Mg Capsule.Dr) 20 mg PO DAILY@0630 [facility] Last Admin: 06/25/21 06:32 Dose: 20 mg Documented by: Oxcarbazepine (Oxcarbazepine 300 Mg Tablet) 600 mg PO BID [facility] Last Admin: 06/24/21 20:29 Dose: 600 mg Documented by: Risperidone (Risperidone 3 Mg Tablet) 3 mg PO BEDTIME [facility] Last Admin: 06/24/21 20:29 Dose: 3 mg Documented by: Risperidone (Risperidone 2 Mg Tablet) 2 mg PO DAILY [facility] Last Admin: 06/24/21 08:39 Dose: 2 mg Documented by: Sertraline HCl (Sertraline Hcl 100 Mg Tablet) 200 mg PO DAILY [facility] Trazodone HCl (Trazodone Hcl 100 Mg Tablet) 200 mg PO BEDTIME [facility] Last Admin: 06/24/21 20:29 Dose: 200 mg Documented by: Warfarin Sodium (Warfarin Sodium 3 Mg Tablet) 3 mg PO DAILY@1800 [facility] Last Admin: 06/24/21 18:57 Dose: 3 mg Documented by: Zolpidem Tartrate (Zolpidem Tartrate 5 Mg Tablet) 5 mg PO BEDTIME PRN PRN Reason: Insomnia Last Admin: 06/23/21 20:57 Dose: 5 mg Documented by: Allergies Allergies Allergy/AdvReac Type Severity Reaction Status Date / Time Penicillins Allergy Mild RASH AND Verified 06/03/21 13:24 NAUSEA WITH VOMITING aripiprazole [From Abilify] Allergy Unknown unknown Verified 06/03/21 13:24 temazepam [From Restoril] Allergy Unknown UNKNOWN Verified 06/03/21 13:24 haloperidol [From Haldol] AdvReac Severe dystonia Verified 06/03/21 13:24 quetiapine [From Seroquel] AdvReac Unknown unknown Verified 06/03/21 13:24 SEAFOOD Allergy Severe UNKNOWN Uncoded 04/12/20 17:03 Assessment & Plan Assessment & Plan (1) MDD (major depressive disorder), recurrent, severe, with psychosis: Status: Acute Code(s): F33.3 - Major depressive disorder, recurrent, severe with psychotic symptoms Assessment and Plan: continue current medications mileu therapy (2) IDDM (insulin dependent diabetes mellitus): Status: Acute Assessment and Plan: continue to monitor poc low blood sugar this am responded to eating - (3) CAD (coronary artery disease): Status: Acute Code(s): I25.10 - Atherosclerotic heart disease of [place] coronary artery without angina pectoris Assessment and Plan: Patient is a 6-year-old male with history of PTSD, depression, anxiety, substance abuse, diabetes, history of PE, CAD and other comorbidities who presents with depression and suicidal ideation in the face of numerous psychos ocial stressors most prominent the of a child.? On admission Patient reports active SI has resolved.. Patient mood is a little better; SI intermittent, but not active. tough day over thanksgiving, but otherwise? His affect is brighter and he is able to make some light hearted jokes w/ staff; going to groups; knows that sadness of daughter's is something he must process Still has intermittent mood congruent auditory hallucinations Increased Zoloft to 175mg since AH seem to be mood congruent and he struggles with ongoing anxiety.? AVH seems only to be present when patient is struggling with depression and anxiety and at this point, MDD with psychotic features remains diagnosis. Patient is at baseline and stabilizing. He remains sad about the of his daughter and has intermittent SI but it is passive and without any intent or plans. Patient agrees to increasing doses of medications but overall feels that he stabilizing. -patient's mood is better and affect noticeably brighter; he is future oriented and trying to stay optimistic about remaining sober. Patient feels ready to discharge home tomorrow. Patient is not in imminent risk of harm to self or others and appropriate to continue treatment as an outpatient plan: On CV Q 15 minute checks -increased to Buspar; will schedule 10mg TID Increased Zoloft to 200 mg for continued anxiety and mood congruent AH Added clonidine 0.5 mg t.i.d. p.r.n. for anxiety; blood pressure within normal limits; will increase as tolerated if needed Check INR daily for now (goal: 2-3) Will add Ambien as he has been on it for years Will continue to assess. I spent minutes with the patient and/or on the patient floor today, greater than?50% of which was spent counseling/coordinating care. Reason for contiued inpatient stay Substantial Risk for: stable for discharge
[2021-06-25] MEDS: OXcarbazepine 300 MG TABLET 600 MG PO ×2 (09:47→20:28)
[2021-06-25] MEDS: Buprenorphine/Naloxone 8/2 mg TAB.SUBL 2 TAB SUBLINGUAL (09:47)
[2021-06-25] MEDS: risperiDONE 2 MG TABLET PO (09:47)
[2021-06-25] MEDS: Sertraline HCL 100 MG TABLET 200 MG PO (09:47)
[2021-06-25] MEDS: busPIRone HCl 10 MG TABLET PO ×2 (09:47→15:12)
[2021-06-25] MEDS: Atorvastatin Calcium 20 MG TABLET PO (09:47)
[2021-06-25 09:48] VITALS: BP 125/74; PULSE 94
[2021-06-25] MEDS: glipiZIDE 5 MG TABLET PO (09:48)
[2021-06-25] MEDS: carvediloL 6.25 MG TABLET PO ×2 (09:48→20:57)
[2021-06-25] MEDS: metFORMIN HCl 1,000 MG TABLET 1000 MG PO ×2 (09:48→16:58)
[2021-06-25] MEDS: Gabapentin 600 MG TABLET PO ×2 (09:48→21:07)
[2021-06-25] MEDS: amLODIPine Besylate 2.5 MG TABLET PO (09:48)
[2021-06-25] MEDS: Aspirin 81 MG TAB.CHEW PO (09:48)
[2021-06-25] MEDS: hydrOXYzine HCL 50 MG TABLET PO ×2 (11:01→17:17)
[2021-06-25 12:09] LABS: Glucose, Whole Blood 94 mg/dL (60-115)
[2021-06-25 13:16] VITALS: BP 121/69; PULSE 76
[2021-06-25] MEDS: cloNIDine HCL 0.1 MG TABLET 0.05 MG PO (13:16)
[2021-06-25] MEDS: Loperamide HCl 2 MG CAPSULE PO (15:12)
[2021-06-25] MEDS: Insulin Lispro 100 UNIT/ML 3 ML VIAL SUBCUT ×2 (16:54→20:52)
[2021-06-25] MEDS: Warfarin Sodium 3 MG TABLET PO (19:08)
[2021-06-25 20:20] VITALS: BP 135/74; PULSE 69; TEMP 36.5; O2SAT 97
[2021-06-25 20:29] LABS: Glucose, Whole Blood 167 mg/dL (60-115)
[2021-06-25 20:29] LABS: Glucose, Whole Blood 186 mg/dL (60-115)
[2021-06-25] MEDS: traZODone HCL 100 MG TABLET 200 MG PO (20:29)
[2021-06-25] MEDS: Zolpidem Tartrate 5 MG TABLET PO (20:29)
[2021-06-25] MEDS: Insulin Glargine,Hum.rec.anlog 100 UNIT/ML 10 ML VIAL 10 UNIT SUBCUT (20:53)
[2021-06-25] MEDS: risperiDONE 3 MG TABLET PO ×2 (20:56→21:05)
[2021-06-25 20:57] VITALS: BP 135/95; PULSE 69
[2021-06-26 06:00] VITALS: BP 98/55; PULSE 66; RESP 17; TEMP 36.6; O2SAT 98
--- NOTE | 2021-06-26 06:30 | PC.NURSE ---
0630: Pt refused FBS POC.
[2021-06-26 08:24] LABS: Glucose, Whole Blood 101 mg/dL (60-115)
[2021-06-26 08:32] LABS: Prothrombin Time 23.3 SEC (9.9-13.0)
[2021-06-26 08:37] VITALS: BP 119/65; PULSE 69
[2021-06-26] MEDS: amLODIPine Besylate 2.5 MG TABLET PO (08:37)
[2021-06-26] MEDS: glipiZIDE 5 MG TABLET PO (08:37)
[2021-06-26] MEDS: Aspirin 81 MG TAB.CHEW PO (08:37)
[2021-06-26] MEDS: risperiDONE 2 MG TABLET PO (08:37)
[2021-06-26] MEDS: Sertraline HCL 100 MG TABLET 200 MG PO (08:37)
[2021-06-26] MEDS: Gabapentin 600 MG TABLET PO ×2 (08:37→20:06)
[2021-06-26] MEDS: carvediloL 6.25 MG TABLET PO ×2 (08:37→20:07)
[2021-06-26] MEDS: Omeprazole 20 MG CAPSULE.DR PO (08:37)
[2021-06-26] MEDS: Buprenorphine/Naloxone 8/2 mg TAB.SUBL 2 TAB SUBLINGUAL (08:37)
[2021-06-26] MEDS: Atorvastatin Calcium 20 MG TABLET PO (08:38)
[2021-06-26] MEDS: OXcarbazepine 300 MG TABLET 600 MG PO ×2 (08:38→20:06)
[2021-06-26] MEDS: busPIRone HCl 10 MG TABLET PO ×3 (08:38→20:06)
[2021-06-26] MEDS: metFORMIN HCl 1,000 MG TABLET 1000 MG PO ×2 (08:38→17:18)
--- NOTE | 2021-06-26 11:34 | P.PNPSI_ITS ---
Subjective Subjective Date of Service: 06/26/21 Reason For Visit: bipolar 1 disorder ptsd, opioid use disorder mild, Interim History: Patient reports mood is pretty good and that he is having a good day. He denies any SI. He says auditory hallucinations are only a little. Patient says that his mood is better and that his anxiety is also better feeling the medications have been helpful. He does say still has cravings in the afternoon. Assembly Line Brazer reviewed how to take the Suboxone and patient did need some education on to and increase its availability however patient said that afternoon cravings are a standing issue and he would very much like an afternoon dose to which public relations writer agreed. Social work explained that Patient will likely have a bed available at a [facility] program tomorrow which patient is very excited about. Mental Status Exam Mental Status Exam Narrative: Pt is alert and oriented; behavior is cooperative, friendly and calm; dressed in casual attire with with scruffy facial hair, adequate hygiene; mood is described as pretty good; affect is anxious; eye contact appropriate; Speech is normal rate, prosody, volume; not pressured; no psychomotor retardation present; thought process is organized and goal directed. Thought content is on treatment and on staying sober; otherwise pertinent to relevant topics and without any delusional content, paranoid ideations or grandiosity; no SI/HI;? a little AH but able to be ignored. ?Patients insight and judgment are intact. Diagnostics Vital Signs (24Hr): Vital Signs - 24 hr 06/25/21 13:16 06/25/21 20:20 06/25/21 20:57 Temperature 97.7 F Pulse Rate 76 69 69 Respiratory Rate Blood Pressure 121/69 135/74 135/95 H Pulse Oximetry 97 06/26/21 06:00 06/26/21 08:37 Temperature 98 F Pulse Rate 66 69 Respiratory Rate 17 Blood Pressure 98/55 L 119/65 Pulse Oximetry 98 BMI result Body Mass Index 27.3 Labs Results: 06/20/21 07:59 Labs: Laboratory Results - last 48 hr 06/24/21 06/24/21 06/24/21 11:43 11:51 16:05 PT INR POC Glucose 108 172 H Total Bilirubin 0.3 Direct Bilirubin < 0.2 AST 26 ALT 25 Alkaline Phosphatase 110 Total Protein 7.3 Albumin 4.2 06/24/21 06/25/21 06/25/21 20:24 06:36 08:19 PT 22.7 H INR 2.0 H POC Glucose 107 90 Total Bilirubin Direct Bilirubin AST ALT Alkaline Phosphatase Total Protein Albumin 06/25/21 06/25/21 06/25/21 12:06 16:50 20:10 PT INR POC Glucose 94 167 H 186 H Total Bilirubin Direct Bilirubin AST ALT Alkaline Phosphatase Total Protein Albumin 06/26/21 06/26/21 08:15 08:19 PT 23.3 H INR 2.0 H POC Glucose 101 Total Bilirubin Direct Bilirubin AST ALT Alkaline Phosphatase Total Protein Albumin Medications Medications Current Medications Acetaminophen (Acetaminophen 325 Mg Tablet) 650 mg PO Q6H PRN PRN Reason: Headache/Pain Mild Scale (1-3) Last Admin: 06/25/21 06:32 Dose: 650 mg Documented by: Al Hydroxide/Mg Hydroxide (Magnesium Hydrox/Alum Hydrox 30 Ml Oral.Susp) 30 ml PO Q6H PRN PRN Reason: Heartburn/Nausea Amlodipine Besylate (Amlodipine Besylate 2.5 Mg Tablet) 2.5 mg PO DAILY [facility]; Protocol Last Admin: 06/26/21 08:37 Dose: 2.5 mg Documented by: Aspirin (Aspirin 81 Mg Tab.Chew) 81 mg PO DAILY [facility] Last Admin: 06/26/21 08:37 Dose: 81 mg Documented by: Atorvastatin Calcium (Atorvastatin Calcium 20 Mg Tablet) 20 mg PO DAILY [facility] Last Admin: 06/26/21 08:38 Dose: 20 mg Documented by: Benzocaine (Throat Lozenge, Medicated Lozenge) 1 lozenge MUCOUS MEM Q2H PRN PRN Reason: Sore Throat Last Admin: 06/20/21 17:19 Dose: 1 lozenge Documented by: Buprenorphine/Naloxone (Buprenorphine/Naloxone 8/2 Mg Tab.Subl) 2 tab SUBLINGUAL DAILY [facility] Last Admin: 06/26/21 08:37 Dose: 2 tab Documented by: Buprenorphine/Naloxone (Buprenorphine/Naloxone 4/1 Mg Film) 1 film SUBLINGUAL DAILY [facility] Buspirone HCl (Buspirone Hcl 10 Mg Tablet) 10 mg PO TID [facility] Last Admin: 06/26/21 08:38 Dose: 10 mg Documented by: Carvedilol (Carvedilol 6.25 Mg Tablet) 6.25 mg PO BID [facility]; Protocol Last Admin: 06/26/21 08:37 Dose: 6.25 mg Documented by: Clonidine HCl (Clonidine Hcl 0.1 Mg Tablet) 0.05 mg PO TID PRN; Protocol PRN Reason: moderate anxiety Last Admin: 06/25/21 13:16 Dose: 0.05 mg Documented by: Gabapentin (Gabapentin 600 Mg Tablet) 600 mg PO BID [facility] Last Admin: 06/26/21 08:37 Dose: 600 mg Documented by: Glipizide (Glipizide 5 Mg Tablet) 5 mg PO DAILY [facility] Last Admin: 06/26/21 08:37 Dose: 5 mg Documented by: Glucose (Glucose Gel 15 Gm Gel..Gram.) 15 gm PO Q15M PRN; Protocol PRN Reason: per Hypoglycemia Standing Ord. Hydroxyzine HCl (Hydroxyzine Hcl 50 Mg Tablet) 50 mg PO Q6H PRN PRN Reason: Anxiety Last Admin: 06/25/21 17:17 Dose: 50 mg Documented by: Insulin Glargine (Insulin Glargine,Hum.Rec.Anlog 100 Unit/Ml 10 Ml Vial) 10 unit SUBCUT BEDTIME [facility] Last Admin: 06/25/21 20:53 Dose: 10 unit Documented by: Insulin Human Lispro (Insulin Lispro 100 Unit/Ml 3 Ml Vial) 0 unit SUBCUT QIDACHS [facility]; Protocol Last Admin: 06/26/21 10:14 Dose: Not Given Documented by: Loperamide HCl (Loperamide Hcl 2 Mg Capsule) 2 mg PO Q4H PRN PRN Reason: Loose Stool Magnesium Hydroxide (Milk Of Magnesia 30 Ml Oral.Susp) 30 ml PO DAILY PRN PRN Reason: Constipation Metformin HCl (Metformin Hcl 1,000 Mg Tablet) 1,000 mg PO BIDWM [facility] Last Admin: 06/26/21 08:38 Dose: 1,000 mg Documented by: Nicotine (Nicotine 21 Mg Patch.Td24) 21 mg TRANSDERMA DAILY PRN PRN Reason: smoking cessation Nicotine Polacrilex (Nicotine Polacrilex 2 Mg Gum) 4 mg BUCCAL Q2H PRN PRN Reason: Nicotine Cravings Nitroglycerin (Nitroglycerin 0.4 Mg Tab.Subl) 0.4 mg SUBLINGUAL Q5MX3 PRN PRN Reason: Chest Pain Omeprazole (Omeprazole 20 Mg Capsule.Dr) 20 mg PO DAILY@0630 [facility] Last Admin: 06/26/21 08:37 Dose: 20 mg Documented by: Oxcarbazepine (Oxcarbazepine 300 Mg Tablet) 600 mg PO BID [facility] Last Admin: 06/26/21 08:38 Dose: 600 mg Documented by: Risperidone (Risperidone 3 Mg Tablet) 3 mg PO BEDTIME [facility] Last Admin: 06/25/21 21:05 Dose: 3 mg Documented by: Risperidone (Risperidone 2 Mg Tablet) 2 mg PO DAILY [facility] Last Admin: 06/26/21 08:37 Dose: 2 mg Documented by: Sertraline HCl (Sertraline Hcl 100 Mg Tablet) 200 mg PO DAILY [facility] Last Admin: 06/26/21 08:37 Dose: 200 mg Documented by: Trazodone HCl (Trazodone Hcl 100 Mg Tablet) 200 mg PO BEDTIME [facility] Last Admin: 06/25/21 20:29 Dose: 200 mg Documented by: Warfarin Sodium (Warfarin Sodium 3 Mg Tablet) 3 mg PO DAILY@1800 [facility] Last Admin: 06/25/21 19:08 Dose: 3 mg Documented by: Zolpidem Tartrate (Zolpidem Tartrate 5 Mg Tablet) 5 mg PO BEDTIME PRN PRN Reason: Insomnia Last Admin: 06/25/21 20:29 Dose: 5 mg Documented by: Allergies Allergies Allergy/AdvReac Type Severity Reaction Status Date / Time Penicillins Allergy Mild RASH AND Verified 06/03/21 13:24 NAUSEA WITH VOMITING aripiprazole [From Abilify] Allergy Unknown unknown Verified 06/03/21 13:24 temazepam [From Restoril] Allergy Unknown UNKNOWN Verified 06/03/21 13:24 haloperidol [From Haldol] AdvReac Severe dystonia Verified 06/03/21 13:24 quetiapine [From Seroquel] AdvReac Unknown unknown Verified 06/03/21 13:24 SEAFOOD Allergy Severe UNKNOWN Uncoded 04/12/20 17:03 Assessment & Plan Assessment & Plan (1) MDD (major depressive disorder), recurrent, severe, with psychosis: Status: Acute Code(s): F33.3 - Major depressive disorder, recurrent, severe with psychotic symptoms Assessment and Plan: continue current medications mileu therapy (2) IDDM (insulin dependent diabetes mellitus): Status: Acute Assessment and Plan: continue to monitor poc low blood sugar this am responded to eating - (3) CAD (coronary artery disease): Status: Acute Code(s): I25.10 - Atherosclerotic heart disease of [place] coronary artery without angina pectoris Assessment and Plan: Patient is a 6-year-old male with history of PTSD, depression, anxiety, substance abuse, diabetes, history of PE, CAD and other comorbidities who presents with depression and suicidal ideation in the face of numerous psychosocial stressors most prominent the of a child.? On admission Patient reports active SI has resolved.. Patient mood is a little better; SI intermittent, but not active. tough day over thanksgiving, but otherwise? His affect is brighter and he is able to make some light hearted jokes w/ staff; going to groups; knows that sadness of daughter's is something he must process Still has intermittent mood congruent auditory hallucinations Increased Zoloft to 175mg since AH seem to be mood congruent and he struggles with ongoing anxiety.? AVH seems only to be present when patient is struggling with depression and anxiety and at this point, MDD with psychotic features remains diagnosis. Patient is at baseline and stabilizing. He remains sad about the of his daughter and has intermittent SI but it is passive and without any intent or plans. Patient agrees to increasing doses of medications but overall feels that he stabilizing. -patient's mood is better and affect noticeably brighter; he is future oriented and trying to stay optimistic about remaining sober. Patient feels ready to discharge home tomorrow. Patient is not in imminent risk of harm to self or others and appropriate to continue treatment as an outpatient -patient remains stable and in good mood; SI remains resolved; AH a little but not bothersome. Patient asked for afternoon dose of Suboxone given his intense cravings at that time; public relations writer reviewed the risks associated with increasing that dose however given patient's long history of relapse and struggles with staying sober, patient and public relations writer both agree that the benefit of an afternoon/evening Suboxone dose outweighs any risks. It appears patient has been accepted to a [facility], which patient is excited about plan: On CV Q 15 minute checks ADD Suboxone 4/1mg at 5pm daily for cravings Buspar; will schedule 10mg TID Zoloft to 200 mg for continued anxiety and mood congruent AH clonidine 0.5 mg t.i.d. p.r.n. for anxiety; blood pressure within normal limits; will increase as tolerated if needed Check INR daily for now (goal: 2-3) Will add Ambien as he has been on it for years Will continue to assess. I spent minutes with the patient and/or on the patient floor today, greater than?50% of which was spent counseling/coordinating care. Reason for contiued inpatient stay Substantial Risk for: stable for discharge
[2021-06-26] MEDS: Insulin Lispro 100 UNIT/ML 3 ML VIAL SUBCUT (12:35)
[2021-06-26 12:41] LABS: Glucose, Whole Blood 176 mg/dL (60-115)
[2021-06-26] MEDS: hydrOXYzine HCL 50 MG TABLET PO (13:45)
[2021-06-26] MEDS: Buprenorphine/Naloxone 4/1 mg FILM 1 FILM SUBLINGUAL (16:45)
[2021-06-26] MEDS: Warfarin Sodium 3 MG TABLET PO (17:17)
[2021-06-26 18:00] VITALS: BP 119/75; PULSE 65; TEMP 36.6; O2SAT 98
[2021-06-26 18:12] LABS: Glucose, Whole Blood 138 mg/dL (60-115)
[2021-06-26] MEDS: risperiDONE 3 MG TABLET PO (20:06)
[2021-06-26] MEDS: traZODone HCL 100 MG TABLET 200 MG PO (20:06)
[2021-06-26 20:07] VITALS: BP 118/76; PULSE 82
[2021-06-26] MEDS: Zolpidem Tartrate 5 MG TABLET PO (20:09)
[2021-06-27 01:32] VITALS: BP 117/70; PULSE 89
[2021-06-27] MEDS: hydrOXYzine HCL 50 MG TABLET PO ×2 (01:32→11:08)
[2021-06-27] MEDS: cloNIDine HCL 0.1 MG TABLET 0.05 MG PO (01:32)
[2021-06-27] MEDS: Throat Lozenge, Medicated LOZENGE 1 LOZENGE MUCOUS MEM (01:37)
[2021-06-27 06:00] VITALS: BP 146/68; PULSE 81; TEMP 36.9; O2SAT 93
[2021-06-27 08:18] LABS: Glucose, Whole Blood 118 mg/dL (60-115)
[2021-06-27] MEDS: Buprenorphine/Naloxone 8/2 mg FILM 2 FILM SUBLINGUAL (08:45)
[2021-06-27 08:46] VITALS: BP 146/68; PULSE 81
[2021-06-27] MEDS: amLODIPine Besylate 2.5 MG TABLET PO (08:46)
[2021-06-27] MEDS: OXcarbazepine 300 MG TABLET 600 MG PO (08:46)
[2021-06-27] MEDS: glipiZIDE 5 MG TABLET PO (08:46)
[2021-06-27 08:47] VITALS: BP 146/68; PULSE 81
[2021-06-27] MEDS: Gabapentin 600 MG TABLET PO (08:47)
[2021-06-27] MEDS: Sertraline HCL 100 MG TABLET 200 MG PO (08:47)
[2021-06-27] MEDS: Omeprazole 20 MG CAPSULE.DR PO (08:47)
[2021-06-27] MEDS: Atorvastatin Calcium 20 MG TABLET PO (08:47)
[2021-06-27] MEDS: carvediloL 6.25 MG TABLET PO (08:47)
[2021-06-27] MEDS: risperiDONE 2 MG TABLET PO (08:47)
[2021-06-27] MEDS: Aspirin 81 MG TAB.CHEW PO (08:47)
[2021-06-27] MEDS: metFORMIN HCl 1,000 MG TABLET 1000 MG PO (08:47)
[2021-06-27] MEDS: busPIRone HCl 10 MG TABLET PO (08:52)
--- NOTE | 2021-06-27 09:36 | PM.PSYDC ---
DS: Providers Provider Date of Service: 06/27/21 Date of admission: 06/12/21 16:26 Date of discharge: 06/27/21 Primary care physician: Unknown Physician Consults: 06/12/21 20:10 Consult to Hospitalist Routine Consulting Provider: Hospitalist Reason For Exam: admission physical 06/15/21 10:27 Consult to Hospitalist Routine Consulting Provider: Hospitalist Reason For Exam: admission physical (2nd request) Attending physician on discharge: Charbel De Los Santos DS: Diagnosis Discharge Diagnosis (1) MDD (major depressive disorder), recurrent, severe, with psychosis: Status: Resolved (2) IDDM (insulin dependent diabetes mellitus): Status: Acute (3) CAD (coronary artery disease): Status: Acute DS: Medications Discharge Medications Home Medications: Previous Rx's Medication Instructions Recorded aspirin 81 mg chewable tablet 81 mg PO DAILY #30 tab 04/09/21 insulin glargine 100 unit/mL 35 unit (0.35 mL) SUBCUT BEDTIME 04/09/21 subcutaneous solution (Lantus #10 ml U-100 Insulin) insulin lispro 100 unit/mL See Protocol SUBCUT QIDACHS #10 ml 04/09/21 subcutaneous solution (Humalog U-100 Insulin) risperidone 1 mg tablet 1 mg PO TID #15 tab 04/09/21 sertraline 100 mg tablet 150 mg PO DAILY #90 tab 05/01/21 buprenorphine 8 mg-naloxone 2 mg 2 film SUBLINGUAL DAILY 14 Days 06/03/21 sublingual film (Suboxone) #28 ea amlodipine 2.5 mg tablet 2.5 mg PO DAILY 30 Days #30 tab 06/27/21 aspirin 81 mg chewable tablet 81 mg PO DAILY 30 Days #30 tab 06/27/21 atorvastatin 20 mg tablet 20 mg PO DAILY 30 Days #30 tab 06/27/21 buprenorphine 4 mg-naloxone 1 mg 1 film SUBLINGUAL DAILY@1700 5 06/27/21 sublingual film (Suboxone) Days #5 ea buprenorphine 8 mg-naloxone 2 mg 2 film SUBLINGUAL DAILY 5 Days #10 06/27/21 sublingual film (Suboxone) ea buspirone 10 mg tablet 15 mg PO BID 30 Days #90 tab 06/27/21 carvedilol 6.25 mg tablet 6.25 mg PO BID 30 Days #60 tab 06/27/21 cholecalciferol (vitamin D3) 25 25 mcg PO DAILY 30 Days #30 tab 06/27/21 mcg (1,000 unit) tablet clonidine HCl 0.1 mg tablet 0.05 mg PO TID PRN 30 Days #30 tab 06/27/21 dextrose 40 % oral gel (Glutose-15) 15 g PO Q15M PRN 30 Days #37.5 g 06/27/21 gabapentin 600 mg tablet 600 mg PO BID 30 Days #60 tab 06/27/21 glipizide 5 mg tablet 5 mg PO DAILY 30 Days #30 tab 06/27/21 hydroxyzine HCl 50 mg tablet 50 mg PO Q6H PRN 30 Days #30 tab 06/27/21 insulin glargine 100 unit/mL 10 unit (0.1 mL) SUBCUT BEDTIME 30 06/27/21 subcutaneous solution (Lantus Days #3 ml U-100 Insulin) insulin lispro 100 unit/mL See Protocol SUBCUT QIDACHS 30 06/27/21 subcutaneous solution (Humalog Days #10 ml U-100 Insulin) metformin 1,000 mg tablet 1,000 mg PO BIDWM 30 Days #60 tab 06/27/21 nitroglycerin 0.4 mg sublingual 0.4 mg SUBLINGUAL Q5MX3 PRN 30 06/27/21 tablet (Nitrostat) Days #10 tab omeprazole 20 mg capsule,delayed 20 mg PO DAILY@0630 30 Days #30 cap 06/27/21 release oxcarbazepine 300 mg tablet 600 mg PO BID 30 Days #120 tab 06/27/21 risperidone 2 mg tablet 2 mg PO DAILY 30 Days #30 tab 06/27/21 risperidone 3 mg tablet 3 mg PO BEDTIME 30 Days #30 tab 06/27/21 sertraline 100 mg tablet 200 mg PO DAILY 30 Days #60 tab 06/27/21 trazodone 100 mg tablet 200 mg PO BEDTIME 30 Days #60 tab 06/27/21 warfarin 3 mg tablet (Jantoven) 3 mg PO DAILY@1800 30 Days #30 tab 06/27/21 zolpidem 5 mg tablet 5 mg PO BEDTIME PRN 30 Days #20 tab 06/27/21 Mental Status Exam Mental Status Exam Narrative: Pt is alert and oriented; behavior is cooperative, friendly and calm; dressed in casual attire with with scruffy facial hair, adequate hygiene; mood is described as pretty good; affect is congruent but also a little anxious; eye contact appropriate; Speech is normal rate, prosody, volume; not pressured; no psychomotor retardation present; thought process is organized and goal directed. Thought content is on treatment and on staying sober; otherwise pertinent to relevant topics and without any delusional content, paranoid ideations or grandiosity; no SI/HI;? a little AH but able to be ignored. ?Patients insight and judgment are intact. Data Data Completed and Pending Completed studies during hospitalization [Text1]: 06/20/21 06/20/21 06/20/21 12:00 16:52 19:43 PT INR POC Glucose 157 H 183 H 199 H Total Bilirubin Direct Bilirubin AST ALT Alkaline Phosphatase Total Protein Albumin 06/21/21 06/21/21 06/21/21 06:34 07:17 11:41 PT 26.4 H INR 2.3 H POC Glucose 117 H 170 H Total Bilirubin Direct Bilirubin AST ALT Alkaline Phosphatase Total Protein Albumin 06/21/21 06/21/21 06/22/21 16:50 21:18 06:03 PT INR POC Glucose 224 H 206 H 103 Total Bilirubin Direct Bilirubin AST ALT Alkaline Phosphatase Total Protein Albumin 06/22/21 06/22/21 06/22/21 07:35 12:12 12:47 PT 22.8 H INR 2.0 H POC Glucose 53 L* 71 Total Bilirubin Direct Bilirubin AST ALT Alkaline Phosphatase Total Protein Albumin 06/22/21 06/22/21 06/23/21 14:05 16:37 08:05 PT INR POC Glucose 111 183 H 102 Total Bilirubin Direct Bilirubin AST ALT Alkaline Phosphatase Total Protein Albumin 06/23/21 06/23/21 06/23/21 10:17 11:54 16:35 PT INR POC Glucose 118 H 112 197 H Total Bilirubin Direct Bilirubin AST ALT Alkaline Phosphatase Total Protein Albumin 06/23/21 06/24/21 06/24/21 19:45 08:01 08:17 PT 24.4 H INR 2.1 H POC Glucose 169 H 92 Total Bilirubin Direct Bilirubin AST ALT Alkaline Phosphatase Total Protein Albumin 06/24/21 06/24/21 06/24/21 11:43 11:51 16:05 PT INR POC Glucose 108 172 H Total Bilirubin 0.3 Direct Bilirubin < 0.2 AST 26 ALT 25 Alkaline Phosphatase 110 Total Protein 7.3 Albumin 4.2 06/24/21 06/25/21 06/25/21 20:24 06:36 08:19 PT 22.7 H INR 2.0 H POC Glucose 107 90 Total Bilirubin Direct Bilirubin AST ALT Alkaline Phosphatase Total Protein Albumin 06/25/21 06/25/21 06/25/21 12:06 16:50 20:10 PT INR POC Glucose 94 167 H 186 H Total Bilirubin Direct Bilirubin AST ALT Alkaline Phosphatase Total Protein Albumin 06/26/21 06/26/21 06/26/21 08:15 08:19 12:26 PT 23.3 H INR 2.0 H POC Glucose 101 176 H Total Bilirubin Direct Bilirubin AST ALT Alkaline Phosphatase Total Protein Albumin 06/26/21 06/27/21 16:49 08:14 PT INR POC Glucose 138 H 118 H Total Bilirubin Direct Bilirubin AST ALT Alkaline Phosphatase Total Protein Albumin DS: Summary Hospital Course Hospital Course: Patient is a 6-year-old male with history of PTSD, depression, anxiety, substance abuse, diabetes, history of PE, CAD and other comorbidities who presents with depression and suicidal ideation in the face of numerous psychosocial stressors most prominent the of a child.? On admission Patient reports active SI has resolved. Over the subsequent days patient's mood fluctuated a bit and he continued to struggle with depression and anxiety and sometimes auditory hallucinations; AVH was only present when patient struggling with depression and anxiety and although he is on Risperdal, MDD with psychotic features remains diagnosis. His medications were titrated including Zoloft increasing to 175 mg, buspirone 10 mg t.i.d., clonidine started 0.05 mg t.i.d. for anxiety p.r.n., Suboxone 4/1 mg added at 17:00 since he has cravings around that time, all of which helped improve patient's mood and significantly reduced depression and anxiety (Patient asked for afternoon dose of Suboxone given his intense cravings at that time; creative services writer reviewed the risks associated with increasing that dose however given patient's long history of relapse and struggles with staying sober, patient and creative services writer both agree that the benefit of an afternoon/evening Suboxone dose outweighs risks). Patient remained in good behavioral and impulse control throughout his admission. He talked about his daughter's but was able to process these feelings and felt that he will be able to continue to more in in safety. Patient's passive SI also fully resolved. attended groups; his affect became noticeably brighter, he was appropriate with peers and staff and able to joke light hardly with staff reporting better mood. By the end of admission patient felt that depression had abated and anxiety was under control and he felt ready for discharge and that he could remain stable. Patient was future oriented, affect noticeably brighter and optimistic about remaining sober.?patient wanted to attend a program post discharge and was accepted to a [facility] program which he was excited about. Patient is not in imminent risk of harm to self or others and appropriate to continue treatment as an outpatient. His request for discharge honored. 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) Psych Prescriber:Lynn Scales ([facility]) [Other] - 1 Month (In office) DMH: Radha Khan ([facility]) [Other] - [address] [facility] Placement: [facility] [Other] - 06/27/21 12:30 pm Regino Alicea MD [Physician] - 07/02/21 1:00 pm (via phone) Discharge Medications: New clonidine HCl 0.1 mg Tablet 0.05 mg PO TID PRN (Reason: moderate anxiety) 30 Days Qty: 30 RF: 0 amlodipine 2.5 mg Tablet 2.5 mg PO DAILY 30 Days Qty: 30 RF: 0 acetaminophen 325 mg Tablet 650 mg PO Q6H PRN (Reason: Headache/Pain Mild Scale (1-3)) Qty: 0 RF: 0 buspirone 10 mg Tablet 15 mg PO BID 30 Days Qty: 90 RF: 0 gabapentin 600 mg Tablet 600 mg PO BID 30 Days Qty: 60 RF: 0 oxcarbazepine 300 mg Tablet 600 mg PO BID 30 Days Qty: 120 RF: 0 hydroxyzine HCl 50 mg Tablet 50 mg PO Q6H PRN (Reason: Anxiety) 30 Days Qty: 30 RF: 0 risperidone 2 mg Tablet 2 mg PO DAILY 30 Days Qty: 30 RF: 0 risperidone 3 mg Tablet 3 mg PO BEDTIME 30 Days Qty: 30 RF: 0 sertraline 100 mg Tablet 200 mg PO DAILY 30 Days Qty: 60 RF: 0 zolpidem 5 mg Tablet 5 mg PO BEDTIME PRN (Reason: Insomnia) 30 Days Qty: 20 RF: 0 dextrose [Glutose-15] 40 % Gel 15 g PO Q15M PRN (Reason: Per Hypoglycemia Standing Ord.) 30 Days Qty: 37.5 RF: 0 glipizide 5 mg Tablet 5 mg PO DAILY 30 Days Qty: 30 RF: 0 metformin 1,000 mg Tablet 1,000 mg PO BIDWM 30 Days Qty: 60 RF: 0 buprenorphine-naloxone [Suboxone] 8-2 mg Film 2 film sublingual DAILY 5 Days Qty: 10 RF: 0 buprenorphine-naloxone [Suboxone] 4-1 mg Film 1 film sublingual DAILY@1700 5 Days Qty: 5 RF: 0 insulin aspart U-100 [Novolog Flexpen U-100 Insulin] 100 unit/mL (3 mL) insulin pen 1 sliding scale dose subcut TIDAC 30 Days Qty: 9 RF: 0 Lantus Solostar U-100 Insulin 100 unit/mL (3 mL) insulin pen 10 unit subcut QPM 30 Days Qty: 3 RF: 0 (DME) FreeStyle Lite Strips Strip See Rx Instructions .Route Qty: 100 RF: 0 (DME) blood-glucose meter [FreeStyle Lite Meter] Kit Qty: 1 RF: 0 Continued carvedilol 6.25 mg Tablet 6.25 mg PO BID 30 Days Qty: 60 RF: 0 atorvastatin 20 mg Tablet 20 mg PO DAILY 30 Days Qty: 30 RF: 0 warfarin [Jantoven] 3 mg Tablet 3 mg PO DAILY@1800 30 Days Qty: 30 RF: 0 trazodone 100 mg Tablet 200 mg PO BEDTIME 30 Days Qty: 60 RF: 0 nitroglycerin [Nitrostat] 0.4 mg Tablet, Sublingual 0.4 mg sublingual Q5MX3 PRN (Reason: angina) 30 Days Qty: 10 RF: 0 omeprazole 20 mg Capsule,Delayed Release(Dr/Ec) 20 mg PO DAILY@0630 30 Days Qty: 30 RF: 0 aspirin 81 mg Tablet,Chewable 81 mg PO DAILY 30 Days Qty: 30 RF: 0 cholecalciferol (vitamin D3) 25 mcg (1,000 unit) Tablet 25 mcg PO DAILY 30 Days Qty: 30 RF: 0 Discontinued aspirin 81 mg Tablet,Chewable 81 mg PO DAILY Qty: 30 RF: 0 risperidone 1 mg Tablet 1 mg PO TID Qty: 15 RF: 0 Lantus U-100 Insulin 100 unit/mL Solution 35 unit subcut BEDTIME Qty: 10 RF: 0 insulin lispro [Humalog U-100 Insulin] 100 unit/mL Solution See Protocol unit subcut QIDACHS Qty: 10 RF: 0 sertraline 100 mg tablet 150 mg PO DAILY Qty: 90 RF: 0 buprenorphine-naloxone [Suboxone] 8-2 mg film 2 film sublingual DAILY 14 Days Qty: 28 RF: 0 Discharge Orders: Discharge Order (Routine); Ordered 06/27/21 Ordered By: Charbel De Los Santos Diet: diabetic diet Activity on Discharge: As tolerated Stand Alone Forms: Patient Portal Discharge page, Community Support Care Plan Goals: Maintain mood and safe behaviors Take medications as prescribed Continue to pursue sobriety Practice coping skills Continue with outpatient providers and reach out to them as needed Health Concerns: Mood stability and behaviors Sobriety Hypertension IDDM High Cholesterol CAD hx of Pulmonary Embolism Plan of Treatment: Follow up with your PCP, psychiatric provider and other outpatient providers regarding above concerns Take medications as prescribed Assessment: Risk assessment at time of discharge:? Patient was interviewed prior to discharge and found to be fully oriented and without any SI or HI. Patient has insight and demonstrates good judgment in terms of wanting to pursue treatment. Patient is not in imminent risk of harm to self or others and has a safety plan that includes presenting to the closest ER or calling 911 if feeling unsafe.? Patient has been observed closely by nursing and unit staff throughout admission; patient has not engaged in any behaviors that suggest dangerousness to self or others and has demonstrated appropriate behaviors and impulse control Discharge Date/Time: 06/27/21 13:02
[2021-06-27 11:35] LABS: Glucose, Whole Blood 130 mg/dL (60-115)
[2021-06-27 11:41] LABS: INTERNATIONAL NORM RATIO 1.8 (0.9-1.1); Prothrombin Time 20.7 SEC (9.9-13.0)
== END 2021-06-27 13:02 | DRG 885 ==
PROVIDERS: Admitting Provider Psychiatry & Neurology Psychiatry; Visit Provider Psychiatry & Neurology Psychiatry
DX: F33.3 Major depressive disorder, recurrent, severe with psychotic symptoms (principal); R45.851 Suicidal ideations; F43.10 Post-traumatic stress disorder, unspecified; F11.10 Opioid abuse, uncomplicated; K21.9 Gastro-esophageal reflux disease without esophagitis; E11.9 Type 2 diabetes mellitus without complications; I25.10 Atherosclerotic heart disease of native coronary artery without angina pectoris; Z86.711 Personal history of pulmonary embolism; Z80.0 Family history of malignant neoplasm of digestive organs; Z79.4 Long term (current) use of insulin; Z79.82 Long term (current) use of aspirin; Z79.01 Long term (current) use of anticoagulants; Z79.899 Other long term (current) drug therapy
CPT/HCPCS: 36415; 80048; 80076; 82565; 82947; 85610

== ENCOUNTER 2022-08-05 13:22 | Inpatient (IN) | payer OTHER, SELFPAY ==
--- NOTE | 2022-08-05 | ECG_ITS ---
Test Reason : MED CLEARANCE Blood Pressure : / mmHG Vent. Rate : 089 BPM Atrial Rate : 089 BPM P-R Int : 180 ms QRS Dur : 078 ms QT Int : 356 ms P-R-T Axes : -04 -19 019 degrees QTc Int : 433 ms Sinus rhythm with Premature atrial complexes Minimal voltage criteria for LVH, may be normal variant ( R in aVL ) Abnormal ECG When compared with ECG of 30-APR-2021 14:02, Premature atrial complexes are now Present Referred By: Deisy Baez Electronically Signed By:Tenzin Rhoades
[2022-08-05 13:36] VITALS: BP 144/84; BP 148/84; PULSE 106; PULSE 110; RESP 18; TEMP 36.7; O2SAT 94; BMI 27.3
--- NOTE | 2022-08-05 14:08 | ED_ITS ---
HPI - General Adult General Chief complaint: Psychiatric Symptoms Stated complaint: SEC 12,SI W/PLAN FROM N PER EMS Time Seen by Provider: 08/05/22 14:05 Source: patient and EMS Mode of arrival: EMS Limitations: no limitations History of Present Illness HPI narrative: Patient is a 62 year old assigned male at with a history of CAD, DM, and schizoaffective disorder presenting to the emergency department today with suicidal ideation. Patient states that he feels like killing himself and has been struggling lately because of a recent caner diagnosis of his daughter. Patient denies any dizziness, lightheadedness, abdominal pain, nausea, vomiting, fever, chills, blurry vision, double vision, loss of vision, chest pain, difficulty breathing, shortness of breath, back pain, night sweats, pain with urination, increased urinary frequency, increased urinary urgency, blood in his urine or stool, syncope or a near syncopal episode, recent trauma or falls, bowel incontinence, bladder incontinence, bowel retention, bladder retention, or any other complaints at this time. Onset (ago): day(s) Severity: mild Severity scale (1-10): 2 Relieving factors: none Exacerbating factors: none Associated symptoms: denies other symptoms Treatments prior to arrival: none Related Data Home Medications Medication Instructions Recorded Confirmed buprenorphine 12 mg-naloxone 3 mg 1 film sublingual BID 08/05/22 08/05/22 sublingual film chlorpromazine 50 mg tablet 1 tab PO BEDTIME 08/05/22 08/05/22 insulin glargine 100 unit/mL (3 35 unit subcut QPM 08/05/22 08/05/22 mL) subcutaneous pen (Lantus Solostar U-100 Insulin) magnesium oxide 400 mg (241.3 mg 1 tab PO DAILY 08/05/22 08/05/22 magnesium) tablet pantoprazole 20 mg tablet,delayed 1 tab PO QAM 08/05/22 08/05/22 release sertraline 100 mg tablet 1 tab PO QAM 08/05/22 08/05/22 sertraline 50 mg tablet 1 tab PO DAILY 08/05/22 08/05/22 zolpidem 5 mg tablet 10 mg PO BEDTIME PRN Insomnia 08/05/22 08/05/22 Previous Rx's Medication Instructions Recorded acetaminophen 325 mg tablet 650 mg PO Q6H PRN Headache/Pain 06/27/21 Mild Scale (1-3) #0 tabs amlodipine 2.5 mg tablet 2.5 mg PO DAILY 30 days #30 tabs 06/27/21 aspirin 81 mg chewable tablet 81 mg PO DAILY 30 days #30 tabs 06/27/21 atorvastatin 20 mg tablet 20 mg PO DAILY 30 days #30 tabs 06/27/21 blood sugar diagnostic (FreeStyle #100 ea 06/27/21 Lite Strips) blood-glucose meter (FreeStyle #1 ea 06/27/21 Lite Meter kit) buprenorphine 4 mg-naloxone 1 mg 1 film sublingual DAILY@1700 5 06/27/21 sublingual film (Suboxone) days #5 ea buprenorphine 8 mg-naloxone 2 mg 2 film sublingual DAILY 5 days #10 06/27/21 sublingual film (Suboxone) ea buspirone 10 mg tablet 15 mg PO BID 30 days #90 tabs 06/27/21 carvedilol 6.25 mg tablet 6.25 mg PO BID 30 days #60 tabs 06/27/21 cholecalciferol (vitamin D3) 25 25 mcg PO DAILY 30 days #30 tabs 06/27/21 mcg (1,000 unit) tablet clonidine HCl 0.1 mg tablet 0.05 mg PO TID PRN moderate 06/27/21 anxiety 30 days #30 tabs dextrose 40 % oral gel (Glutose-15) 15 g PO Q15M PRN Per Hypoglycemia 06/27/21 Standing Ord. 30 days #37.5 grams gabapentin 600 mg tablet 600 mg PO BID 30 days #60 tabs 06/27/21 glipizide 5 mg tablet 5 mg PO DAILY 30 days #30 tabs 06/27/21 hydroxyzine HCl 50 mg tablet 50 mg PO Q6H PRN Anxiety 30 days 06/27/21 #30 tabs insulin aspart U-100 100 unit/mL 1 sliding scale dose subcut TIDAC 06/27/21 (3 mL) subcutaneous pen (Novolog 30 days #9 mL FlexPen U-100 Insulin aspart) metformin 1,000 mg tablet 1,000 mg PO BIDWM 30 days #60 tabs 06/27/21 nitroglycerin 0.4 mg sublingual 0.4 mg sublingual Q5MX3 PRN angina 06/27/21 tablet (Nitrostat) 30 days #10 tabs omeprazole 20 mg capsule,delayed 20 mg PO DAILY@0630 30 days #30 06/27/21 release caps oxcarbazepine 300 mg tablet 600 mg PO BID 30 days #120 tabs 06/27/21 risperidone 2 mg tablet 2 mg PO DAILY 30 days #30 tabs 06/27/21 risperidone 3 mg tablet 3 mg PO BEDTIME 30 days #30 tabs 06/27/21 warfarin 3 mg tablet (Jantoven) 3 mg PO DAILY@1800 30 days #30 tabs 06/27/21 Allergies Allergy/AdvReac Type Severity Reaction Status Date / Time Penicillins Allergy Mild RASH AND Verified 06/03/21 13:24 NAUSEA WITH VOMITING aripiprazole [From Abilify] Allergy Unknown unknown Verified 06/03/21 13:24 temazepam [From Restoril] Allergy Unknown UNKNOWN Verified 06/03/21 13:24 haloperidol [From Haldol] AdvReac Severe dystonia Verified 06/03/21 13:24 quetiapine [From Seroquel] AdvReac Unknown unknown Verified 06/03/21 13:24 SEAFOOD Allergy Severe UNKNOWN Uncoded 04/12/20 17:03 Review of Systems Constitutional: Constitutional: Reports no additional constitutional co mplaints, Denies chills, Denies fever(s) and Denies night sweats Eyes: Eyes: Reports no additional eye complaints, Denies blurry vision, Denies change in vision, Denies diplopia, Denies eye discharge, Denies loss of vision and Denies eye pain ENT: Denies dizziness Cardiovascular: Cardiovascular: Reports no additional cardiovascular complaints, Denies chest pain, Denies lightheadedness, Denies Loss of Consciousness and Denies dyspnea Respiratory: Respiratory: Reports no additional respiratory complaints and Denies dyspnea Gastrointestinal: Gastrointestinal: Reports no additional gastrointestinal complaints, Denies abdominal pain, Denies melena, Denies hematochezia, Denies change in bowel habits and Denies change in stool character Genitourinary: Genitourinary: Reports no additional male genitourinary complaints, Denies hematuria, Denies oliguria, Denies difficulty urinating, Denies dysuria, Denies urinary frequency, Denies urinary hesitancy, Denies urinary incontinence and Denies urinary urgency Musculoskeletal: Musculoskeletal: Reports no additional musculoskeletal complaints, Denies numbness and Denies tingling Neurologic: Denies dizziness, Denies loss of vision, Denies numbness and Denies tingling Psychiatric: Psychiatric: Reports no additional psychiatric complaints and Reports suicidal ideation Endocrine: Endocrine: Reports no additional endocrine complaints Hematologic/Lymphatic: Hematologic/Lymphatic: Reports no additional h ematologic/lymphatic complaints Allergic/Immunologic: Allergic/Immunologic: Reports no additional allergic/immunologic complaints PMFSH Past Medical History Attestation statement: The following information was validated with the patient. Source: old records reviewed and nursing notes reviewed Medical History Bipolar disorder CAD (coronary artery disease) Cirrhosis Glaucoma History of chronic hypertension IDDM (insulin dependent diabetes mellitus) Polysubstance dependence in controlled environment Pulmonary embolism Surgical History History of cholecystectomy Family History Family History Mother Stroke Father CAD (coronary artery disease) Social History Social History Household Members: None Household Members Other:: Aunt Housing: Apartment Do you presently have visiting nurse or other home services: Yes Alcohol intake: never Patient Tobacco Use Status: Never used Tobacco e-Cigarette/Vaping Use: Never Used Second Hand Smoke Exposure: No Substance Use Type: Crack/Cocaine and Heroin Advance Directives: No Advance Directives Information Provided: No service: No Sexual orientation: Straight/Heterosexual Physical Exam ED Vital Signs: Vital Signs - 24 hr 08/05/22 13:36 Temperature 98.0 F Pulse Rate 110 H Respiratory Rate 18 Blood Pressure 144/84 H Pulse Oximetry 94 Oxygen Delivery Method Room Air BMI result Body Mass Index 27.3 Const General: cooperative, no acute distress, alert and awake Nutritional Appearance: well nourished Orientation/consciousness: patient oriented x3 Limitations: no limitations HENMT Head: Yes normal to inspection and Yes atraumatic Ears: hearing grossly normal bilaterally and external ears normal General nose exam: Normal external nose present, no nasal discharge noted and no epistaxis Face and sinus: Yes normal facial exam, No abrasion and No laceration Mouth: Normal oral and palatal mucosa present, no drooling and no muffled voice Eyes General: appearance normal, both eyes and all related structures Periorbital: periorbital findings normal Eyelids: Yes eyelids normal Conjunctivae: conjunctivae normal Pupils: Equal, round and reactive pupils present EOM: EOMs intact bilaterally Neck Neck: Yes normal visual inspection, Yes full ROM and Yes no lymphadenopathy Chest Chest palpation & inspection: normal inspection of the chest Resp Effort & Inspection: normal respiratory effort and able to speak in complete sentences Auscultation: clear to auscultation bilaterally Cardio Rate: regular rate Rhythm: regular rhythm GI Inspection: Yes normal to inspection Palpation (GI): Soft to palpation, not firm, nontender, no guarding and not rigid Neuro General: patient oriented x3 and moves all extremities Cranial nerves: Yes Equal, round and reactive pupils present Cognition (Neuro): normal cognition Motor exam (neuro): 5/5 motor strength present throughout Sensory Exam: Normal double simultaneous stimulation for sensation Coordination: [id number] test normal Extrem General: Yes normal to inspection, Yes full ROM and Yes capillary refill normal Psych Appearance: grossly normal Mental Status: mental status grossly normal Affect: Sad affect present Attitude: cooperative Thought process: Normal thought process present Thought content: Suicidality present Insight: Limited insight present (Psych) Judgement: Limited judgement present (Psych) Medications Administered Discontinued Medications Generic Name Dose Route Start Last Admin Trade Name Freq PRN Reason Stop Dose Admin Lorazepam 2 mg 08/05/22 14:44 08/05/22 14:53 Lorazepam 1 Mg Tablet PO 08/05/22 14:45 2 mg ONCE ONE Administration Medical Decision Making Medical Decision Making [facility] Narrative: Patient is a 62 year old assigned male at with a history of DM presenting to the emergency department today with suicidal ideation. Patient's physical exam showed a depressed individual. Patient's blood work was unremarkable. Patient to be admitted to inpatient psychiatry. I explained my physical exam findings as well as all test results to the patient. I answered all questions asked by the patient. Patient verbalized agreement and understanding with this treatment plan and admission. Differential Diagnosis Differential Diagnoses: The differential diagnosis associated with the presentation includes suicidal ideation Consult Healthcare Provider Management of the patient was discussed with: Behavioral Health Provider (recommends psychiatric admission) Lab Data [facility] Lab Attestation statement: I reviewed the patient's lab results. 08/05/22 15:04 08/05/22 15:04 Labs: Lab Results 08/05/22 08/05/22 08/05/22 Range/Units 13:50 13:50 15:03 WBC (4.8-10.8) X10*3/uL RBC (4.60-5.80) X10*6/uL Hgb (14.0-18.0) g/dl Hct (42.0-52.0) % MCV (80.0-98.0) fL MCH (27.0-33.0) pg MCHC (31.0-36.0) g/dl RDW (11.0-16.0) % Plt Count (160-400) X10*3/uL MPV (9.4-12.4) fL Immature Gran % (Auto) (0.0-0.4) % Neut % (Auto) (45-73) % Lymph % (Auto) (20-40) % [place] % (Auto) (2-11) % Eos % (Auto) (0-4) % Baso % (Auto) (0-2) % Lymph # (Auto) (1.2-4.9) X10*3/uL [place] # (Auto) (0.1-1.2) X10*3/uL Eos # (Auto) (0.0-0.4) X10*3/uL Baso # (Auto) (0.0-0.2) X10*3/uL Abs Immat Gran (auto) (0.00-0.03) X10*3/uL Absolute Neuts (auto) (2.0-8.3) x10*3/uL Absolute Nucleated RBC (0.0-0.012) X10*3/uL Nucleated RBC % (auto) (0.0-0.2) /100WBC PT 12.6 (10.0-13.1) SEC INR 1.1 (0.9-1.1) APTT 38.0 H (26.0-36.4) SEC Sodium (135-145) mmol/L Potassium (3.3-5.1) mmol/L Chloride (96-108) mmol/L Carbon Dioxide (22-29) mmol/L Anion Gap (12-20) BUN (9-16) mg/dL Creatinine (0.5-1.4) mg/dL Estim Creat Clear Calc Estimated GFR Random Glucose (60-115) mg/dL Calcium (8.4-10.2) mg/dL Total Bilirubin (0.0-1.0) mg/dL AST (5-37) U/L ALT (0-40) U/L Alkaline Phosphatase (39-117) U/L Total Protein (6.5-8.0) g/dL Albumin (3.5-5.0) g/dL Urine Opiates Screen Not Detected (Not Detect) Urine Fentanyl Screen Not Detected (Not Detect) Ur Barbiturates Screen Not Detected (Not Detect) Ur Phencyclidine Scrn Not Detected (Not Detect) Ur Amphetamines Screen Not Detected (Not Detect) U Benzodiazepines Scrn Not Detected (Not Detect) Urine Cocaine Screen Not Detected (Not Detect) U Marijuana (THC) Screen Not Detected (Not Detect) Influenza Type A (PCR) NEGATIVE (Negative) Influenza Type B (PCR) NEGATIVE (Negative) RSV RNA Qual (PCR) NEGATIVE (Negative) SARS-CoV-2 RNA (RT-PCR) NEGATIVE (Negative) 08/05/22 08/05/22 Range/Units 15:04 15:04 WBC 9.0 (4.8-10.8) X10*3/uL RBC 5.28 (4.60-5.80) X10*6/uL Hgb 11.6 L (14.0-18.0) g/dl Hct 38.6 L (42.0-52.0) % MCV 73.1 L (80.0-98.0) fL MCH 22.0 L (27.0-33.0) pg MCHC 30.1 L (31.0-36.0) g/dl RDW 17.3 H (11.0-16.0) % Plt Count 214 (160-400) X10*3/uL MPV 10.0 (9.4-12.4) fL Immature Gran % (Auto) 0.2 (0.0-0.4) % Neut % (Auto) 67.8 (45-73) % Lymph % (Auto) 21.5 (20-40) % [place] % (Auto) 7.9 (2-11) % Eos % (Auto) 1.8 (0-4) % Baso % (Auto) 0.8 (0-2) % Lymph # (Auto) 1.9 (1.2-4.9) X10*3/uL [place] # (Auto) 0.7 (0.1-1.2) X10*3/uL Eos # (Auto) 0.2 (0.0-0.4) X10*3/uL Baso # (Auto) 0.1 (0.0-0.2) X10*3/uL Abs Immat Gran (auto) 0.02 (0.00-0.03) X10*3/uL Absolute Neuts (auto) 6.1 (2.0-8.3) x10*3/uL Absolute Nucleated RBC 0.000 (0.0-0.012) X10*3/uL Nucleated RBC % (auto) 0.0 (0.0-0.2) /100WBC PT (10.0-13.1) SEC INR (0.9-1.1) APTT (26.0-36.4) SEC Sodium 136 (135-145) mmol/L Potassium 4.6 (3.3-5.1) mmol/L Chloride 102 (96-108) mmol/L Carbon Dioxide 24 (22-29) mmol/L Anion Gap 15 (12-20) BUN 12 (9-16) mg/dL Creatinine 0.97 (0.5-1.4) mg/dL Estim Creat Clear Calc 76.3 Estimated GFR > 60 Random Glucose 336 H (60-115) mg/dL Calcium 9.7 D (8.4-10.2) mg/dL Total Bilirubin 0.4 (0.0-1.0) mg/dL AST 29 (5-37) U/L ALT 27 (0-40) U/L Alkaline Phosphatase 121 H (39-117) U/L Total Protein 8.0 (6.5-8.0) g/dL Albumin 4.6 (3.5-5.0) g/dL Urine Opiates Screen (Not Detect) Urine Fentanyl Screen (Not Detect) Ur Barbiturates Screen (Not Detect) Ur Phencyclidine Scrn (Not Detect) Ur Amphetamines Screen (Not Detect) U Benzodiazepines Scrn (Not Detect) Urine Cocaine Screen (Not Detect) U Marijuana (THC) Screen (Not Detect) Influenza Type A (PCR) (Negative) Influenza Type B (PCR) (Negative) RSV RNA Qual (PCR) (Negative) SARS-CoV-2 RNA (RT-PCR) (Negative) Discharge Plan Discharge Clinical Impression: Suicidal ideation Patient Disposition: Admitted As Inpatient Prescriptions: No Action clonidine HCl 0.1 mg Tablet 0.05 mg PO TID PRN (Reason: moderate anxiety) 30 Days Qty: 30 0RF Protocol: Hold for SBP< HOLD for SBP < : 90 amlodipine 2.5 mg Tablet 2.5 mg PO DAILY 30 Days Qty: 30 0RF Protocol: Hold for SBP< HOLD for SBP < : 90 acetaminophen 325 mg Tablet 650 mg PO Q6H PRN (Reason: Headache/Pain Mild Scale (1-3)) Qty: 0 0RF buspirone 10 mg Tablet 15 mg PO BID 30 Days Qty: 90 0RF gabapentin 600 mg Tablet 600 mg PO BID 30 Days Qty: 60 0RF oxcarbazepine 300 mg Tablet 600 mg PO BID 30 Days Qty: 120 0RF hydroxyzine HCl 50 mg Tablet 50 mg PO Q6H PRN (Reason: Anxiety) 30 Days Qty: 30 0RF risperidone 2 mg Tablet 2 mg PO DAILY 30 Days Qty: 30 0RF risperidone 3 mg Tablet 3 mg PO BEDTIME 30 Days Qty: 30 0RF dextrose [Glutose-15] 40 % Gel 15 g PO Q15M PRN (Reason: Per Hypoglycemia Standing Ord.) 30 Days Qty: 37.5 0RF Protocol: Glucose Gel Hypoglycemia Standing Order Protocol Text: For patients able to take PO (patient cooperative and able to swallow). Give Glucose Gel 15 gm PO for Blood Glucose (BG) < 70. Repeat BG every 15 min until BG > 70 x 3, if BG still < 70 and/or patient symptomatic repeat glucose gel or rapid acting carbohydrate. Notify MD if BG does not improve with treatment. glipizide 5 mg Tablet 5 mg PO DAILY 30 Days Qty: 30 0RF metformin 1,000 mg Tablet 1,000 mg PO BIDWM 30 Days Qty: 60 0RF buprenorphine-naloxone [Suboxone] 8-2 mg Film 2 film sublingual DAILY 5 Days Qty: 10 0RF buprenorphine-naloxone [Suboxone] 4-1 mg Film 1 film sublingual DAILY@1700 5 Days Qty: 5 0RF carvedilol 6.25 mg Tablet 6.25 mg PO BID 30 Days Qty: 60 0RF Protocol: Hold for SBP/HR < HOLD for SBP < : 90 HOLD for HR < : 60 atorvastatin 20 mg Tablet 20 mg PO DAILY 30 Days Qty: 30 0RF warfarin [Jantoven] 3 mg Tablet 3 mg PO DAILY@1800 30 Days Qty: 30 0RF nitroglycerin [Nitrostat] 0.4 mg Tablet, Sublingual 0.4 mg sublingual Q5MX3 PRN (Reason: angina) 30 Days Qty: 10 0RF omeprazole 20 mg Capsule,Delayed Release(Dr/Ec) 20 mg PO DAILY@0630 30 Days Qty: 30 0RF aspirin 81 mg Tablet,Chewable 81 mg PO DAILY 30 Days Qty: 30 0RF cholecalciferol (vitamin D3) 25 mcg (1,000 unit) Tablet 25 mcg PO DAILY 30 Days Qty: 30 0RF insulin aspart U-100 [Novolog FlexPen U-100 Insulin] 100 unit/mL (3 mL) insulin pen 1 sliding scale dose subcut TIDAC 30 Days Qty: 9 0RF Rx Instructions: Less than or equal to 110 ---- Give (units): 0 111 to 150 Give (units): 0 151 to 200 Give (units):2 201 to 250 Give (units):4 251 to 300 Give (units):6 301 to 350 Give (units):8 Greater than 350 Give (units):10 and Call MD if Blood Glucose > 350 (DME) FreeStyle Lite Strips Strip See Rx Instructions .Route Qty: 100 0RF Rx Instructions: As directed: before meals (DME) blood-glucose meter [FreeStyle Lite Meter] Kit Qty: 1 0RF Rx Instructions: As Directed zolpidem 5 mg tablet 10 mg PO BEDTIME PRN (Reason: Insomnia) insulin glargine [Lanjimy Chowdhury U-100 Insulin] 100 unit/mL (3 mL) insulin pen 35 unit subcut QPM sertraline 100 mg tablet 1 tab PO QAM pantoprazole 20 mg tablet,delayed release (DR/EC) 1 tab PO QAM magnesium oxide 400 mg (241.3 mg magnesium) tablet 1 tab PO DAILY sertraline 50 mg tablet 1 tab PO DAILY chlorpromazine 50 mg tablet 1 tab PO BEDTIME buprenorphine-naloxone 12-3 mg film 1 film sublingual BID Interventions: Bailey-Suicide Risk Severity Scale Last Done: 08/05/22 13:42
[2022-08-05 14:13] LABS: Amphetamine Screen Urine Not Detected (Not Detect); Barbiturates, Urine Not Detected (Not Detect); Benzodiazepines Screen Urine Not Detected (Not Detect); Cannabinoid Screen Urine Not Detected (Not Detect); Cocaine Screen Urine Not Detected (Not Detect); Fentanyl, urine Not Detected (Not Detect); Opiate Screen Urine Not Detected (Not Detect); Phencyclidine Screen Urine Not Detected (Not Detect)
[2022-08-05 14:40] LABS: Influenza A PCR NEGATIVE (Negative); Influenza B PCR NEGATIVE (Negative); Resp Syncy Virus RNA Qual PCR NEGATIVE (Negative); SARS COV2 PCR INHOUSE NEGATIVE (Negative)
[2022-08-05] MEDS: LORazepam 1 MG TABLET 2 MG PO (14:53)
[2022-08-05 15:07] LABS: MANUAL DIFF FLAG NO
[2022-08-05 15:09] LABS: Basophils Absolute Auto 0.1 X10*3/uL (0.0-0.2); Basophils Percent Auto 0.8 % (0-2); Eosinophils Absolute Auto 0.2 X10*3/uL (0.0-0.4); Eosinophils Percent Auto 1.8 % (0-4); Hematocrit 38.6 % (42.0-52.0); Hemoglobin 11.6 g/dl (14.0-18.0); Imm Gran Abs Auto 0.02 X10*3/uL (0.00-0.03); Imm Gran Pct Auto 0.2 % (0.0-0.4); Lymphocytes Absolute Auto 1.9 X10*3/uL (1.2-4.9); Lymphocytes Percent Auto 21.5 % (20-40); Mean Corpuscular HGB Conc 30.1 g/dl (31.0-36.0); Mean Corpuscular Volume 73.1 fL (80.0-98.0); Monocytes Absolute Auto 0.7 X10*3/uL (0.1-1.2); Monocytes Percent Auto 7.9 % (2-11); Neutrophils Absolute Auto 6.1 x10*3/uL (2.0-8.3); Neutrophils Percent Auto 67.8 % (45-73); Platelet Count 214 X10*3/uL (160-400); Red Blood Count 5.28 X10*6/uL (4.60-5.80); Red Cell Distribution Width 17.3 % (11.0-16.0)
[2022-08-05 15:23] LABS: INTERNATIONAL NORM RATIO 1.1 (0.9-1.1); Prothrombin Time 12.6 SEC (10.0-13.1)
[2022-08-05 15:30] LABS: Alanine Aminotransferase 27 U/L (0-40); Albumin Level 4.6 g/dL (3.5-5.0); Alkaline Phosphatase 121 U/L (39-117); Anion Gap 15 (12-20); Aspartate Amino Transferase 29 U/L (5-37); Bilirubin Total 0.4 mg/dL (0.0-1.0); Blood Urea Nitrogen 12 mg/dL (9-16); Calcium 9.7 mg/dL (8.4-10.2); Carbon Dioxide 24 mmol/L (22-29); Chloride 102 mmol/L (96-108); Creatinine Clr Calc Pharmacy 76.3; Estimated Glomerular Filt Rate > 60; Glucose Random 336 mg/dL (60-115); Potassium 4.6 mmol/L (3.3-5.1); Sodium 136 mmol/L (135-145)
--- NOTE | 2022-08-05 17:00 | PC.NURSE ---
nurse to nurse given to m3
[2022-08-05] MEDS: Warfarin Sodium 3 MG TABLET PO (17:43)
[2022-08-05] MEDS: metFORMIN HCl 1,000 MG TABLET 1000 MG PO (17:43)
[2022-08-05 18:59] VITALS: BP 148/93; PULSE 97; TEMP 36.6; O2SAT 94
--- NOTE | 2022-08-05 19:00 | PC.NURSE ---
Pt transferred from [facility] pod to M3 at 1844, oriented to unit. Psych dx: bipolar I, PTSD, opioid use disorder.
--- NOTE | 2022-08-05 19:39 | PC.ADMIT ---
Erick is a 62-year-old male admitted from [facility] [place] Pod to M3 08/05/22 secondary to increased anxiety, racing thoughts, SI with plan to hang himself or cut himself with a knife. Psych dx: Bipolar, PTSD. Pt reports an increase in symptoms due to his eldest daughter being diagnosed with cancer which brought up past trauma of his other daughter passing away. Pt also endorses audio and visual hallucinations. Medical dx: insulin-dependent diabetes, CAD, cirrhosis, HTN, glaucoma. Tox screen negative. During admission assessment, pt was polite but visibly anxious. Pt endorses AH/VH and elevated anxiety which is alleviated with ativan and thorazine.
--- NOTE | 2022-08-05 19:51 | PC.NURSE ---
pt refused flu vaccine at this time
[2022-08-05 21:03] LABS: Glucose, Whole Blood 310 mg/dL (60-115)
[2022-08-05] MEDS: carvediloL 6.25 MG TABLET PO (21:06)
[2022-08-05] MEDS: OXcarbazepine 300 MG TABLET 600 MG PO (21:06)
[2022-08-05] MEDS: risperiDONE 3 MG TABLET PO (21:06)
[2022-08-05] MEDS: Gabapentin 600 MG TABLET PO (21:06)
[2022-08-05] MEDS: Buprenorphine/Naloxone 12/3 mg FILM 1 FILM SUBLINGUAL (21:06)
[2022-08-05] MEDS: Zolpidem Tartrate 5 MG TABLET PO (21:06)
[2022-08-05] MEDS: Insulin Lispro 100 UNIT/ML 3 ML VIAL SUBCUT (21:07)
[2022-08-05] MEDS: Insulin Glargine,Hum.rec.anlog 100 UNIT/ML 10 ML VIAL 35 UNIT SUBCUT (21:11)
[2022-08-05 23:36] VITALS: BP 140/79; PULSE 94
[2022-08-05] MEDS: cloNIDine HCL 0.1 MG TABLET 0.05 MG PO (23:36)
[2022-08-05] MEDS: hydrOXYzine HCL 50 MG TABLET PO (23:36)
[2022-08-06 06:00] VITALS: BP 126/82; PULSE 90; RESP 16; TEMP 36.8; O2SAT 98
[2022-08-06] MEDS: Omeprazole 20 MG CAPSULE.DR PO (06:11)
[2022-08-06] MEDS: LORazepam 1 MG TABLET PO ×2 (06:12→12:38)
[2022-08-06 09:02] LABS: Glucose, Whole Blood 314 mg/dL (60-115)
[2022-08-06 09:29] LABS: INTERNATIONAL NORM RATIO 1.5 (0.9-1.1)
[2022-08-06] MEDS: amLODIPine Besylate 2.5 MG TABLET PO (09:36)
[2022-08-06] MEDS: metFORMIN HCl 1,000 MG TABLET 1000 MG PO ×2 (09:36→18:28)
[2022-08-06] MEDS: Buprenorphine/Naloxone 12/3 mg FILM 1 FILM SUBLINGUAL ×2 (09:36→22:27)
[2022-08-06] MEDS: Magnesium Oxide 400 MG TABLET PO (09:36)
[2022-08-06] MEDS: carvediloL 6.25 MG TABLET PO ×2 (09:36→22:19)
[2022-08-06] MEDS: glipiZIDE 5 MG TABLET PO (09:36)
[2022-08-06] MEDS: Atorvastatin Calcium 20 MG TABLET PO (09:36)
[2022-08-06] MEDS: Cholecalciferol (Vitamin D3) 25 MCG TABLET PO (09:37)
[2022-08-06] MEDS: Sertraline HCL 100 MG TABLET PO (09:37)
[2022-08-06] MEDS: OXcarbazepine 300 MG TABLET 600 MG PO ×2 (09:37→22:20)
[2022-08-06] MEDS: Gabapentin 600 MG TABLET PO ×2 (09:37→22:19)
[2022-08-06] MEDS: risperiDONE 2 MG TABLET PO (09:37)
[2022-08-06] MEDS: Insulin Lispro 100 UNIT/ML 3 ML VIAL SUBCUT ×4 (09:37→22:20)
[2022-08-06] MEDS: Sertraline HCL 50 MG TABLET PO (09:37)
[2022-08-06] MEDS: Aspirin 81 MG TAB.CHEW PO (09:37)
[2022-08-06 09:38] LABS: Estimated Average Glucose 220 mg/dL; Hemoglobin A1c % 9.3 %
[2022-08-06 10:07] LABS: Alanine Aminotransferase 30 U/L (0-40); Albumin Level 4.3 g/dL (3.5-5.0); Alkaline Phosphatase 123 U/L (39-117); Anion Gap 12 (12-20); Aspartate Amino Transferase 28 U/L (5-37); Bilirubin Total 0.3 mg/dL (0.0-1.0); Blood Urea Nitrogen 10 mg/dL (9-16); Calcium 9.1 mg/dL (8.4-10.2); Carbon Dioxide 25 mmol/L (22-29); Chloride 99 mmol/L (96-108); Cholesterol 145 mg/dL; Creatinine Clr Calc Pharmacy 79.6; Estimated Glomerular Filt Rate > 60; Glucose Fasting 354 mg/dL (60-99); HDL Cholesterol 54 mg/dL; LDL Cholesterol Calculated 59 mg/dl; Potassium 4.3 mmol/L (3.3-5.1); Sodium 132 mmol/L (135-145); Total Protein 7.3 g/dL (6.5-8.0); Triglycerides 163 mg/dL
[2022-08-06 10:21] LABS: Vitamin B12 366 pg/mL (200-900)
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
[2022-08-06 12:34] LABS: Glucose, Whole Blood 163 mg/dL (60-115)
[2022-08-06] MEDS: chlorproMAZINE HCl 25 MG TABLET 50 MG PO ×2 (12:38→22:26)
[2022-08-06] MEDS: Acetaminophen 325 MG TABLET 650 MG PO (14:39)
[2022-08-06 18:15] LABS: Glucose, Whole Blood 232 mg/dL (60-115)
[2022-08-06] MEDS: Warfarin Sodium 3 MG TABLET PO (18:28)
[2022-08-06 21:54] VITALS: BP 130/74; PULSE 82; RESP 18; TEMP 36.1; O2SAT 96
[2022-08-06 22:08] LABS: Glucose, Whole Blood 181 mg/dL (60-115)
[2022-08-06] MEDS: Insulin Glargine,Hum.rec.anlog 100 UNIT/ML 10 ML VIAL 35 UNIT SUBCUT (22:20)
[2022-08-06] MEDS: risperiDONE 3 MG TABLET PO (22:20)
[2022-08-06] MEDS: Zolpidem Tartrate 5 MG TABLET PO (22:26)
[2022-08-07 06:00] VITALS: BP 154/84; PULSE 88; RESP 16; TEMP 36.6; O2SAT 96
[2022-08-07] MEDS: LORazepam 1 MG TABLET PO ×3 (06:19→23:30)
[2022-08-07] MEDS: Omeprazole 20 MG CAPSULE.DR PO (06:19)
[2022-08-07 07:00] VITALS: BMI 29.0
[2022-08-07] MEDS: Insulin Lispro 100 UNIT/ML 3 ML VIAL SUBCUT ×3 (08:30→19:05)
[2022-08-07] MEDS: Atorvastatin Calcium 20 MG TABLET PO (08:38)
[2022-08-07] MEDS: Buprenorphine/Naloxone 12/3 mg FILM 1 FILM SUBLINGUAL ×2 (08:38→23:32)
[2022-08-07 08:39] LABS: Glucose, Whole Blood 171 mg/dL (60-115)
[2022-08-07] MEDS: Cholecalciferol (Vitamin D3) 25 MCG TABLET PO (08:39)
[2022-08-07] MEDS: OXcarbazepine 300 MG TABLET 600 MG PO ×2 (08:39→23:31)
[2022-08-07] MEDS: chlorproMAZINE HCl 25 MG TABLET 50 MG PO ×3 (08:39→23:32)
[2022-08-07] MEDS: Sertraline HCL 100 MG TABLET PO (08:39)
[2022-08-07] MEDS: Gabapentin 600 MG TABLET PO ×2 (08:39→23:31)
[2022-08-07] MEDS: carvediloL 6.25 MG TABLET PO ×2 (08:39→23:31)
[2022-08-07] MEDS: glipiZIDE 5 MG TABLET PO (08:39)
[2022-08-07] MEDS: Aspirin 81 MG TAB.CHEW PO (08:39)
[2022-08-07] MEDS: metFORMIN HCl 1,000 MG TABLET 1000 MG PO ×2 (08:39→17:54)
[2022-08-07] MEDS: Sertraline HCL 50 MG TABLET PO (08:39)
[2022-08-07] MEDS: amLODIPine Besylate 2.5 MG TABLET PO (08:40)
[2022-08-07] MEDS: risperiDONE 2 MG TABLET PO (08:40)
[2022-08-07] MEDS: Magnesium Oxide 400 MG TABLET PO (08:40)
[2022-08-07 09:24] LABS: INTERNATIONAL NORM RATIO 2.1 (0.9-1.1); Prothrombin Time 25.4 SEC (10.0-13.1)
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
[2022-08-07 13:06] LABS: Glucose, Whole Blood 178 mg/dL (60-115)
[2022-08-07] MEDS: Warfarin Sodium 3 MG TABLET PO (17:54)
[2022-08-07 17:55] LABS: Glucose, Whole Blood 239 mg/dL (60-115)
[2022-08-07 23:23] VITALS: BP 137/80; PULSE 95; O2SAT 94
[2022-08-07 23:27] LABS: Glucose, Whole Blood 146 mg/dL (60-115)
[2022-08-07] MEDS: Zolpidem Tartrate 5 MG TABLET PO (23:30)
[2022-08-07] MEDS: risperiDONE 3 MG TABLET PO (23:31)
[2022-08-07] MEDS: Insulin Glargine,Hum.rec.anlog 100 UNIT/ML 10 ML VIAL 35 UNIT SUBCUT (23:39)
[2022-08-08 08:11] LABS: Glucose, Whole Blood 121 mg/dL (60-115)
[2022-08-08] MEDS: Cholecalciferol (Vitamin D3) 25 MCG TABLET PO (08:45)
[2022-08-08] MEDS: metFORMIN HCl 1,000 MG TABLET 1000 MG PO (08:45)
[2022-08-08] MEDS: Sertraline HCL 50 MG TABLET PO (08:45)
[2022-08-08] MEDS: OXcarbazepine 300 MG TABLET 600 MG PO (08:45)
[2022-08-08] MEDS: Gabapentin 600 MG TABLET PO (08:45)
[2022-08-08] MEDS: Buprenorphine/Naloxone 12/3 mg FILM 1 FILM SUBLINGUAL (08:45)
[2022-08-08] MEDS: Aspirin 81 MG TAB.CHEW PO (08:45)
[2022-08-08] MEDS: Omeprazole 20 MG CAPSULE.DR PO (08:45)
[2022-08-08] MEDS: glipiZIDE 5 MG TABLET PO (08:45)
[2022-08-08] MEDS: amLODIPine Besylate 2.5 MG TABLET PO (08:46)
[2022-08-08] MEDS: carvediloL 6.25 MG TABLET PO (08:46)
[2022-08-08] MEDS: Magnesium Oxide 400 MG TABLET PO (08:46)
[2022-08-08] MEDS: Atorvastatin Calcium 20 MG TABLET PO (08:46)
[2022-08-08] MEDS: Sertraline HCL 100 MG TABLET PO (08:46)
[2022-08-08] MEDS: risperiDONE 2 MG TABLET PO (08:46)
[2022-08-08 08:47] LABS: Prothrombin Time 24.1 SEC (10.0-13.1)
[2022-08-08] MEDS: LORazepam 1 MG TABLET PO (08:54)
[2022-08-08 08:56] VITALS: BP 126/72; PULSE 80; RESP 16; TEMP 36.6; O2SAT 95
== END 2022-08-08 11:30 | disposition home or self-care (01) | DRG 885 ==
LOC: HO.ED 17:24 → HO.PADLT16 18:21
PROVIDERS: Emergency Medicine Emergency Medical Services; Physician Assistant Medical; Admitting Provider Social Worker; Emergency Provider Student in an Organized Health Care Education/Training Program; PCP Pediatrics; Visit Provider Psychiatry & Neurology Psychiatry
DX: F25.0 Schizoaffective disorder, bipolar type (principal); R45.851 Suicidal ideations; I25.10 Atherosclerotic heart disease of native coronary artery without angina pectoris; F43.10 Post-traumatic stress disorder, unspecified; E11.9 Type 2 diabetes mellitus without complications; Z20.822 Contact with and (suspected) exposure to COVID-19; Z86.711 Personal history of pulmonary embolism; Z88.0 Allergy status to penicillin; Z88.8 Allergy status to other drugs, medicaments and biological substances; Z79.4 Long term (current) use of insulin; Z79.01 Long term (current) use of anticoagulants; Z79.82 Long term (current) use of aspirin; Z79.84 Long term (current) use of oral hypoglycemic drugs; Z79.899 Other long term (current) drug therapy
CPT/HCPCS: 0241U; 36415; 80053; 80061; 80307; 82607; 82947; 83036; 84443; 85025; 85610; 85730; 93005; 99285

== ENCOUNTER 2023-09-16 11:43 | Outpatient (REF) | payer OTHER, SELFPAY ==
[2023-09-16 14:46] LABS: MANUAL DIFF FLAG NO
[2023-09-16 15:01] LABS: Basophils Absolute Auto 0.1 X10*3/uL (0.0-0.2); Basophils Percent Auto 0.8 % (0-2); Eosinophils Absolute Auto 0.1 X10*3/uL (0.0-0.4); Eosinophils Percent Auto 0.8 % (0-4); Hematocrit 36.9 % (42.0-52.0); Imm Gran Abs Auto 0.02 X10*3/uL (0.00-0.03); Imm Gran Pct Auto 0.3 % (0.0-0.4); Lymphocytes Absolute Auto 1.8 X10*3/uL (1.2-4.9); Lymphocytes Percent Auto 23.9 % (20-40); Mean Corpuscular HGB Conc 29.8 g/dl (31.0-36.0); Mean Corpuscular Hemoglobin 23.9 pg (27.0-33.0); Mean Corpuscular Volume 80.2 fL (80.0-98.0); Mean Platelet Volume 10.6 fL (9.4-12.4); Monocytes Absolute Auto 0.5 X10*3/uL (0.1-1.2); Monocytes Percent Auto 7.3 % (2-11); Neutrophils Percent Auto 66.9 % (45-73); Platelet Count 168 X10*3/uL (160-400); Red Cell Distribution Width 17.6 % (11.0-16.0); White Blood Count 7.4 X10*3/uL (4.8-10.8)
[2023-09-16 15:31] LABS: Alanine Aminotransferase 38 U/L (0-40); Albumin Level 4.1 g/dL (3.5-5.0); Alkaline Phosphatase 142 U/L (39-117); Anion Gap 17 (12-20); Aspartate Amino Transferase 56 U/L (5-37); Bilirubin Total 0.5 mg/dL (0.0-1.0); Blood Urea Nitrogen 7 mg/dL (9-16); Calcium 9.8 mg/dL (8.4-10.2); Carbon Dioxide 23 mmol/L (22-29); Chloride 101 mmol/L (96-108); Cholesterol 102 mg/dL (<200); Estimated Glomerular Filt Rate > 60; Glucose Random 353 mg/dL (60-115); HDL Cholesterol 34 mg/dL (>40); LDL Cholesterol Calculated 28 mg/dL (<100); Sodium 137 mmol/L (135-145); Total Protein 8.1 g/dL (6.5-8.0); Triglycerides 201 mg/dL (<150)
[2023-09-16 15:38] LABS: TSH reflex Free T4 2.38 uIU/mL (0.32-4.0)
== END 2023-09-16 11:44 | disposition home or self-care (01) ==
LOC: HO.CHCLDS 11:43
PROVIDERS: Visit Provider Internal Medicine
DX: E11.65 Type 2 diabetes mellitus with hyperglycemia (principal)
CPT/HCPCS: 36415; 80053; 80061; 84443; 85025

== ENCOUNTER 2023-11-11 10:26 | Outpatient (REF) | payer OTHER, SELFPAY ==
[2023-11-11 14:52] LABS: MANUAL DIFF FLAG NO
[2023-11-11 15:05] LABS: Basophils Absolute Auto 0.1 X10*3/uL (0.0-0.2); Basophils Percent Auto 0.8 % (0-2); Eosinophils Absolute Auto 0.1 X10*3/uL (0.0-0.4); Eosinophils Percent Auto 0.8 % (0-4); Hematocrit 37.5 % (42.0-52.0); Hemoglobin 11.2 g/dl (14.0-18.0); Imm Gran Abs Auto 0.04 X10*3/uL (0.00-0.03); Imm Gran Pct Auto 0.5 % (0.0-0.4); Lymphocytes Absolute Auto 1.6 X10*3/uL (1.2-4.9); Lymphocytes Percent Auto 18.2 % (20-40); Mean Corpuscular HGB Conc 29.9 g/dl (31.0-36.0); Mean Corpuscular Volume 80.5 fL (80.0-98.0); Mean Platelet Volume 10.4 fL (9.4-12.4); Monocytes Absolute Auto 0.6 X10*3/uL (0.1-1.2); Monocytes Percent Auto 6.9 % (2-11); Neutrophils Absolute Auto 6.3 x10*3/uL (2.0-8.3); Neutrophils Percent Auto 72.8 % (45-73); Platelet Count 234 X10*3/uL (160-400); Red Blood Count 4.66 X10*6/uL (4.60-5.80); Red Cell Distribution Width 16.1 % (11.0-16.0); White Blood Count 8.7 X10*3/uL (4.8-10.8)
[2023-11-11 15:20] LABS: Appearance Urine Clear; Color Urine Dark Yellow; Glucose Urine UA >=1000 mg/dL (Negative); Leukocyte Esterase Urine Negative (Negative); Nitrite Urine Negative (Negative); PH 5.5 (5.0-9.0); Specific Gravity - Urine >= 1.030 (1.005-1.025); UMIC TRIGGER UACC YES; Urine Blood Negative (Negative); Urine Ketones Trace mg/dL (Negative); Urine Protein 30 (1+) mg/dL (Neg-Trace)
[2023-11-11 15:24] LABS: Bacteria Urine None Seen (None Seen); Hyaline Casts Urine 0-2 /LPF (0-2); RBC Urine 0-2 /HPF (0-2); WBC Urine 0-5 /HPF (0-5)
[2023-11-11 15:37] LABS: Alanine Aminotransferase 38 U/L (0-40); Albumin Level 4.1 g/dL (3.5-5.0); Alkaline Phosphatase 122 U/L (39-117); Anion Gap 16 (12-20); Aspartate Amino Transferase 88 U/L (5-37); Bilirubin Total 0.8 mg/dL (0.0-1.0); Blood Urea Nitrogen 6 mg/dL (9-16); Calcium 9.9 mg/dL (8.4-10.2); Carbon Dioxide 22 mmol/L (22-29); Chloride 101 mmol/L (96-108); Estimated Glomerular Filt Rate > 60; Glucose Random 251 mg/dL (60-115); Potassium 4.1 mmol/L (3.3-5.1); Sodium 135 mmol/L (135-145); Total Protein 8.3 g/dL (6.5-8.0)
[2023-11-11 18:19] LABS: Folate 2.6 ng/mL (> or = 4.0); Vitamin B12 430 pg/mL (200-900)
[2023-11-12 07:59] LABS: Syphilis Screen Nonreactive (Nonreactive)
[2023-11-12 08:40] LABS: HIV AB/AG Nonreactive (Nonreactive); HIV Num 1 0.05 S/CO (0.00-0.99)
[2023-11-12 10:33] LABS: Lyme Abs Screen <0.90 index
== END 2023-11-11 10:27 | disposition home or self-care (01) ==
LOC: HO.CHCLDS 10:26
PROVIDERS: Visit Provider Family Medicine
DX: Z11.4 Encounter for screening for human immunodeficiency virus [HIV] (principal); R41.0 Disorientation, unspecified
CPT/HCPCS: 36415; 80053; 81001; 82607; 82746; 84443; 85025; 86617; 86618; 86780; 87389

== ENCOUNTER 2023-11-26 10:55 | Outpatient (REF) | payer OTHER, SELFPAY ==
[2023-11-26 15:10] LABS: TSH reflex Free T4 1.56 uIU/mL (0.32-4.0)
[2023-11-26 15:17] LABS: Folate 5.1 ng/mL (> or = 4.0); Vitamin B12 448 pg/mL (200-900)
[2023-11-27 08:25] LABS: Syphilis Screen Nonreactive (Nonreactive)
[2023-12-02 15:43] LABS: Vitamin B6 9.1 ng/mL (2.1-21.7)
== END 2023-11-26 10:56 | disposition home or self-care (01) ==
LOC: HO.CHCLDS 10:55
PROVIDERS: Visit Provider Pediatrics
DX: R41.3 Other amnesia (principal)
CPT/HCPCS: 36415; 82607; 82746; 83735; 84207; 84443; 86780

== ENCOUNTER 2024-12-20 17:25 | Inpatient (IN) | payer OTHER, SELFPAY ==
[2024-12-20 17:32] VITALS: BMI 27.6
[2024-12-20] MEDS: hydrOXYzine HCL 25 MG TABLET PO (18:02)
--- NOTE | 2024-12-20 18:22 | PC.ADMIT ---
Erick is a 64-year-old male transferred from [facility] ED 12/20/24 at 1715 on a CV for treatment of schizoaffective d/o and PTSD. Tox screen positive for Opiates and THC however pt denies that he uses any substances. Pt has medical hx of diabetes, GERD, hyperlipidemia, HTN, and had an WI and stroke 1 year ago. Pt reports checking blood sugar BID at home. Pt initially presented to [facility] ED for complaint of chest pain. Per [facility] ED, cardiac workup was negative and pt was discharged. When pt was discharged home, pt reported worsening depression and CAH telling him to cut himself and OD on his medications. Pt also endorses visual hallucinations of shadows. Upon arrival to , pt was alert & oriented and pleasant. Pt was compliant with skin check which revealed bruising on left antecubital space r/t IV and continuous glucose monitor on right posterior arm. During admission assessment, pt remained laying in bed and stared at the wall, avoiding eye contact. Pt only answered questions with yes no or I don't know. Pt endorsed trauma history but did not elaborate. Pt asked to stop filling out paperwork because I don't have my glasses and I just want to sleep. Pt reports feeling safe on the unit, placed on 15 minute safety checks.
[2024-12-20 18:38] VITALS: BP 136/84; PULSE 104; RESP 16; TEMP 37.3; O2SAT 97
[2024-12-20 20:00] VITALS: BP 145/64; PULSE 104; RESP 145; TEMP 36.9; O2SAT 95
[2024-12-20] MEDS: traZODone HCL 50 MG TABLET PO (21:33)
[2024-12-20] MEDS: LORazepam 1 MG TABLET PO (21:33)
[2024-12-20] MEDS: OLANZapine 5 MG TABLET PO (21:33)
[2024-12-21 00:18] LABS: Glucose, Whole Blood 499 mg/dL (60-115)
[2024-12-21 00:58] VITALS: BP 138/74
[2024-12-21] MEDS: Insulin Lispro 100 UNIT/ML 3 ML VIAL 10 UNIT SUBCUT (00:58)
[2024-12-21] MEDS: cloNIDine HCL 0.1 MG TABLET PO (00:58)
[2024-12-21 02:04] LABS: Glucose, Whole Blood 425 mg/dL (60-115)
--- NOTE | 2024-12-21 02:51 | PM.EVENT ---
Event Note Date of Service: 12/21/24 Event Note: Received message from nursing that patient's blood pressure went from [id number]/dL after original 10 units of lispro. Patient had not received his HS Lantus dose of 60 units due to timing of admission. Patient had not received lantus at [facility] in the last 24 to 48 hours. Ordering Lantus 40 units now to lower risk for hypoglycemic event and requested labs be drawn now to ensure no electrolyte imbalance or acidosis is occurring. UA also ordered to check for ketones, proteinuria and glucose. Diet changed to diabetic regimen. Patient is currently on sliding scale insulin q.a.c. HS. Depending on how blood glucose levels are throughout the day, pt likely marquis be able to resuem 60 u at tonight. Time Spent With Patient Time: Total time managing care of this patient today ____ minutes.
[2024-12-21] MEDS: Insulin Glargine,Hum.rec.anlog 100 UNIT/ML 10 ML VIAL 40 UNIT SUBCUT (03:14)
[2024-12-21 03:24] LABS: Glucose, Whole Blood 360 mg/dL (60-115)
[2024-12-21] MEDS: hydrOXYzine HCL 25 MG TABLET PO ×2 (03:38→17:45)
[2024-12-21 05:13] LABS: Glucose, Whole Blood 316 mg/dL (60-115)
--- NOTE | 2024-12-21 05:18 | PC.NURSE ---
Pt had been admitted shortly before shift change, med rec completed later in shift. Pt reported taking BG BID at home. POC taken at 0000 was at 499, with VS; HR 127 and BP 138/74, provider notified.? Dr. De Los Santos recommended 10u Lispro and 0.1 Clonidine PO.? Recheck at 0130 was 425, with VS HR 113 and BP 110/56, provider notified; Dr. De Los Santos recommended contacting hospitalist, Dr. Dustin Moulton, referring this RN to NEELIMA Blancas. NEELIMA Nino ordered 40u of Lantus. Recheck before admin of 40u, indicated BG of 360 at 0300. RN provided pt with 4oz juice with administration of insulin. Pt denied any discomfort or physical complaints. Continued to monitor throughout the shift. Recheck around 0500 indicated, BG of 316 and HR 100.? Pt appeared to be able to fall back asleep comfortably after waking briefly for POC monitoring each time.
[2024-12-21 07:20] VITALS: BP 117/59; PULSE 102; RESP 14; TEMP 37.4; O2SAT 94
[2024-12-21 07:46] LABS: Glucose, Whole Blood 286 mg/dL (60-115)
[2024-12-21] MEDS: glipiZIDE 5 MG TABLET PO ×2 (08:11→16:55)
[2024-12-21] MEDS: amLODIPine Besylate 5 MG TABLET PO (08:12)
[2024-12-21] MEDS: Insulin Lispro 100 UNIT/ML 3 ML VIAL SUBCUT ×4 (08:13→21:28)
[2024-12-21] MEDS: OLANZapine 5 MG TABLET PO ×2 (08:17→14:56)
[2024-12-21 08:32] LABS: INTERNATIONAL NORM RATIO 1.4 (0.9-1.1); Prothrombin Time 15.6 SEC (10.9-12.4)
[2024-12-21 08:33] LABS: Estimated Average Glucose 186 mg/dL; Hemoglobin A1C 157.2976 umol/L; Hemoglobin A1c % 8.1 % (<6.0)
[2024-12-21 08:40] LABS: Alanine Aminotransferase 122 U/L (0-40); Albumin Level 3.5 g/dL (3.5-5.0); Alkaline Phosphatase 234 U/L (39-117); Anion Gap 12 (12-20); Aspartate Amino Transferase 71 U/L (5-37); Bilirubin Total 1.5 mg/dL (0.0-1.0); Blood Urea Nitrogen 8 mg/dL (9-16); Calcium 9.1 mg/dL (8.4-10.2); Carbon Dioxide 23 mmol/L (22-29); Chloride 109 mmol/L (96-108); Cholesterol 89 mg/dL (<200); Creatinine Clr Calc Pharmacy 118.3; Estimated Glomerular Filt Rate > 60; Glucose Random 326 mg/dL (60-115); HDL Cholesterol 38 mg/dL (>40); LDL Cholesterol Calculated 38 mg/dL (<100); Potassium 3.9 mmol/L (3.3-5.1); Sodium 140 mmol/L (135-145); Total Protein 6.5 g/dL (6.5-8.0); Triglycerides 66 mg/dL (<150)
[2024-12-21 08:57] LABS: TSH reflex Free T4 1.65 uIU/mL (0.32-4.0)
--- NOTE | 2024-12-21 09:04 | P.CONHOSP_ITS ---
History of Present Illness Data of Consult Service Date: 12/21/24 Primary Care Provider: Unknown Physician HPI Reason for consult: Medical evaluation Erick is a 64-year-old male with a past medical history of coronary artery disease, insulin-dependent diabetes, cirrhosis, Glaucoma, Hypertension, history of PE, history of CA, history of stroke, history of polysubstance use, no longer on Suboxone, bipolar disorder, schizoaffective disorder, PTSD, and GERD who presented to [facility] with increased depression. Notably patient has 4 daughters 3 of whom and his 4th daughter was recently diagnosed with stage IV breast cancer. Patient has also had 4 recent ED visits at [facility]. Most recently for chest pain, he had a CT of his abdomen and pelvis as well as a CTA both done on 12/06/2024 which were negative for any acute issues. His drug screen was positive for opiates and marijuana, he reports that he has not been taking Suboxone for about 2 months. He has documented history of heroin use. He had negative troponins, his AST and ALT are elevated, known history of cirrhosis. He has anemia most likely of chronic disease. Baseline 8-9. Patient had a negative chest x-ray, lactate level was noted to be 6.3, he received IV fluids, no evidence of infection he did receive a dose of vancomycin. Lactic acid elevated noted to be related to his cirrhosis, no evidence of infection. Urinalysis was negative, BNP was within normal limits. Beta hydroxybutyrate was negative. His renal function was within normal limits. LFTs elevated consistent with cirrhosis. On exam he is quiet and cooperative. He denies any medical concerns. Last night he was noted to have elevated blood sugar readings for 99, 425, and 360. He was given 40 units of Lantus, and we will resume his 60 units this evening. We will also administer his Trulicity last documented dose was 11/30/2024. Review of Systems 2 Review of Systems: Denies any shortness of breath, chest pain, dizziness, lightheadedness, abdominal pain or discomfort, nausea vomiting, diarrhea or constipation. [facility] Medical History Bipolar disorder CAD (coronary artery disease) Cirrhosis Glaucoma History of chronic hypertension IDDM (insulin dependent diabetes mellitus) Polysubstance dependence in controlled environment Pulmonary embolism Family History Mother Stroke Father CAD (coronary artery disease) Surgical History History of cholecystectomy Social History Household Members: Spouse Household Members Other:: Aunt Housing: Apartment Do you presently have visiting nurse or other home services: No Unable to assess alcohol history related to: Unknown Alcohol intake: never Comment: Patient is on close observation Patient Tobacco Use Status: Never used Tobacco e-Cigarette/Vaping Use: Never Used Second Hand Smoke Exposure: No Substance Use Type: Crack/Cocaine and Heroin Currently Displaying Signs/Symptoms of Drug Intoxication Withdrawal: No Have you been hit, kicked, punched, or otherwise hurt by someone within the past year? If so, by whom?: No Do you feel safe in your current relationship?: Yes Is there a partner from a previous relationship who is making you feel unsafe now?: No Are you made to feel afraid or neglected: No Advance Directives: Yes Advance Directives on File: Yes Advance Directives Date on File: 04/10/21 Do you have thoughts of harming others: None Do you have a plan to hurt others: No Plan Recently lost weight without trying: Yes How much weight loss: 2-13 pounds Eating poorly because of decreased appetite: No Nutrition screen score: 3 Nutrition Risks: No Nutritional Risk Poor oral hygiene: No service: No Sexual orientation: Straight/Heterosexual Meds Allergies Allergy/AdvReac Type Severity Reaction Status Date / Time Penicillins Allergy Mild RASH AND Verified 06/03/21 13:24 NAUSEA WITH VOMITING aripiprazole [From Abilify] Allergy Unknown unknown Verified 06/03/21 13:24 temazepam [From Restoril] Allergy Unknown UNKNOWN Verified 06/03/21 13:24 haloperidol [From Haldol] AdvReac Severe dystonia Verified 06/03/21 13:24 quetiapine [From Seroquel] AdvReac Unknown unknown Verified 06/03/21 13:24 SEAFOOD Allergy Severe UNKNOWN Uncoded 04/12/20 17:03 Active Medications: Current Medications Acetaminophen (Acetaminophen 325 Mg Tablet) 650 mg PO Q6H PRN PRN Reason: Headache/Pain, Scale 1-10 Al Hydroxide/Mg Hydroxide (Magnesium Hydrox/Alum Hydrox 30 Ml Oral.Susp) 30 ml PO Q6H PRN PRN Reason: Heartburn/Nausea Amlodipine Besylate (Amlodipine Besylate 5 Mg Tablet) 5 mg PO DAILY [facility]; Protocol Last Admin: 12/21/24 08:12 Dose: 5 mg Clonidine HCl (Clonidine Hcl 0.1 Mg Tablet) 0.1 mg PO Q4H PRN; Protocol PRN Reason: moderate anxiety Last Admin: 12/21/24 00:58 Dose: 0.1 mg Glipizide (Glipizide 5 Mg Tablet) 5 mg PO BIDWM [facility] Last Admin: 12/21/24 08:11 Dose: 5 mg Hydroxyzine HCl (Hydroxyzine Hcl 25 Mg Tablet) 25 mg PO Q6H PRN PRN Reason: mild anxiety Last Admin: 12/21/24 03:38 Dose: 25 mg Insulin Human Lispro (Insulin Lispro 100 Unit/Ml 3 Ml Vial) 0 unit SUBCUT QIDACHS [facility]; Protocol Last Admin: 12/21/24 08:13 Dose: 6 unit Lorazepam (Lorazepam 1 Mg Tablet) 1 mg PO DAILY PRN PRN Reason: moderate to severe anxiety Last Admin: 12/20/24 21:33 Dose: 1 mg Magnesium Hydroxide (Milk Of Magnesia 30 Ml Oral.Susp) 30 ml PO DAILY PRN PRN Reason: Constipation Nicotine (Nicotine 21 Mg Patch.Td24) 21 mg TRANSDERMA DAILY PRN PRN Reason: smoking cessation Nicotine Polacrilex (Nicotine Polacrilex 2 Mg Gum) 4 mg BUCCAL Q2H PRN PRN Reason: Nicotine Cravings Nitroglycerin (Nitroglycerin 0.4 Mg Tab.Subl) 0.4 mg SUBLINGUAL Q5MX3 PRN PRN Reason: angina Olanzapine (Olanzapine 5 Mg Tablet) 5 mg PO TID PRN PRN Reason: agitation Last Admin: 12/21/24 08:17 Dose: 5 mg Trazodone HCl (Trazodone Hcl 50 Mg Tablet) 50 mg PO BEDTIME MRX1 PRN PRN Reason: Insomnia Last Admin: 12/20/24 21:33 Dose: 50 mg Warfarin Sodium (Warfarin Sodium 3 Mg Tablet) 3 mg PO DAILY@1800 BINH Zolpidem Tartrate (Zolpidem Tartrate 5 Mg Tablet) 10 mg PO BEDTIME PRN PRN Reason: Insomnia Home Medications ?Medication ?Instructions ?Recorded ?Confirmed ?Last Taken ?Type insulin glargine 100 unit/mL (3 60 unit subcut QPM 08/05/22 12/21/24 Unknown History mL) subcutaneous pen (Lantus Solostar U-100 Insulin) magnesium oxide 400 mg (241.3 mg 1 tab PO DAILY 08/05/22 12/21/24 Unknown History magnesium) tablet amlodipine 2.5 mg tablet 5 mg PO DAILY 12/20/24 12/20/24 Unknown History lorazepam 1 mg tablet 1.5 mg PO DAILY PRN anxiety 12/20/24 12/20/24 12/20/24 12:00 History buprenorphine 4 mg-naloxone 1 mg 1 film sublingual DAILY 12/21/24 12/21/24 Unknown History sublingual film dulaglutide 4.5 mg/0.5 mL 4.5 mg subcut QWEEK 12/21/24 12/21/24 Unknown History subcutaneous pen injector (Trulicity) ferrous sulfate 324 mg (65 mg 648 mg PO Q OTHER DAY 12/21/24 12/21/24 Unknown History iron) tablet,delayed release glipizide 5 mg tablet 5 mg PO BIDWM 12/21/24 12/21/24 Unknown History melatonin 3 mg tablet 6 mg PO BEDTIME PRN insomnia 12/21/24 12/21/24 Unknown History propranolol 20 mg tablet 20 mg PO TID 12/21/24 12/21/24 Unknown History risperidone 0.5 mg tablet 0.5 mg PO DAILY 12/21/24 12/21/24 Unknown History risperidone 1 mg tablet 1 mg PO DAILY 12/21/24 12/21/24 Unknown History risperidone 1 mg tablet 2 mg PO BEDTIME 12/21/24 12/21/24 Unknown History sertraline 50 mg tablet 50 mg PO DAILY 12/21/24 12/21/24 Unknown History trazodone 50 mg tablet 100 mg PO BEDTIME 12/21/24 12/21/24 Unknown History Physical Exam 2 Vital Signs and Narrative: Vital Signs: Last Vital Signs Temp 99.3 F 12/21/24 07:20 Pulse 102 H 12/21/24 07:20 Resp 14 12/21/24 07:20 BP 117/59 L 12/21/24 07:20 Pulse Ox 94 12/21/24 07:20 O2 Del Method Room Air 12/21/24 07:20 BMI result Body Mass Index 27.6 Alert and oriented X3, able to give good history. Neuro: CN II-X11 intact, no deficits, visual acuity intact EYES: PERRLA, EOM intact ENT: hearing intact, uvula midline, lips moist Cardiac: S1 S2 RRR, no murmur, no JVD, no edema in Lower ext Pulmonary: lungs clear to auscultation, No increased WOB. Abdominal: BS active in all 4 quadrants, no guarding, tenderness, rebounding, + obesity MSK: Strength 5/5 upper and lower extremities : No CVA tenderness no bladder distension Extremities: no edema in lower extremities, PT and DP pulses palpable +2 Psych: mood stable, Flat affect Skin: Warm and dry, Intact Results Labs 12/21/24 07:54 Labs: Laboratory Results - last 24 hr 12/20/24 12/21/24 12/21/24 23:58 01:55 03:11 PT INR Anion Gap Estim Creat Clear Calc Estimated GFR POC Glucose 499 H* 425 H* 360 H* Random Glucose Estimat Average Glucose Hemoglobin A1c % Calcium Total Bilirubin AST ALT Alkaline Phosphatase Total Protein Albumin Triglycerides Cholesterol LDL Cholesterol, Calc HDL Cholesterol TSH 12/21/24 12/21/24 12/21/24 05:08 07:42 07:54 PT 15.6 H INR 1.4 H Anion Gap 12 Estim Creat Clear Calc 118.3 Estimated GFR > 60 POC Glucose 316 H 286 H Random Glucose 326 H Estimat Average Glucose 186 Hemoglobin A1c % 8.1 H Calcium 9.1 D Total Bilirubin 1.5 H AST 71 H ALT 122 H Alkaline Phosphatase 234 H Total Protein 6.5 Albumin 3.5 Triglycerides 66 Cholesterol 89 LDL Cholesterol, Calc 38 HDL Cholesterol 38 L TSH 1.65 Assessment and Plan (1) Schizoaffective disorder, bipolar type: Status: Acute (2) IDDM (insulin dependent diabetes mellitus): Status: Acute (3) CAD (coronary artery disease): Status: Acute Plan Bipolar disorder, schizoaffective disorder, PTSD Treatment per psych team. Insulin-dependent diabetes Had recent A1c 8.1. His blood sugars were noted to be significantly elevated on admission, received 40 units of Lantus at 03:14 am. Blood glucose this morning 286 Continue insulin sliding scale TID with meals and glipizide 5 mg b.i.d.. Patient reports that he is on Trulicity at home. Lantus 60 units at HS Consistent carb diet. Cirrhosis ALT/AST trending down Known history of cirrhosis. Follow up outpatient with GI Hold metformin Glaucoma Has not been taking Cosopt, we will restart this Advised patient to follow up outpatient with eye doctor Hypertension/CAD/History of CA and Stroke Continue home dose of amlodipine Coumadin 5 mgs- Daily INR Continue aspirin and atorvastatin, Propranolol 20 mgs TID Last ECHO 11/11/2024 with LvEF 60-65% Follow up with cardiology outpatient History of polysubstance use No longer on Suboxone GERD Continue Omeprazole you for allowing me to participate in the care of this patient. Will continue to follow as needed. Please notify medical provider of any acute complaints or issues arise
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
[2024-12-21 11:40] VITALS: BP 139/60; PULSE 98; RESP 16; TEMP 37.2; O2SAT 97
[2024-12-21 11:40] LABS: Glucose, Whole Blood 300 mg/dL (60-115)
[2024-12-21] MEDS: Omeprazole 20 MG CAPSULE.DR PO (12:13)
[2024-12-21] MEDS: Ferrous Sulfate 324 MG TABLET.DR 648 MG PO (12:13)
[2024-12-21] MEDS: Propranolol HCL 20 MG TABLET PO ×3 (12:13→21:29)
[2024-12-21] MEDS: Aspirin Enteric Coated 81 MG TABLET.DR PO (12:13)
[2024-12-21] MEDS: LORazepam 1 MG TABLET PO (14:09)
[2024-12-21 14:48] VITALS: BP 113/58; PULSE 85
[2024-12-21 16:42] LABS: Glucose, Whole Blood 332 mg/dL (60-115)
[2024-12-21] MEDS: Warfarin Sodium 3 MG TABLET PO (17:45)
[2024-12-21 19:45] VITALS: BP 110/52; PULSE 81; RESP 16; TEMP 37; O2SAT 94
[2024-12-21 21:10] LABS: Glucose, Whole Blood 298 mg/dL (60-115)
[2024-12-21] MEDS: Lidocaine 4 % Patch ADH..PATCH 1 PATCH TRANSDERMA (21:26)
[2024-12-21 21:29] VITALS: BP 136/65; PULSE 85
[2024-12-21] MEDS: QUEtiapine Fumarate 100 MG TABLET PO (21:29)
[2024-12-21] MEDS: Atorvastatin Calcium 20 MG TABLET PO (21:29)
[2024-12-21] MEDS: Insulin Glargine,Hum.rec.anlog 100 UNIT/ML 10 ML VIAL 60 UNIT SUBCUT (21:29)
[2024-12-22] MEDS: QUEtiapine Fumarate 50 MG TABLET PO (00:07)
[2024-12-22] MEDS: hydrOXYzine HCL 25 MG TABLET PO ×2 (05:10→14:44)
[2024-12-22] MEDS: Omeprazole 20 MG CAPSULE.DR PO (06:08)
[2024-12-22 07:00] VITALS: BMI 28.0
[2024-12-22 07:35] LABS: Glucose, Whole Blood 294 mg/dL (60-115)
[2024-12-22 07:58] VITALS: BP 123/60; PULSE 78; RESP 16; TEMP 36.6; O2SAT 99
[2024-12-22] MEDS: amLODIPine Besylate 5 MG TABLET PO (08:24)
[2024-12-22] MEDS: Magnesium Oxide 400 MG TABLET PO (08:25)
[2024-12-22] MEDS: Sertraline HCL 100 MG TABLET PO (08:25)
[2024-12-22] MEDS: Cholecalciferol (Vitamin D3) 25 MCG TABLET PO (08:25)
[2024-12-22] MEDS: glipiZIDE 5 MG TABLET PO ×2 (08:25→17:04)
[2024-12-22] MEDS: Aspirin Enteric Coated 81 MG TABLET.DR PO (08:25)
[2024-12-22] MEDS: Propranolol HCL 20 MG TABLET PO ×2 (08:26→20:57)
[2024-12-22] MEDS: Insulin Lispro 100 UNIT/ML 3 ML VIAL SUBCUT ×4 (08:27→20:57)
[2024-12-22] MEDS: QUEtiapine Fumarate 25 MG TABLET 12.5 MG PO ×2 (10:47→18:59)
[2024-12-22 11:55] LABS: Glucose, Whole Blood 341 mg/dL (60-115)
[2024-12-22] MEDS: Acetaminophen 325 MG TABLET 650 MG PO (13:24)
[2024-12-22 14:43] VITALS: BP 99/57; PULSE 76
--- NOTE | 2024-12-22 16:56 | P.PNPSI_ITS ---
Subjective Subjective Date of Service: 12/22/24 Reason For Visit: PTSD, Schizoaffective d/o Bipolar type Interim History: in bed, rousable. ambulates slowly. reports feeling better. forgets what exactly has improved for him. slept well. doesn't want any changes to medications. per staff, +dep/anx. freq PRNs for anxiety. drinking a lot of juice. taking meds. presented to EDs 20x in the past month. Mental Status Exam Mental Status Exam Narrative: calm, cooperative. dressed in hospital [facility], adequately groomed. general PMR. speech nml rate, amount, latency. decr tone. thoughts linear and logical. affect constricted, hypo-intense, non-labile. mood better. no SI/HI/AVH expressed. Diagnostics Vital Signs (24Hr): Vital Signs - 24 hr 12/21/24 19:45 12/21/24 21:29 12/22/24 07:58 Temperature 98.6 F 97.8 F Pulse Rate 81 85 78 Respiratory Rate 16 16 Blood Pressure 110/52 L 136/65 123/60 Pulse Oximetry 94 99 Oxygen Delivery Method Room Air Room Air 12/22/24 14:43 Temperature Pulse Rate 76 Respiratory Rate Blood Pressure 99/57 L Pulse Oximetry Oxygen Delivery Method BMI result Body Mass Index 28.0 Labs 12/21/24 07:54 Labs: Laboratory Results - last 48 hr 12/20/24 12/21/24 12/21/24 23:58 01:55 03:11 PT INR Sodium Potassium Chloride Carbon Dioxide Anion Gap BUN Creatinine Estim Creat Clear Calc Estimated GFR POC Glucose 499 H* 425 H* 360 H* Random Glucose Estimat Average Glucose Hemoglobin A1c % Calcium Total Bilirubin AST ALT Alkaline Phosphatase Total Protein Albumin Triglycerides Cholesterol LDL Cholesterol, Calc HDL Cholesterol TSH 12/21/24 12/21/24 12/21/24 05:08 07:42 07:54 PT 15.6 H INR 1.4 H Sodium 140 Potassium 3.9 Chloride 109 H Carbon Dioxide 23 Anion Gap 12 BUN 8 L Creatinine 0.66 Estim Creat Clear Calc 118.3 Estimated GFR > 60 POC Glucose 316 H 286 H Random Glucose 326 H Estimat Average Glucose 186 Hemoglobin A1c % 8.1 H Calcium 9.1 D Total Bilirubin 1.5 H AST 71 H ALT 122 H Alkaline Phosphatase 234 H Total Protein 6.5 Albumin 3.5 Triglycerides 66 Cholesterol 89 LDL Cholesterol, Calc 38 HDL Cholesterol 38 L TSH 1.65 12/21/24 12/21/24 12/21/24 11:32 16:36 21:05 PT INR Sodium Potassium Chloride Carbon Dioxide Anion Gap BUN Creatinine Estim Creat Clear Calc Estimated GFR POC Glucose 300 H 332 H 298 H Random Glucose Estimat Average Glucose Hemoglobin A1c % Calcium Total Bilirubin AST ALT Alkaline Phosphatase Total Protein Albumin Triglycerides Cholesterol LDL Cholesterol, Calc HDL Cholesterol TSH 12/22/24 12/22/24 07:29 11:49 PT INR Sodium Potassium Chloride Carbon Dioxide Anion Gap BUN Creatinine Estim Creat Clear Calc Estimated GFR POC Glucose 294 H 341 H Random Glucose Estimat Average Glucose Hemoglobin A1c % Calcium Total Bilirubin AST ALT Alkaline Phosphatase Total Protein Albumin Triglycerides Cholesterol LDL Cholesterol, Calc HDL Cholesterol TSH Medications Medications Current Medications Acetaminophen (Acetaminophen 325 Mg Tablet) 650 mg PO Q6H PRN PRN Reason: Headache/Pain Mild Scale (1-3) Last Admin: 12/22/24 13:24 Dose: 650 mg Al Hydroxide/Mg Hydroxide (Magnesium Hydrox/Alum Hydrox 30 Ml Oral.Susp) 30 ml PO Q6H PRN PRN Reason: Heartburn/Nausea Amlodipine Besylate (Amlodipine Besylate 5 Mg Tablet) 5 mg PO DAILY COUNTS INCLUDE 234 BEDS AT THE [facility]; Protocol Last Admin: 12/22/24 08:24 Dose: 5 mg Aspirin (Aspirin Enteric Coated 81 Mg Tablet.) 81 mg PO DAILY COUNTS INCLUDE 234 BEDS AT THE [facility] Last Admin: 12/22/24 08:25 Dose: 81 mg Atorvastatin Calcium (Atorvastatin Calcium 20 Mg Tablet) 20 mg PO BEDTIME COUNTS INCLUDE 234 BEDS AT THE [facility] Last Admin: 12/21/24 21:29 Dose: 20 mg Clonidine HCl (Clonidine Hcl 0.1 Mg Tablet) 0.1 mg PO Q4H PRN; Protocol PRN Reason: moderate anxiety Last Admin: 12/21/24 00:58 Dose: 0.1 mg Dorzolamide/Timolol (Dorzolamide/Timolo 2.23%/0.68% 10 Ml Drbtl) 1 drop EYE- BOTH BEDTIME COUNTS INCLUDE 234 BEDS AT THE [facility] Last Admin: 12/21/24 21:20 Dose: Not Given Ferrous Sulfate (Ferrous Sulfate 324 Mg Tablet.) 648 mg PO Q48H COUNTS INCLUDE 234 BEDS AT THE [facility] Last Admin: 12/21/24 12:13 Dose: 648 mg Glipizide (Glipizide 5 Mg Tablet) 5 mg PO BIDWM [facility] Last Admin: 12/22/24 08:25 Dose: 5 mg Hydroxyzine HCl (Hydroxyzine Hcl 25 Mg Tablet) 25 mg PO Q6H PRN PRN Reason: mild anxiety Last Admin: 12/22/24 14:44 Dose: 25 mg Insulin Glargine (Insulin Glargine,Hum.Rec.Anlog 100 Unit/Ml 10 Ml Vial) 60 unit SUBCUT BEDTIME COUNTS INCLUDE 234 BEDS AT THE [facility] Last Admin: 12/21/24 21:29 Dose: 60 unit Insulin Human Lispro (Insulin Lispro 100 Unit/Ml 3 Ml Vial) 0 unit SUBCUT QIDACHS COUNTS INCLUDE 234 BEDS AT THE [facility]; Protocol Last Admin: 12/22/24 12:37 Dose: 8 unit Lidocaine (Lidocaine 4 % Patch Adh..Patch) 1 patch TRANSDERMA BEDTIME COUNTS INCLUDE 234 BEDS AT THE [facility]; Protocol Last Admin: 12/21/24 21:26 Dose: 1 patch Magnesium Hydroxide (Milk Of Magnesia 30 Ml Oral.Susp) 30 ml PO DAILY PRN PRN Reason: Constipation Magnesium Oxide (Magnesium Oxide 400 Mg Tablet) 400 mg PO DAILY COUNTS INCLUDE 234 BEDS AT THE [facility] Last Admin: 12/22/24 08:25 Dose: 400 mg Nicotine (Nicotine 21 Mg Patch.Td24) 21 mg TRANSDERMA DAILY PRN PRN Reason: smoking cessation Nicotine Polacrilex (Nicotine Polacrilex 2 Mg Gum) 4 mg BUCCAL Q2H PRN PRN Reason: Nicotine Cravings Nitroglycerin (Nitroglycerin 0.4 Mg Tab.Subl) 0.4 mg SUBLINGUAL Q5MX3 PRN PRN Reason: angina Omeprazole (Omeprazole 20 Mg Capsule.Dr) 20 mg PO DAILY@0630 COUNTS INCLUDE 234 BEDS AT THE [facility] Last Admin: 12/22/24 06:08 Dose: 20 mg Propranolol HCl (Propranolol Hcl 20 Mg Tablet) 20 mg PO TID COUNTS INCLUDE 234 BEDS AT THE [facility]; Protocol Last Admin: 12/22/24 14:43 Dose: Not Given Quetiapine Fumarate (Quetiapine Fumarate 100 Mg Tablet) 100 mg PO BEDTIME COUNTS INCLUDE 234 BEDS AT THE [facility] Last Admin: 12/21/24 21:29 Dose: 100 mg Quetiapine Fumarate (Quetiapine Fumarate 50 Mg Tablet) 50 mg PO BEDTIME PRN PRN Reason: insomnia Last Admin: 12/22/24 00:07 Dose: 50 mg Quetiapine Fumarate (Quetiapine Fumarate 25 Mg Tablet) 12.5 mg PO Q4H PRN PRN Reason: severe anxiety Last Admin: 12/22/24 10:47 Dose: 12.5 mg Sertraline HCl (Sertraline Hcl 100 Mg Tablet) 100 mg PO DAILY COUNTS INCLUDE 234 BEDS AT THE [facility] Last Admin: 12/22/24 08:25 Dose: 100 mg Vitamin D (Cholecalciferol (Vitamin D3) 25 Mcg Tablet) 25 mcg PO DAILY COUNTS INCLUDE 234 BEDS AT THE [facility] Last Admin: 12/22/24 08:25 Dose: 25 mcg Warfarin Sodium (Warfarin Sodium 3 Mg Tablet) 3 mg PO DAILY@1800 COUNTS INCLUDE 234 BEDS AT THE [facility] Last Admin: 12/21/24 17:45 Dose: 3 mg Allergies Allergies Allergy/AdvReac Type Severity Reaction Status Date / Time Penicillins Allergy Mild RASH AND Verified 06/03/21 13:24 NAUSEA WITH VOMITING aripiprazole [From Abilify] Allergy Unknown unknown Verified 06/03/21 13:24 temazepam [From Restoril] Allergy Unknown UNKNOWN Verified 06/03/21 13:24 haloperidol [From Haldol] AdvReac Severe dystonia Verified 06/03/21 13:24 quetiapine [From Seroquel] AdvReac Unknown unknown Verified 06/03/21 13:24 SEAFOOD Allergy Severe UNKNOWN Uncoded 04/12/20 17:03 Assessment & Plan Assessment & Plan (1) PTSD (post-traumatic stress disorder): Status: Acute Code(s): F43.10 - Post-traumatic stress disorder, unspecified (2) IDDM (insulin dependent diabetes mellitus): Status: Acute (3) CAD (coronary artery disease): Status: Acute Code(s): I25.10 - Atherosclerotic heart disease of [place] coronary artery without angina pectoris Plan 12/21: increase seroquel dosing for anxiety and insomnia. increase sertraline dosing for depression and anxiety. otherwise continue outpt medications. 12/22: reports feeling better, can't say in what way. cognition in question, check MoCA. continue current medications. T/C transfer to [facility] for evaluation for ability to care for himself and more appropriate engagement environment. Reason for continued inpatient stay Substantial Risk for: inability to function Time Spent With Patient Time: Total time managing care of this patient today __25__ minutes.
[2024-12-22 17:04] LABS: Glucose, Whole Blood 258 mg/dL (60-115)
[2024-12-22] MEDS: Warfarin Sodium 3 MG TABLET PO (17:04)
[2024-12-22 17:45] VITALS: BP 117/58; PULSE 90; RESP 18; TEMP 36.3; O2SAT 97
[2024-12-22 17:51] VITALS: BP 117/58
[2024-12-22] MEDS: cloNIDine HCL 0.1 MG TABLET PO (17:51)
--- NOTE | 2024-12-22 17:56 | ECG_ITS ---
Test Reason : Chest pain Blood Pressure : */* mmHG Vent. Rate : 85 BPM Atrial Rate : 85 BPM P-R Int : 166 ms QRS Dur : 72 ms QT Int : 386 ms P-R-T Axes : -17 -26 -2 degrees QTcB Int : 459 ms Normal sinus rhythm Minimal voltage criteria for LVH, may be normal variant ( R in aVL ) Borderline ECG When compared with ECG of 05-Aug-2022 15:35, Premature atrial complexes are no longer Present Referred By: Chasity Garcia Electronically Signed By: RICH MONTES MD
[2024-12-22 18:53] LABS: Troponin-I High Sensitivity < 2.7 ng/L (<3.5-35.0)
[2024-12-22 19:11] LABS: INTERNATIONAL NORM RATIO 1.4 (0.9-1.1); Prothrombin Time 16.4 SEC (10.9-12.4)
[2024-12-22 20:00] VITALS: BP 110/55; PULSE 85; RESP 14; TEMP 36.9; O2SAT 94
[2024-12-22 20:40] LABS: Glucose, Whole Blood 332 mg/dL (60-115)
[2024-12-22] MEDS: Lidocaine 4 % Patch ADH..PATCH 1 PATCH TRANSDERMA (20:53)
[2024-12-22] MEDS: Insulin Glargine,Hum.rec.anlog 100 UNIT/ML 10 ML VIAL 60 UNIT SUBCUT (20:55)
[2024-12-22] MEDS: Atorvastatin Calcium 20 MG TABLET PO (20:57)
[2024-12-22] MEDS: QUEtiapine Fumarate 100 MG TABLET PO (20:58)
[2024-12-22] MEDS: Dorzolamide/Timolo 2.23%/0.68% 10 ML DRBTL 1 DROP EYE-BOTH (21:05)
[2024-12-22 21:29] LABS: Troponin-I High Sensitivity < 2.7 ng/L (<3.5-35.0)
[2024-12-23] MEDS: hydrOXYzine HCL 25 MG TABLET PO ×2 (05:14→15:25)
[2024-12-23] MEDS: QUEtiapine Fumarate 25 MG TABLET 12.5 MG PO ×3 (05:16→16:34)
[2024-12-23] MEDS: Omeprazole 20 MG CAPSULE.DR PO (05:31)
[2024-12-23 07:45] LABS: Glucose, Whole Blood 205 mg/dL (60-115)
[2024-12-23 07:52] VITALS: BP 113/56; PULSE 80; RESP 18; TEMP 36.4; O2SAT 96
[2024-12-23] MEDS: Magnesium Oxide 400 MG TABLET PO (08:09)
[2024-12-23] MEDS: Cholecalciferol (Vitamin D3) 25 MCG TABLET PO (08:09)
[2024-12-23] MEDS: Aspirin Enteric Coated 81 MG TABLET.DR PO (08:09)
[2024-12-23] MEDS: Sertraline HCL 100 MG TABLET PO (08:10)
[2024-12-23] MEDS: amLODIPine Besylate 5 MG TABLET PO (08:10)
[2024-12-23] MEDS: glipiZIDE 5 MG TABLET PO ×2 (08:10→17:19)
[2024-12-23] MEDS: Propranolol HCL 20 MG TABLET PO ×2 (08:10→20:29)
[2024-12-23] MEDS: Insulin Lispro 100 UNIT/ML 3 ML VIAL SUBCUT ×4 (08:11→20:30)
--- NOTE | 2024-12-23 08:22 | PC.NURSE ---
*Late entry 12/22/24* Around 1750 patient reported sharp chest pain radiating to his left neck. He reported it worsens with a deep breath. Vital signs are 97.5*F 90 HR 18 RR 97% room air 117/58 R arm. He is not nauseas, no sweating noted, no tremors. He was able to sit calmly at nurses station. He reported an increase in anxiety as well. Chasity Garcia MD notified. Orders for EKG and Troponin received. Given Clonindine and Seroquel for anxiety with some effect.
[2024-12-23 08:26] LABS: INTERNATIONAL NORM RATIO 1.6 (0.9-1.1); Prothrombin Time 18.4 SEC (10.9-12.4)
[2024-12-23 11:44] LABS: Glucose, Whole Blood 238 mg/dL (60-115)
[2024-12-23] MEDS: Ferrous Sulfate 324 MG TABLET.DR 648 MG PO (12:11)
--- NOTE | 2024-12-23 12:39 | P.PNPSI_ITS ---
Subjective Subjective Date of Service: 12/23/24 Reason For Visit: PTSD, Schizoaffective d/o Bipolar type Interim History: feeling better still. happy with how things are going. feeling ready for discharge. informed of plan for MoCA and to investigate if nursing facility it warranted for him. pt states he wishes to live independently. per staff, flat, taking meds. anx 8/10. CP at 1735, EKG and troponin WNL. incontinent of urine x1. denies depression. + anxiety. slept about 7 hours. Mental Status Exam Mental Status Exam Narrative: calm, cooperative. dressed in [place], adequately groomed. general PMR. speech nml rate, amount, latency. decr tone. thoughts linear and logical. affect constricted, hypo-intense, non-labile. mood better. no SI/HI/AVH expressed. Diagnostics Vital Signs (24Hr): Vital Signs - 24 hr 12/22/24 14:43 12/22/24 17:45 12/22/24 17:51 Temperature 97.4 F Pulse Rate 76 90 Respiratory Rate 18 Blood Pressure 99/57 L 117/58 L 117/58 L Pulse Oximetry 97 Oxygen Delivery Method Room Air 12/22/24 20:00 12/23/24 07:52 Temperature 98.5 F 97.5 F Pulse Rate 85 80 Respiratory Rate 14 18 Blood Pressure 110/55 L 113/56 L Pulse Oximetry 94 96 Oxygen Delivery Method Room Air Room Air BMI result Body Mass Index 28.0 Labs 12/21/24 07:54 Labs: Laboratory Results - last 48 hr 12/21/24 12/21/24 12/22/24 16:36 21:05 07:29 PT INR POC Glucose 332 H 298 H 294 H Troponin I High Sens 12/22/24 12/22/24 12/22/24 11:49 16:37 18:21 PT INR POC Glucose 341 H 258 H Troponin I High Sens < 2.7 12/22/24 12/22/24 12/22/24 18:22 20:35 20:59 PT 16.4 H INR 1.4 H POC Glucose 332 H Troponin I High Sens < 2.7 12/23/24 12/23/24 12/23/24 07:41 07:57 11:40 PT 18.4 H INR 1.6 H POC Glucose 205 H 238 H Troponin I High Sens Medications Medications Current Medications Acetaminophen (Acetaminophen 325 Mg Tablet) 650 mg PO Q6H PRN PRN Reason: Headache/Pain Mild Scale (1-3) Last Admin: 12/22/24 13:24 Dose: 650 mg Al Hydroxide/Mg Hydroxide (Magnesium Hydrox/Alum Hydrox 30 Ml Oral.Susp) 30 ml PO Q6H PRN PRN Reason: Heartburn/Nausea Amlodipine Besylate (Amlodipine Besylate 5 Mg Tablet) 5 mg PO DAILY [facility]; Protocol Last Admin: 12/23/24 08:10 Dose: 5 mg Aspirin (Aspirin Enteric Coated 81 Mg Tablet.) 81 mg PO DAILY [facility] Last Admin: 12/23/24 08:09 Dose: 81 mg Atorvastatin Calcium (Atorvastatin Calcium 20 Mg Tablet) 20 mg PO BEDTIME [facility] Last Admin: 12/22/24 20:57 Dose: 20 mg Clonidine HCl (Clonidine Hcl 0.1 Mg Tablet) 0.1 mg PO Q4H PRN; Protocol PRN Reason: moderate anxiety Last Admin: 12/22/24 17:51 Dose: 0.1 mg Dorzolamide/Timolol (Dorzolamide/Timolo 2.23%/0.68% 10 Ml Drbtl) 1 drop EYE- BOTH BEDTIME [facility] Last Admin: 12/22/24 21:05 Dose: 1 drop Ferrous Sulfate (Ferrous Sulfate 324 Mg Tablet.) 648 mg PO Q48H [facility] Last Admin: 12/23/24 12:11 Dose: 648 mg Glipizide (Glipizide 5 Mg Tablet) 5 mg PO BIDWM [facility] Last Admin: 12/23/24 08:10 Dose: 5 mg Hydroxyzine HCl (Hydroxyzine Hcl 25 Mg Tablet) 25 mg PO Q6H PRN PRN Reason: mild anxiety Last Admin: 12/23/24 05:14 Dose: 25 mg Insulin Glargine (Insulin Glargine,Hum.Rec.Anlog 100 Unit/Ml 10 Ml Vial) 60 unit SUBCUT BEDTIME [facility] Last Admin: 12/22/24 20:55 Dose: 60 unit Insulin Human Lispro (Insulin Lispro 100 Unit/Ml 3 Ml Vial) 0 unit SUBCUT QIDACHS [facility]; Protocol Last Admin: 12/23/24 12:11 Dose: 4 unit Lidocaine (Lidocaine 4 % Patch Adh..Patch) 1 patch TRANSDERMA BEDTIME [facility]; Protocol Last Admin: 12/22/24 20:53 Dose: 1 patch Magnesium Hydroxide (Milk Of Magnesia 30 Ml Oral.Susp) 30 ml PO DAILY PRN PRN Reason: Constipation Magnesium Oxide (Magnesium Oxide 400 Mg Tablet) 400 mg PO DAILY [facility] Last Admin: 12/23/24 08:09 Dose: 400 mg Nicotine (Nicotine 21 Mg Patch.Td24) 21 mg TRANSDERMA DAILY PRN PRN Reason: smoking cessation Nicotine Polacrilex (Nicotine Polacrilex 2 Mg Gum) 4 mg BUCCAL Q2H PRN PRN Reason: Nicotine Cravings Nitroglycerin (Nitroglycerin 0.4 Mg Tab.Subl) 0.4 mg SUBLINGUAL Q5MX3 PRN PRN Reason: angina Omeprazole (Omeprazole 20 Mg Capsule.Dr) 20 mg PO DAILY@0630 [facility] Last Admin: 12/23/24 05:31 Dose: 20 mg Propranolol HCl (Propranolol Hcl 20 Mg Tablet) 20 mg PO TID [facility]; Protocol Last Admin: 12/23/24 08:10 Dose: 20 mg Quetiapine Fumarate (Quetiapine Fumarate 100 Mg Tablet) 100 mg PO BEDTIME [facility] Last Admin: 12/22/24 20:58 Dose: 100 mg Quetiapine Fumarate (Quetiapine Fumarate 50 Mg Tablet) 50 mg PO BEDTIME PRN PRN Reason: insomnia Last Admin: 12/22/24 00:07 Dose: 50 mg Quetiapine Fumarate (Quetiapine Fumarate 25 Mg Tablet) 12.5 mg PO Q4H PRN PRN Reason: severe anxiety Last Admin: 12/23/24 12:33 Dose: 12.5 mg Sertraline HCl (Sertraline Hcl 100 Mg Tablet) 100 mg PO DAILY [facility] Last Admin: 12/23/24 08:10 Dose: 100 mg Vitamin D (Cholecalciferol (Vitamin D3) 25 Mcg Tablet) 25 mcg PO DAILY [facility] Last Admin: 12/23/24 08:09 Dose: 25 mcg Warfarin Sodium (Warfarin Sodium 3 Mg Tablet) 3 mg PO DAILY@1800 [facility] Last Admin: 12/22/24 17:04 Dose: 3 mg Allergies Allergies Allergy/AdvReac Type Severity Reaction Status Date / Time Penicillins Allergy Mild RASH AND Verified 06/03/21 13:24 NAUSEA WITH VOMITING aripiprazole [From Abilify] Allergy Unknown unknown Verified 06/03/21 13:24 temazepam [From Restoril] Allergy Unknown UNKNOWN Verified 06/03/21 13:24 haloperidol [From Haldol] AdvReac Severe dystonia Verified 06/03/21 13:24 quetiapine [From Seroquel] AdvReac Unknown unknown Verified 06/03/21 13:24 SEAFOOD Allergy Severe UNKNOWN Uncoded 04/12/20 17:03 Assessment & Plan Assessment & Plan (1) PTSD (post-traumatic stress disorder): Status: Acute Code(s): F43.10 - Post-traumatic stress disorder, unspecified (2) IDDM (insulin dependent diabetes mellitus): Status: Acute (3) CAD (coronary artery disease): Status: Acute Code(s): I25.10 - Atherosclerotic heart disease of [place] coronary artery without angina pectoris Plan 12/21: increase seroquel dosing for anxiety and insomnia. increase sertraline dosing for depression and anxiety. otherwise continue outpt medications. 12/22: reports feeling better, can't say in what way. cognition in question, check MoCA. continue current medications. T/C transfer to [facility] for evaluation for ability to care for himself and more appropriate engagement environment. 12/23: feeling better. continue current mgmt. check MoCA, ACLS. planning for discharge early next week. Reason for continued inpatient stay Substantial Risk for: inability to function Time Spent With Patient Time: Total time managing care of this patient today __35__ minutes.
--- NOTE | 2024-12-23 13:20 | PC.NURSE ---
Pt was administered a MOCA Assessment on 12/23/2024. Pt scored a 10 out of 30 indicating moderate cognitive impairment. This score may not be an accurate representation of pt's cognitive functioning d/t pt having difficulty seeing the first section for the assessment and refusing to complete some sections. The pt reported he does not wear glasses.
[2024-12-23 14:40] VITALS: BP 99/54; PULSE 77
[2024-12-23 16:40] LABS: Glucose, Whole Blood 316 mg/dL (60-115)
[2024-12-23] MEDS: Warfarin Sodium 3 MG TABLET PO (17:19)
[2024-12-23 20:24] LABS: Glucose, Whole Blood 235 mg/dL (60-115)
[2024-12-23 20:25] VITALS: BP 125/67; PULSE 95; RESP 16; TEMP 36.9; O2SAT 96
[2024-12-23] MEDS: Insulin Glargine,Hum.rec.anlog 100 UNIT/ML 10 ML VIAL 60 UNIT SUBCUT (20:30)
[2024-12-23] MEDS: QUEtiapine Fumarate 100 MG TABLET PO (20:30)
[2024-12-23] MEDS: Atorvastatin Calcium 20 MG TABLET PO (20:30)
[2024-12-23] MEDS: Dorzolamide/Timolo 2.23%/0.68% 10 ML DRBTL 1 DROP EYE-BOTH (20:32)
[2024-12-23] MEDS: QUEtiapine Fumarate 50 MG TABLET PO (20:58)
--- NOTE | 2024-12-23 21:58 | ECG_ITS ---
Test Reason : chest pain Blood Pressure : */* mmHG Vent. Rate : 78 BPM Atrial Rate : 78 BPM P-R Int : 180 ms QRS Dur : 74 ms QT Int : 398 ms P-R-T Axes : -19 -22 -5 degrees QTcB Int : 453 ms Normal sinus rhythm Minimal voltage criteria for LVH, may be normal variant ( R in aVL ) Borderline ECG When compared with ECG of 22-Dec-2024 18:38, No significant change was found Referred By: Jenifer Betancourt Electronically Signed By: RICH MONTES MD
[2024-12-23 22:25] VITALS: BP 99/52; PULSE 81
[2024-12-23] MEDS: Nitroglycerin 0.4 MG TAB.SUBL SUBLINGUAL ×2 (22:25→22:30)
[2024-12-23 22:30] VITALS: BP 100/49; PULSE 78
--- NOTE | 2024-12-23 23:04 | PC.NURSE ---
At 0 patient was reporting some chest pain 8/10. A STAT EKG was done. AT 2224, Patient was then given 2 doses of Nitroglcerin 0.4 mg PO prn with positive effect. Went to check on patient at 2300, patient asleep with RR of 14.
--- NOTE | 2024-12-24 | ECG_ITS ---
Test Reason : Chest pain Blood Pressure : */* mmHG Vent. Rate : 83 BPM Atrial Rate : 83 BPM P-R Int : 180 ms QRS Dur : 70 ms QT Int : 390 ms P-R-T Axes : 35 -18 8 degrees QTcB Int : 458 ms Normal sinus rhythm Minimal voltage criteria for LVH, may be normal variant ( R in aVL ) Inferior infarct , age undetermined Abnormal ECG No previous ECGs available Referred By: Ginny Agarwal Electronically Signed By: RICH MONTES MD
[2024-12-24] MEDS: QUEtiapine Fumarate 25 MG TABLET 12.5 MG PO ×2 (03:21→13:10)
[2024-12-24] MEDS: hydrOXYzine HCL 25 MG TABLET PO ×2 (03:21→16:32)
[2024-12-24] MEDS: Omeprazole 20 MG CAPSULE.DR PO (06:46)
[2024-12-24 07:49] LABS: Glucose, Whole Blood 186 mg/dL (60-115)
[2024-12-24 08:11] VITALS: BP 105/51; PULSE 85; RESP 16; TEMP 37.2; O2SAT 97
[2024-12-24] MEDS: Insulin Lispro 100 UNIT/ML 3 ML VIAL SUBCUT ×4 (08:13→20:44)
[2024-12-24] MEDS: Sertraline HCL 100 MG TABLET PO (08:17)
[2024-12-24] MEDS: Aspirin Enteric Coated 81 MG TABLET.DR PO (08:18)
[2024-12-24] MEDS: glipiZIDE 5 MG TABLET PO ×2 (08:18→17:12)
[2024-12-24] MEDS: amLODIPine Besylate 5 MG TABLET PO (08:18)
[2024-12-24] MEDS: Propranolol HCL 20 MG TABLET PO ×2 (08:18→20:42)
[2024-12-24] MEDS: Cholecalciferol (Vitamin D3) 25 MCG TABLET PO (08:19)
[2024-12-24] MEDS: Magnesium Oxide 400 MG TABLET PO (08:19)
[2024-12-24 09:44] LABS: INTERNATIONAL NORM RATIO 1.9 (0.9-1.1); Prothrombin Time 21.8 SEC (10.9-12.4)
--- NOTE | 2024-12-24 10:43 | P.PNPSI_ITS ---
Subjective Subjective Date of Service: 12/24/24 Reason For Visit: PTSD, Schizoaffective d/o Bipolar type Subjective Notes: Conditional Voluntary Interim History: Pt slept through the night. reported chest pain last night, ekg neg for acute ischemia, given nitro with good effect. He reports feeling better, less depression and reports less auditory hallucinations. He denies SI/HI. No delusional content but poverty of thought. Review of Systems Review of Systems Denies any shortness of breath, chest pain, dizziness, lightheadedness, abdominal pain or discomfort, nausea vomiting, diarrhea or constipation. Mental Status Exam Mental Status Exam Narrative: calm, cooperative. dressed in [facility], adequately groomed. general PMR. speech nml rate, amount, latency. decr tone. thoughts linear and logical. affect constricted, hypo-intense, non-labile. mood better. no SI/HI/AVH expressed. Diagnostics Vital Signs (24Hr): Vital Signs - 24 hr 12/23/24 14:40 12/23/24 20:25 12/23/24 22:25 Temperature 98.5 F Pulse Rate 77 95 81 Respiratory Rate 16 Blood Pressure 99/54 L 125/67 99/52 L Pulse Oximetry 96 Oxygen Delivery Method Room Air 12/23/24 22:30 12/24/24 08:11 Temperature 98.9 F Pulse Rate 78 85 Respiratory Rate 16 Blood Pressure 100/49 L 105/51 L Pulse Oximetry 97 Oxygen Delivery Method Room Air BMI result Body Mass Index 28.0 Labs 12/21/24 07:54 Labs: Laboratory Results - last 48 hr 12/22/24 12/22/24 12/22/24 11:49 16:37 18:21 Hold Purple Top PT INR POC Glucose 341 H 258 H Troponin I High Sens < 2.7 12/22/24 12/22/24 12/22/24 18:22 20:35 20:59 Hold Purple Top PT 16.4 H INR 1.4 H POC Glucose 332 H Troponin I High Sens < 2.7 12/23/24 12/23/24 12/23/24 07:41 07:57 11:40 Hold Purple Top PT 18.4 H INR 1.6 H POC Glucose 205 H 238 H Troponin I High Sens 12/23/24 12/23/24 12/24/24 16:36 20:19 07:38 Hold Purple Top PT INR POC Glucose 316 H 235 H 186 H Troponin I High Sens 12/24/24 08:51 Hold Purple Top SEE NOTE PT 21.8 H INR 1.9 H POC Glucose Troponin I High Sens Medications Medications Current Medications Acetaminophen (Acetaminophen 325 Mg Tablet) 650 mg PO Q6H PRN PRN Reason: Headache/Pain Mild Scale (1-3) Last Admin: 12/22/24 13:24 Dose: 650 mg Al Hydroxide/Mg Hydroxide (Magnesium Hydrox/Alum Hydrox 30 Ml Oral.Susp) 30 ml PO Q6H PRN PRN Reason: Heartburn/Nausea Amlodipine Besylate (Amlodipine Besylate 5 Mg Tablet) 5 mg PO DAILY [facility]; Protocol Last Admin: 12/24/24 08:18 Dose: 5 mg Aspirin (Aspirin Enteric Coated 81 Mg Tablet.) 81 mg PO DAILY [facility] Last Admin: 12/24/24 08:18 Dose: 81 mg Atorvastatin Calcium (Atorvastatin Calcium 20 Mg Tablet) 20 mg PO BEDTIME [facility] Last Admin: 12/23/24 20:30 Dose: 20 mg Clonidine HCl (Clonidine Hcl 0.1 Mg Tablet) 0.1 mg PO Q4H PRN; Protocol PRN Reason: moderate anxiety Last Admin: 12/22/24 17:51 Dose: 0.1 mg Dorzolamide/Timolol (Dorzolamide/Timolo 2.23%/0.68% 10 Ml Drbtl) 1 drop EYE- BOTH BEDTIME [facility] Last Admin: 12/23/24 20:32 Dose: 1 drop Ferrous Sulfate (Ferrous Sulfate 324 Mg Tablet.) 648 mg PO Q48H [facility] Last Admin: 12/23/24 12:11 Dose: 648 mg Glipizide (Glipizide 5 Mg Tablet) 5 mg PO BIDWM [facility] Last Admin: 12/24/24 08:18 Dose: 5 mg Hydroxyzine HCl (Hydroxyzine Hcl 25 Mg Tablet) 25 mg PO Q6H PRN PRN Reason: mild anxiety Last Admin: 12/24/24 03:21 Dose: 25 mg Insulin Glargine (Insulin Glargine,Hum.Rec.Anlog 100 Unit/Ml 10 Ml Vial) 60 unit SUBCUT BEDTIME [facility] Last Admin: 12/23/24 20:30 Dose: 60 unit Insulin Human Lispro (Insulin Lispro 100 Unit/Ml 3 Ml Vial) 0 unit SUBCUT QIDACHS [facility]; Protocol Last Admin: 12/24/24 08:13 Dose: 2 unit Lidocaine (Lidocaine 4 % Patch Adh..Patch) 1 patch TRANSDERMA BEDTIME [facility]; Protocol Last Admin: 12/23/24 20:37 Dose: Not Given Magnesium Hydroxide (Milk Of Magnesia 30 Ml Oral.Susp) 30 ml PO DAILY PRN PRN Reason: Constipation Magnesium Oxide (Magnesium Oxide 400 Mg Tablet) 400 mg PO DAILY [facility] Last Admin: 12/24/24 08:19 Dose: 400 mg Nicotine (Nicotine 21 Mg Patch.Td24) 21 mg TRANSDERMA DAILY PRN PRN Reason: smoking cessation Nicotine Polacrilex (Nicotine Polacrilex 2 Mg Gum) 4 mg BUCCAL Q2H PRN PRN Reason: Nicotine Cravings Nitroglycerin (Nitroglycerin 0.4 Mg Tab.Subl) 0.4 mg SUBLINGUAL Q5MX3 PRN PRN Reason: angina Last Admin: 12/23/24 22:30 Dose: 0.4 mg Omeprazole (Omeprazole 20 Mg Capsule.Dr) 20 mg PO DAILY@0630 [facility] Last Admin: 12/24/24 06:46 Dose: 20 mg Propranolol HCl (Propranolol Hcl 20 Mg Tablet) 20 mg PO BID [facility]; Protocol Last Admin: 12/24/24 08:18 Dose: 20 mg Quetiapine Fumarate (Quetiapine Fumarate 100 Mg Tablet) 100 mg PO BEDTIME [facility] Last Admin: 12/23/24 20:30 Dose: 100 mg Quetiapine Fumarate (Quetiapine Fumarate 50 Mg Tablet) 50 mg PO BEDTIME PRN PRN Reason: insomnia Last Admin: 12/23/24 20:58 Dose: 50 mg Quetiapine Fumarate (Quetiapine Fumarate 25 Mg Tablet) 12.5 mg PO Q4H PRN PRN Reason: severe anxiety Last Admin: 12/24/24 03:21 Dose: 12.5 mg Sertraline HCl (Sertraline Hcl 100 Mg Tablet) 100 mg PO DAILY [facility] Last Admin: 12/24/24 08:17 Dose: 100 mg Vitamin D (Cholecalciferol (Vitamin D3) 25 Mcg Tablet) 25 mcg PO DAILY [facility] Last Admin: 12/24/24 08:19 Dose: 25 mcg Warfarin Sodium (Warfarin Sodium 3 Mg Tablet) 3 mg PO DAILY@1800 [facility] Last Admin: 12/23/24 17:19 Dose: 3 mg Allergies Allergies Allergy/AdvReac Type Severity Reaction Status Date / Time Penicillins Allergy Mild RASH AND Verified 06/03/21 13:24 NAUSEA WITH VOMITING aripiprazole [From Abilify] Allergy Unknown unknown Verified 06/03/21 13:24 temazepam [From Restoril] Allergy Unknown UNKNOWN Verified 06/03/21 13:24 haloperidol [From Haldol] AdvReac Severe dystonia Verified 06/03/21 13:24 quetiapine [From Seroquel] AdvReac Unknown unknown Verified 06/03/21 13:24 SEAFOOD Allergy Severe UNKNOWN Uncoded 04/12/20 17:03 Assessment & Plan Assessment & Plan (1) PTSD (post-traumatic stress disorder): Status: Acute Code(s): F43.10 - Post-traumatic stress disorder, unspecified (2) IDDM (insulin dependent diabetes mellitus): Status: Acute (3) CAD (coronary artery disease): Status: Acute Code(s): I25.10 - Atherosclerotic heart disease of [place] coronary artery without angina pectoris Plan 12/21: increase seroquel dosing for anxiety and insomnia. increase sertraline dosing for depression and anxiety. otherwise continue outpt medications. 12/22: reports feeling better, can't say in what way. cognition in question, check MoCA. continue current medications. T/C transfer to [facility] for evaluation for ability to care for himself and more appropriate engagement environment. 12/23: feeling better. continue current mgmt. check MoCA, ACLS. planning for discharge early next week. 12/24 continue tx. Reason for continued inpatient stay Substantial Risk for: inability to function Time Spent With Patient Time: Total time managing care of this patient today ____ minutes.
[2024-12-24 12:28] LABS: Glucose, Whole Blood 202 mg/dL (60-115)
[2024-12-24 16:59] LABS: Glucose, Whole Blood 351 mg/dL (60-115)
[2024-12-24] MEDS: Warfarin Sodium 3 MG TABLET PO (17:12)
[2024-12-24 17:55] VITALS: BP 140/64; PULSE 95
[2024-12-24 17:58] VITALS: BP 140/64; PULSE 95
[2024-12-24] MEDS: Nitroglycerin 0.4 MG TAB.SUBL SUBLINGUAL (17:58)
[2024-12-24 18:00] VITALS: BP 88/60; PULSE 99
--- NOTE | 2024-12-24 18:13 | PC.NURSE ---
Patient approached desk c/o CP. Reports #8 pain, pressure in center of chest. No radiation reported, no diaphoresis. BP 140/64, HR 95. Reports pain decreased to #6 with medication, BP 88/60 HR 99. Reports radiation to neck. Dr. Vega notified, EKG ordered.
--- NOTE | 2024-12-24 18:34 | PC.NURSE ---
Hospitalist, Ginny Agarwal, notified of pt's report of chest pain, VS before and after Nitro 0.4mg 1 dose given, pain decreasing with 1st dose given, 2nd dose not given due to decrease in bp and ekg ordered. Stat Troponin ordered by hospitalist, Dr Vega and phlebotomy notified. [employer] notified of need for ekg.
[2024-12-24 19:07] LABS: Appearance Urine Clear; Color Urine Yellow; Glucose Urine UA >=1000 mg/dL (Negative); Leukocyte Esterase Urine Negative (Negative); Nitrite Urine Negative (Negative); PH 6.5 (5.0-9.0); Specific Gravity - Urine >= 1.030 (1.005-1.025); UMIC TRIGGER UACC YES; Urine Blood Negative (Negative); Urine Ketones Negative (Negative); Urine Protein Negative (Neg-Trace)
[2024-12-24 19:12] LABS: Bacteria Urine None Seen (None Seen); Hyaline Casts Urine 0-2 /LPF (0-2); RBC Urine 0-2 /HPF (0-2); Squamous Epithelial Cell Urine 0-2 /HPF (0-2); WBC Urine 0-5 /HPF (0-5)
[2024-12-24 19:16] VITALS: BP 131/61; PULSE 86; RESP 20; O2SAT 97
[2024-12-24 19:17] LABS: Troponin-I High Sensitivity < 2.7 ng/L (<3.5-35.0)
--- NOTE | 2024-12-24 19:18 | PC.NURSE ---
Addendum entered and electronically signed by Staci Pate RN 12/24/24 19:25: No new orders at present time per hospitalist, Ginny Agarwal. Original Note: Addendum entered and electronically signed by Staci Pate RN 12/24/24 19:23: Troponin level received, results <2.7; Dr Vega and Ginny Agarwal notified. Original Note: Ekg results reviewed with Dr Vega and hospitalist, Ginny Agarwal. Pt reporting pain has decreased, describing as a dull #5 on scale 1-10(10 worse). Appears to be resting comfortably in bed, no sob noted. VS 131/61 P86 R20, O2sat 97% rm air. Ginny questioned re: need for additional Nitro. No additional Nitro needed at present time per hospitalist. Waiting for results of Troponin.
[2024-12-24 20:00] VITALS: BP 122/57; PULSE 89; RESP 16; TEMP 37; O2SAT 95
[2024-12-24 20:35] LABS: Glucose, Whole Blood 232 mg/dL (60-115)
[2024-12-24] MEDS: Atorvastatin Calcium 20 MG TABLET PO (20:42)
[2024-12-24] MEDS: QUEtiapine Fumarate 100 MG TABLET PO (20:42)
[2024-12-24] MEDS: QUEtiapine Fumarate 50 MG TABLET PO (20:43)
[2024-12-24] MEDS: Insulin Glargine,Hum.rec.anlog 100 UNIT/ML 10 ML VIAL 60 UNIT SUBCUT (20:44)
[2024-12-24] MEDS: Dorzolamide/Timolo 2.23%/0.68% 10 ML DRBTL 1 DROP EYE-BOTH (20:45)
[2024-12-25] MEDS: hydrOXYzine HCL 25 MG TABLET PO (00:51)
[2024-12-25] MEDS: QUEtiapine Fumarate 25 MG TABLET 12.5 MG PO ×2 (00:51→17:37)
[2024-12-25] MEDS: Omeprazole 20 MG CAPSULE.DR PO (06:37)
[2024-12-25 08:00] VITALS: BP 112/57; PULSE 78; TEMP 37.1; O2SAT 99
[2024-12-25 08:06] LABS: Glucose, Whole Blood 112 mg/dL (60-115)
[2024-12-25] MEDS: glipiZIDE 5 MG TABLET PO ×2 (08:17→17:32)
[2024-12-25] MEDS: Sertraline HCL 100 MG TABLET PO (08:17)
[2024-12-25] MEDS: amLODIPine Besylate 5 MG TABLET PO (08:17)
[2024-12-25] MEDS: Propranolol HCL 20 MG TABLET PO ×2 (08:18→20:47)
[2024-12-25] MEDS: Magnesium Oxide 400 MG TABLET PO (08:18)
[2024-12-25] MEDS: Cholecalciferol (Vitamin D3) 25 MCG TABLET PO (08:18)
[2024-12-25] MEDS: Aspirin Enteric Coated 81 MG TABLET.DR PO (08:18)
[2024-12-25] MEDS: Ferrous Sulfate 324 MG TABLET.DR 648 MG PO (10:47)
[2024-12-25 11:54] LABS: Glucose, Whole Blood 270 mg/dL (60-115)
[2024-12-25] MEDS: Insulin Lispro 100 UNIT/ML 3 ML VIAL SUBCUT ×3 (12:04→20:48)
[2024-12-25 12:17] LABS: INTERNATIONAL NORM RATIO 2.4 (0.9-1.1); Prothrombin Time 27.1 SEC (10.9-12.4)
[2024-12-25 16:59] LABS: Glucose, Whole Blood 327 mg/dL (60-115)
[2024-12-25] MEDS: Warfarin Sodium 3 MG TABLET PO (17:32)
[2024-12-25 20:00] VITALS: BP 112/58; PULSE 83; RESP 16; TEMP 37.3; O2SAT 98
[2024-12-25] MEDS: Dorzolamide/Timolo 2.23%/0.68% 10 ML DRBTL 1 DROP EYE-BOTH (20:31)
[2024-12-25 20:41] LABS: Glucose, Whole Blood 257 mg/dL (60-115)
[2024-12-25 20:47] VITALS: BP 112/58; PULSE 83
[2024-12-25] MEDS: Atorvastatin Calcium 20 MG TABLET PO (20:47)
[2024-12-25] MEDS: cloNIDine HCL 0.1 MG TABLET PO (20:47)
[2024-12-25] MEDS: QUEtiapine Fumarate 100 MG TABLET PO (20:47)
[2024-12-25] MEDS: Insulin Glargine,Hum.rec.anlog 100 UNIT/ML 10 ML VIAL 60 UNIT SUBCUT (20:49)
--- NOTE | 2024-12-25 21:51 | HO.PSYCHPN ---
Subjective Subjective Date of Service: 12/25/24 Reason For Visit: PTSD, Schizoaffective d/o Bipolar type Subjective Notes: Conditional Voluntary Interim History: Pt slept through the night. He denies any physical concerns. He had another episode of chest pain last night, ekg and troponins reassuring. He reports feeling better, less depression and reports less auditory hallucinations. He denies SI/HI. No delusional content but poverty of thought. Review of Systems Review of Systems Denies any shortness of breath, chest pain, dizziness, lightheadedness, abdominal pain or discomfort, nausea vomiting, diarrhea or constipation. Mental Status Exam Mental Status Exam Narrative: calm, cooperative. dressed in [facility], adequately groomed. general PMR. speech nml rate, amount, latency. decr tone. thoughts linear and logical. affect constricted, hypo-intense, non-labile. mood better. no SI/HI/AVH expressed. Diagnostics Vital Signs (24Hr): Vital Signs - 24 hr 12/25/24 08:00 12/25/24 20:00 12/25/24 20:47 Temperature 98.7 F 99.1 F Pulse Rate 78 83 83 Respiratory Rate 16 Blood Pressure 112/57 L 112/58 L 112/58 L Pulse Oximetry 99 98 Oxygen Delivery Method Room Air Room Air 12/25/24 20:47 Temperature Pulse Rate Respiratory Rate Blood Pressure 112/58 L Pulse Oximetry Oxygen Delivery Method BMI result Body Mass Index 28.0 Labs 12/21/24 07:54 Labs: Laboratory Results - last 48 hr 12/24/24 12/24/24 12/24/24 07:38 08:51 12:10 Hold Purple Top SEE NOTE PT 21.8 H INR 1.9 H POC Glucose 186 H 202 H Troponin I High Sens Urine Color Urine Appearance Urine pH Ur Specific [place] Urine Protein Urine Glucose (UA) Urine Ketones Urine Blood Urine Nitrite Ur Leukocyte Esterase Urine RBC Urine WBC Ur Squamous Epith Cells Urine Bacteria Hyaline Casts 12/24/24 12/24/24 12/24/24 16:54 17:15 18:48 Hold Purple Top PT INR POC Glucose 351 H* Troponin I High Sens < 2.7 Urine Color Yellow Urine Appearance Clear Urine pH 6.5 Ur Specific [place] >= 1.030 H Urine Protein Negative Urine Glucose (UA) >=1000 H Urine Ketones Negative Urine Blood Negative Urine Nitrite Negative Ur Leukocyte Esterase Negative Urine RBC 0-2 Urine WBC 0-5 Ur Squamous Epith Cells 0-2 Urine Bacteria None Seen Hyaline Casts 0-2 12/24/24 12/25/24 12/25/24 20:31 07:53 11:41 Hold Purple Top PT 27.1 H D INR 2.4 H POC Glucose 232 H 112 Troponin I High Sens Urine Color Urine Appearance Urine pH Ur Specific [place] Urine Protein Urine Glucose (UA) Urine Ketones Urine Blood Urine Nitrite Ur Leukocyte Esterase Urine RBC Urine WBC Ur Squamous Epith Cells Urine Bacteria Hyaline Casts 12/25/24 12/25/24 12/25/24 11:43 16:51 20:33 Hold Purple Top PT INR POC Glucose 270 H 327 H 257 H Troponin I High Sens Urine Color Urine Appearance Urine pH Ur Specific [place] Urine Protein Urine Glucose (UA) Urine Ketones Urine Blood Urine Nitrite Ur Leukocyte Esterase Urine RBC Urine WBC Ur Squamous Epith Cells Urine Bacteria Hyaline Casts Medications Medications Current Medications Acetaminophen (Acetaminophen 325 Mg Tablet) 650 mg PO Q6H PRN PRN Reason: Headache/Pain Mild Scale (1-3) Last Admin: 12/22/24 13:24 Dose: 650 mg Al Hydroxide/Mg Hydroxide (Magnesium Hydrox/Alum Hydrox 30 Ml Oral.Susp) 30 ml PO Q6H PRN PRN Reason: Heartburn/Nausea Amlodipine Besylate (Amlodipine Besylate 5 Mg Tablet) 5 mg PO DAILY [facility]; Protocol Last Admin: 12/25/24 08:17 Dose: 5 mg Aspirin (Aspirin Enteric Coated 81 Mg Tablet.) 81 mg PO DAILY [facility] Last Admin: 12/25/24 08:18 Dose: 81 mg Atorvastatin Calcium (Atorvastatin Calcium 20 Mg Tablet) 20 mg PO BEDTIME [facility] Last Admin: 12/25/24 20:47 Dose: 20 mg Clonidine HCl (Clonidine Hcl 0.1 Mg Tablet) 0.1 mg PO Q4H PRN; Protocol PRN Reason: moderate anxiety Last Admin: 12/25/24 20:47 Dose: 0.1 mg Dorzolamide/Timolol (Dorzolamide/Timolo 2.23%/0.68% 10 Ml Drbtl) 1 drop EYE-BOTH BEDTIME [facility] Last Admin: 12/25/24 20:31 Dose: 1 drop Ferrous Sulfate (Ferrous Sulfate 324 Mg Tablet.) 648 mg PO Q48H [facility] Last Admin: 12/25/24 10:47 Dose: 648 mg Glipizide (Glipizide 5 Mg Tablet) 5 mg PO BIDWM [facility] Last Admin: 12/25/24 17:32 Dose: 5 mg Hydroxyzine HCl (Hydroxyzine Hcl 25 Mg Tablet) 25 mg PO Q6H PRN PRN Reason: mild anxiety Last Admin: 12/25/24 00:51 Dose: 25 mg Insulin Glargine (Insulin Glargine,Hum.Rec.Anlog 100 Unit/Ml 10 Ml Vial) 60 unit SUBCUT BEDTIME [facility] Last Admin: 12/25/24 20:49 Dose: 60 unit Insulin Human Lispro (Insulin Lispro 100 Unit/Ml 3 Ml Vial) 0 unit SUBCUT QIDACHS [facility]; Protocol Last Admin: 12/25/24 20:48 Dose: 6 unit Lidocaine (Lidocaine 4 % Patch Adh..Patch) 1 patch TRANSDERMA BEDTIME [facility]; Protocol Last Admin: 12/25/24 20:52 Dose: Not Given Magnesium Hydroxide (Milk Of Magnesia 30 Ml Oral.Susp) 30 ml PO DAILY PRN PRN Reason: Constipation Magnesium Oxide (Magnesium Oxide 400 Mg Tablet) 400 mg PO DAILY [facility] Last Admin: 12/25/24 08:18 Dose: 400 mg Nicotine (Nicotine 21 Mg Patch.Td24) 21 mg TRANSDERMA DAILY PRN PRN Reason: smoking cessation Nicotine Polacrilex (Nicotine Polacrilex 2 Mg Gum) 4 mg BUCCAL Q2H PRN PRN Reason: Nicotine Cravings Nitroglycerin (Nitroglycerin 0.4 Mg Tab.Subl) 0.4 mg SUBLINGUAL Q5MX3 PRN PRN Reason: angina Last Admin: 12/24/24 17:58 Dose: 0.4 mg Omeprazole (Omeprazole 20 Mg Capsule.Dr) 20 mg PO DAILY@30 [facility] Last Admin: 12/25/24 06:37 Dose: 20 mg Propranolol HCl (Propranolol Hcl 20 Mg Tablet) 20 mg PO BID [facility]; Protocol Last Admin: 12/25/24 20:47 Dose: 20 mg Quetiapine Fumarate (Quetiapine Fumarate 100 Mg Tablet) 100 mg PO BEDTIME [facility] Last Admin: 12/25/24 20:47 Dose: 100 mg Quetiapine Fumarate (Quetiapine Fumarate 50 Mg Tablet) 50 mg PO BEDTIME PRN PRN Reason: insomnia Last Admin: 12/24/24 20:43 Dose: 50 mg Quetiapine Fumarate (Quetiapine Fumarate 25 Mg Tablet) 12.5 mg PO Q4H PRN PRN Reason: severe anxiety Last Admin: 12/25/24 17:37 Dose: 12.5 mg Sertraline HCl (Sertraline Hcl 100 Mg Tablet) 100 mg PO DAILY [facility] Last Admin: 12/25/24 08:17 Dose: 100 mg Vitamin D (Cholecalciferol (Vitamin D3) 25 Mcg Tablet) 25 mcg PO DAILY [facility] Last Admin: 12/25/24 08:18 Dose: 25 mcg Warfarin Sodium (Warfarin Sodium 3 Mg Tablet) 3 mg PO DAILY@1800 [facility] Last Admin: 12/25/24 17:32 Dose: 3 mg Allergies Allergies Allergy/AdvReac Type Severity Reaction Status Date / Time Penicillins Allergy Mild RASH AND Verified 06/03/21 13:24 NAUSEA WITH VOMITING aripiprazole [From Abilify] Allergy Unknown unknown Verified 06/03/21 13:24 temazepam [From Restoril] Allergy Unknown UNKNOWN Verified 06/03/21 13:24 haloperidol [From Haldol] AdvReac Severe dystonia Verified 06/03/21 13:24 quetiapine [From Seroquel] AdvReac Unknown unknown Verified 06/03/21 13:24 SEAFOOD Allergy Severe UNKNOWN Uncoded 04/12/20 17:03 Assessment & Plan Assessment & Plan (1) PTSD (post-traumatic stress disorder): Status: Acute Code(s): F43.10 - Post-traumatic stress disorder, unspecified (2) IDDM (insulin dependent diabetes mellitus): Status: Acute (3) CAD (coronary artery disease): Status: Acute Code(s): I25.10 - Atherosclerotic heart disease of [place] coronary artery without angina pectoris Plan 12/21: increase seroquel dosing for anxiety and insomnia. increase sertraline dosing for depression and anxiety. otherwise continue outpt medications. 12/22: reports feeling better, can't say in what way. cognition in question, check MoCA. continue current medications. T/C transfer to [facility] for evaluation for ability to care for himself and more appropriate engagement environment. 12/23: feeling better. continue current mgmt. check MoCA, ACLS. planning for discharge early next week. 12/24 continue tx. 12/25 continue tx. Reason for continued inpatient stay Substantial Risk for: inability to function Time Spent With Patient Time: Total time managing care of this patient today ____ minutes.
[2024-12-26] MEDS: hydrOXYzine HCL 25 MG TABLET PO (04:16)
[2024-12-26] MEDS: Omeprazole 20 MG CAPSULE.DR PO (06:29)
[2024-12-26 07:51] LABS: Glucose, Whole Blood 163 mg/dL (60-115)
[2024-12-26 08:00] VITALS: BP 147/70; PULSE 72; RESP 14; TEMP 36.9; O2SAT 98
[2024-12-26] MEDS: Insulin Lispro 100 UNIT/ML 3 ML VIAL SUBCUT (08:07)
[2024-12-26 08:08] VITALS: BP 147/70
[2024-12-26] MEDS: Sertraline HCL 100 MG TABLET PO (08:08)
[2024-12-26] MEDS: Cholecalciferol (Vitamin D3) 25 MCG TABLET PO (08:08)
[2024-12-26] MEDS: amLODIPine Besylate 5 MG TABLET PO (08:08)
[2024-12-26 08:09] VITALS: BP 147/70; PULSE 72
[2024-12-26] MEDS: Propranolol HCL 20 MG TABLET PO (08:09)
[2024-12-26] MEDS: Aspirin Enteric Coated 81 MG TABLET.DR PO (08:09)
[2024-12-26] MEDS: glipiZIDE 5 MG TABLET PO (08:09)
[2024-12-26] MEDS: Magnesium Oxide 400 MG TABLET PO (08:09)
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
[2024-12-26 11:12] LABS: INTERNATIONAL NORM RATIO 2.6 (0.9-1.1); Prothrombin Time 29.9 SEC (10.9-12.4)
== END 2024-12-26 11:50 | disposition home or self-care (01) | DRG 885 ==
PROVIDERS: Nurse Practitioner Family; Psychiatry & Neurology Psychiatry; Student in an Organized Health Care Education/Training Program; Admitting Provider Psychiatry & Neurology Psychiatry; Visit Provider Psychiatry & Neurology Psychiatry
DX: F25.0 Schizoaffective disorder, bipolar type (principal); I25.10 Atherosclerotic heart disease of native coronary artery without angina pectoris; I10 Essential (primary) hypertension; K21.9 Gastro-esophageal reflux disease without esophagitis; H40.9 Unspecified glaucoma; E11.9 Type 2 diabetes mellitus without complications; F43.12 Post-traumatic stress disorder, chronic; K74.60 Unspecified cirrhosis of liver; Z86.711 Personal history of pulmonary embolism; Z62.810 Personal history of physical and sexual abuse in childhood; Z79.4 Long term (current) use of insulin; Z79.84 Long term (current) use of oral hypoglycemic drugs; Z79.85 Long-term (current) use of injectable non-insulin antidiabetic drugs; Z79.899 Other long term (current) drug therapy
CPT/HCPCS: 36415; 80053; 80061; 81001; 82947; 83036; 84443; 84484; 85610; 93005

== ENCOUNTER 2024-12-20 17:25 | Outpatient (BNV) | payer OTHER, SELFPAY | END 2024-12-22 17:56 | PROVIDERS: Admitting Provider Psychiatry & Neurology Psychiatry; Visit Provider Internal Medicine Cardiovascular Disease | DX: R07.9 Chest pain, unspecified (principal) | CPT/HCPCS: 93010 ==

== ENCOUNTER 2024-12-20 17:25 | Outpatient (BNV) | payer OTHER, SELFPAY | END 2024-12-24 18:46 | PROVIDERS: Admitting Provider Psychiatry & Neurology Psychiatry; Visit Provider Internal Medicine Cardiovascular Disease | DX: R94.31 Abnormal electrocardiogram [ECG] [EKG] (principal); R07.9 Chest pain, unspecified | CPT/HCPCS: 93010 ==

== ENCOUNTER 2024-12-20 17:25 | Outpatient (BNV) | payer OTHER, SELFPAY | END 2024-12-23 21:58 | PROVIDERS: Admitting Provider Psychiatry & Neurology Psychiatry; Visit Provider Internal Medicine Cardiovascular Disease | DX: R94.31 Abnormal electrocardiogram [ECG] [EKG] (principal); R07.9 Chest pain, unspecified | CPT/HCPCS: 93010 ==

== ENCOUNTER → 2024-12-20 17:25 | Outpatient (BNV) | payer OTHER, SELFPAY | PROVIDERS: Admitting Provider Psychiatry & Neurology Psychiatry; Visit Provider Psychiatry & Neurology Psychiatry | DX: F43.11 Post-traumatic stress disorder, acute (principal); I25.10 Atherosclerotic heart disease of native coronary artery without angina pectoris | CPT/HCPCS: 90792; 99232 ==

== ENCOUNTER → 2024-12-20 17:25 | Outpatient (BNV) | payer OTHER, SELFPAY | PROVIDERS: Admitting Provider Psychiatry & Neurology Psychiatry; Visit Provider Nurse Practitioner Family | DX: I25.10 Atherosclerotic heart disease of native coronary artery without angina pectoris (principal); F25.0 Schizoaffective disorder, bipolar type | CPT/HCPCS: 99222; 99499 ==